=== PATIENT | male | born 1960 | race Caucasian/White ===

== ENCOUNTER 2020-08-08 11:57 | Day surgery (SDC) | payer OTHER, SELFPAY ==
[2020-08-05 10:00] VITALS: BMI 23.8
--- NOTE | 2020-08-06 15:04 | HO.ANESPROP2 ---
Documented by User: Natacha Dubon 08/06/20 15:05 HPI - Anesthesia Eval Consult details Narrative: 60yo M for Upper Endoscopy and Colonoscopy [facility] Past Medical History Medical History Moderate asthma Psoriatic arthritis Pure hypercholesterolemia Unintentional weight loss Family History Family History (Updated 07/18/20 @ 09:03 by Magdalene Marina) Father Kidney failure Mother Diabetes Stroke Brother Cancer of kidney Surgical History Surgical History H/O enucleation of right eyeball History of corneal transplant History of eye prosthesis Hx laparoscopic cholecystectomy Hx of colonoscopy Social History Social History (Updated 07/18/20 @ 09:04 by Magdalene Marina) Alcohol intake: never Smoking Status: Never smoker Use of substances other than those prescribed or required for medical reasons: No Advance Directives: No Advance Directives Information Provided: No Advance Directives on File: No Recently lost weight without trying: Yes Meds Allergies Allergy/AdvReac Type Severity Reaction Status Date / Time atorvastatin [Lipitor] Allergy Unknown elevated Verified 06/24/20 15:00 liver enzymes Home Medications Medication Instructions Recorded Confirmed Type albuterol sulfate 90 mcg/actuation 2 puff INHALATION Q4-6H PRN 06/24/20 08/05/20 History aerosol inhaler amitriptyline 25 mg tablet 25 mg PO BEDTIME 06/24/20 08/05/20 History certolizumab pegol 400 mg SUBCUT Q2W 06/24/20 08/05/20 History cetirizine 10 mg tablet 10 mg PO DAILY 06/24/20 08/05/20 History cyclobenzaprine 10 mg tablet 10 mg PO BID 06/24/20 08/05/20 History fluticasone 250 mcg-salmeterol 50 1 ea PO BID 06/24/20 08/05/20 History mcg/dose blistr powdr for inhalation montelukast 10 mg tablet 10 mg PO DAILY 06/24/20 08/05/20 History rosuvastatin 10 mg tablet 10 mg PO DAILY 06/24/20 08/05/20 History sennosides 8.6 mg tablet 17.2 mg PO BEDTIME PRN 06/24/20 08/05/20 History triamcinolone acetonide 55 mcg 1 spray INTRANASAL DAILY 06/24/20 08/05/20 History nasal spray aerosol fluticasone propion-salmeterol 1 puff PO BID 08/05/20 08/05/20 History [Besstalisaiah Inhub] pantoprazole 1 tab PO DAILY 08/05/20 08/05/20 History Exam Exam Date and Time: August 06, 2020 1504 Height,Weight and Vital Signs: Height 5 ft 4 in Weight 63.049 kg Pertinent Lab Results Pertinent Lab Results: Laboratory Tests 07/18/20 07/18/20 10:18 10:18 WBC 5.5 RBC 5.41 Hgb 14.3 Hct 44.6 Plt Count 309 Sodium 139 Potassium 4.9 D Chloride 104 Carbon Dioxide 29 BUN 16 Creatinine 0.85 Assessment and Plan Assessment Anesthesia Assessment: Chart Reviewed Documented by User: Qi Conley 08/08/20 12:58 PMFSH Past Medical History Medical History Moderate asthma Psoriatic arthritis Pure hypercholesterolemia Unintentional weight loss Family History Family History (Updated 07/18/20 @ 09:03 by Magdalene Marina) Father Kidney failure Mother Diabetes Stroke Brother Cancer of kidney Family history of problems with anesthesia: No Surgical History Surgical History H/O enucleation of right eyeball History of corneal transplant History of eye prosthesis Hx laparoscopic cholecystectomy Hx of colonoscopy History of Problems with Anesthesia: No Social History Social History (Updated 07/18/20 @ 09:04 by Magdalene Marina) Alcohol intake: never Smoking Status: Never smoker Use of substances other than those prescribed or required for medical reasons: No Advance Directives: No Advance Directives Information Provided: No Advance Directives on File: No Recently lost weight without trying: Yes Meds Allergies Allergy/AdvReac Type Severity Reaction Status Date / Time atorvastatin [Lipitor] Allergy Unknown elevated Verified 06/24/20 15:00 liver enzymes Home Medications Medication Instructions Recorded Confirmed Type albuterol sulfate 90 mcg/actuation 2 puff INHALATION Q4-6H PRN 06/24/20 08/05/20 History aerosol inhaler amitriptyline 25 mg tablet 25 mg PO BEDTIME 06/24/20 08/05/20 History certolizumab pegol 400 mg SUBCUT Q2W 06/24/20 08/05/20 History cetirizine 10 mg tablet 10 mg PO DAILY 06/24/20 08/05/20 History cyclobenzaprine 10 mg tablet 10 mg PO BID 06/24/20 08/05/20 History fluticasone 250 mcg-salmeterol 50 1 ea PO BID 06/24/20 08/05/20 History mcg/dose blistr powdr for inhalation montelukast 10 mg tablet 10 mg PO DAILY 06/24/20 08/05/20 History rosuvastatin 10 mg tablet 10 mg PO DAILY 06/24/20 08/05/20 History sennosides 8.6 mg tablet 17.2 mg PO BEDTIME PRN 06/24/20 08/05/20 History triamcinolone acetonide 55 mcg 1 spray INTRANASAL DAILY 06/24/20 08/05/20 History nasal spray aerosol fluticasone propion-salmeterol 1 puff PO BID 08/05/20 08/05/20 History [Wixela Inhub] pantoprazole 1 tab PO DAILY 08/05/20 08/05/20 History Exam Height,Weight and Vital Signs: Vital Signs Temp Pulse Resp BP Pulse Ox 08/08/20 12:28 97.6 F 54 16 129/78 99 Airway Mallampati Class: II TM Dist: >3cm Neck ROM: Full Heart: RRR Lungs: CTAB Assessment and Plan Assessment Anesthesia Assessment: Anesthesia Plan Discussed and Chart Reviewed Final Anesthetic Review NPO: Yes ASA Class: II Final Preanesthetic Review: No Changes in Pt Med Stat, Meds/Allgs Chart Reviewed, Consent Obtained/Reviewed and Anes Risks/Benef Reviewed Patient Risk: Low Procedure Risk: Low Anesthetic Plan Anesthetic Plan: MAC: Disposition: Standard PACU
[2020-08-08 12:28] VITALS: BP 129/78; PULSE 54; RESP 16; TEMP 36.4; O2SAT 99
--- NOTE | 2020-08-08 12:35 | ECG_ITS ---
Test Reason : ABN EKG Blood Pressure : / mmHG Vent. Rate : 055 BPM Atrial Rate : 055 BPM P-R Int : 170 ms QRS Dur : 088 ms QT Int : 418 ms P-R-T Axes : 064 -04 037 degrees QTc Int : 399 ms Sinus bradycardia RSR' or QR pattern in V1 suggests right ventricular conduction delay Otherwise normal ECG When compared with ECG of 19-SEP-2016 15:23, Vent. rate has decreased BY 43 BPM Referred By: Qi Conley Electronically Signed By:FABRIZIO SUMNER MD
[2020-08-08] MEDS: Lactated Ringers 1,000 ML 100 ML IVCONT (12:57)
--- NOTE | 2020-08-08 13:13 | MHC.SHP ---
Pre-Procedural Eval Section A The patient is an INPATIENT: No Changes since office visit: No Cold of Flu in the past 2 weeks, No New Medical Problems, No Changes in Medication and No Patient answered all questions The History & Physical has been completed within 30 days and I have reviewed it.: Yes Section B Chief Complaint: left quadrant pain Allergies: Allergies Allergy/AdvReac Type Severity Reaction Status Date / Time atorvastatin [Lipitor] Allergy Unknown elevated Verified 06/24/20 15:00 liver enzymes Plan Patient has been examined and remains a candidate for the planned procedure
--- NOTE | 2020-08-08 13:57 | PM.OP ---
Brief Operative Note Date of Service: 08/08/20 Pre-op diagnosis: abd pain, wt loss Post-op diagnosis: same (colon polyps) Procedure: EGD, colon Surgeon: Quan Velázquez Anesthesia: MAC Estimated blood loss (mL): 5 Pathology: other (polyps cecum, 70 cm. Biopsies duodenum,antrum, egj, t.i., sigmoid) Condition: stable Disposition: PACU
[2020-08-08 13:58] VITALS: BP 94/56; PULSE 88; RESP 16; TEMP 36.1; O2SAT 99
[2020-08-08 14:13] VITALS: BP 117/76; PULSE 79; RESP 16; O2SAT 100
--- NOTE | 2020-08-08 14:34 | HO.POSTANES ---
Post Anesthesia Evaluation Post Anesthesia Evaluation Vital Signs: Vital Signs Temp Pulse Resp BP Pulse Ox 08/08/20 14:13 97.0 F 79 16 117/76 100 08/08/20 13:58 97.0 F 88 16 94/56 L 99 08/08/20 12:28 97.6 F 54 16 129/78 99 Anesthesia: General (tiva) Mental Status: Awake Pain Control: Satisfactory Nausea/Vomiting: None Hydration: Adequate Anesthesia-Related Issues: No Anes. Related Issues
--- NOTE | 2020-08-08 14:38 | OP_ITS ---
SURGEON: Quan Velázquez MD INDICATIONS: Abdominal pain and weight loss. PREOPERATIVE DIAGNOSIS: POSTOPERATIVE DIAGNOSIS: PROCEDURE PERFORMED: 1. Upper endoscopy with biopsy. 2. Colonoscopy to the terminal ileum with biopsy and snare polypectomy. ESTIMATED BLOOD LOSS: COMPLICATIONS: ANESTHESIA: ASSISTANTS: SPECIMENS: MEDICATIONS: Monitored anesthesia care. DESCRIPTION OF PROCEDURE: History and physical performed. The risks and benefits of the procedure were explained to the patient. Informed consent was obtained. The patient was placed in the left lateral decubitus position. The Olympus video gastroscope was introduced into the esophagus, stomach, and duodenum. Examination was performed and the scope was removed. He was repositioned for colonoscopy. A digital rectal exam was performed and was found to be normal. The Olympus pediatric video colonoscope was introduced into the rectum and advanced to the cecum without difficulty. The cecum was identified by transillumination, palpation, and identification of ileocecal valve. Examination was performed and the scope was removed. He tolerated both procedures well and returned to recovery area in stable condition. FINDINGS: UPPER ENDOSCOPY: Esophagus: The esophagus was normal. There was no esophagitis. The EG junction was slightly irregular and biopsies were obtained to rule out Scruggs's esophagus. Stomach: The stomach showed no evidence of masses, ulcers, or polyps. Antral biopsies were obtained to evaluate for H pylori. Duodenum: The bulb and second portion were normal. Biopsies were obtained from the second portion. COLONOSCOPY: The terminal ileum was normal. This was biopsied. In the cecum, was a 4 to 5 mm polyp, which was removed with biopsy forceps. At 70 cm from the anal verge in the vicinity of the hepatic flexure, there was an 8 mm pedunculated polyp, which was snared and recovered via suction. The quality of the prep was good. No other polyps were identified. Random sigmoid biopsies were obtained. Retroflexed examination showed small internal hemorrhoids. IMPRESSION: 1. Normal upper endoscopy. 2. Colon polyps. RECOMMENDATION: Follow up the biopsy results. MD TRI Wilson/KELSY / [id number]
== END 2020-08-08 14:45 | disposition home or self-care (01) ==
PROVIDERS: PCP Internal Medicine; Visit Provider Internal Medicine Gastroenterology
PROC: (CPT 43239; principal; 2020-08-08 13:20)
DX: R10.12 Left upper quadrant pain (principal); R63.4 Abnormal weight loss; D12.0 Benign neoplasm of cecum; D12.3 Benign neoplasm of transverse colon; K64.8 Other hemorrhoids; J45.909 Unspecified asthma, uncomplicated; Z79.899 Other long term (current) drug therapy
CPT/HCPCS: 43239; 45380; 45385; 88305; 88342; 93005; J3010

== ENCOUNTER 2020-08-12 07:51 | Outpatient (REF) | payer OTHER, SELFPAY ==
--- NOTE | 2020-08-12 07:52 | CT_ITS ---
EXAMINATION: CT ABDOMEN AND PELVIS WITH CONTRAST CLINICAL INFORMATION: Unintended weight loss. COMPARISON: None. TECHNIQUE: Multidetector volumetric images were obtained from the superior aspect of the liver through the pubic symphysis following administration 85 mL of Omnipaque 350 intravenous contrast. Sagittal and coronal reformatted images were obtained on the technologist's workstation. Oral contrast: Yes This CT examination was performed using dose optimization techniques as appropriate, variously including the following: *Automated exposure control *Adjustment of mA and/or kV according to patient size (this includes techniques or standardized protocols for targeted exams where dose is matched to indication/reason for exam; i.e. extremities or head) *Use of iterative reconstruction technique DLP: 268 mGy-cm. FINDINGS: LUNG BASES: The lung bases are clear. The heart size is normal. LIVER, GALLBLADDER, AND BILIARY TREE: The liver is normal in size, shape, and attenuation. No focal hepatic lesion or biliary ductal dilatation is present. The gallbladder has been surgically removed. PANCREAS: Unremarkable. SPLEEN: Unremarkable. ADRENAL GLANDS: Unremarkable. KIDNEYS AND URETERS: The kidneys are normal in size, shape, and attenuation. No hydronephrosis, hydroureter, or calculi seen. No perinephric stranding. BLADDER: The bladder is distended extending just below the umbilicus but no wall thickening or radiopaque calculi seen. GASTROINTESTINAL TRACT: There is contrast and stool opacifying the entire colon without distention. The small bowel loops are normal caliber. Appendix is normal caliber. No free fluid or free air seen. There is mild haziness in the left small bowel mesentery with punctate small lymph nodes no focal mass seen. ABDOMINAL WALL: No significant hernia is appreciated. LYMPH NODES: Normal. VASCULAR: Unremarkable. PELVIC VISCERA: The prostate gland is mildly enlarged and slightly heterogenous centrally. Periprostatic fat planes are preserved. There is no free fluid. OSSEOUS STRUCTURES: No lytic or sclerotic process. There is mild ventral spondylosis. CT/CT abdomen pelvis w con IMPRESSION: No acute intra-abdominal process seen. Aishwarya mesentery, nonspecific. Can be seen with inflammatory or infectious etiology. No mass is seen. There are small mesenteric lymph nodes measuring 5 mm and less. Similar findings were seen on previous exam 06/13/2018 and in 2011. Distended urinary bladder likely secondary to prostate enlargement. The prostate is hyperdense centrally.
[2020-08-12] MEDS: Barium Sulfate Oral (Vanilla) 450 ML ORAL.SUSP 900 ML PO (11:03)
[2020-08-12] MEDS: iohexoL 350 MG/ML 100 ML INFUS..BTL 85 ML IV (11:04)
== END 2020-08-12 07:52 | disposition home or self-care (01) ==
LOC: HO.CT 07:51
PROVIDERS: PCP Internal Medicine; Visit Provider Internal Medicine Medical Oncology
DX: R63.4 Abnormal weight loss (principal)
CPT/HCPCS: 74177; Q9967

== ENCOUNTER → 2020-10-02 09:40 | Outpatient (REF) | payer OTHER, SELFPAY ==
--- NOTE | 2020-10-02 09:44 | ECG_ITS ---
Test Reason : CP Blood Pressure : / mmHG Vent. Rate : 063 BPM Atrial Rate : 063 BPM P-R Int : 158 ms QRS Dur : 094 ms QT Int : 378 ms P-R-T Axes : 066 -06 048 degrees QTc Int : 386 ms Normal sinus rhythm Normal ECG When compared with ECG of 08-AUG-2020 12:44, No significant change was found Referred By: Zonia Ashraf Electronically Signed By:ELDA MCCLURE MD
== END ==
LOC: HO.CARD 09:40
PROVIDERS: PCP Internal Medicine; Visit Provider Internal Medicine
DX: R07.9 Chest pain, unspecified (principal); B35.1 Tinea unguium
CPT/HCPCS: 93005

== ENCOUNTER 2020-10-06 08:07 | Outpatient (REF) | payer OTHER, SELFPAY ==
[2020-10-06 08:29] LABS: MANUAL DIFF FLAG NO
[2020-10-06 08:35] LABS: Basophils Percent Auto 0.5 % (0-2); Eosinophils Absolute Auto 0.3 X10*3/uL (0.0-0.4); Eosinophils Percent Auto 4.8 % (0-4); Hematocrit 45.6 % (42-52); Hemoglobin 14.9 g/dl (14.0-18.0); Imm Gran Abs Auto 0.03 X10*3/uL (0.00-0.03); Imm Gran Pct Auto 0.5 % (0.0-0.4); Lymphocytes Absolute Auto 2.3 X10*3/uL (1.2-4.9); Lymphocytes Percent Auto 38.1 % (20-40); Mean Corpuscular HGB Conc 32.7 g/dl (31.0-36.0); Mean Corpuscular Hemoglobin 26.6 pg (27.0-33.0); Mean Corpuscular Volume 81.4 fL (80-98); Mean Platelet Volume 10.4 fL (9.4-12.4); Monocytes Absolute Auto 0.5 X10*3/uL (0.1-1.2); Monocytes Percent Auto 8.1 % (2-11); Neutrophils Absolute Auto 2.9 X10*3/uL (2.0-8.3); Platelet Count 294 X10*3/uL (160-400); Red Cell Distribution Width 13.5 % (11.0-16.0)
[2020-10-06 08:58] LABS: Alanine Aminotransferase 22 U/L (0-40); Albumin Level 4.3 g/dL (3.5-5.0); Alkaline Phosphatase 63 U/L (39-117); Anion Gap 10 (12-20); Aspartate Amino Transferase 16 U/L (5-37); Bilirubin Total 0.8 mg/dL (0.0-1.0); Blood Urea Nitrogen 16 mg/dL (9-16); Calcium 9.2 mg/dL (8.4-10.2); Carbon Dioxide 30 mmol/L (22-29); Chloride 104 mmol/L (96-108); Cholesterol 190 mg/dL; Estimated Glomerular Filt Rate > 60; Glucose Fasting 102 mg/dL (60-99); HDL Cholesterol 52 mg/dL; LDL Cholesterol Calculated 112 mg/dl; Potassium 4.5 mmol/l (3.3-5.1); Sodium 139 mmol/L (135-145); Total Protein 7.2 g/dL (6.5-8.0); Triglycerides 130 mg/dL
== END 2020-10-06 08:08 | disposition home or self-care (01) ==
LOC: HO.LAB 08:07
PROVIDERS: Absent Provider Internal Medicine Medical Oncology; PCP Internal Medicine; Visit Provider Internal Medicine
DX: J45.40 Moderate persistent asthma, uncomplicated (principal); E78.00 Pure hypercholesterolemia, unspecified; E78.5 Hyperlipidemia, unspecified
CPT/HCPCS: 36415; 80053; 80061; 85025

== ENCOUNTER 2021-02-09 09:52 | Outpatient (REF) | payer OTHER, SELFPAY ==
[2021-02-09 11:56] LABS: Alanine Aminotransferase 19 U/L (0-40); Alkaline Phosphatase 69 U/L (39-117); Anion Gap 11 (12-20); Aspartate Amino Transferase 15 U/L (5-37); Bilirubin Total 0.8 mg/dL (0.0-1.0); Blood Urea Nitrogen 14 mg/dL (9-16); Calcium 9.1 mg/dL (8.4-10.2); Carbon Dioxide 27 mmol/L (22-29); Chloride 105 mmol/L (96-108); Cholesterol 221 mg/dL; Estimated Glomerular Filt Rate > 60; Glucose Fasting 97 mg/dL (60-99); HDL Cholesterol 50 mg/dL; LDL Cholesterol Calculated 152 mg/dl; Potassium 4.7 mmol/L (3.3-5.1); Sodium 138 mmol/L (135-145); Total Protein 6.9 g/dL (6.5-8.0); Triglycerides 96 mg/dL
[2021-02-13 14:12] LABS: Vitamin D 25-OH, D2 <4 ng/mL; Vitamin D 25-OH, D3 30 ng/mL; Vitamin D 25-OH, Total 30 ng/mL (30-100)
== END 2021-02-09 09:53 | disposition home or self-care (01) ==
LOC: HO.LAB 09:52
PROVIDERS: PCP Internal Medicine; Visit Provider Internal Medicine
DX: E78.5 Hyperlipidemia, unspecified (principal); E55.9 Vitamin D deficiency, unspecified; K21.9 Gastro-esophageal reflux disease without esophagitis
CPT/HCPCS: 36415; 80053; 80061; 82306

== ENCOUNTER 2021-07-13 08:42 | Outpatient (REF) | payer OTHER, SELFPAY ==
[2021-07-13 09:34] LABS: Alanine Aminotransferase 22 U/L (0-40); Albumin Level 4.2 g/dL (3.5-5.0); Alkaline Phosphatase 67 U/L (39-117); Anion Gap 11 (12-20); Aspartate Amino Transferase 16 U/L (5-37); Bilirubin Total 0.6 mg/dL (0.0-1.0); Blood Urea Nitrogen 14 mg/dL (9-16); Calcium 9.4 mg/dL (8.4-10.2); Carbon Dioxide 28 mmol/L (22-29); Chloride 106 mmol/L (96-108); Cholesterol 197 mg/dL; Estimated Glomerular Filt Rate > 60; Glucose Fasting 104 mg/dL (60-99); HDL Cholesterol 51 mg/dL; LDL Cholesterol Calculated 130 mg/dl; Potassium 4.7 mmol/L (3.3-5.1); Sodium 140 mmol/L (135-145); Triglycerides 82 mg/dL
== END 2021-07-13 08:43 | disposition home or self-care (01) ==
LOC: HO.LAB 08:42
PROVIDERS: PCP Internal Medicine; Visit Provider Internal Medicine
DX: E78.5 Hyperlipidemia, unspecified (principal); L40.50 Arthropathic psoriasis, unspecified
CPT/HCPCS: 36415; 80053; 80061

== ENCOUNTER 2021-09-17 13:39 | Emergency (ER) | payer OTHER, SELFPAY ==
--- NOTE | ~2021-09-17 | XR_ITS ---
EXAMINATION: XR CHEST CLINICAL INFORMATION: Cough COMPARISON: 06/04/2019 TECHNIQUE: AP upright view of the chest FINDINGS: Lungs are clear. No consolidation, pneumothorax, or pleural effusion. Cardiac and mediastinal contours are normal. Pulmonary vasculature is unremarkable. Osseous structures are unremarkable. Status post right rotator cuff repair with distal clavicular resection. XR/XR chest 1V IMPRESSION: No acute cardiopulmonary findings
[2021-09-17 19:18] VITALS: BP 104/79; PULSE 73; RESP 18; TEMP 36.7; O2SAT 98; BMI 24.9
--- NOTE | 2021-09-17 21:20 | ED_ITS ---
HPI - General Adult General Chief complaint: General Medical Stated complaint: ASTHMA Time Seen by Provider: 09/17/21 21:13 Source: patient Limitations: no limitations History of Present Illness HPI narrative: this is a 61-year-old male with a history of asthma who for 3 days has had a dry cough, mild wheezing, some headache, mild sore throat. He feels a little short of breath. He denies any fever. He denies any abdominal pain, vomiting, diarrhea. He has not had any COVID contacts that he knows of. He has received 3 immunizations for COVID. Related Data Home Medications Medication Instructions Recorded Confirmed certolizumab pegol 400 mg SUBCUT Q2W 06/24/20 07/20/21 triamcinolone acetonide 55 mcg 1 spray INTRANASAL DAILY 06/24/20 07/20/21 nasal spray aerosol Previous Rx's Medication Instructions Recorded albuterol sulfate 2.5 mg (3 mL) INHALATION Q4-6H PRN 09/25/20 30 Days #75 ml cane #1 ea 11/20/20 albuterol sulfate 90 mcg/actuation 2 puff INHALATION Q4-6H PRN 30 03/16/21 aerosol inhaler (ProAir HFA) Days #6.7 g amitriptyline 25 mg tablet 25 mg PO BEDTIME 90 Days #90 tab 03/16/21 cetirizine 10 mg tablet (Allergy 10 mg PO DAILY 90 Days #90 tab 03/16/21 Relief (cetirizine)) cyclobenzaprine 10 mg tablet 10 mg PO BID PRN #14 tab 03/16/21 fluticasone 250 mcg-salmeterol 50 1 ea PO BID #180 cap 03/16/21 mcg/dose blistr powdr for inhalation (Wixela Inhub) naproxen 500 mg tablet 500 mg PO BID 30 Days #60 tab 03/16/21 pantoprazole 40 mg tablet,delayed 40 mg PO DAILY 90 Days #90 tab 03/16/21 release rosuvastatin 10 mg tablet 10 mg PO DAILY #90 tab 03/16/21 sennosides 8.6 mg tablet 17.2 mg PO BEDTIME PRN 90 Days #90 03/16/21 tab montelukast 10 mg tablet 10 mg PO DAILY 90 Days #90 tab 09/09/21 albuterol sulfate 2.5 mg (3 mL) INHALATION Q4-6H PRN 09/17/21 #90 ml Allergies Allergy/AdvReac Type Severity Reaction Status Date / Time atorvastatin [Lipitor] Allergy Intermediate elevated Verified 07/20/21 14:48 liver enzymes Review of Systems Review of Systems: Yes all other systems are reviewed and are negative Constitutional: Constitutional: Reports as per HPI, Denies fever(s) and Rep orts headache(s) Eyes: Eyes: Reports as per HPI and Reports no additional eye complaints ENT: Reports system reviewed and no additional complaints, except as documented, Reports as per HPI, Reports headache(s), Denies nasal congestion, Denies nasal discharge and Denies sore throat Cardiovascular: Cardiovascular: Reports as per HPI, Denies chest pain and Reports dyspnea Respiratory: Respiratory: Reports as per HPI, Reports cough, Reports dyspnea and Reports wheezing Gastrointestinal: Gastrointestinal: Reports as per HPI, Denies abdominal pain, Denies diarrhea and Denies vomiting Genitourinary: Genitourinary: Reports as per HPI, Denies hematuria, Denies dysuria and Denies urinary frequency Musculoskeletal: Musculoskeletal: Reports no additional musculoskeletal complaints Integumentary/Breasts: Skin/Breast: Reports as per HPI and Denies rash Neurologic: Reports as per HPI, Reports headache(s), Reports focal weakness and Denies Sensory deficit (Neuro) Psychiatric: Psychiatric: Reports no additional psychiatric complaints and Reports as per HPI Endocrine: Endocrine: Reports no additional endocrine complaints and Reports as per HPI Hematologic/Lymphatic: Hematologic/Lymphatic: Reports no additional hematologic/lymphatic complaints, Reports as per HPI and Reports other (No peripheral edema) Allergic/Immunologic: Allergic/Immunologic: Reports wheezing PMFSH Past Medical History Medical History (Updated 09/17/21 @ 22:06 by Henry Ordaz MD) Back pain Chest pain Constipation by delayed colonic transit GERD (gastroesophageal reflux disease) Moderate asthma Psoriatic arthritis Pure hypercholesterolemia Unintentional weight loss Surgical History (Updated 07/20/21 @ 14:55 by Zonia Ashraf MD) H/O enucleation of right eyeball History of corneal transplant History of eye prosthesis Hx laparoscopic cholecystectomy Hx of colonoscopy Family History Family History Father Kidney failure Mother Diabetes Stroke Brother Cancer of kidney Social History Social History Housing: House Alcohol intake: never Patient Tobacco Use Status: Never used Tobacco e-Cigarette/Vaping Use: Never Used Advance Directives: No Advance Directives Information Provided: Yes service: No Current occupational status: disabled Physical Exam Vital Signs: Vital Signs: Last Vital Signs Temp 98.1 F 09/17/21 19:18 Pulse 73 09/17/21 19:18 Resp 18 09/17/21 19:18 BP 104/79 09/17/21 19:18 Pulse Ox 98 09/17/21 19:18 BMI result Body Mass Index 24.9 Const: General: cooperative, no acute distress and alert Orientation/consciousness: patient oriented x3 HENMT: Head: Yes normal to inspection Eyes: General: appearance normal, both eyes and all related structures Eyelids: Yes eyelids normal Conjunctivae: conjunctivae normal Pupils: Equal, round and reactive pupils present Neck: Neck: Yes normal visual inspection and Yes supple Chest: Chest palpation & inspection: normal inspection of the chest Resp: Effort & Inspection: normal respiratory effort Auscultation: wheezes ( Mild expiratory) Cardio: Rate: regular rate Rhythm: regular rhythm Heart sounds: S1 normal heart sound present, S2 normal heart sound present, no gallops, no murmurs and no rubs GI: Palpation (GI): Soft to palpation, nontender and Other GI palpation findings present (Non-distended) Auscultation: normal bowel sounds Skin: General skin exam: no rashes or lesions noted Neuro: General: patient oriented x3, no focal motor deficits and CN's II-XI intact bilaterally Cranial nerves: Yes Equal, round and reactive pupils present Cognition (Neuro): normal cognition Motor exam (neuro): 5/5 motor strength present throughout Sensory Exam: No Sensory deficit (Neuro) Extrem: General: Yes normal to inspection and Yes no pedal edema Psych: Appearance: grossly normal Affect: normal affect Medical Decision Making MDM Narrative Medical decision making narrative: patient here for URI and asthma symptoms. COVID test negative. Chest x-ray negative. Mild wheezing on exam. Patient has been prescribed prednisone by his primary care physician and I am prescribing a refill of his albuterol nebulizer Liquid unit doses. Lab Data Lab results reviewed: Yes I reviewed the patient's lab results. Labs: Lab Results 09/17/21 Range/Units 21:21 COVID-19 ([facility]) Negative (Negative) COVID-19 Clin Com See Note Imaging Data Chest x-ray: Radiologist's impression: No acute pathology Discharge Plan Discharge Clinical Impression: Asthma, Acute viral syndrome Patient Disposition: Home, Self-Care Instructions: Asthma (ED), Viral Syndrome (ED) Additional Instructions: drink plenty of fluids. Use your albuterol nebulizer and inhaler every 6 hours and as needed. Start the prednisone as prescribed by your primary care physician. return for any new or worsened symptoms. Prescriptions: New albuterol sulfate 2.5 mg /3 mL (0.083 %) solution for nebulization 2.5 mg inhalation Q4-6H PRN (Reason: bronchospasm) Qty: 90 RF: 0 No Action (DME) cane Device See Rx Instructions .ROUTE .MEDSUPPLY Qty: 1 RF: 0 montelukast 10 mg tablet 10 mg PO DAILY 90 Days Qty: 90 RF: 1 certolizumab pegol 400 mg/2 mL (200 mg/mL x 2) syringe kit 400 mg subcut Q2W RF: 0 triamcinolone acetonide 55 mcg aerosol,spray 1 spray intranasal DAILY RF: 0 albuterol sulfate 2.5 mg /3 mL (0.083 %) solution for nebulization 2.5 mg inhalation Q4-6H PRN (Reason: shortness of breath or wheezing) 30 Days Qty: 75 RF: 6 rosuvastatin 10 mg tablet 10 mg PO DAILY Qty: 90 RF: 2 amitriptyline 25 mg tablet 25 mg PO BEDTIME 90 Days Qty: 90 RF: 1 cetirizine [Allergy Relief (cetirizine)] 10 mg tablet 10 mg PO DAILY 90 Days Qty: 90 RF: 1 cyclobenzaprine 10 mg tablet 10 mg PO BID PRN (Reason: muscle spasm) Qty: 14 RF: 0 albuterol sulfate [ProAir HFA] 90 mcg/actuation HFA aerosol inhaler 2 puff inhalation Q4-6H PRN (Reason: Shortness Of Breath) 30 Days Qty: 6.7 RF: 4 fluticasone propion-salmeterol [Wixela Inhub] 250-50 mcg/dose blister with device 1 ea PO BID Qty: 180 RF: 2 naproxen 500 mg tablet 500 mg PO BID 30 Days Qty: 60 RF: 2 pantoprazole 40 mg tablet,delayed release (DR/EC) 40 mg PO DAILY 90 Days Qty: 90 RF: 1 sennosides 8.6 mg tablet 17.2 mg PO BEDTIME PRN (Reason: Constipation) 90 Days Qty: 90 RF: 1
[2021-09-17 21:48] LABS: COVID-19 Test Negative (Negative)
--- NOTE | 2021-09-17 23:20 | PC.NURSE ---
Discharged at this time. I sarah hudson that this patient was in the family room, was notified at this time that [facility] and was asked to discharge. i did not valuate this patient during their er visit, simply [rpvoded them with their dc instructions.
== END 2021-09-17 23:20 | disposition home or self-care (01) ==
PROVIDERS: Emergency Provider Emergency Medicine; PCP Internal Medicine
DX: B34.9 Viral infection, unspecified (principal); J45.909 Unspecified asthma, uncomplicated; Z20.822 Contact with and (suspected) exposure to COVID-19; Z79.899 Other long term (current) drug therapy
CPT/HCPCS: 36415; 71045; 87635; 99283

== ENCOUNTER 2021-09-30 09:21 | Outpatient (REF) | payer OTHER, SELFPAY ==
--- NOTE | ~2021-09-30 | XR_ITS ---
EXAMINATION: XR CHEST CLINICAL INFORMATION: Chest pain COMPARISON: Chest 09/17/2021 TECHNIQUE: 2 views of the chest were obtained. FINDINGS: The lungs are well-expanded and clear of acute pneumonic process. There is platelike atelectasis in the lingula. Heart size and pulmonary vascularity is normal. There is moderate spondylosis dorsal spine. No lytic process seen. XR/XR chest 2V IMPRESSION: Lingular atelectasis and/or scarring. Rest of the lungs are clear.
== END 2021-09-30 09:22 | disposition home or self-care (01) ==
LOC: HO.HMGCX 09:21
PROVIDERS: PCP Internal Medicine; Visit Provider Internal Medicine
DX: R07.9 Chest pain, unspecified (principal)
CPT/HCPCS: 71046

== ENCOUNTER 2021-10-07 10:00 | Outpatient (REF) | payer OTHER, SELFPAY ==
[2021-10-07 10:23] LABS: MANUAL DIFF FLAG NO
[2021-10-07 11:06] LABS: Basophils Percent Auto 0.2 % (0-2); Hematocrit 46.2 % (42.0-52.0); Hemoglobin 15.2 g/dl (14.0-18.0); Imm Gran Abs Auto 0.12 X10*3/uL (0.00-0.03); Imm Gran Pct Auto 0.9 % (0.0-0.4); Lymphocytes Absolute Auto 1.1 X10*3/uL (1.2-4.9); Lymphocytes Percent Auto 8.5 % (20-40); Mean Corpuscular HGB Conc 32.9 g/dl (31.0-36.0); Mean Corpuscular Hemoglobin 26.4 pg (27.0-33.0); Mean Corpuscular Volume 80.2 fL (80.0-98.0); Mean Platelet Volume 10.9 fL (9.4-12.4); Monocytes Absolute Auto 0.7 X10*3/uL (0.1-1.2); Monocytes Percent Auto 5.2 % (2-11); Neutrophils Absolute Auto 11.2 x10*3/uL (2.0-8.3); Neutrophils Percent Auto 85.2 % (45-73); Platelet Count 341 X10*3/uL (160-400); Red Blood Count 5.76 X10*6/uL (4.60-5.80); Red Cell Distribution Width 13.3 % (11.0-16.0); White Blood Count 13.1 X10*3/uL (4.8-10.8)
[2021-10-07 11:35] LABS: Alanine Aminotransferase 42 U/L (0-40); Albumin Level 4.3 g/dL (3.5-5.0); Alkaline Phosphatase 70 U/L (39-117); Anion Gap 14 (12-20); Aspartate Amino Transferase 17 U/L (5-37); Blood Urea Nitrogen 22 mg/dL (9-16); Calcium 10.1 mg/dL (8.4-10.2); Carbon Dioxide 24 mmol/L (22-29); Chloride 103 mmol/L (96-108); Estimated Glomerular Filt Rate > 60; Glucose Random 104 mg/dL (60-115); Potassium 4.6 mmol/L (3.3-5.1); Sodium 136 mmol/L (135-145); Total Protein 7.3 g/dL (6.5-8.0)
[2021-10-07 11:54] LABS: HBS Num1 0.27 mIU/mL (0-7.99); HBc Num1 0.09 S/CO (0.00-0.79); Hepatitis B Core Antibody Nonreactive (Nonreactive); ~HepC Num1 0.26 S/CO (0.00-0.79); ~Hepatitis B Surface Antibody NONREACTIVE (Nonreactive); ~Hepatitis C Antibody Nonreactive (Nonreactive)
[2021-10-08 05:08] LABS: HBsAGNum1 0.21 S/CO (0.00-0.99); Hepatitis A Antibody IgM 0.25 Index (0-0.79); Hepatitis B Surface Antigen Negative (Negative); ~Hepatitis A Antibody IgM Nonreactive (Nonreactive)
[2021-10-09 20:55] LABS: TS Negative Control Passed; TS Panel A 0; TS Panel B 0; TS Positive Control Passed; TSpotTB Negative (Negative)
== END 2021-10-07 10:01 | disposition home or self-care (01) ==
LOC: HO.LAB 10:00
PROVIDERS: PCP Internal Medicine; Visit Provider Dermatology
DX: Z11.1 Encounter for screening for respiratory tuberculosis (principal); L40.0 Psoriasis vulgaris; K75.9 Inflammatory liver disease, unspecified
CPT/HCPCS: 36415; 80053; 85025; 86481; 86704; 86706; 86709; 86803; 87340

== ENCOUNTER 2021-12-21 16:17 | Emergency (ER) | payer OTHER, SELFPAY ==
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
[2021-12-21 17:36] VITALS: BP 150/80; PULSE 92; RESP 18; TEMP 36.6; O2SAT 97; BMI 25.5
[2021-12-21 18:26] LABS: Appearance Urine HAZY; Color Urine YELLOW; Glucose Urine UA NEG (NEG); Leukocyte Esterase Urine NEG (NEG); Nitrite Urine POS (NEG); UACC Culture Trigger YES; Urine Blood TRACE (NEG); Urine Ketones NEG (NEG); Urine Protein NEG (NEG-TRACE)
[2021-12-21 18:49] LABS: Bacteria Urine 4+ /LPF; Squamous Epithelial Cell Urine TRACE /LPF
[2021-12-21 18:51] LABS: RBC Urine 0-2 /HPF (0); WBC Urine 0-2 /HPF (0-4)
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
[2021-12-21] MEDS: Acetaminophen 325 MG TABLET 975 MG PO (19:52)
[2021-12-21 19:53] LABS: MANUAL DIFF FLAG NO
[2021-12-21] MEDS: Ibuprofen 600 MG TABLET PO (19:53)
[2021-12-21 19:55] LABS: Basophils Percent Auto 0.3 % (0-2); Eosinophils Percent Auto 0.2 % (0-4); Hematocrit 43.7 % (42.0-52.0); Hemoglobin 14.4 g/dl (14.0-18.0); Imm Gran Abs Auto 0.06 X10*3/uL (0.00-0.03); Imm Gran Pct Auto 0.4 % (0.0-0.4); Lymphocytes Percent Auto 13.4 % (20-40); Mean Corpuscular Hemoglobin 27.2 pg (27.0-33.0); Mean Corpuscular Volume 82.5 fL (80.0-98.0); Mean Platelet Volume 9.9 fL (9.4-12.4); Monocytes Percent Auto 6.8 % (2-11); Neutrophils Absolute Auto 11.9 x10*3/uL (2.0-8.3); Neutrophils Percent Auto 78.9 % (45-73); Platelet Count 290 X10*3/uL (160-400); Red Cell Distribution Width 13.8 % (11.0-16.0)
[2021-12-21 20:09] LABS: Alanine Aminotransferase 24 U/L (0-40); Albumin Level 4.5 g/dL (3.5-5.0); Alkaline Phosphatase 69 U/L (39-117); Anion Gap 11 (12-20); Aspartate Amino Transferase 19 U/L (5-37); Bilirubin Total 1.8 mg/dL (0.0-1.0); Blood Urea Nitrogen 11 mg/dL (9-16); COVID-19 Test Negative (Negative); Calcium 9.5 mg/dL (8.4-10.2); Carbon Dioxide 28 mmol/L (22-29); Chloride 102 mmol/L (96-108); Creatinine Clr Calc Pharmacy 70.6; Estimated Glomerular Filt Rate > 60; Glucose Random 107 mg/dL (60-115); IDNOW Serial# 55D5AD1C; Potassium 4.2 mmol/L (3.3-5.1); Sodium 137 mmol/L (135-145); Total Protein 7.2 g/dL (6.5-8.0)
[2021-12-21 20:18] LABS: Influenza A Negative (Negative); Influenza B2 Negative (Negative)
== END 2021-12-21 21:59 | disposition home or self-care (01) ==
PROVIDERS: Nurse Practitioner Family; Emergency Provider Emergency Medicine; PCP Internal Medicine
DX: N39.0 Urinary tract infection, site not specified (principal); M54.50 Low back pain, unspecified; Z20.822 Contact with and (suspected) exposure to COVID-19
CPT/HCPCS: 72100; 80053; 81001; 85025; 87086; 87088; 87186; 87502; 87635; 99283; 99284

== ENCOUNTER 2021-12-23 09:51 | Emergency (ER) | payer OTHER, SELFPAY ==
--- NOTE | ~2021-12-23 | CT_ITS ---
EXAMINATION: CT ABDOMEN AND PELVIS WITH CONTRAST CLINICAL INFORMATION: Flank pain. Hematuria. Trauma. COMPARISON: 08/12/2020 TECHNIQUE: Multidetector volumetric images were obtained from the superior aspect of the liver through the pubic symphysis following administration 85 mL of Omnipaque 350 intravenous contrast. Sagittal and coronal reformatted images were obtained on the technologist's workstation. Oral contrast: No This CT examination was performed using dose optimization techniques as appropriate, variously including the following: *Automated exposure control *Adjustment of mA and/or kV according to patient size (this includes techniques or standardized protocols for targeted exams where dose is matched to indication/reason for exam; i.e. extremities or head) *Use of iterative reconstruction technique DLP: 383 mGy-cm FINDINGS: LUNG BASES: Minimal bibasilar atelectasis. The visualized cardiac structures are unremarkable. LIVER, GALLBLADDER, AND BILIARY TREE: The liver is normal in size, shape, and attenuation. No focal hepatic lesion or biliary ductal dilatation is present. Cholecystectomy. PANCREAS: Unremarkable. SPLEEN: Unremarkable. ADRENAL GLANDS: Unremarkable. KIDNEYS AND URETERS: The kidneys are normal in size, shape, and attenuation. No hydronephrosis, hydroureter, or calculi seen. No perinephric stranding. BLADDER: Unremarkable. GASTROINTESTINAL TRACT: The stomach is decompressed. Normal caliber small bowel. No obstruction. No colonic wall thickening or acute inflammation. Normal appendix. No free air. No free fluid. ABDOMINAL WALL: No significant hernia is appreciated. LYMPH NODES: No lymphadenopathy. Appearance of a daryl mesentery . This is unchanged from prior. VASCULAR: Normal caliber aorta. Mild upper scrota calcification. PELVIC VISCERA: The prostate and seminal vesicles are unremarkable. OSSEOUS STRUCTURES: No acute or suspicious osseous abnormality. Mild degenerative changes throughout the spine. CT/CT abdomen pelvis w con IMPRESSION: No acute abnormality of the abdomen or pelvis. Normal appearance of the kidneys. Fleischner guidelines were followed.
[2021-12-23 10:24] VITALS: BP 131/80; PULSE 79; RESP 18; TEMP 36.8; O2SAT 98; BMI 23.5
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
[2021-12-23 11:39] LABS: MANUAL DIFF FLAG NO
[2021-12-23 11:42] LABS: Appearance Urine CLEAR; Color Urine YELLOW; Glucose Urine UA 100 MG/DL (NEG); Leukocyte Esterase Urine NEG (NEG); Nitrite Urine NEG (NEG); UACC Culture Trigger NO; Urine Blood TRACE (NEG); Urine Ketones NEG (NEG); Urine Protein NEG (NEG-TRACE)
[2021-12-23] MEDS: cefTRIAXone sodium 1 GM in 0.9 % Sodium Chloride 50 ML IV (11:43)
[2021-12-23 11:48] LABS: Basophils Percent Auto 0.3 % (0-2); Eosinophils Absolute Auto 0.1 X10*3/uL (0.0-0.4); Eosinophils Percent Auto 0.4 % (0-4); Hematocrit 43.1 % (42.0-52.0); Hemoglobin 13.9 g/dl (14.0-18.0); Imm Gran Abs Auto 0.04 X10*3/uL (0.00-0.03); Imm Gran Pct Auto 0.3 % (0.0-0.4); Lymphocytes Absolute Auto 1.8 X10*3/uL (1.2-4.9); Lymphocytes Percent Auto 14.9 % (20-40); Mean Corpuscular HGB Conc 32.3 g/dl (31.0-36.0); Mean Corpuscular Hemoglobin 26.7 pg (27.0-33.0); Mean Corpuscular Volume 82.9 fL (80.0-98.0); Mean Platelet Volume 10.4 fL (9.4-12.4); Monocytes Absolute Auto 0.9 X10*3/uL (0.1-1.2); Monocytes Percent Auto 7.8 % (2-11); Neutrophils Absolute Auto 9.1 x10*3/uL (2.0-8.3); Neutrophils Percent Auto 76.3 % (45-73); Platelet Count 270 X10*3/uL (160-400); Red Cell Distribution Width 13.7 % (11.0-16.0); White Blood Count 11.9 X10*3/uL (4.8-10.8)
[2021-12-23 11:58] LABS: Lactic Acid 1.3 mmol/L (0.5-2.0)
[2021-12-23 12:09] LABS: Alanine Aminotransferase 35 U/L (0-40); Albumin Level 4.2 g/dL (3.5-5.0); Alkaline Phosphatase 85 U/L (39-117); Anion Gap 12 (12-20); Aspartate Amino Transferase 22 U/L (5-37); Bilirubin Direct 0.6 mg/dL (0.0-0.5); Bilirubin Total 1.6 mg/dL (0.0-1.0); Blood Urea Nitrogen 9 mg/dL (9-16); Calcium 9.7 mg/dL (8.4-10.2); Carbon Dioxide 27 mmol/L (22-29); Chloride 103 mmol/L (96-108); Creatinine Clr Calc Pharmacy 77.3; Estimated Glomerular Filt Rate > 60; Glucose Random 80 mg/dL (60-115); Potassium 4.1 mmol/L (3.3-5.1); Sodium 138 mmol/L (135-145); Total Protein 7.1 g/dL (6.5-8.0)
[2021-12-23 12:24] LABS: Mucus Urine 1+ /LPF; Squamous Epithelial Cell Urine TRACE /LPF; WBC Urine 0-2 /HPF (0-4)
[2021-12-23] MEDS: iohexoL 350 MG/ML 100 ML INFUS..BTL 85 ML IV (12:26)
--- NOTE | 2021-12-23 12:27 | PC.NURSE ---
Pt arrives from home, was dx with UTI on Tuesday, pt states that he started having bloody urine yesterday along with fevers as high as 100.8. Pt verbalizes pain when urinating. Urine is a cloudy dark yellow color. is at bedside. Pt resting in stretcher awaiting further results.
[2021-12-23 12:56] VITALS: BP 113/67; PULSE 60; RESP 15; O2SAT 100
--- NOTE | 2021-12-23 13:38 | PC.NURSE ---
Pt provided with DC paperwork by another provider. Verbalized understanding. Questions answered by this RN. Pt is A/O. at bedside and okay with plan of care.
== END 2021-12-23 13:38 | disposition home or self-care (01) ==
PROVIDERS: Nurse Practitioner Family; Emergency Provider Emergency Medicine Emergency Medical Services; PCP Internal Medicine
DX: N39.0 Urinary tract infection, site not specified (principal); R31.9 Hematuria, unspecified; Z79.899 Other long term (current) drug therapy
CPT/HCPCS: 36415; 74177; 80048; 80076; 81001; 83605; 85025; 87040; 96365; 99284; J0696; Q9967

== ENCOUNTER 2022-01-05 07:29 | Outpatient (REF) | payer OTHER, SELFPAY ==
--- NOTE | ~2022-01-05 | US_ITS ---
EXAMINATION: US PELVIS, LIMITED/FOLLOW UP CLINICAL INFORMATION: Suspected bilateral inguinal hernia. COMPARISON: CT of the abdomen and pelvis done on 12/23/2021. TECHNIQUE: Targeted ultrasound of both inguinal region was performed. FINDINGS: No sonographic evidence of any bowel herniation is present at the inguinal region on either side. No evidence of any abnormal enlarged lymphadenopathy, mass or fluid collection is seen. US/US pelvic limited IMPRESSION: No sonographic evidence of inguinal hernia is noted on either side.
== END 2022-01-05 07:30 | disposition home or self-care (01) ==
LOC: HO.US 07:29
PROVIDERS: PCP Internal Medicine; Visit Provider Internal Medicine
DX: K40.90 Unilateral inguinal hernia, without obstruction or gangrene, not specified as recurrent (principal)
CPT/HCPCS: 76857

== ENCOUNTER 2022-01-27 14:09 | Outpatient (REF) | payer OTHER, SELFPAY ==
[2022-01-27 14:35] LABS: Appearance Urine CLEAR; Color Urine YELLOW; Glucose Urine UA NEG (NEG); Leukocyte Esterase Urine NEG (NEG); Nitrite Urine NEG (NEG); PH 5.5 (5.0-8.0); Specific Gravity - Urine >= 1.030 (1.005-1.025); Urine Blood NEG (NEG); Urine Ketones NEG (NEG); Urine Protein NEG (NEG-TRACE)
== END 2022-01-27 14:10 | disposition home or self-care (01) ==
LOC: HO.LAB 14:09
PROVIDERS: PCP Internal Medicine; Visit Provider Internal Medicine
DX: R30.0 Dysuria (principal)
CPT/HCPCS: 81003

== ENCOUNTER 2022-02-12 10:21 | Outpatient (REF) | payer OTHER, SELFPAY ==
[2022-02-12 10:51] LABS: COVID-19 Test Positive (Negative); IDNOW Serial# 16C4AD1C
== END 2022-02-12 10:22 | disposition home or self-care (01) ==
LOC: HO.LAB 10:21
PROVIDERS: Visit Provider Internal Medicine
DX: Z20.822 Contact with and (suspected) exposure to COVID-19 (principal)
CPT/HCPCS: 87635; C9803

== ENCOUNTER 2022-02-24 10:38 | Outpatient (REF) | payer OTHER, SELFPAY ==
[2022-02-24 10:46] LABS: MANUAL DIFF FLAG NO
[2022-02-24 11:47] LABS: Basophils Percent Auto 0.6 % (0-2); Eosinophils Absolute Auto 0.1 X10*3/uL (0.0-0.4); Eosinophils Percent Auto 2.1 % (0-4); Hematocrit 42.3 % (42.0-52.0); Hemoglobin 13.8 g/dl (14.0-18.0); Imm Gran Abs Auto 0.03 X10*3/uL (0.00-0.03); Imm Gran Pct Auto 0.6 % (0.0-0.4); Lymphocytes Percent Auto 37.3 % (20-40); Mean Corpuscular HGB Conc 32.6 g/dl (31.0-36.0); Mean Corpuscular Hemoglobin 26.7 pg (27.0-33.0); Mean Platelet Volume 10.7 fL (9.4-12.4); Monocytes Absolute Auto 0.5 X10*3/uL (0.1-1.2); Monocytes Percent Auto 9.3 % (2-11); Neutrophils Absolute Auto 2.7 x10*3/uL (2.0-8.3); Neutrophils Percent Auto 50.1 % (45-73); Platelet Count 307 X10*3/uL (160-400); Red Blood Count 5.16 X10*6/uL (4.60-5.80); Red Cell Distribution Width 13.4 % (11.0-16.0); White Blood Count 5.3 X10*3/uL (4.8-10.8)
[2022-02-24 12:25] LABS: Alanine Aminotransferase 17 U/L (0-40); Albumin Level 4.1 g/dL (3.5-5.0); Alkaline Phosphatase 63 U/L (39-117); Anion Gap 12 (12-20); Aspartate Amino Transferase 17 U/L (5-37); Bilirubin Total 0.9 mg/dL (0.0-1.0); Blood Urea Nitrogen 16 mg/dL (9-16); Calcium 9.2 mg/dL (8.4-10.2); Carbon Dioxide 24 mmol/L (22-29); Chloride 105 mmol/L (96-108); Estimated Glomerular Filt Rate > 60; Glucose Random 82 mg/dL (60-115); Potassium 4.9 mmol/L (3.3-5.1); Sodium 136 mmol/L (135-145)
== END 2022-02-24 10:39 | disposition home or self-care (01) ==
LOC: HO.LAB 10:38
PROVIDERS: PCP Internal Medicine; Visit Provider Dermatology
DX: L40.0 Psoriasis vulgaris (principal)
CPT/HCPCS: 36415; 80053; 85025

== ENCOUNTER 2022-03-19 07:43 | Outpatient (REF) | payer OTHER, SELFPAY ==
[2022-03-19 08:01] LABS: MANUAL DIFF FLAG NO
[2022-03-19 08:14] LABS: Basophils Percent Auto 0.5 % (0-2); Eosinophils Absolute Auto 0.2 X10*3/uL (0.0-0.4); Eosinophils Percent Auto 2.8 % (0-4); Imm Gran Abs Auto 0.02 X10*3/uL (0.00-0.03); Imm Gran Pct Auto 0.3 % (0.0-0.4); Lymphocytes Absolute Auto 2.2 X10*3/uL (1.2-4.9); Lymphocytes Percent Auto 36.4 % (20-40); Mean Corpuscular HGB Conc 32.6 g/dl (31.0-36.0); Mean Corpuscular Hemoglobin 26.3 pg (27.0-33.0); Mean Corpuscular Volume 80.7 fL (80.0-98.0); Mean Platelet Volume 9.8 fL (9.4-12.4); Monocytes Absolute Auto 0.6 X10*3/uL (0.1-1.2); Monocytes Percent Auto 9.4 % (2-11); Neutrophils Absolute Auto 3.1 x10*3/uL (2.0-8.3); Neutrophils Percent Auto 50.6 % (45-73); Platelet Count 313 X10*3/uL (160-400); Red Blood Count 5.33 X10*6/uL (4.60-5.80); Red Cell Distribution Width 13.6 % (11.0-16.0); White Blood Count 6.2 X10*3/uL (4.8-10.8)
[2022-03-19 08:37] LABS: Alanine Aminotransferase 17 U/L (0-40); Albumin Level 4.1 g/dL (3.5-5.0); Alkaline Phosphatase 68 U/L (39-117); Anion Gap 10 (12-20); Aspartate Amino Transferase 13 U/L (5-37); Bilirubin Total 0.8 mg/dL (0.0-1.0); Blood Urea Nitrogen 16 mg/dL (9-16); Calcium 9.2 mg/dL (8.4-10.2); Carbon Dioxide 26 mmol/L (22-29); Chloride 107 mmol/L (96-108); Cholesterol 201 mg/dL; Estimated Glomerular Filt Rate > 60; Glucose Fasting 103 mg/dL (60-99); HDL Cholesterol 48 mg/dL; LDL Cholesterol Calculated 134 mg/dl; Potassium 4.1 mmol/L (3.3-5.1); Sodium 139 mmol/L (135-145); Total Protein 6.9 g/dL (6.5-8.0); Triglycerides 98 mg/dL
== END 2022-03-19 07:44 | disposition home or self-care (01) ==
LOC: HO.LAB 07:43
PROVIDERS: PCP Internal Medicine; Visit Provider Internal Medicine
DX: D72.829 Elevated white blood cell count, unspecified (principal); M25.511 Pain in right shoulder; E78.5 Hyperlipidemia, unspecified
CPT/HCPCS: 36415; 80053; 80061; 85025

== ENCOUNTER 2022-07-22 09:13 | Outpatient (REF) | payer OTHER, SELFPAY ==
--- NOTE | ~2022-07-22 | MR_ITS ---
EXAMINATION: MR BRAIN WITHOUT CONTRAST CLINICAL INFORMATION: Daily persistent headaches. COMPARISON: Head CT dated 01/17/2019. TECHNIQUE: Multiplanar, multisequence imaging of the brain was performed without contrast. FINDINGS: No diffusion abnormalities are identified to suggest an acute infarct. The ventricles are normal in size. No mass effect or midline shift is seen. Mild chronic white matter microangiopathic changes noted. No extra-axial fluid collections are seen. The brainstem and cerebellum are normal. The gradient refocused acquisition is normal. The craniovertebral junction, marrow signal, and midline structures are normal. The major intracranial flow voids at the level of the [place] of [place] are preserved. The dural venous sinus flow voids are maintained. The mastoid air cells are well aerated. There is [id number] mucosal thickening in the paranasal sinuses, more so in the ethmoid air cells bilaterally. Right ocular prosthesis again visible. MR/MR head/brain wo con IMPRESSION: No acute intracranial process. Mild chronic white matter microangiopathy.
--- NOTE | ~2022-07-22 | XR_ITS ---
EXAMINATION: XR MRI SCREENING CLINICAL INFORMATION: Prior to MRI. Prosthetic right eye. COMPARISON: None TECHNIQUE: 3 views of the orbits FINDINGS: There is no unexpected radiopaque foreign body. The visualized paranasal sinuses are well aerated. XR/XR pre mri screening IMPRESSION: No unexpected radiopaque foreign body.
--- NOTE | 2022-07-22 09:26 | ECG_ITS ---
Test Reason : R07.9 CP Blood Pressure : / mmHG Vent. Rate : 054 BPM Atrial Rate : 054 BPM P-R Int : 170 ms QRS Dur : 106 ms QT Int : 412 ms P-R-T Axes : 066 -17 033 degrees QTc Int : 390 ms Sinus bradycardia Low voltage QRS Left axis deviation Intra-ventricular conduction delay Abnormal ECG When compared with ECG of 02-OCT-2020 09:53, No significant change was found Referred By: Zonia Ashraf Electronically Signed By:FABRIZIO SUMNER MD
== END 2022-07-22 09:14 | disposition home or self-care (01) ==
LOC: HO.MRI 09:13
PROVIDERS: PCP Internal Medicine; Visit Provider Internal Medicine
DX: R07.9 Chest pain, unspecified (principal); G44.52 New daily persistent headache (NDPH)
CPT/HCPCS: 70551; 93005

== ENCOUNTER 2022-08-02 11:06 | Emergency (ER) | payer OTHER, SELFPAY ==
--- NOTE | ~2022-08-02 | XR_ITS ---
EXAMINATION: XR CHEST CLINICAL INFORMATION: Rule out pneumonia COMPARISON: None TECHNIQUE: Frontal view of the chest was obtained. FINDINGS: The cardiac and mediastinal contours are normal. The lungs are clear. There is no pleural effusion or pneumothorax. There are degenerative changes of the thoracic spine. There are postsurgical changes to the right shoulder. XR/XR chest 1V IMPRESSION: No evidence for acute disease in the chest.
--- NOTE | 2022-08-02 11:14 | ECG_ITS ---
Test Reason : Chest Pain Blood Pressure : / mmHG Vent. Rate : 084 BPM Atrial Rate : 084 BPM P-R Int : 148 ms QRS Dur : 090 ms QT Int : 350 ms P-R-T Axes : 066 -38 049 degrees QTc Int : 413 ms Normal sinus rhythm Left anterior fascicular block RSR' or QR pattern in V1 suggests right ventricular conduction delay Abnormal ECG When compared with ECG of 22-JUL-2022 09:35, Vent. rate has increased BY 30 BPM Referred By: Generic ED Physician Electronically Signed By:FABRIZIO SUMNER MD
[2022-08-02 11:20] VITALS: BP 138/81; PULSE 72; RESP 18; TEMP 36.6; O2SAT 100; BMI 25.4
--- NOTE | 2022-08-02 11:20 | ED.GENADULT ---
HPI - General Adult General Chief complaint: Chest Pain <Tahmina Dumont MD - Last Filed: 08/02/22 11:29> Stated complaint: Chest pain/Difficulty breathing/Abnormal EKG <Tahmina Dumont MD - Last Filed: 08/02/22 11:29> Time Seen by Provider: 08/02/22 16:24 <Tahmina Dumont MD - Last Filed: 08/02/22 11:29> Source: patient <Douglas Dallas MD - Last Filed: 08/02/22 18:06> Mode of arrival: ambulatory <Douglas Dallas MD - Last Filed: 08/02/22 18:06> Limitations: no limitations <Douglas Dallas MD - Last Filed: 08/02/22 18:06> History of Present Illness HPI narrative: Patient with history of asthma frequent bronchitis comes here for cough for last 3 days with wheezing no fever no chills feel chest tight no other family member sick coughing with mucopurulent phlegm <Douglas Dallas MD - Last Filed: 08/02/22 18:06> Related Data Home medications: Home Medications Medication Instructions Recorded Confirmed certolizumab pegol 400 mg/2 mL 400 mg subcut Q2W 06/24/20 07/22/22 (200 mg/mL x2) subcutaneous syringe kit Previous Rx's Medication Instructions Recorded cane #1 ea 11/20/20 cyclobenzaprine 10 mg tablet 10 mg PO BID PRN muscle spasm #14 03/16/21 tabs cetirizine 10 mg tablet (Allergy 10 mg PO DAILY 90 days #90 tabs 09/22/21 Relief (cetirizine)) sennosides 8.6 mg tablet 17.2 mg PO BEDTIME PRN 09/22/21 Constipation 90 days #90 tabs albuterol sulfate 2.5 mg/3 mL 2.5 mg (3 mL) inhalation Q4-6H PRN 09/23/21 (0.083 %) solution for nebulization bronchospasm #90 mL albuterol sulfate 90 mcg/actuation 2 puff inhalation Q4-6H PRN 09/23/21 aerosol inhaler (ProAir HFA) Shortness Of Breath 30 days #6.7 grams amitriptyline 25 mg tablet 25 mg PO BEDTIME 90 days #90 tabs 09/23/21 triamcinolone acetonide 55 mcg 1 spray intranasal DAILY 30 days 09/23/21 nasal spray aerosol #16.9 mL meloxicam 15 mg tablet 15 mg PO DAILY #14 tabs 09/30/21 acetaminophen 500 mg tablet 1,000 mg PO Q6H PRN pain #30 tabs 10/05/21 (Acetaminophen Extra Strength) lidocaine 5 % topical patch 1 patch topical DAILY left hand 10/05/21 pain, and wrist pain #15 ea ibuprofen 800 mg tablet 800 mg PO Q8H #23 tabs 10/12/21 fluticasone 250 mcg-salmeterol 50 1 ea PO BID #180 caps 12/15/21 mcg/dose blistr powdr for inhalation (Niki Shelby) montelukast 10 mg tablet 10 mg PO DAILY 90 days #90 tabs 03/11/22 rosuvastatin 20 mg tablet 20 mg PO DAILY 90 days #90 tabs 03/23/22 pantoprazole 40 mg tablet,delayed 40 mg PO DAILY 90 days #90 tabs 04/03/22 release albuterol sulfate 2.5 mg/3 mL 2.5 mg (3 mL) inhalation Q4-6H PRN 08/02/22 (0.083 %) solution for nebulization shortness of breath or wheezing #90 mL albuterol sulfate 90 mcg/actuation 2 puff inhalation Q4-6H PRN 08/02/22 aerosol inhaler (ProAir HFA) shortness of breath or wheezing #8.5 grams codeine 10 mg-guaifenesin 100 mg/5 10 ml PO Q6H PRN cough #237 mL 08/02/22 mL oral liquid doxycycline hyclate 100 mg tablet 100 mg PO BID #20 tabs 08/02/22 prednisone 20 mg tablet 40 mg PO DAILY #10 tabs 08/02/22 <Tahmina Dumont MD - Last Filed: 08/02/22 11:29> Allergies/adverse reactions: Allergies Allergy/AdvReac Type Severity Reaction Status Date / Time atorvastatin [Lipitor] Allergy Intermediate elevated Verified 07/22/22 08:51 liver enzymes <Tahmina Dumont MD - Last Filed: 08/02/22 11:29> Review of Systems Review of Systems: Yes all other systems are reviewed and are negative <Douglas Dallas MD - Last Filed: 08/02/22 18:06> [facility] Past Medical History Medical History: Medical History Back pain Chest pain Constipation by delayed colonic transit GERD (gastroesophageal reflux disease) Hematuria Hospital discharge follow-up Left inguinal hernia Leukocytosis Moderate asthma Psoriatic arthritis Pure hypercholesterolemia Unintentional weight loss UTI (urinary tract infection) <Tahmina Dumont MD - Last Filed: 08/02/22 11:29> Surgical History: Surgical History H/O enucleation of right eyeball History of corneal transplant History of eye prosthesis Hx laparoscopic cholecystectomy Hx of colonoscopy <Tahmina Dumont MD - Last Filed: 08/02/22 11:29> Family History Family History: Family History Father Kidney failure Mother Diabetes Stroke Alzheimer disease Brother Cancer of kidney Sister Breast cancer Brother Lung cancer <Tahmina Dumont MD - Last Filed: 08/02/22 11:29> Social History Social History: Social History Housing: House Alcohol intake: current Alcohol intake frequency: holidays/special occasions only Alcohol type: beer Patient Tobacco Use Status: Never used Tobacco e-Cigarette/Vaping Use: Never Used Second Hand Smoke Exposure: No Advance Directives: No Advance Directives Information Provided: Yes service: No Current occupational status: disabled Cognitive needs: No Hearing needs: No Vision needs: Yes (Glasses) <Tahmina Dumont MD - Last Filed: 08/02/22 11:29> Physical Exam ED Vital Signs: Vital Signs - 24 hr 08/02/22 11:20 08/02/22 16:00 Temperature 97.8 F 98.0 F Pulse Rate 72 61 Respiratory Rate 18 15 Blood Pressure 138/81 115/69 Pulse Oximetry 100 98 Oxygen Delivery Method Room Air Room Air BMI result Body Mass Index 25.4 <Tahmina uDmont MD - Last Filed: 08/02/22 11:29> Vital Signs - 24 hr 08/02/22 11:20 08/02/22 16:00 Temperature 97.8 F 98.0 F Pulse Rate 72 61 Respiratory Rate 18 15 Blood Pressure 138/81 115/69 Pulse Oximetry 100 98 Oxygen Delivery Method Room Air Room Air BMI result Body Mass Index 25.4 <Douglas Dallas MD - Last Filed: 08/02/22 18:06> Appearance: Alert. Oriented X3. No acute distress. Eyes: No pallor or icterus ENT: Pharynx normal. Oral Mucosa moist Neck: Normal inspection. Neck supple. CVS: Normal heart rate and rhythm. Pulses normal. Respiratory: No respiratory distress. Equal air entry bilateral, + b/l wheezing no rales Abdomen: Soft and nontender. Bowel sounds are present, no mass palpable, no CVA tenderness Skin: Skin warm and dry. Normal skin color. Normal skin turgor. Extremities: No lower extremity edema. No calf tenderness Neuro: Oriented X 3. No motor deficit. <Douglas Dallas MD - Last Filed: 08/02/22 18:06> Course Course Course Narrative: -C/o CP since today 3am and astma/sob for 3 days -has tried tyelnol, has tried inhaler, last tx 330am -c/o coughing 3 days, yesterday worse, now has sore throat coughing -EKG shows no acute abnormality -pt takes tyelnol for frequent headaches, had MRI Nov , wnl, IMPRESSION: No acute intracranial process. Mild chronic white matter microangiopathy. PE: no wheezing, normal air movement, actively coughing, O2 sat 100% on RA, actively coughing -f/u labs and cxr <Tahmina Dumont MD - Last Filed: 08/02/22 11:29> Medications Administered Discontinued Medications Generic Name Dose Route Start Last Admin Trade Name Freq PRN Reason Stop Dose Admin Albuterol Sulfate 5 mg/ 0 mg 08/02/22 16:36 08/02/22 16:58 Albuterol/Ipratropium 3 ml INHALE 08/02/22 16:37 7.5 each ONCE ONE Administration Dexamethasone 10 mg 08/02/22 16:36 08/02/22 16:54 Dexamethasone 2 Mg Tablet PO 08/02/22 16:37 10 mg ONCE ONE Administration Guaifenesin/Codeine Phosphate 10 ml 08/02/22 16:36 08/02/22 16:55 Guaifen/Codeine Sf 200/20/10ml 10 Ml Liquid PO 08/02/22 16:37 10 ml ONCE ONE Administration <Tahmina Dumont MD - Last Filed: 08/02/22 11:29> Medications Administered Discontinued Medications Generic Name Dose Route Start Last Admin Trade Name Barbie PRN Reason Stop Dose Admin Albuterol Sulfate 5 mg/ 0 mg 08/02/22 16:36 08/02/22 16:58 Albuterol/Ipratropium 3 ml INHALE 08/02/22 16:37 7.5 each ONCE ONE Administration Dexamethasone 10 mg 08/02/22 16:36 08/02/22 16:54 Dexamethasone 2 Mg Tablet PO 08/02/22 16:37 10 mg ONCE ONE Administration Guaifenesin/Codeine Phosphate 10 ml 08/02/22 16:36 08/02/22 16:55 Guaifen/Codeine Sf 200/20/10ml 10 Ml Liquid PO 08/02/22 16:37 10 ml ONCE ONE Administration <Douglas Dallas MD - Last Filed: 08/02/22 18:06> Medical Decision Making [facility] Narrative Medical decision making narrative: Patient with acute bronchitis improved after nebulizing treatment discharge patient home on doxycycline and prednisone <Douglas Dallas MD - Last Filed: 08/02/22 18:06> Lab Data Lab results reviewed: Yes I reviewed the patient's lab results. <Douglas Dallas MD - Last Filed: 08/02/22 18:06> Result diagrams: : 08/02/22 11:29 08/02/22 11:29 <Tahmina Dumont MD - Last Filed: 08/02/22 11:29> Labs: Lab Results 08/02/22 08/02/22 08/02/22 Range/Units 11:29 11:29 11:29 WBC 9.3 (4.8-10.8) X10*3/uL RBC 5.20 (4.60-5.80) X10*6/uL Hgb 13.9 L (14.0-18.0) g/dl Hct 41.7 L (42.0-52.0) % MCV 80.2 (80.0-98.0) fL MCH 26.7 L (27.0-33.0) pg MCHC 33.3 (31.0-36.0) g/dl RDW 13.5 (11.0-16.0) % Plt Count 317 (160-400) X10*3/uL MPV 10.5 (9.4-12.4) fL Immature Gran % (Auto) 0.4 (0.0-0.4) % Neut % (Auto) 68.8 (45-73) % Lymph % (Auto) 21.8 (20-40) % [place] % (Auto) 6.7 (2-11) % Eos % (Auto) 2.0 (0-4) % Baso % (Auto) 0.3 (0-2) % Lymph # (Auto) 2.0 (1.2-4.9) X10*3/uL [place] # (Auto) 0.6 (0.1-1.2) X10*3/uL Eos # (Auto) 0.2 (0.0-0.4) X10*3/uL Baso # (Auto) 0.0 (0.0-0.2) X10*3/uL Abs Immat Gran (auto) 0.04 H (0.00-0.03) X10*3/uL Absolute Neuts (auto) 6.4 (2.0-8.3) x10*3/uL Absolute Nucleated RBC 0.000 (0.0-0.012) X10*3/uL Nucleated RBC % (auto) 0.0 (0.0-0.2) /100WBC Sodium 139 (135-145) mmol/L Potassium 4.5 (3.3-5.1) mmol/L Chloride 105 (96-108) mmol/L Carbon Dioxide 24 (22-29) mmol/L Anion Gap 15 (12-20) BUN 14 (9-16) mg/dL Creatinine 0.84 (0.5-1.4) mg/dL Estim Creat Clear Calc 67.4 Estimated GFR > 60 Random Glucose 89 (60-115) mg/dL Calcium 9.6 (8.4-10.2) mg/dL Troponin I High Sens (<3.5-35.0) ng/L COVID-19 (JORDAN) Negative (Negative) COVID-19 Clin Com See Note 08/02/22 Range/Units 11:33 WBC (4.8-10.8) X10*3/uL RBC (4.60-5.80) X10*6/uL Hgb (14.0-18.0) g/dl Hct (42.0-52.0) % MCV (80.0-98.0) fL MCH (27.0-33.0) pg MCHC (31.0-36.0) g/dl RDW (11.0-16.0) % Plt Count (160-400) X10*3/uL MPV (9.4-12.4) fL Immature Gran % (Auto) (0.0-0.4) % Neut % (Auto) (45-73) % Lymph % (Auto) (20-40) % [place] % (Auto) (2-11) % Eos % (Auto) (0-4) % Baso % (Auto) (0-2) % Lymph # (Auto) (1.2-4.9) X10*3/uL [place] # (Auto) (0.1-1.2) X10*3/uL Eos # (Auto) (0.0-0.4) X10*3/uL Baso # (Auto) (0.0-0.2) X10*3/uL Abs Immat Gran (auto) (0.00-0.03) X10*3/uL Absolute Neuts (auto) (2.0-8.3) x10*3/uL Absolute Nucleated RBC (0.0-0.012) X10*3/uL Nucleated RBC % (auto) (0.0-0.2) /100WBC Sodium (135-145) mmol/L Potassium (3.3-5.1) mmol/L Chloride (96-108) mmol/L Carbon Dioxide (22-29) mmol/L Anion Gap (12-20) BUN (9-16) mg/dL Creatinine (0.5-1.4) mg/dL Estim Creat Clear Calc Estimated GFR Random Glucose (60-115) mg/dL Calcium (8.4-10.2) mg/dL Troponin I High Sens < 3.5 (<3.5-35.0) ng/L COVID-19 (JORDAN) (Negative) COVID-19 Clin Com <Tahmina Dumont MD - Last Filed: 08/02/22 11:29> Lab Results 08/02/22 08/02/22 08/02/22 Range/Units 11:29 11:29 11:29 WBC 9.3 (4.8-10.8) X10*3/uL RBC 5.20 (4.60-5.80) X10*6/uL Hgb 13.9 L (14.0-18.0) g/dl Hct 41.7 L (42.0-52.0) % MCV 80.2 (80.0-98.0) fL MCH 26.7 L (27.0-33.0) pg MCHC 33.3 (31.0-36.0) g/dl RDW 13.5 (11.0-16.0) % Plt Count 317 (160-400) X10*3/uL MPV 10.5 (9.4-12.4) fL Immature Gran % (Auto) 0.4 (0.0-0.4) % Neut % (Auto) 68.8 (45-73) % Lymph % (Auto) 21.8 (20-40) % [place] % (Auto) 6.7 (2-11) % Eos % (Auto) 2.0 (0-4) % Baso % (Auto) 0.3 (0-2) % Lymph # (Auto) 2.0 (1.2-4.9) X10*3/uL [place] # (Auto) 0.6 (0.1-1.2) X10*3/uL Eos # (Auto) 0.2 (0.0-0.4) X10*3/uL Baso # (Auto) 0.0 (0.0-0.2) X10*3/uL Abs Immat Gran (auto) 0.04 H (0.00-0.03) X10*3/uL Absolute Neuts (auto) 6.4 (2.0-8.3) x10*3/uL Absolute Nucleated RBC 0.000 (0.0-0.012) X10*3/uL Nucleated RBC % (auto) 0.0 (0.0-0.2) /100WBC Sodium 139 (135-145) mmol/L Potassium 4.5 (3.3-5.1) mmol/L Chloride 105 (96-108) mmol/L Carbon Dioxide 24 (22-29) mmol/L Anion Gap 15 (12-20) BUN 14 (9-16) mg/dL Creatinine 0.84 (0.5-1.4) mg/dL Estim Creat Clear Calc 67.4 Estimated GFR > 60 Random Glucose 89 (60-115) mg/dL Calcium 9.6 (8.4-10.2) mg/dL Troponin I High Sens (<3.5-35.0) ng/L COVID-19 (JORDAN) Negative (Negative) COVID-19 Clin Com See Note 08/02/22 Range/Units 11:33 WBC (4.8-10.8) X10*3/uL RBC (4.60-5.80) X10*6/uL Hgb (14.0-18.0) g/dl Hct (42.0-52.0) % MCV (80.0-98.0) fL MCH (27.0-33.0) pg MCHC (31.0-36.0) g/dl RDW (11.0-16.0) % Plt Count (160-400) X10*3/uL MPV (9.4-12.4) fL Immature Gran % (Auto) (0.0-0.4) % Neut % (Auto) (45-73) % Lymph % (Auto) (20-40) % [place] % (Auto) (2-11) % Eos % (Auto) (0-4) % Baso % (Auto) (0-2) % Lymph # (Auto) (1.2-4.9) X10*3/uL [place] # (Auto) (0.1-1.2) X10*3/uL Eos # (Auto) (0.0-0.4) X10*3/uL Baso # (Auto) (0.0-0.2) X10*3/uL Abs Immat Gran (auto) (0.00-0.03) X10*3/uL Absolute Neuts (auto) (2.0-8.3) x10*3/uL Absolute Nucleated RBC (0.0-0.012) X10*3/uL Nucleated RBC % (auto) (0.0-0.2) /100WBC Sodium (135-145) mmol/L Potassium (3.3-5.1) mmol/L Chloride (96-108) mmol/L Carbon Dioxide (22-29) mmol/L Anion Gap (12-20) BUN (9-16) mg/dL Creatinine (0.5-1.4) mg/dL Estim Creat Clear Calc Estimated GFR Random Glucose (60-115) mg/dL Calcium (8.4-10.2) mg/dL Troponin I High Sens < 3.5 (<3.5-35.0) ng/L COVID-19 (JORDAN) (Negative) COVID-19 Clin Com <Douglas Dallas MD - Last Filed: 08/02/22 18:06> ECG Data Attestation: I personally reviewed and interpreted this ECG as follows: <Douglas Dallas MD - Last Filed: 08/02/22 18:06> Interpretation: Normal sinus rhythm heart rate 84 beats per has no acute ST ischemic <Douglas Dallas MD - Last Filed: 08/02/22 18:06> Discharge Plan Discharge Clinical Impression: Acute bronchitis <Tahmina Dumont MD - Last Filed: 08/02/22 11:29> Patient Disposition: Home, Self-Care <Tahmina Dumont MD - Last Filed: 08/02/22 11:29> Instructions: Acute Bronchitis (ED) <Tahmina Dumont MD - Last Filed: 08/02/22 11:29> Additional Instructions: Take antibiotics and prednisone as prescribed Continue to use nebulizing treatment every 4-6 hours as needed Follow-up with PCP if not better <Tahmina Dumont MD - Last Filed: 08/02/22 11:29> Prescriptions: New prednisone 20 mg tablet 40 mg PO DAILY Qty: 10 0RF albuterol sulfate [ProAir HFA] 90 mcg/actuation HFA aerosol inhaler 2 puff inhalation Q4-6H PRN (Reason: shortness of breath or wheezing) Qty: 8.5 0RF doxycycline hyclate 100 mg tablet 100 mg PO BID Qty: 20 0RF codeine-guaifenesin 10-100 mg/5 mL liquid 10 ml PO Q6H PRN (Reason: cough) Qty: 237 0RF albuterol sulfate 2.5 mg /3 mL (0.083 %) solution for nebulization 2.5 mg inhalation Q4-6H PRN (Reason: shortness of breath or wheezing) Qty: 90 0RF No Action (DME) cane Device See Rx Instructions .ROUTE .MEDSUPPLY Qty: 1 0RF Rx Instructions: As directed albuterol sulfate 2.5 mg /3 mL (0.083 %) solution for nebulization 2.5 mg inhalation Q4-6H PRN (Reason: bronchospasm) Qty: 90 0RF albuterol sulfate [ProAir HFA] 90 mcg/actuation HFA aerosol inhaler 2 puff inhalation Q4-6H PRN (Reason: Shortness Of Breath) 30 Days Qty: 6.7 4RF amitriptyline 25 mg tablet 25 mg PO BEDTIME 90 Days Qty: 90 1RF triamcinolone acetonide 55 mcg aerosol,spray 1 spray intranasal DAILY 30 Days Qty: 16.9 1RF fluticasone propion-salmeterol [Wixela Inhub] 250-50 mcg/dose blister with device 1 ea PO BID Qty: 180 2RF montelukast 10 mg tablet 10 mg PO DAILY 90 Days Qty: 90 1RF pantoprazole 40 mg tablet,delayed release (DR/EC) 40 mg PO DAILY 90 Days Qty: 90 1RF certolizumab pegol 400 mg/2 mL (200 mg/mL x 2) syringe kit 400 mg subcut Q2W cyclobenzaprine 10 mg tablet 10 mg PO BID PRN (Reason: muscle spasm) Qty: 14 0RF cetirizine [Allergy Relief (cetirizine)] 10 mg tablet 10 mg PO DAILY 90 Days Qty: 90 1RF sennosides 8.6 mg tablet 17.2 mg PO BEDTIME PRN (Reason: Constipation) 90 Days Qty: 90 1RF ibuprofen 800 mg tablet 800 mg PO Q8H Qty: 23 0RF meloxicam 15 mg tablet 15 mg PO DAILY Qty: 14 0RF acetaminophen [Acetaminophen Extra Strength] 500 mg tablet 1,000 mg PO Q6H PRN (Reason: pain) Qty: 30 0RF lidocaine 5 % adhesive patch,medicated 1 patch topical DAILY Qty: 15 0RF Rx Instructions: leave on most painful area for up to 12 hrs rosuvastatin 20 mg tablet 20 mg PO DAILY 90 Days Qty: 90 1RF <Tahmina Dumont MD - Last Filed: 08/02/22 11:29>
[2022-08-02 11:36] LABS: MANUAL DIFF FLAG NO
[2022-08-02 11:41] LABS: Basophils Percent Auto 0.3 % (0-2); Eosinophils Absolute Auto 0.2 X10*3/uL (0.0-0.4); Hematocrit 41.7 % (42.0-52.0); Hemoglobin 13.9 g/dl (14.0-18.0); Imm Gran Abs Auto 0.04 X10*3/uL (0.00-0.03); Imm Gran Pct Auto 0.4 % (0.0-0.4); Lymphocytes Percent Auto 21.8 % (20-40); Mean Corpuscular HGB Conc 33.3 g/dl (31.0-36.0); Mean Corpuscular Hemoglobin 26.7 pg (27.0-33.0); Mean Corpuscular Volume 80.2 fL (80.0-98.0); Mean Platelet Volume 10.5 fL (9.4-12.4); Monocytes Absolute Auto 0.6 X10*3/uL (0.1-1.2); Monocytes Percent Auto 6.7 % (2-11); Neutrophils Absolute Auto 6.4 x10*3/uL (2.0-8.3); Neutrophils Percent Auto 68.8 % (45-73); Platelet Count 317 X10*3/uL (160-400); Red Cell Distribution Width 13.5 % (11.0-16.0); White Blood Count 9.3 X10*3/uL (4.8-10.8)
[2022-08-02 12:03] LABS: COVID-19 Test Negative (Negative)
[2022-08-02 12:06] LABS: Troponin-I High Sensitivity < 3.5 ng/L (<3.5-35.0)
[2022-08-02 12:06] LABS: Anion Gap 15 (12-20); Blood Urea Nitrogen 14 mg/dL (9-16); Calcium 9.6 mg/dL (8.4-10.2); Carbon Dioxide 24 mmol/L (22-29); Chloride 105 mmol/L (96-108); Creatinine Clr Calc Pharmacy 67.4; Estimated Glomerular Filt Rate > 60; Glucose Random 89 mg/dL (60-115); Potassium 4.5 mmol/L (3.3-5.1); Sodium 139 mmol/L (135-145)
[2022-08-02 16:00] VITALS: BP 115/69; PULSE 61; RESP 15; TEMP 36.7; O2SAT 98
[2022-08-02] MEDS: dexAMETHasone 2 MG TABLET 10 MG PO (16:54)
[2022-08-02] MEDS: guaiFEN/Codeine SF 200/20/10ML 10 ML LIQUID PO (16:55)
[2022-08-02] MEDS: Albuterol Sulfate 5 MG, Albuterol/Iprat 2.5/0.5MG 3 ML 3 ML INHALE (16:58)
--- NOTE | 2022-08-02 16:59 | PC.NURSE ---
pt. alert and oriented x4. complains of chest pain that does not radiate. says it gets worse when coughing. gave him cough meds and a steroid. respiratory with albuterol treatment. at the bedside.
[2022-08-02] MEDS: Doxycycline Monohydrate 100 MG CAPSULE PO (18:41)
[2022-08-02 18:43] VITALS: BP 115/67; PULSE 66; RESP 16; O2SAT 98
== END 2022-08-02 18:47 | disposition home or self-care (01) ==
PROVIDERS: Emergency Medicine; Emergency Provider Internal Medicine; PCP Internal Medicine
DX: J20.9 Acute bronchitis, unspecified (principal); Z20.822 Contact with and (suspected) exposure to COVID-19; E78.00 Pure hypercholesterolemia, unspecified; Z79.02 Long term (current) use of antithrombotics/antiplatelets; Z79.899 Other long term (current) drug therapy
CPT/HCPCS: 36415; 71045; 80048; 84484; 85025; 87635; 93005; 99284; J8540

== ENCOUNTER → 2022-09-28 09:07 | Outpatient (BNVA) | payer OTHER, SELFPAY | PROVIDERS: PCP Internal Medicine; Referring Provider Internal Medicine; Visit Provider Internal Medicine | DX: R07.9 Chest pain, unspecified (principal) | CPT/HCPCS: 99202 ==

== ENCOUNTER → 2022-10-06 09:13 | Outpatient (REF) | payer OTHER, SELFPAY ==
--- NOTE | 2022-10-06 09:17 | CA_ITS ---
Acquisition Time: 2022-10-06 10:57:47 Total Exercise Time: 00:04:54 Test Indications: ABN EKG Medications: SEE CHART Protocol: GERA Max HR: 116 BPM 73% of Pred: 158 BPM Max BP: 138/070 mmHG Max Work Load: 6.8 METS Exercise stress test with exercise 4 min 54 sec of Gera protocol, achieving 72% MPHR, with report of 7/10 left chest discomfort with radiation down his left arm and request to stop, without arrythmia, with normotensive response to exercise, without EKG changes meeting criteria for ischemia. In recovery his chest discomfort gradually improved and resolved. Test reviewed with Dr Dillon Discussed results with Dr Emanuel. Will order a stress echo for further evaluation. Referred By: Dg Emanuel Overread By: XENIA PAEZ
[2022-10-06 09:26] LABS: MANUAL DIFF FLAG NO
[2022-10-06 09:41] LABS: Basophils Percent Auto 0.6 % (0-2); Eosinophils Absolute Auto 0.2 X10*3/uL (0.0-0.4); Hematocrit 43.1 % (42.0-52.0); Hemoglobin 14.1 g/dl (14.0-18.0); Imm Gran Abs Auto 0.03 X10*3/uL (0.00-0.03); Imm Gran Pct Auto 0.5 % (0.0-0.4); Lymphocytes Percent Auto 31.6 % (20-40); Mean Corpuscular HGB Conc 32.7 g/dl (31.0-36.0); Mean Corpuscular Hemoglobin 26.9 pg (27.0-33.0); Mean Corpuscular Volume 82.3 fL (80.0-98.0); Mean Platelet Volume 10.5 fL (9.4-12.4); Monocytes Absolute Auto 0.4 X10*3/uL (0.1-1.2); Neutrophils Absolute Auto 3.6 x10*3/uL (2.0-8.3); Neutrophils Percent Auto 57.3 % (45-73); Platelet Count 301 X10*3/uL (160-400); Red Blood Count 5.24 X10*6/uL (4.60-5.80); Red Cell Distribution Width 13.6 % (11.0-16.0); White Blood Count 6.3 X10*3/uL (4.8-10.8)
[2022-10-06 10:21] LABS: Alanine Aminotransferase 17 U/L (0-40); Albumin Level 4.1 g/dL (3.5-5.0); Alkaline Phosphatase 68 U/L (39-117); Anion Gap 12 (12-20); Aspartate Amino Transferase 13 U/L (5-37); Bilirubin Direct 0.2 mg/dL (0.0-0.5); Blood Urea Nitrogen 15 mg/dL (9-16); Calcium 9.5 mg/dL (8.4-10.2); Carbon Dioxide 27 mmol/L (22-29); Chloride 105 mmol/L (96-108); Estimated Glomerular Filt Rate > 60; Glucose Random 91 mg/dL (60-115); Potassium 3.9 mmol/L (3.3-5.1); Sodium 140 mmol/L (135-145); Total Protein 6.8 g/dL (6.5-8.0)
[2022-10-09 00:44] LABS: TS Negative Control Passed; TS Panel A 0; TS Panel B 2; TS Positive Control Passed; TSpotTB Negative (Negative)
== END ==
LOC: HO.CARD 09:13
PROVIDERS: Physician Assistant; PCP Internal Medicine; Visit Provider Internal Medicine
DX: Z11.1 Encounter for screening for respiratory tuberculosis (principal); R07.9 Chest pain, unspecified
CPT/HCPCS: 36415; 80048; 80076; 85025; 86481; 93017

== ENCOUNTER 2022-11-26 07:42 | Outpatient (REF) | payer OTHER, SELFPAY ==
[2022-11-26 08:01] LABS: MANUAL DIFF FLAG NO
[2022-11-26 08:18] LABS: Basophils Absolute Auto 0.1 X10*3/uL (0.0-0.2); Basophils Percent Auto 0.8 % (0-2); Eosinophils Absolute Auto 0.2 X10*3/uL (0.0-0.4); Eosinophils Percent Auto 3.2 % (0-4); Hematocrit 42.9 % (42.0-52.0); Hemoglobin 14.3 g/dl (14.0-18.0); Imm Gran Abs Auto 0.03 X10*3/uL (0.00-0.03); Imm Gran Pct Auto 0.5 % (0.0-0.4); Lymphocytes Absolute Auto 2.4 X10*3/uL (1.2-4.9); Lymphocytes Percent Auto 36.6 % (20-40); Mean Corpuscular HGB Conc 33.3 g/dl (31.0-36.0); Mean Corpuscular Hemoglobin 27.2 pg (27.0-33.0); Mean Corpuscular Volume 81.6 fL (80.0-98.0); Mean Platelet Volume 10.5 fL (9.4-12.4); Monocytes Absolute Auto 0.5 X10*3/uL (0.1-1.2); Monocytes Percent Auto 8.2 % (2-11); Neutrophils Absolute Auto 3.3 x10*3/uL (2.0-8.3); Neutrophils Percent Auto 50.7 % (45-73); Platelet Count 296 X10*3/uL (160-400); Red Blood Count 5.26 X10*6/uL (4.60-5.80); Red Cell Distribution Width 13.5 % (11.0-16.0); White Blood Count 6.5 X10*3/uL (4.8-10.8)
[2022-11-26 08:54] LABS: Alanine Aminotransferase 20 U/L (0-40); Albumin Level 4.1 g/dL (3.5-5.0); Alkaline Phosphatase 68 U/L (39-117); Anion Gap 10 (12-20); Aspartate Amino Transferase 15 U/L (5-37); Bilirubin Total 1.1 mg/dL (0.0-1.0); Blood Urea Nitrogen 16 mg/dL (9-16); Calcium 8.8 mg/dL (8.4-10.2); Carbon Dioxide 28 mmol/L (22-29); Chloride 106 mmol/L (96-108); Cholesterol 181 mg/dL; Estimated Glomerular Filt Rate > 60; Glucose Fasting 99 mg/dL (60-99); Glucose Random 99 mg/dL (60-115); HDL Cholesterol 47 mg/dL; LDL Cholesterol Calculated 113 mg/dl; Potassium 4.4 mmol/L (3.3-5.1); Sodium 140 mmol/L (135-145); Total Protein 6.7 g/dL (6.5-8.0); Triglycerides 107 mg/dL
[2022-11-26 09:15] LABS: HBc Num1 0.11 S/CO (0.00-0.79); Hepatitis B Core Antibody Nonreactive (Nonreactive); Hepatitis B Surface Antigen Negative (Negative)
[2022-11-26 10:24] LABS: HBS Num1 0.33 mIU/mL (0-7.99); Hepatitis A Antibody IgM 0.86 Index (0-0.79); ~HepC Num1 0.23 S/CO (0.00-0.79); ~Hepatitis A Antibody IgM GRAYZONE (Nonreactive); ~Hepatitis B Surface Antibody NONREACTIVE (Nonreactive); ~Hepatitis C Antibody Nonreactive (Nonreactive)
[2022-11-28 20:14] LABS: TS Negative Control Passed; TS Panel A 1; TS Panel B 0; TS Positive Control Passed; TSpotTB Negative (Negative)
== END 2022-11-26 07:43 | disposition home or self-care (01) ==
LOC: HO.LAB 07:42
PROVIDERS: Absent Provider Dermatology; PCP Internal Medicine; Visit Provider Internal Medicine
DX: E78.00 Pure hypercholesterolemia, unspecified (principal); E78.5 Hyperlipidemia, unspecified; K75.9 Inflammatory liver disease, unspecified; L40.0 Psoriasis vulgaris
CPT/HCPCS: 36415; 80053; 80061; 85025; 86481; 86704; 86706; 86709; 86803; 87340

== ENCOUNTER → 2022-11-30 10:44 | Outpatient (REF) | payer OTHER, SELFPAY ==
--- NOTE | 2022-11-30 10:48 | CA_ITS ---
Acquisition Time: 2022-11-30 10:51:18 Total Exercise Time: 00:03:18 Test Indications: abn ekg Medications: see H Protocol: GERA Max HR: 109 BPM 68% of Pred: 158 BPM Max BP: 138/070 mmHG Max Work Load: 4.9 METS Exercise stress test exercise of 3 min 18 sec of Gera protocol acheiving 69% MPHR with request to stop due to chest 9/10 left chest discomfort (baseline had 5/10 left chest discomfort) without arrythmia, normotensive response to exercise, with non-diagnositic EKG due to suboptimal heart rate. Echo images btained by tech at rest and immediately at post peak exercise. Definty contrast used. In recovery chest discomfort returned to baseline. Test reviewed with Dr. Sweet. Referred By: Eugenia Nichols Overread By: EUGENIA NICHOLS
== END ==
LOC: HO.CARD 10:44
PROVIDERS: PCP Internal Medicine; Visit Provider Internal Medicine
DX: R07.9 Chest pain, unspecified (principal)
CPT/HCPCS: 93350; Q9957

== ENCOUNTER → 2022-12-22 13:27 | Outpatient (BNVA) | payer OTHER, SELFPAY | PROVIDERS: PCP Internal Medicine; Visit Provider Nurse Practitioner Family | DX: R51.9 Headache, unspecified (principal) | CPT/HCPCS: 99202; 99212 ==

== ENCOUNTER 2022-12-28 07:54 | Outpatient (REF) | payer OTHER, SELFPAY ==
[2022-12-28 09:35] LABS: Anion Gap 9 (12-20); Blood Urea Nitrogen 15 mg/dL (9-16); Calcium 9.2 mg/dL (8.4-10.2); Carbon Dioxide 31 mmol/L (22-29); Chloride 105 mmol/L (96-108); Estimated Glomerular Filt Rate > 60; Glucose Random 98 mg/dL (60-115); Potassium 4.5 mmol/L (3.3-5.1); Sodium 140 mmol/L (135-145)
== END 2022-12-28 07:55 | disposition home or self-care (01) ==
LOC: HO.LAB 07:54
PROVIDERS: PCP Internal Medicine; Visit Provider Nurse Practitioner Family
DX: R07.9 Chest pain, unspecified (principal); R94.39 Abnormal result of other cardiovascular function study
CPT/HCPCS: 36415; 80048

== ENCOUNTER → 2023-01-05 09:50 | Outpatient (BNVA) | payer OTHER, SELFPAY | PROVIDERS: PCP Internal Medicine; Visit Provider Nurse Practitioner Family | DX: N40.0 Benign prostatic hyperplasia without lower urinary tract symptoms (principal); R35.1 Nocturia; R39.11 Hesitancy of micturition | CPT/HCPCS: 51798; 99202 ==

== ENCOUNTER 2023-01-13 09:54 | Outpatient (REF) | payer OTHER, SELFPAY ==
--- NOTE | ~2023-01-13 | US_ITS ---
EXAMINATION: US RETROPERITONEAL COMPLETE (RENAL) CLINICAL INFORMATION: Benign prostatic hyperplasia without lower urinary tract symptoms. COMPARISON: CT abdomen and pelvis 12/23/2021. Ultrasound abdomen 10/19/2018 and 09/03/2015. TECHNIQUE: Real-time imaging of the kidneys and bladder. FINDINGS: RIGHT KIDNEY: 10.3 x 5.3 x 4.8 cm (SAG x AP x TRV). The kidney is normal in size, contour, and echogenicity. Renal cortical thickness is normal. No focal parenchymal lesions or hydronephrosis. Upper pole 5 mm nonobstructing stone. LEFT KIDNEY: 9.5 x 5.7 x 5.0 cm (SAG x AP x TRV). The kidney is normal in size, contour, and echogenicity. Renal cortical thickness is normal. No calculi or focal parenchymal lesions. No hydronephrosis. BLADDER: Well distended and normal. Bilateral ureteral jets are demonstrated. Prevoid bladder volume is 278 mL. Postvoid bladder volume is 19.2 mL. Prostate volume 18.5 mL. Prostatic calcifications are noted. US/US retroperitoneal comp IMPRESSION: Nonobstructing right renal nephrolithiasis. No hydronephrosis.
== END 2023-01-13 09:55 | disposition home or self-care (01) ==
LOC: HO.US 09:54
PROVIDERS: PCP Internal Medicine; Visit Provider Nurse Practitioner Family
DX: N40.0 Benign prostatic hyperplasia without lower urinary tract symptoms (principal); R35.1 Nocturia; R39.11 Hesitancy of micturition
CPT/HCPCS: 76770

== ENCOUNTER → 2023-01-17 09:48 | Outpatient (BNVA) | payer OTHER, SELFPAY | PROVIDERS: PCP Internal Medicine; Visit Provider Internal Medicine | DX: R07.9 Chest pain, unspecified (principal); I25.10 Atherosclerotic heart disease of native coronary artery without angina pectoris | CPT/HCPCS: 99212 ==

== ENCOUNTER 2023-01-18 08:15 | Outpatient (REF) | payer OTHER, SELFPAY ==
[2023-01-18 08:43] LABS: Hematocrit 42.7 % (42.0-52.0); Hemoglobin 13.9 g/dl (14.0-18.0); Mean Corpuscular HGB Conc 32.6 g/dl (31.0-36.0); Mean Corpuscular Hemoglobin 26.7 pg (27.0-33.0); Mean Platelet Volume 10.3 fL (9.4-12.4); Platelet Count 286 X10*3/uL (160-400); Red Blood Count 5.21 X10*6/uL (4.60-5.80); Red Cell Distribution Width 13.9 % (11.0-16.0); White Blood Count 6.5 X10*3/uL (4.8-10.8)
[2023-01-18 08:47] LABS: Prothrombin Time 11.8 SEC (10.0-13.1)
[2023-01-18 09:06] LABS: Anion Gap 10 (12-20); Blood Urea Nitrogen 14 mg/dL (9-16); Calcium 9.2 mg/dL (8.4-10.2); Carbon Dioxide 26 mmol/L (22-29); Chloride 107 mmol/L (96-108); Estimated Glomerular Filt Rate > 60; Glucose Random 98 mg/dL (60-115); Potassium 4.4 mmol/L (3.3-5.1); Sodium 139 mmol/L (135-145)
[2023-01-18 09:31] LABS: Prostate Specific Antigen 0.74 ng/mL (<0.05-4.0)
== END 2023-01-18 08:16 | disposition home or self-care (01) ==
LOC: HO.LAB 08:15
PROVIDERS: Absent Provider Nurse Practitioner Family; PCP Internal Medicine; Visit Provider Internal Medicine
DX: Z12.5 Encounter for screening for malignant neoplasm of prostate (principal); I25.10 Atherosclerotic heart disease of native coronary artery without angina pectoris; N40.0 Benign prostatic hyperplasia without lower urinary tract symptoms
CPT/HCPCS: 36415; 80048; 84153; 85027; 85610

== ENCOUNTER → 2023-01-25 13:52 | Outpatient (REF) | payer OTHER, SELFPAY ==
--- NOTE | 2023-01-25 13:54 | CA_ITS ---
Transthoracic Echocardiogram Patient (Last, First, Middle): Cole Malone, Gender: Male Date of : 1960 Age: 62 Procedure Date: 01/25/2023 Procedure Type: Transthoracic Echocardiogram Location: OP Height: 162.56 cm Weight: 64.41 kg BSA: 1.69 m2 Heart Rate: 55 bpm BP: 110 / 60 mmHg Nursing Executive: JESSICA Referring MD: Dg Emanuel MD Symptoms: R07.9 - Chest pain, unspecified Study Quality: Adequate ECG Rhythm: Bradycardia Conclusions: - The left ventricular systolic function is low normal. The visually estimated ejection fraction is between 50-55%. - No obvious valvular pathology seen on this study. Findings Left Ventricle Normal left ventricular cavity size. There is normal left ventricular wall thickness. The left ventricular systolic function is low normal. The visually estimated ejection fraction is between 50-55%. There is no evidence of regional wall motion abnormalities. Diastolic function is normal for age. Right Ventricle Mildly increased right ventricular cavity size. There is normal right ventricular systolic function. Atria Both atria are normal in size. Aortic Valve There is a normal trileaflet aortic valve. There is no aortic valve stenosis. There is no aortic valve regurgitation. Mitral Valve The mitral valve appears normal. There is trace mitral valve regurgitation. There is no mitral valve stenosis. Pulmonic Valve The pulmonic valve is likely normal. Tricuspid Valve Normal tricuspid valve structure. There is trace tricuspid valve regurgitation. There is no evidence of pulmonary hypertension. Great Vessels The asc aorta is normal in size. Venous The inferior vena cava is normal in size and collapses greater than 50% with inspiration. Pericardium/Pleural There is no evidence of pericardial effusion. Prior Study Comparison No prior study available for comparison. Recommendations, Care & Conclusions No obvious valvular pathology seen on this study. Measurements 2D Linear Measurements IVSd: 1.09 0.6-0.9/0.6-1.0 cm LVIDd: 5.06 3.9-5.3/4.2-5.9 cm LVIDd Index: 2.99 2.4-3.2/2.2-3.1 cm/m2 LVIDs: 3.40 2.0-3.6 cm LVPWd: 0.98 0.7-1.1 cm LA Diam: 3.40 2.7-3.8/3.0-4.0 cm LAIDs Index: 2.01 1.5-2.3 cm/m2 LV Mass: 241.44 67-162/88-224 g LV Mass Index: 142.86 43-95/49-115 g/m2 LVOT Diam: 2.10 3.0+(-)1.3 cm 2D Systolic Function EF 4C: 54.70 >55% EF 2C: 66.70 >55% Mitral Valve MV Pk E: 0.63 MV PK A: 0.46 MV Decel Time: 220.00 E/A: 1.40 E'Lateral: 11.90 E'Medial: 8.76 E/E' Med: 7.20 E/E' Lat: 5.30 PHT: 65.00 MVA PHT: 3.38 Decel [place]: 2.88 Aortic Valve AoV Pk Nando: 1.33 AoV Mn Nando: 0.95 AoV VTI: 0.32 AoV Pk Grad: 7.00 Aov Mn Grad: 4.00 DALI Cont.VTI: 2.61 LVOT LVOT Pk Nando: 1.02 LVOT Mn Nando: 0.73 LVOT VTI: 0.24 LVOT Pk Grad: 4.00 LVOT Mn Grad: 2.00 LVOT Diam: 2.10 LVOT Area: 3.46 Diastolic Function MV Pk E: 0.63 MV Pk A: 0.46 E/A: 1.40 E'Medial: 8.76 E/E' Med: 7.20 E' Laterial: 11.90 E/E' Lat: 5.30 Right Ventricle TAPSE (mm): 22.60 TVS' Nando: 11.10 Tricuspid Valve TR Pk Nando: 2.17 TR Pk Grad: 19.00 RA Press: 3.00 RVSP: 22.00 Great Vessels Aorta Sinus of Valsalva: 3.40 2.0-3.5 cm Ao Asc: 3.10 2.1-3.4 cm Pulmonary Valve PV Pk Nando: 0.76 Peak PV Grad: 2.00 Updated in Other Vendor System with Status of Final Dg Emanuel MD electronically signed on 01/27/2023 11:18:43 AM with status of Final
== END ==
LOC: HO.CARD 13:52
PROVIDERS: PCP Internal Medicine; Visit Provider Internal Medicine
DX: R07.9 Chest pain, unspecified (principal)
CPT/HCPCS: 93306

== ENCOUNTER → 2023-01-26 09:49 | Outpatient (BNVA) | payer OTHER, SELFPAY | PROVIDERS: PCP Internal Medicine; Visit Provider Nurse Practitioner Family | DX: N40.1 Benign prostatic hyperplasia with lower urinary tract symptoms (principal); R39.11 Hesitancy of micturition; R35.1 Nocturia | CPT/HCPCS: 51798; 99212 ==

== ENCOUNTER 2023-02-06 06:56 | Emergency (ER) | payer OTHER, SELFPAY ==
--- NOTE | ~2023-02-06 | XR_ITS ---
EXAMINATION: XR HAND, LEFT CLINICAL INFORMATION: Left first digit pain status post trauma. COMPARISON: None available. TECHNIQUE: PA, lateral, and oblique views of the left hand. An indicator arrow points to the lateral wrist. FINDINGS: There is an acute, nondisplaced oblique fracture at the base of the distal phalanx of the first digit with extension to the interphalangeal joint space. The first proximal phalanx and metacarpal appear intact. The remainder the digits are intact. The carpal bones are normally aligned. The distal radius and ulna are intact. There is mild soft tissue swelling. No radiopaque foreign body. XR/XR hand LT 2V IMPRESSION: Acute, nondisplaced intra-articular fracture at the base of the distal phalanx of the first digit with mild soft tissue swelling.
[2023-02-06 06:58] VITALS: BP 130/49; PULSE 88; RESP 18; TEMP 36.8; O2SAT 98; BMI 25.7
[2023-02-06 07:09] VITALS: BP 118/83; PULSE 68; RESP 20; TEMP 36.9; O2SAT 96
--- NOTE | 2023-02-06 07:15 | PC.NURSE ---
Pt able to ambulate in to room, Complaints noted on Left hand, Swollen, and painful. Pt reports it got hit at home yesterday. He tried icing at home, with no relief, awaiting xray at this time
--- NOTE | 2023-02-06 07:15 | ED.EXTPRO ---
HPI - Extremity Problem General Chief complaint: Extremity Injury, Upper Stated complaint: L hand pain Time Seen by Provider: 02/06/23 07:06 Source: patient and scheduling administrator Mode of arrival: ambulatory Limitations: language barrier History of Present Illness HPI Narrative: 62 yo male with history of GERD, BPH, high cholesterol, asthma, psoriatic arthritis, right handed here with complaints of left hand pain/swelling after injury yesterday. 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 Patient reports he had several small abrasions over the fingers which he cleansed yesterday. He reports overnight increasing swelling and pain to the hand. Patient denies any numbness, tingling of the extremity. No weakness. No fevers or chills. Tetanus status unknown Related Data Home Medications Medication Instructions Recorded Confirmed certolizumab pegol 400 mg/2 mL 400 mg subcut Q2W 06/24/20 01/17/23 (200 mg/mL x2) subcutaneous syringe kit cyclobenzaprine 10 mg tablet 10 mg PO BID PRN muscle spasm 01/17/23 01/17/23 Previous Rx's Medication Instructions Recorded cane #1 ea 11/20/20 cetirizine 10 mg tablet (Allergy 10 mg PO DAILY 90 days #90 tabs 09/22/21 Relief (cetirizine)) sennosides 8.6 mg tablet 17.2 mg PO BEDTIME PRN 09/22/21 Constipation 90 days #90 tabs amitriptyline 25 mg tablet 25 mg PO BEDTIME 90 days #90 tabs 09/23/21 triamcinolone acetonide 55 mcg 1 spray intranasal DAILY 30 days 09/23/21 nasal spray aerosol #16.9 mL meloxicam 15 mg tablet 15 mg PO DAILY #14 tabs 09/30/21 acetaminophen 500 mg tablet 1,000 mg PO Q6H PRN pain #30 tabs 10/05/21 (Acetaminophen Extra Strength) lidocaine 5 % topical patch 1 patch topical DAILY left hand 10/05/21 pain, and wrist pain #15 ea fluticasone 250 mcg-salmeterol 50 1 ea PO BID #180 caps 12/15/21 mcg/dose blistr powdr for inhalation (Bekaela Inhub) montelukast 10 mg tablet 10 mg PO DAILY 90 days #90 tabs 03/11/22 pantoprazole 40 mg tablet,delayed 40 mg PO DAILY 90 days #90 tabs 04/03/22 release albuterol sulfate 2.5 mg/3 mL 2.5 mg (3 mL) inhalation Q4-6H PRN 08/02/22 (0.083 %) solution for nebulization shortness of breath or wheezing #90 mL albuterol sulfate 90 mcg/actuation 2 puff inhalation Q4-6H PRN 08/02/22 aerosol inhaler (ProAir HFA) shortness of breath or wheezing #8.5 grams nebulizers (AeroEclipse II #1 ea 08/05/22 Nebulizer) benzonatate 100 mg capsule 100 mg PO TID PRN cough #30 caps 08/20/22 gabapentin 300 mg capsule 300 mg PO .COMPLEX 30 days #60 caps 12/22/22 nitroglycerin 0.4 mg sublingual 0.4 mg sublingual Q5M PRN chest 01/17/23 tablet pain #30 tabs rosuvastatin 40 mg tablet (Crestor) 40 mg PO DAILY #90 tabs 01/17/23 pyridoxine (vitamin B6) 100 mg 100 mg PO DAILY 90 days #90 tabs 01/26/23 tablet tamsulosin 0.4 mg capsule (Flomax) 0.4 mg PO BEDTIME 90 days #90 caps 01/26/23 amoxicillin 875 mg-potassium 1 tab PO BID #14 tabs 02/06/23 clavulanate 125 mg tablet oxycodone 5 mg tablet 5 mg PO Q6H PRN pain #10 tabs 02/06/23 Allergies Allergy/AdvReac Type Severity Reaction Status Date / Time atorvastatin [Lipitor] Allergy Intermediate elevated Verified 02/06/23 06:58 liver enzymes Review of Systems Review of Systems: Yes all other systems are reviewed and are negative Constitutional: Constitutional: Reports no additional constitutional complaints, Denies body ache(s), Denies chills, Denies fever(s), Denies headache(s) and Denies weakness Eyes: Eyes: Reports no additional eye complaints and Denies change in vision ENT: Reports system reviewed and no additional complaints, except as documented, Denies dizziness, Denies headache(s), Denies nasal congestion, Denies nasal discharge and Denies neck pain Cardiovascular: Cardiovascular: Reports no additional cardiovascular complaints, Denies chest pain, Denies leg edema and Denies dyspnea Respiratory: Respiratory: Reports no additional respiratory complaints, Denies cough and Denies dyspnea Gastrointestinal: Gastrointestinal: Reports no additional gastrointestinal complaints, Denies abdominal pain, Denies diarrhea, Denies nausea and Denies vomiting Genitourinary: Genitourinary: Denies urinary incontinence Musculoskeletal: Musculoskeletal: Reports no additional musculoskeletal complaints, Denies back pain, Reports arthralgias, Reports joint swelling, Reports limited range of motion, Denies neck pain, Denies numbness and Denies tingling Integumentary/Breasts: Skin/Breast: Reports system reviewed and no additional complaints, except as docu and Denies rash Neurologic: Reports system reviewed and no additional complaints, except as documented, Denies Abnormal speech present, Denies dizziness, Denies headache(s), Denies numbness, Denies tingling and Denies weakness PMFSH Past Medical History Attestation statement: The following information was validated with the patient. Source: old records reviewed and nursing notes reviewed Medical History Atherosclerotic cardiovascular disease Back pain Chest pain Constipation by delayed colonic transit GERD (gastroesophageal reflux disease) Hematuria Hospital discharge follow-up Left inguinal hernia Leukocytosis Moderate asthma Psoriatic arthritis Pure hypercholesterolemia Unintentional weight loss UTI (urinary tract infection) Surgical History H/O enucleation of right eyeball History of corneal transplant History of eye prosthesis Hx laparoscopic cholecystectomy Hx of colonoscopy Family History Family History Father Kidney failure Mother Diabetes Stroke Alzheimer disease Brother Cancer of kidney Sister Breast cancer Brother Lung cancer Social History Social History Housing: House Alcohol intake: never Patient Tobacco Use Status: Never used Tobacco Smoked in Last 30 Days: No e-Cigarette/Vaping Use: Never Used Second Hand Smoke Exposure: No Use of substances other than those prescribed or required for medical reasons: No Advance Directives: No Advance Directives Information Provided: Yes service: No Current occupational status: disabled Cognitive needs: No Hearing needs: No Vision needs: Yes (Glasses) Physical Exam Vital Signs: Vital Signs: Last Vital Signs Temp 98.4 F 02/06/23 07:09 Pulse 68 02/06/23 07:09 Resp 20 02/06/23 07:09 BP 118/83 02/06/23 07:09 Pulse Ox 96 02/06/23 07:09 O2 Del Method Room Air 02/06/23 07:09 BMI result Body Mass Index 25.7 Const: General: cooperative, healthy appearing, comfortable and no acute distress Orientation/consciousness: patient oriented x3 Limitations: no limitations HEENT: Head: Yes normal to inspection Ears: hearing grossly normal bilaterally General nose exam: Normal external nose present Face and sinus: Yes normal facial exam Mouth: Normal oral and palatal mucosa present Throat: Yes posterior oropharynx normal Eyes: General: appearance normal, both eyes and all related structures Pupils: Equal, round and reactive pupils present Neck: Neck: Yes normal visual inspection Chest: Chest palpation & inspection: normal inspection of the chest Resp: Effort & Inspection: normal respiratory effort Auscultation: clear to auscultation bilaterally Cardio: Rate: regular rate Rhythm: regular rhythm Peripheral pulses: Peripheral pulses 2+ throughout GI: Inspection: Yes normal to inspection Palpation (GI): Soft to palpation and nontender Auscultation: normal bowel sounds Back/Spine/Pelvis: Thoracic/Lumbar Spine: thoracic and lumbar spine normal to inspection Skin: General skin exam: no rashes or lesions noted Neuro: General: patient oriented x3, no focal motor deficits and normal sensation to monofilament Cranial nerves: Yes Equal, round and reactive pupils present Cognition (Neuro): normal cognition Speech: No Abnormal speech present Gait exam (Neuro): Normal gait present Motor exam (neuro): 5/5 motor strength present throughout Extrem: Other: There are several abrasions over the 2nd/3rd digits. There is slight swelling and pain over 2nd/3rd digitis with FROM of these digits. Most of the patients pain is over the first digit. There is swelling/ecchymosis notes as well as a subungal hematoma. Limited flexion/extension of the 1st digit which patient relates to pain. Sensation intact distally over the first digit. +warmth/erythema over the 1st digit and base of the 1st digit which is NOT circumferential. 2+ radial/ulnar pulse Course Course Course Narrative: -X-ray shows fracture of 1st digit. Would consider immobolization however I am concerned that the patient has some mild cellulitis. Low concern for tenosynovitis, nec fasc. I would like him to monitor the site closely and so we discussed placing a velcro splint so he may return for worsening symptoms/signs. Will send home on augmentin BID x 7 days, oxycodone prn. Recommended return for worsening symptoms. Comfortable with plan for discharge jairo. Medications Administered Discontinued Medications Generic Name Dose Route Start Last Admin Trade Name Freq PRN Reason Stop Dose Admin Diphtheria/Tetanus/Acell Pertussis 0.5 ml 02/06/23 07:33 02/06/23 07:37 Diphth,Pertus(Acell),Tet Adult 0.5 Ml Syringe IM 02/06/23 07:34 0.5 ml .ONCE ONE Administration Medical Decision Making Medical Decision Making MDM Narrative: 62 yo male right hand dominant here with left hand pain/redness/swelling after crush injury last evening. On exam patient with swelling/redness/warmth of left hand over base of 1st digit w/ subungal hematoma of nail bed and limited ROM Also some TTP over dorsal aspects of 2nd/3rd digit with abrasions but no limited ROM, no redness/warmth. Will obtain x-rays, update tetanus Differential Diagnosis Differential Diagnoses: The differential diagnosis associated with the presentation includes fracture, contusion, cellulitis Less likely tenosynovitis Independent Interpretation I performed an independent interpretation of an: Plain X-Ray Radiology Impression Discussion of test interpretation with radiology: I have reviewed the radiologist's reading. Radiologist Impression: There is an acute, nondisplaced oblique fracture at the base of the distal phalanx of the first digit with extension to the interphalangeal joint space. The first proximal phalanx and metacarpal appear intact. The remainder the digits are intact. The carpal bones are normally aligned. The distal radius and ulna are intact. There is mild soft tissue swelling. No radiopaque foreign body. XR/XR hand LT 2V IMPRESSION: Acute, nondisplaced intra-articular fracture at the base of the distal phalanx of the first digit with mild soft tissue swelling. Discharge Plan Discharge Clinical Impression: Finger fracture, left, Cellulitis of hand Patient Disposition: Home, Self-Care Instructions: Finger Fracture (ED), Cellulitis (ED) Prescriptions: New amoxicillin-pot clavulanate 875-125 mg tablet 1 tab PO BID Qty: 14 0RF oxycodone 5 mg tablet 5 mg PO Q6H PRN (Reason: pain) Qty: 10 0RF Rx Instructions: Partial Fill upon patient request. No Action (DME) cane Device See Rx Instructions .ROUTE .MEDSUPPLY Qty: 1 0RF Rx Instructions: As directed amitriptyline 25 mg tablet 25 mg PO BEDTIME 90 Days Qty: 90 1RF triamcinolone acetonide 55 mcg aerosol,spray 1 spray intranasal DAILY 30 Days Qty: 16.9 1RF fluticasone propion-salmeterol [Wixela Inhub] 250-50 mcg/dose blister with device 1 ea PO BID Qty: 180 2RF montelukast 10 mg tablet 10 mg PO DAILY 90 Days Qty: 90 1RF pantoprazole 40 mg tablet,delayed release (DR/EC) 40 mg PO DAILY 90 Days Qty: 90 1RF (DME) nebulizers [AeroEclipse II Nebulizer] Misc See Rx Instructions .Route Qty: 1 0RF Rx Instructions: As directed albuterol sulfate [ProAir HFA] 90 mcg/actuation HFA aerosol inhaler 2 puff inhalation Q4-6H PRN (Reason: shortness of breath or wheezing) Qty: 8.5 0RF albuterol sulfate 2.5 mg /3 mL (0.083 %) solution for nebulization 2.5 mg inhalation Q4-6H PRN (Reason: shortness of breath or wheezing) Qty: 90 0RF certolizumab pegol 400 mg/2 mL (200 mg/mL x 2) syringe kit 400 mg subcut Q2W cetirizine [Allergy Relief (cetirizine)] 10 mg tablet 10 mg PO DAILY 90 Days Qty: 90 1RF sennosides 8.6 mg tablet 17.2 mg PO BEDTIME PRN (Reason: Constipation) 90 Days Qty: 90 1RF meloxicam 15 mg tablet 15 mg PO DAILY Qty: 14 0RF acetaminophen [Acetaminophen Extra Strength] 500 mg tablet 1,000 mg PO Q6H PRN (Reason: pain) Qty: 30 0RF lidocaine 5 % adhesive patch,medicated 1 patch topical DAILY Qty: 15 0RF Rx Instructions: leave on most painful area for up to 12 hrs benzonatate 100 mg capsule 100 mg PO TID PRN (Reason: cough) Qty: 30 0RF gabapentin 300 mg capsule 300 mg PO .COMPLEX 30 Days Qty: 60 3RF Rx Instructions: 300 mg orally qhs x's 2 weeks, then bid; tamsulosin [Flomax] 0.4 mg capsule 0.4 mg PO BEDTIME 90 Days Qty: 90 3RF pyridoxine (vitamin B6) 100 mg tablet 100 mg PO DAILY 90 Days Qty: 90 3RF cyclobenzaprine 10 mg tablet 10 mg PO BID PRN (Reason: muscle spasm) rosuvastatin [Crestor] 40 mg tablet 40 mg PO DAILY Qty: 90 3RF nitroglycerin 0.4 mg tablet, sublingual 0.4 mg sublingual Q5M PRN (Reason: chest pain) Qty: 30 5RF Rx Instructions: do not exceed 3 doses per episode Referrals: [facility] [place]Provider Group] - 1 week Interventions: ED Discharge Assessment Last Done: 02/06/23 08:06 Discharge Date/Time: 02/06/23 08:08
[2023-02-06] MEDS: Diphth,Pertus(ACell),Tet Adult 0.5 ML SYRINGE IM (07:37)
== END 2023-02-06 08:08 | disposition home or self-care (01) ==
PROVIDERS: Emergency Provider Emergency Medicine Emergency Medical Services; PCP Internal Medicine
DX: S62.502A Fracture of unspecified phalanx of left thumb, initial encounter for closed fracture (principal); S60.512A Abrasion of left hand, initial encounter; Y29.XXXA Contact with blunt object, undetermined intent, initial encounter; Y93.9 Activity, unspecified; Y92.007 Garden or yard of unspecified non-institutional (private) residence as the place of occurrence of the external cause; Y99.9 Unspecified external cause status; Z79.899 Other long term (current) drug therapy; Z23 Encounter for immunization
CPT/HCPCS: 29130; 73120; 90471; 90715; 99284

== ENCOUNTER 2023-02-08 08:06 | Outpatient (REF) | payer OTHER, SELFPAY ==
--- NOTE | ~2023-02-08 | XR_ITS ---
EXAMINATION: XR HAND, LEFT CLINICAL INFORMATION: Pain. COMPARISON: Radiographs dated 02/06/2023. TECHNIQUE: PA, lateral, and oblique views of the left hand. FINDINGS: There is stable alignment of a nondisplaced oblique fracture of the base of the distal phalanx of the left thumb. Again, this shows extension to the articular surface. There is mild osteoarthritic change of the interphalangeal joint of the thumb. No dislocation is seen. The proximal and distal carpal rows are intact. No focal soft tissue swelling, gas or foreign body is seen. XR/XR hand LT min 3V IMPRESSION: There is stable alignment of a nondisplaced oblique fracture of the base of the distal phalanx of the left thumb. Again, there is intra-articular extension noted of the fracture line.
== END 2023-02-08 08:07 | disposition home or self-care (01) ==
LOC: HO.HOSX 08:06
PROVIDERS: Visit Provider Orthopaedic Surgery
DX: S62.522A Displaced fracture of distal phalanx of left thumb, initial encounter for closed fracture (principal); W23.0XXA Caught, crushed, jammed, or pinched between moving objects, initial encounter; Y93.9 Activity, unspecified; Y92.9 Unspecified place or not applicable; Y99.9 Unspecified external cause status
CPT/HCPCS: 26750; 73130; 99202

== ENCOUNTER → 2023-02-10 15:04 | Outpatient (BNVA) | payer OTHER, SELFPAY | PROVIDERS: PCP Internal Medicine; Referring Provider Internal Medicine; Visit Provider Nurse Practitioner Family | DX: R07.89 Other chest pain (principal); R94.39 Abnormal result of other cardiovascular function study; E78.5 Hyperlipidemia, unspecified; E78.00 Pure hypercholesterolemia, unspecified; Z98.890 Other specified postprocedural states | CPT/HCPCS: 99212 ==

== ENCOUNTER → 2023-02-11 11:44 | Outpatient (BNVA) | payer OTHER, SELFPAY | PROVIDERS: PCP Internal Medicine; Visit Provider Physician Assistant | DX: S62.522A Displaced fracture of distal phalanx of left thumb, initial encounter for closed fracture (principal) | CPT/HCPCS: 29130; 99212 ==

== ENCOUNTER 2023-02-23 08:04 | Outpatient (REF) | payer OTHER, SELFPAY ==
--- NOTE | ~2023-02-23 | XR_ITS ---
EXAMINATION: XR HAND, LEFT CLINICAL INFORMATION: Pain in left hand Attention thumb. COMPARISON: None available. TECHNIQUE: PA, lateral, and oblique views of the left hand. FINDINGS: There is an essentially nondisplaced oblique fracture of the distal phalanx of the thumb. The remainder the bones are intact. Alignment is anatomic. Joint spaces are maintained. No erosions or soft tissue calcifications. XR/XR hand LT min 3V IMPRESSION: Essentially nondisplaced oblique fracture of the distal phalanx of the thumb. At the time of this dictation, PSA service contacted to alert referring M.D. the critical findings.
== END 2023-02-23 08:05 | disposition home or self-care (01) ==
LOC: HO.HOSX 08:04
PROVIDERS: Visit Provider Orthopaedic Surgery
DX: S62.522A Displaced fracture of distal phalanx of left thumb, initial encounter for closed fracture (principal); X58.XXXA Exposure to other specified factors, initial encounter; Y93.9 Activity, unspecified; Y92.9 Unspecified place or not applicable; Y99.9 Unspecified external cause status
CPT/HCPCS: 26750; 73130

== ENCOUNTER 2023-03-18 10:36 | Outpatient (REF) | payer OTHER, SELFPAY ==
--- NOTE | ~2023-03-18 | XR_ITS ---
EXAMINATION: XR HAND, LEFT CLINICAL INFORMATION: Pain COMPARISON: None available. TECHNIQUE: 3 views PA, lateral, and oblique views of the left hand. FINDINGS: Minimally displaced fracture at the base of the distal phalanx first finger extending into the articular surface of the interphalangeal joint.. Alignment is anatomic. Joint spaces are maintained. No erosions or soft tissue calcifications. XR/XR hand LT min 3V IMPRESSION: Minimally displaced intra-articular fracture at the base of the distal phalanx first finger extending into the articular surface of the interphalangeal joint.
== END 2023-03-18 10:37 | disposition home or self-care (01) ==
LOC: HO.HOSX 10:36
PROVIDERS: Visit Provider Physician Assistant
DX: S62.522D Displaced fracture of distal phalanx of left thumb, subsequent encounter for fracture with routine healing (principal)
CPT/HCPCS: 73130; 99212

== ENCOUNTER 2023-03-29 09:54 | Outpatient (AMB) | payer OTHER, SELFPAY ==
[2023-03-29 09:59] VITALS: BMI 25.6
--- NOTE | 2023-03-29 09:59 | A.OFFVIS_ITS ---
Intake Vital Signs 03/29/23 09:59 Height 5 ft 4 in Weight 149 lb BMI 25.6 Intake Visit Reasons: OV-LT thumb fx, 02/05/23-3V LT hand attn thumb W/XR Intake Note: Cole, 62 year old right hand dominant male who presents today for his left thumb fx, DOI 02/05/23. Xrays updated in office. States he cont's to use his thumb splint. At times he has mild pain. Allergies atorvastatin [Lipitor] Allergy (Intermediate, Verified 03/29/23 10:01) elevated liver enzymes HPI OV-LT thumb fx, 02/05/23-3V LT hand attn thumb W/XR HPI Details Cole is a 62 year old right hand dominant Singaporean speaking man who presents to discuss her left thumb fracture, DOI: 02/05/23. This has been managed non-operatively. He reports having some mild pain intermittently, and he continues to wear his th umb splint. He says he an appointment with therapy tomorrow. He is not working, apparently he has some cardiac issues and lost his right eye sometime in the past [facility] Medical History Atherosclerotic cardiovascular disease Back pain Chest pain Constipation by delayed colonic transit GERD (gastroesophageal reflux disease) Hematuria Hospital discharge follow-up Left inguinal hernia Leukocytosis Moderate asthma Psoriatic arthritis Pure hypercholesterolemia Unintentional weight loss UTI (urinary tract infection) Surgical History H/O enucleation of right eyeball History of corneal transplant History of eye prosthesis Hx laparoscopic cholecystectomy Hx of colonoscopy S/P cardiac catheterization Family History Father Kidney failure Mother Diabetes Stroke Alzheimer disease Brother Cancer of kidney Sister Breast cancer Brother Lung cancer Social History Housing: House Alcohol intake: never Patient Tobacco Use Status: Never used Tobacco e-Cigarette/Vaping Use: Never Used Second Hand Smoke Exposure: No service: No Current occupational status: disabled Cognitive needs: No Hearing needs: No Vision needs: Yes (Glasses) Review of Systems Const All systems reviewed & are unremarkable except as noted in HPI and below Physical Exam Vital Signs: BMI result Body Mass Index 25.6 Const General: no acute distress and alert Orientation/consciousness: patient oriented x3 Neuro General: patient oriented x3 Extrem Other: Evaluation of Left Upper Extremity: The patient is alert, oriented, and in no acute distress Neuro: Median, Ulnar, Radial nerves motor and sensory intact and sensation is normal to the tips of all digits Vascular: Cap refill brisk ROM: He can make a fist and extend all of his digits. His distal phalanx fracture is nontender. As expected he has some stiffness at the IP joint of the thumb. He can flex to ~30 degrees and extend his IP joint the IP joint is stable and non-tender The MCP joint appears somewhat enlarged compared to the opposite side, this is stable on exam he says this feels mildly sore No erythema Swelling resolved Radiographs: 3 views of the right hand, with attention to the thumb, were taken and viewed by me today in clinic. They show a left thumb distal phalanx base Fx, the obique fx line extends intra-articularly, minimally displaced, with some evidence of interval bony healing. No change in alignment compared to prior radiographs on 02/23/23 that I reviewed. Psych Appearance: grossly normal Affect: normal affect Attitude: cooperative Assessment & Plan Assessment & Plan (1) Closed fracture of base of distal phalanx of thumb: Code(s): S62.523A - Displaced fracture of distal phalanx of unspecified thumb, initial encounter for closed fracture Plan Assessment & Plan: 1. Left thumb distal phalanx base fracture, intra-articular and minimally displaced From a crush injury, DOI: 02/05/23 He appears to be doing well. I educated him about this condition This will continue to be managed non-operatively He will discontinue his removable thumb spica splint I discussed activity modification, he is to avoid any pinching or gripping activities, and is able to lift light-medium weight objects He is to avoid any impact activities or activities prone to falling He will work on gentle wrist, finger, and thumb CMC & MCP joint ROM exercises at home He will continue to work with OT hand therapy on ROM and normalizing function, I ordered a repeat course of OT. I anticipate he can return to normal daily activity in 4-6 weeks from now He can follow up prn Scribed for Ailyn Campa MD by Chava Chavez, medical lab assistant, on 03/29/23 at 10:10 AM, EST. Orders: Orders XR hand LT min 3V Today M79.642 - Pain in left hand OT Evaluation and Treatment Today S62.523A - Displaced fracture of distal phalanx of unspecified thumb, initial encounter for closed fracture Coding Level of Care Code Global (34245) Diagnoses Closed fracture of base of distal phalanx of thumb S62.523A
== END 2023-03-29 10:18 | disposition home or self-care (01) ==
PROVIDERS: PCP Internal Medicine; Visit Provider Orthopaedic Surgery
DX: S62.523A Displaced fracture of distal phalanx of unspecified thumb, initial encounter for closed fracture (principal)
CPT/HCPCS: 99024

== ENCOUNTER 2023-03-29 11:31 | Outpatient (REF) | payer OTHER, SELFPAY ==
--- NOTE | ~2023-03-29 | XR_ITS ---
EXAMINATION: XR HAND, LEFT CLINICAL INFORMATION: Pain. Attention thumb COMPARISON: 03/18/2023 TECHNIQUE: Four views of the left hand. FINDINGS: Obliquely oriented fracture through the base of the first distal phalanx is again seen extending to the articular surface with mild residual step-off but no significant angulation. Overall the appearance is similar to the prior study. Minimal degenerative changes the first MCP joint. No acute bony abnormality seen otherwise. XR/XR hand LT min 3V IMPRESSION: Obliquely oriented intra-articular fracture through the base of the first distal phalanx with mild residual step-off but no significant angulation.
== END 2023-03-29 11:32 | disposition home or self-care (01) ==
LOC: HO.HOSX 11:31
PROVIDERS: Visit Provider Orthopaedic Surgery
DX: S62.522D Displaced fracture of distal phalanx of left thumb, subsequent encounter for fracture with routine healing (principal)
CPT/HCPCS: 73130

== ENCOUNTER → 2023-03-30 10:37 | Outpatient (BNVA) | payer OTHER, SELFPAY | PROVIDERS: PCP Internal Medicine; Visit Provider Nurse Practitioner Family ==

== ENCOUNTER 2023-04-05 07:34 | Outpatient (AMB) | payer OTHER, SELFPAY ==
[2023-04-05 07:44] VITALS: BP 110/62; PULSE 65; O2SAT 98; BMI 25.1
--- NOTE | 2023-04-05 07:44 | A.OFFVIS_ITS ---
Intake Vital Signs 04/05/23 07:44 Height 5 ft 4 in Weight 146 lb BMI 25.1 BP 110/62 Blood Pressure Location Rt brachial Position Sitting Pulse 65 Pulse Source Pulse Oximeter Pulse Oximetry (%) 98 Oxygen Delivery Method Room Air Intake Visit Reasons: FOLLOW UP Intake Note: Pt presents as a f/u for headaches. Pt states through endodontist feeling be tter. when asked about concerns pt states no, i'm fine thanks. Travel Sales Consultant Required: Yes Travel Sales Consultant Name: Chinyere [id number] Allergies atorvastatin [Lipitor] Allergy (Intermediate, Verified 04/05/23 07:52) elevated liver enzymes Medication List - Last Reconciled 04/05/23 by JOHNIE Hylton acetaminophen (Acetaminophen Extra Strength) 1,000 mg (2 x 500 mg) PO Q6H PRN albuterol sulfate 2.5 mg (3 mL) inhalation Q4-6H PRN albuterol sulfate 90 mcg/actuation (ProAir HFA) 2 puffs inhalation Q4-6H PRN amitriptyline 25 mg PO BEDTIME 90 days amoxicillin-pot clavulanate 875-125 mg 1 tab PO BID aspirin 81 mg PO DAILY benzonatate 100 mg PO TID PRN cane As directed certolizumab pegol 400 mg subcut Q2W cetirizine (Allergy Relief (cetirizine)) 10 mg PO DAILY 90 days cyclobenzaprine 10 mg PO BID PRN fluticasone propion-salmeterol 250-50 mcg/dose (Wixela Inhub) 1 ea PO BID gabapentin 300 mg orally qhs x's 2 weeks, then bid; PRN; lidocaine 5% 1 patch topical DAILY PRN meloxicam 15 mg PO DAILY PRN montelukast 10 mg PO DAILY PRN nebulizers (AeroEclipse II Nebulizer) As directed nitroglycerin 0.4 mg sublingual Q5M PRN oxycodone 5 mg PO Q6H PRN pantoprazole 40 mg PO DAILY 90 days pyridoxine (vitamin B6) 100 mg PO DAILY 90 days rosuvastatin (Crestor) 40 mg PO DAILY sennosides 17.2 mg (2 x 8.6 mg) PO BEDTIME PRN 90 days tamsulosin (Flomax) 0.4 mg PO BEDTIME PRN triamcinolone acetonide 1 spray intranasal DAILY PRN HPI HPI Comments History of Present Illness Details 62-yr-old male presents for f/u visit. Pt denies any significant interval medical changes. However, review of chart shows he sustained a left thumb Fx in january that was tx'd conservatievly. He has also had some cardiac work-up, which revealed mild, non-obstructive CAD Pt reports his headaches are well-controlled on Gabapentin 300mg qhs. He is having 1 headcahe day per week, which responds well to prn Tylenol. He is toelrating Gabapentin well. [facility] Medical History Atherosclerotic cardiovascular disease Back pain Chest pain Constipation by delayed colonic transit GERD (gastroesophageal reflux disease) Hematuria Hospital discharge follow-up Left inguinal hernia Leukocytosis Moderate asthma Psoriatic arthritis Pure hypercholesterolemia Unintentional weight loss UTI (urinary tract infection) Surgical History H/O enucleation of right eyeball History of corneal transplant History of eye prosthesis Hx laparoscopic cholecystectomy Hx of colonoscopy S/P cardiac catheterization Family History Father Kidney failure Mother Diabetes Stroke Alzheimer disease Brother Cancer of kidney Sister Breast cancer Brother Lung cancer Social History (Updated 04/05/23 @ 08:01 by Nazia Deluna CMA) Housing: House Alcohol intake: current Alcohol intake frequency: holidays/special occasions only Alcohol type: beer Patient Tobacco Use Status: Never used Tobacco e-Cigarette/Vaping Use: Never Used Second Hand Smoke Exposure: No service: No Current occupational status: disabled Cognitive needs: No Hearing needs: No Vision needs: Yes (Glasses) Review of Systems Const All systems reviewed & are unremarkable except as noted in HPI and below Physical Exam Vital Signs: Last Vital Signs Pulse 65 04/05/23 07:44 BP 110/62 04/05/23 07:44 Pulse Ox 98 04/05/23 07:44 Oxygen Delivery Method Room Air 04/05/23 07:44 BMI result Body Mass Index 25.1 Const General: cooperative and no acute distress Orientation/consciousness: patient oriented x3 HEENT Head: Yes normocephalic Resp Effort & Inspection: normal respiratory effort and able to speak in complete sentences Neuro General: patient oriented x3, gait normal and CN's II-XI intact bilaterally Cognition (Neuro): normal cognition Motor exam (neuro): 5/5 motor strength present throughout Psych Appearance: grossly normal Mental Status: mental status grossly normal Speech and movement: Normal speech and movement present Affect: normal affect Attitude: cooperative Thought process: Normal thought process present Thought content: Normal thought content present Insight: Good insight present (Psych) Judgement: Good judgement present (Psych) Assessment & Plan Assessment & Plan (1) Chronic daily headache: Comment: Continue Gabapentin 300mg qhs. Continue Tylenol prn. f/u in 6 months or sooner prn. Code(s): R51.9 - Headache, unspecified Medications: Changed From lidocaine 5% leave on most painful area for up to 12 hrs 1 patch topical DAILY 15 ea 0RF left hand pain, and wrist pain M19.049 - Primary osteoarthritis, unspecified hand To lidocaine 5% leave on most painful area for up to 12 hrs 1 patch topical DAILY PRN left hand pain, and wrist pain M19.049 - Primary osteoarthritis, unspecified hand From meloxicam 15 mg PO DAILY 14 tabs 0RF To meloxicam 15 mg PO DAILY PRN From montelukast 10 mg PO DAILY 90 days 90 tabs 1RF To montelukast 10 mg PO DAILY PRN From oxycodone Partial Fill upon patient request. 5 mg PO Q6H PRN 10 tabs 0RF pain To oxycodone Partial Fill upon patient request. 5 mg PO Q6H PRN pain From tamsulosin (Flomax) 0.4 mg PO BEDTIME 90 days 90 caps 3RF N40.0 - Benign prostatic hyperplasia without lower urinary tract symptoms To tamsulosin (Flomax) 0.4 mg PO BEDTIME PRN N40.0 - Benign prostatic hyperplasia without lower urinary tract symptoms From triamcinolone acetonide 1 spray intranasal DAILY 30 days 16.9 mL 1RF To triamcinolone acetonide 1 spray intranasal DAILY PRN From gabapentin 300 mg orally qhs x's 2 weeks, then bid; PRN; To gabapentin 300 mg PO BEDTIME 90 days 90 caps 1RF Coding Level of Care Code New Pt Level 4 (50228) Diagnoses Chronic daily headache R51.9
== END 2023-04-05 08:25 | disposition home or self-care (01) ==
PROVIDERS: PCP Internal Medicine; Visit Provider Nurse Practitioner Family
DX: R51.9 Headache, unspecified (principal)
CPT/HCPCS: 99213

== ENCOUNTER → 2023-04-05 07:34 | Outpatient (BNVA) | payer OTHER, SELFPAY | PROVIDERS: PCP Internal Medicine; Visit Provider Nurse Practitioner Family ==

== ENCOUNTER 2023-05-05 10:00 | Outpatient (RCR) | payer OTHER, SELFPAY ==
--- NOTE | 2023-03-30 10:37 | MHC.OT.EP ---
[address] [phone] Occupational Therapy Plan of Care Patient Name: Cole Malone Date of Evaluation: 03/30/23 Diagnosis: Displaced fracture of left distal phalanx Pain Location: Pain left thumb Current: 8/10 Best: 5/10 Pain Score: 8 Pain Scale Used: Aggravating Factors: Forceful grasp Alleviating Factors: Ice, tylenol Assessment: Pt is a 62 y/o right hand dominant male s/p L thumb fracture on 02/05/23. Pt reports he was cutting plywood on a table saw when the wood kicked back and crushed his thumb. Pt was seen in the ER and noted to have a displace fracture of the distal phalanx. Due to concern of infection, he was started on antibiotics and issued a removeable splint. He followed up with ortho on 03/29 with evidence of healing. Pt. is able to wean from spica spint. Cole complains of 8/10 pain with use and demonstrates stiffness in IP joint as well as decreased shoeshiner and pinch strength. A 29.5% limitation is reported per the Quick DASH assessment. Pt would benefit from skilled OT to address noted barriers and assist in return to PLOF. He is to avoid forceful pinching and gripping. Frequency and Duration: The patient will be seen 2x/wk for 4 weeks Short Term Goals: Pain free with BADL's/IADL's Improve L thumb IP flex >60 degrees Improve left gross grasp >45# IND with progression of HEP Pss Delivery Professional Goals: Same as above Treatment Plan: Therapeutic Exercise Therapeutic Activity Home Exercise Program Patient Education Edema Control Ultrasound Paraffin Fluidotherapy Joint Mobilization Kinesiotaping Electronically Signed By: Martita Zepeda, OTR/L Please Sign and return to therapist. Thank you once again for your referral.
== END 2023-05-05 10:45 | disposition home or self-care (01) ==
LOC: HO.OT 10:00
PROVIDERS: PCP Internal Medicine; Visit Provider Physician Assistant
DX: S62.522D Displaced fracture of distal phalanx of left thumb, subsequent encounter for fracture with routine healing (principal)
CPT/HCPCS: 97035; 97110; 97140; 97165

== ENCOUNTER 2023-06-09 07:39 | Emergency (ER) | payer OTHER, SELFPAY ==
--- NOTE | ~2023-06-09 | XR_ITS ---
EXAMINATION: XR CHEST CLINICAL INFORMATION: Cough COMPARISON: 08/02/2022 TECHNIQUE: Frontal view of the chest was obtained. FINDINGS: No significant abnormality is noted involving the heart, lungs, mediastinum, bony thorax or soft tissues. Suture anchors are again noted in the right humeral head. XR/XR chest 1V IMPRESSION: Unremarkable examination.
[2023-06-09 07:52] VITALS: BP 133/70; PULSE 78; RESP 19; TEMP 36.6; O2SAT 99; BMI 24.9
--- NOTE | 2023-06-09 08:41 | ED_ITS ---
HPI - URI/Sore Throat General Chief Complaint: Upper Respiratory Symptoms Stated Complaint: sore throat Time Seen by Provider: 06/09/23 08:07 Source: patient, family, old records reviewed and certified court interpreter Mode of arrival: ambulatory Limitations: no limitations History of Present Illness HPI Narrative: 62 yo male with PMH of BPH, psoriasis on infusions, asthma, UTI, GERD, HLD, CAD who reports a cough and sore throat after exposure to his . He took a test yesterday and was negative. He came to confirm his status. He is not having fevers. He has had symptoms for two days. He is vaccinated x 4. He would take p axlovid. MD elicited complaint: cough and sore throat Pertinent past history: asthma Onset (ago): day(s) (2) Consistency: intermittent Severity: mild Able to tolerate fluids by mouth: Yes Exacerbating factors: swallowing Relieving factors: nothing Context: sick contacts Associated symptoms: rhinorrhea, sore throat and cough Treatments prior to arrival: none Related Data Home Medications Medication Instructions Recorded Confirmed certolizumab pegol 400 mg/2 mL 400 mg subcut Q2W 06/24/20 04/05/23 (200 mg/mL x2) subcutaneous syringe kit cyclobenzaprine 10 mg tablet 10 mg PO BID PRN muscle spasm 01/17/23 04/05/23 aspirin 81 mg tablet,delayed 81 mg PO DAILY 02/10/23 04/05/23 release lidocaine 5 % topical patch 1 patch topical DAILY PRN left 04/05/23 04/05/23 hand pain, and wrist pain meloxicam 15 mg tablet 15 mg PO DAILY PRN 04/05/23 04/05/23 montelukast 10 mg tablet 10 mg PO DAILY PRN 04/05/23 04/05/23 oxycodone 5 mg tablet 5 mg PO Q6H PRN pain 04/05/23 04/05/23 tamsulosin 0.4 mg capsule (Flomax) 0.4 mg PO BEDTIME PRN 04/05/23 04/05/23 triamcinolone acetonide 55 mcg 1 spray intranasal DAILY PRN 04/05/23 04/05/23 nasal spray aerosol Previous Rx's Medication Instructions Recorded cane #1 ea 11/20/20 cetirizine 10 mg tablet (Allergy 10 mg PO DAILY 90 days #90 tabs 09/22/21 Relief (cetirizine)) sennosides 8.6 mg tablet 17.2 mg (2 x 8.6 mg) PO BEDTIME 09/22/21 PRN Constipation 90 days #90 tabs amitriptyline 25 mg tablet 25 mg PO BEDTIME 90 days #90 tabs 09/23/21 acetaminophen 500 mg tablet 1,000 mg (2 x 500 mg) PO Q6H PRN 10/05/21 (Acetaminophen Extra Strength) pain #30 tabs fluticasone 250 mcg-salmeterol 50 1 ea PO BID #180 caps 12/15/21 mcg/dose blistr powdr for inhalation (Wixela Inhub) albuterol sulfate 2.5 mg/3 mL 2.5 mg (3 mL) inhalation Q4-6H PRN 08/02/22 (0.083 %) solution for nebulization shortness of breath or wheezing #90 mL albuterol sulfate 90 mcg/actuation 2 puff inhalation Q4-6H PRN 08/02/22 aerosol inhaler (ProAir HFA) shortness of breath or wheezing #8.5 grams nebulizers (AeroEclipse II #1 ea 08/05/22 Nebulizer) benzonatate 100 mg capsule 100 mg PO TID PRN cough #30 caps 08/20/22 nitroglycerin 0.4 mg sublingual 0.4 mg sublingual Q5M PRN chest 01/17/23 tablet pain #30 tabs rosuvastatin 40 mg tablet (Crestor) 40 mg PO DAILY #90 tabs 01/17/23 pyridoxine (vitamin B6) 100 mg 100 mg PO DAILY 90 days #90 tabs 01/26/23 tablet amoxicillin 875 mg-potassium 1 tab PO BID #14 tabs 02/06/23 clavulanate 125 mg tablet pantoprazole 40 mg tablet,delayed 40 mg PO DAILY 90 days #90 tabs 03/15/23 release gabapentin 300 mg capsule 300 mg PO BEDTIME 90 days #90 caps 04/05/23 tamsulosin 0.4 mg capsule (Flomax) 0.4 mg PO BEDTIME 90 days #90 caps 04/19/23 Allergies Allergy/AdvReac Type Severity Reaction Status Date / Time atorvastatin [Lipitor] Allergy Intermediate elevated Verified 06/09/23 07:52 liver enzymes Review of Systems Review of Systems: Constitutional : No Fever, No Chills, No Fatigue ENT/Mouth : pos sore throat, pos Rhinorrhea Eyes: No Eye Pain, No Swelling, No Redness Cardiovascular : No Chest Pain, No SOB, No Dyspnea on Exertion Respiratory : pos Cough, No Sputum Gastrointestinal : No Nausea, No Vomiting, No Diarrhea, No abdominal Pain Genitourinary : No Dysuria, No Urinary Frequency, No Hematuria, Musculoskeletal : No joint pain, No Myalgias, No Joint Swelling Skin : No Skin Lesions, No rash Neuro : No Weakness, No Numbness, No Dizziness, no Headache Psych : No Anxiety/Panic, No Depression All other systems reviewed and are negative [facility] Past Medical History Attestation statement: The following information was validated with the patient. Source: old records reviewed Medical History Atherosclerotic cardiovascular disease UTI (urinary tract infection) Hospital discharge follow-up Hematuria Leukocytosis Left inguinal hernia Back pain Constipation by delayed colonic transit GERD (gastroesophageal reflux disease) Chest pain Psoriatic arthritis Moderate asthma Pure hypercholesterolemia Unintentional weight loss Surgical History S/P cardiac catheterization Hx of colonoscopy H/O enucleation of right eyeball Hx laparoscopic cholecystectomy History of eye prosthesis History of corneal transplant Family History Family History Father Kidney failure Mother Diabetes Stroke Alzheimer disease Brother Cancer of kidney Sister Breast cancer Brother Lung cancer Social History Social History Housing: House Alcohol intake: current Alcohol intake frequency: holidays/special occasions only Alcohol type: beer Patient Tobacco Use Status: Never used Tobacco e-Cigarette/Vaping Use: Never Used Second Hand Smoke Exposure: No Advance Directives: No service: No Current occupational status: disabled Cognitive needs: No Hearing needs: No Vision needs: Yes (Glasses) Physical Exam Vital Signs: Vital Signs: Last Vital Signs Temp 98.1 F 06/09/23 09:12 Pulse 58 06/09/23 09:12 Resp 14 06/09/23 09:12 BP 110/67 06/09/23 09:12 Pulse Ox 99 06/09/23 09:12 O2 Del Method Room Air 06/09/23 09:12 BMI result Body Mass Index 24.9 Appearance: Alert. Oriented X3. No acute distress. Eyes: Pupils equal, round and reactive to light. ENT: Pharynx normal. Neck: Normal inspection. Neck supple. CVS: Normal heart rate and rhythm. Pulses normal. Respiratory: No respiratory distress. Breath sounds normal. no wheezing Abdomen: Soft and nontender. Skin: Skin warm and dry. Normal skin color. Normal skin turgor. Extremities: No lower extremity edema. No calf ttp Neuro: Oriented X 3. No motor deficit. No sensory deficit. Medical Decision Making Medical Decision Making [facility] Narrative: 62 yo male with PMH of BPH, psoriasis on infusions, asthma, UTI, GERD, HLD, CAD here with URI symptoms normal VS, no hypoxia, clear lungs exposed to COVID wants a test now - at this time given risk factors will obtain COVID and CXR start on paxlovid at his request day 2 of symptoms, no hypoxia or tachycardia doubt PE. normal Cr in past. Differential Diagnosis Differential Diagnoses: The differential diagnosis associated with the presentation includes covid, viral syndrome, viral pharyngitis - no exudates to suggest strep Lab Data [facility] Lab Attestation statement: I reviewed the patient's lab results. Labs: Lab Results 06/09/23 Range/Units 08:43 COVID-19 (JORDAN) Negative (Negative) COVID-19 Clin Com See Note Independent Interpretation I performed an independent interpretation of an: Plain X-Ray (normal ) Radiology Impression Discussion of test interpretation with radiology: I have reviewed the radiologist's reading. External Record Review External record reviewed: Inpatient record Prescription Management I considered prescription management with: Antiviral does not want medications unless he has COVID Discharge Plan Discharge Clinical Impression: Pharyngitis Qualifiers: Pharyngitis/tonsillitis etiology: unspecified etiology Qualified Code(s): J02.9 - Acute pharyngitis, unspecified Patient Disposition: Home, Self-Care Instructions: Upper Respiratory Infection (ED) Additional Instructions: normal chest xray, negative for COVID. continue to test at home every day. return for worsening symptoms such as chest pain, difficulty breathing, vomiting, fevers, or any other concerns. Radiograf?a de t?rax normal, negativa para COVID. Contin?e realizando pruebas en casa todos los d?as. Regrese si los s?ntomas empeoran, sara dolor en el pecho, dificultad para respirar, v?mitos, fiebre o cualquier otra inquietud. Prescriptions: No Action (DME) cane Device See Rx Instructions .ROUTE .MEDSUPPLY Qty: 1 0RF Rx Instructions: As directed amitriptyline 25 mg tablet 25 mg PO BEDTIME 90 Days Qty: 90 1RF fluticasone propion-salmeterol [Wixela Inhub] 250-50 mcg/dose blister with device 1 ea PO BID Qty: 180 2RF (DME) nebulizers [AeroEclipse II Nebulizer] Misc See Rx Instructions .Route Qty: 1 0RF Rx Instructions: As directed pantoprazole 40 mg tablet,delayed release (DR/EC) 40 mg PO DAILY 90 Days Qty: 90 1RF tamsulosin [Flomax] 0.4 mg capsule 0.4 mg PO BEDTIME 90 Days Qty: 90 3RF albuterol sulfate [ProAir HFA] 90 mcg/actuation HFA aerosol inhaler 2 puff inhalation Q4-6H PRN (Reason: shortness of breath or wheezing) Qty: 8.5 0RF albuterol sulfate 2.5 mg /3 mL (0.083 %) solution for nebulization 2.5 mg inhalation Q4-6H PRN (Reason: shortness of breath or wheezing) Qty: 90 0RF amoxicillin-pot clavulanate 875-125 mg tablet 1 tab PO BID Qty: 14 0RF certolizumab pegol 400 mg/2 mL (200 mg/mL x 2) syringe kit 400 mg subcut Q2W cetirizine [Allergy Relief (cetirizine)] 10 mg tablet 10 mg PO DAILY 90 Days Qty: 90 1RF sennosides 8.6 mg tablet 17.2 mg PO BEDTIME PRN (Reason: Constipation) 90 Days Qty: 90 1RF acetaminophen [Acetaminophen Extra Strength] 500 mg tablet 1,000 mg PO Q6H PRN (Reason: pain) Qty: 30 0RF benzonatate 100 mg capsule 100 mg PO TID PRN (Reason: cough) Qty: 30 0RF pyridoxine (vitamin B6) 100 mg tablet 100 mg PO DAILY 90 Days Qty: 90 3RF cyclobenzaprine 10 mg tablet 10 mg PO BID PRN (Reason: muscle spasm) rosuvastatin [Crestor] 40 mg tablet 40 mg PO DAILY Qty: 90 3RF nitroglycerin 0.4 mg tablet, sublingual 0.4 mg sublingual Q5M PRN (Reason: chest pain) Qty: 30 5RF Rx Instructions: do not exceed 3 doses per episode aspirin 81 mg tablet,delayed release (DR/EC) 81 mg PO DAILY lidocaine 5 % adhesive patch,medicated 1 patch topical DAILY PRN (Reason: left hand pain, and wrist pain) Rx Instructions: leave on most painful area for up to 12 hrs meloxicam 15 mg tablet 15 mg PO DAILY PRN montelukast 10 mg tablet 10 mg PO DAILY PRN oxycodone 5 mg tablet 5 mg PO Q6H PRN (Reason: pain) Rx Instructions: Partial Fill upon patient request. tamsulosin [Flomax] 0.4 mg capsule 0.4 mg PO BEDTIME PRN triamcinolone acetonide 55 mcg aerosol,spray 1 spray intranasal DAILY PRN gabapentin 300 mg capsule 300 mg PO BEDTIME 90 Days Qty: 90 1RF Print Language: [place]ican
[2023-06-09 09:12] VITALS: BP 110/67; PULSE 58; RESP 14; TEMP 36.7; O2SAT 99
[2023-06-09 09:14] LABS: COVID-19 Test Negative (Negative); IDNOW Serial# BCCEAD1C
== END 2023-06-09 09:45 | disposition home or self-care (01) ==
PROVIDERS: Emergency Provider Emergency Medicine; PCP Internal Medicine
DX: J02.9 Acute pharyngitis, unspecified (principal); Z20.822 Contact with and (suspected) exposure to COVID-19; R05.9 Cough, unspecified
CPT/HCPCS: 71045; 87635; 99282; 99283

== ENCOUNTER 2023-06-11 07:38 | Emergency (ER) | payer OTHER, SELFPAY ==
[2023-06-11 07:39] VITALS: BP 130/66; PULSE 80; RESP 18; O2SAT 98; BMI 24.9
--- NOTE | 2023-06-11 07:48 | ED_ITS ---
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 He is interested in getting packs of it. He states he got Paxil of it last time he had COVID last year and tolerated it well. He is vaccinated x4, last vaccination was last April. He is immunocompromised on Cimzia and has asthma. He is concerned about worsening COVID status. He reports minimal respiratory involvement, he has a mild cough. He denies any shortness of breath, chest pain, nausea, vomiting, diarrhea, abdominal pain. He states he has a headache and pressure in his eyes. His is also positive for COVID at home. MD complaint: Headache Onset (ago): day(s) (1) Location: head Radiation: non-radiation Severity: moderate Quality: aching Pain Consistency: constant Relieving factors: none Exacerbating factors: none Associated symptoms: cough and malaise Treatments prior to arrival: none Related Data Home Medications Medication Instructions Recorded Confirmed certolizumab pegol 400 mg/2 mL 400 mg subcut Q2W 06/24/20 04/05/23 (200 mg/mL x2) subcutaneous syringe kit cyclobenzaprine 10 mg tablet 10 mg PO BID PRN muscle spasm 01/17/23 04/05/23 aspirin 81 mg tablet,delayed 81 mg PO DAILY 02/10/23 04/05/23 release lidocaine 5 % topical patch 1 patch topical DAILY PRN left 04/05/23 04/05/23 hand pain, and wrist pain meloxicam 15 mg tablet 15 mg PO DAILY PRN 04/05/23 04/05/23 montelukast 10 mg tablet 10 mg PO DAILY PRN 04/05/23 04/05/23 oxycodone 5 mg tablet 5 mg PO Q6H PRN pain 04/05/23 04/05/23 tamsulosin 0.4 mg capsule (Flomax) 0.4 mg PO BEDTIME PRN 04/05/23 04/05/23 triamcinolone acetonide 55 mcg 1 spray intranasal DAILY PRN 04/05/23 04/05/23 nasal spray aerosol Previous Rx's Medication Instructions Recorded cane #1 ea 11/20/20 cetirizine 10 mg tablet (Allergy 10 mg PO DAILY 90 days #90 tabs 09/22/21 Relief (cetirizine)) sennosides 8.6 mg tablet 17.2 mg (2 x 8.6 mg) PO BEDTIME 09/22/21 PRN Constipation 90 days #90 tabs amitriptyline 25 mg tablet 25 mg PO BEDTIME 90 days #90 tabs 09/23/21 acetaminophen 500 mg tablet 1,000 mg (2 x 500 mg) PO Q6H PRN 10/05/21 (Acetaminophen Extra Strength) pain #30 tabs fluticasone 250 mcg-salmeterol 50 1 ea PO BID #180 caps 12/15/21 mcg/dose blistr powdr for inhalation (Bekaela Inhsusan) albuterol sulfate 2.5 mg/3 mL 2.5 mg (3 mL) inhalation Q4-6H PRN 08/02/22 (0.083 %) solution for nebulization shortness of breath or wheezing #90 mL albuterol sulfate 90 mcg/actuation 2 puff inhalation Q4-6H PRN 08/02/22 aerosol inhaler (ProAir HFA) shortness of breath or wheezing #8.5 grams nebulizers (AeroEclipse II #1 ea 08/05/22 Nebulizer) benzonatate 100 mg capsule 100 mg PO TID PRN cough #30 caps 08/20/22 nitroglycerin 0.4 mg sublingual 0.4 mg sublingual Q5M PRN chest 01/17/23 tablet pain #30 tabs rosuvastatin 40 mg tablet (Crestor) 40 mg PO DAILY #90 tabs 01/17/23 pyridoxine (vitamin B6) 100 mg 100 mg PO DAILY 90 days #90 tabs 01/26/23 tablet amoxicillin 875 mg-potassium 1 tab PO BID #14 tabs 02/06/23 clavulanate 125 mg tablet pantoprazole 40 mg tablet,delayed 40 mg PO DAILY 90 days #90 tabs 03/15/23 release gabapentin 300 mg capsule 300 mg PO BEDTIME 90 days #90 caps 04/05/23 tamsulosin 0.4 mg capsule (Flomax) 0.4 mg PO BEDTIME 90 days #90 caps 04/19/23 nirmatrelvir 300 mg (150 mg See Rx Instructions PO .COMPLEX 06/11/23 x2)-ritonavir 100 mg tablet,dose #30 ea pack (Paxlovid) prednisone 20 mg tablet 40 mg (2 x 20 mg) PO DAILY #10 tabs 06/11/23 Allergies Allergy/AdvReac Type Severity Reaction Status Date / Time atorvastatin [Lipitor] Allergy Intermediate elevated Verified 06/11/23 07:44 liver enzymes Review of Systems Review of Systems: Yes all other systems are reviewed and are negative [facility] Past Medical History Medical History Atherosclerotic cardiovascular disease UTI (urinary tract infection) Hospital discharge follow-up Hematuria Leukocytosis Left inguinal hernia Back pain Constipation by delayed colonic transit GERD (gastroesophageal reflux disease) Chest pain Psoriatic arthritis Moderate asthma Pure hypercholesterolemia Unintentional weight loss Surgical History S/P cardiac catheterization Hx of colonoscopy H/O enucleation of right eyeball Hx laparoscopic cholecystectomy History of eye prosthesis History of corneal transplant Family History Family History Father Kidney failure Mother Diabetes Stroke Alzheimer disease Brother Cancer of kidney Sister Breast cancer Brother Lung cancer Social History Social History Housing: House Alcohol intake: current Alcohol intake frequency: does not drink Alcohol type: beer Patient Tobacco Use Status: Never used Tobacco Smoked in Last 30 Days: No e-Cigarette/Vaping Use: Never Used Second Hand Smoke Exposure: No Use of substances other than those prescribed or required for medical reasons: No Advance Directives: No Advance Directives Information Provided: No service: No Current occupational status: disabled Cognitive needs: No Hearing needs: No Vision needs: Yes (Glasses) Physical Exam ED Vital Signs: Vital Signs - 24 hr 06/11/23 07:39 06/11/23 07:52 06/11/23 09:40 Temperature Pulse Rate 80 66 Respiratory Rate 18 18 Blood Pressure 130/66 107/65 Pulse Oximetry 98 97 97 Oxygen Delivery Method Room Air Room Air Room Air 06/11/23 09:40 Temperature 98 F Pulse Rate 69 Respiratory Rate 16 Blood Pressure 118/65 Pulse Oximetry 97 Oxygen Delivery Method Room Air BMI result Body Mass Index 24.9 Appearance: Alert. Oriented X3. No acute distress. Head: normocephalic, atraumatic. Eyes: Pupils equal, round and reactive to light. ENT: Pharynx normal. No tonsillar swelling or exudate. Neck: Normal inspection. Neck supple. CVS: Normal heart rate and rhythm. Pulses normal. Respiratory: No respiratory distress. Breath sounds with faint expiratory wheeze in LLL Abdomen: Soft and nontender. +BS x4 Skin: Skin warm and dry. Normal skin color. Normal skin turgor. No rashes. Extremities: No lower extremity edema. No joint swelling. Neuro/psych: Oriented X 3. No motor deficit. No sensory deficit. CN II-XII intact. Normal speech and cognition. Medical Decision Making Medical Decision Making [facility] Narrative: 62 yo male presenting for evaluation after he tested positive for COVID at home. sxs onset yesterday. VSS, lungs with mild wheeze. hx asthma. mild cough. doubt PNA COVID + here Spoke with pharmacist. There is no contraindication to Paxlovid and Cimzia he is aware to stop his statin while he is on paxlovid stable for d/c home. return precautions discussed. operations staff specialist security used to discuss dx, tx, and importance of follow up Differential Diagnosis Differential Diagnoses: The differential diagnosis associated with the presentation includes strep, covid, flu, rsv, other viral syndrome, bronchitis, pneumonia Consult Healthcare Provider Management of the patient was discussed with: Metal Caster pharmacist Lab Data [facility] Lab Attestation statement: I reviewed the patient's lab results. Labs: Lab Results 06/11/23 Range/Units 07:46 Influenza Type A (PCR) NEGATIVE (Negative) Influenza Type B (PCR) NEGATIVE (Negative) RSV RNA Qual (PCR) NEGATIVE (Negative) SARS-CoV-2 RNA (RT-PCR) POSITIVE A (Negative) Independent Historian Clinical information obtained from an independent historian. History obtained from or confirmed by: Spouse External Record Review External record reviewed: Office record, Outpatient record and Prior outpatient labs Tests considered The following testing was considered but not selected: cxr considered but patient has no respiratory symptoms and he is saturating well on RA Prescription Management I considered prescription management with: Antiviral Chronic Conditions Patient?s care impacted by: Other (CAD, asthma) Critical Care Time Critical Care Time Critical Care Time: No Discharge Plan Discharge Clinical Impression: COVID-19 Patient Disposition: Home, Self-Care Instructions: Covid-19 Viral Syndrome and Novel Coronavirus (ED) Hey/Ath Additional Instructions: You were found to be COVID-19 POSITIVE today. Your exam and oxygen levels were normal. Rest. Drink plenty of fluids. Do not go out in public while you are not feeling well. After you isolate at home for 5 days, continue to wear a mask in public for the next 5 days. Take over the counter cold/flu medications as needed for your symptoms. Take Tylenol and/or Motrin as needed for fevers and body aches. Follow up with your doctor this week. If you develop new or worsening symptoms call 911 or come back to the ER for further evaluation. stop taking your cholesterol medication while you are on paxlovid. pharmacy reports no interaction with your Cimzia Se descubri? que hoy eres POSITIVO para COVID-19. Cates examen y niveles de ox?frank fueron normales. Descansar. Beber mucho l?quido. No salgas en p?blico mientras no te sientas fer. Despu?s de aislarse en casa amparo 5 d?as, contin?e usando darien mascarilla en p?blico amparo los pr?ximos 5 d?as. [place] medicamentos de venta beni para el resfriado o la gripe seg?n sea necesario para deisy s?ntomas. [place] Tylenol y/o Motrin seg?n sea necesario para la fiebre y los jovany corporales. [place] un seguimiento con cates m?dico esta semana. Si desarrolla s?ntomas nuevos o que empeoran, llame al 911 o regrese a la kate de emergencias para darien evaluaci?n adicional. deje de yokasta cates medicamento para el colesterol mientras est? tomando paxlovid. La farmacia no informa ninguna interacci?n con cates Cimzia. Prescriptions: New Paxlovid 300 mg (150 mg x 2)-100 mg tablets,dose pack See Rx Instructions .ROUTE .COMPLEX Qty: 30 0RF Rx Instructions: take TWO 150 mg tablets of nirmatrelvir with ONE 100 mg tablet of ritonavir twice daily for 5 days prednisone 20 mg tablet 40 mg PO DAILY Qty: 10 0RF No Action (DME) cane Device See Rx Instructions .ROUTE .MEDSUPPLY Qty: 1 0RF Rx Instructions: As directed amitriptyline 25 mg tablet 25 mg PO BEDTIME 90 Days Qty: 90 1RF fluticasone propion-salmeterol [Wixela Inhub] 250-50 mcg/dose blister with device 1 ea PO BID Qty: 180 2RF (DME) nebulizers [AeroEclipse II Nebulizer] Misc See Rx Instructions .Route Qty: 1 0RF Rx Instructions: As directed pantoprazole 40 mg tablet,delayed release (DR/EC) 40 mg PO DAILY 90 Days Qty: 90 1RF tamsulosin [Flomax] 0.4 mg capsule 0.4 mg PO BEDTIME 90 Days Qty: 90 3RF albuterol sulfate [ProAir HFA] 90 mcg/actuation HFA aerosol inhaler 2 puff inhalation Q4-6H PRN (Reason: shortness of breath or wheezing) Qty: 8.5 0RF albuterol sulfate 2.5 mg /3 mL (0.083 %) solution for nebulization 2.5 mg inhalation Q4-6H PRN (Reason: shortness of breath or wheezing) Qty: 90 0RF amoxicillin-pot clavulanate 875-125 mg tablet 1 tab PO BID Qty: 14 0RF certolizumab pegol 400 mg/2 mL (200 mg/mL x 2) syringe kit 400 mg subcut Q2W cetirizine [Allergy Relief (cetirizine)] 10 mg tablet 10 mg PO DAILY 90 Days Qty: 90 1RF sennosides 8.6 mg tablet 17.2 mg PO BEDTIME PRN (Reason: Constipation) 90 Days Qty: 90 1RF acetaminophen [Acetaminophen Extra Strength] 500 mg tablet 1,000 mg PO Q6H PRN (Reason: pain) Qty: 30 0RF benzonatate 100 mg capsule 100 mg PO TID PRN (Reason: cough) Qty: 30 0RF pyridoxine (vitamin B6) 100 mg tablet 100 mg PO DAILY 90 Days Qty: 90 3RF cyclobenzaprine 10 mg tablet 10 mg PO BID PRN (Reason: muscle spasm) rosuvastatin [Crestor] 40 mg tablet 40 mg PO DAILY Qty: 90 3RF nitroglycerin 0.4 mg tablet, sublingual 0.4 mg sublingual Q5M PRN (Reason: chest pain) Qty: 30 5RF Rx Instructions: do not exceed 3 doses per episode aspirin 81 mg tablet,delayed release (DR/EC) 81 mg PO DAILY lidocaine 5 % adhesive patch,medicated 1 patch topical DAILY PRN (Reason: left hand pain, and wrist pain) Rx Instructions: leave on most painful area for up to 12 hrs meloxicam 15 mg tablet 15 mg PO DAILY PRN montelukast 10 mg tablet 10 mg PO DAILY PRN oxycodone 5 mg tablet 5 mg PO Q6H PRN (Reason: pain) Rx Instructions: Partial Fill upon patient request. tamsulosin [Flomax] 0.4 mg capsule 0.4 mg PO BEDTIME PRN triamcinolone acetonide 55 mcg aerosol,spray 1 spray intranasal DAILY PRN gabapentin 300 mg capsule 300 mg PO BEDTIME 90 Days Qty: 90 1RF Print Language: Belgian
[2023-06-11 07:52] VITALS: BP 107/65; PULSE 66; RESP 18; O2SAT 97
[2023-06-11 09:40] VITALS: BP 118/65; PULSE 69; RESP 16; TEMP 36.6; O2SAT 97
[2023-06-11 10:02] LABS: Influenza A PCR NEGATIVE (Negative); Influenza B PCR NEGATIVE (Negative); Resp Syncy Virus RNA Qual PCR NEGATIVE (Negative); SARS COV2 PCR INHOUSE POSITIVE (Negative)
== END 2023-06-11 10:36 | disposition home or self-care (01) ==
PROVIDERS: Emergency Provider Emergency Medicine Emergency Medical Services; PCP Internal Medicine
DX: U07.1 COVID-19 (principal); R51.9 Headache, unspecified
CPT/HCPCS: 0241U; 99283; 99284

== ENCOUNTER 2023-07-21 09:55 | Outpatient (REF) | payer OTHER, SELFPAY ==
--- NOTE | ~2023-07-21 | US_ITS ---
EXAMINATION: US RETROPERITONEAL LIMITED (RENAL ONLY) CLINICAL INFORMATION: Calculus of kidney. COMPARISON: Ultrasound kidneys and bladder 01/13/2023. CT abdomen and pelvis 12/23/2021. Ultrasound abdomen complete 10/19/2018. TECHNIQUE: Real-time imaging of the kidneys. FINDINGS: RIGHT KIDNEY: 10.8 x 5.2 x 3.3 cm (SAG x AP x TRV). The kidney is normal in size, contour, and echogenicity. Renal cortical thickness is normal. No calculi or focal parenchymal lesions. No hydronephrosis. LEFT KIDNEY: 10.1 x 6.3 x 5.2 cm (SAG x AP x TRV). The kidney is normal in size, contour, and echogenicity. Renal cortical thickness is normal. No calculi or focal parenchymal lesions. No hydronephrosis. US/US renal BI IMPRESSION: No nephrolithiasis or hydronephrosis.
== END 2023-07-21 09:56 | disposition home or self-care (01) ==
LOC: HO.US 09:55
PROVIDERS: PCP Internal Medicine; Visit Provider Nurse Practitioner Family
DX: N20.0 Calculus of kidney (principal)
CPT/HCPCS: 76775

== ENCOUNTER 2023-07-27 10:02 | Outpatient (AMB) | payer OTHER, SELFPAY ==
--- NOTE | 2023-07-27 10:26 | A.OFFVIS_ITS ---
Intake Intake Visit Reasons: 6m/US/PVR(set) Intake Note: Patient is present for follow up ultrasound/BPH/PVR (imaging 07/21/23) Urology Medications: tamsulosin Blood Thinner: aspirin PVR:71ml's Rn Licensed Practical Required: Yes Accompanied by: Son and Spouse Allergies atorvastatin [Lipitor] Allergy (Intermediate, Verified 07/27/23 21:15) elevated liver enzymes Medication List - Last Reconciled 07/27/23 by JOHNIE Mendez- acetaminophen (Acetaminophen Extra Strength) 1,000 mg (2 x 500 mg) PO Q6H PRN albuterol sulfate 2.5 mg (3 mL) inhalation Q4-6H PRN albuterol sulfate 90 mcg/actuation (ProAir HFA) 2 puffs inhalation Q4-6H PRN amitriptyline 25 mg PO BEDTIME 90 days aspirin 81 mg PO DAILY benzonatate 100 mg PO TID PRN cane As directed certolizumab pegol 400 mg subcut Q2W cetirizine (Allergy Relief (cetirizine)) 10 mg PO DAILY 90 days cyclobenzaprine 10 mg PO BID PRN fluticasone propion-salmeterol 250-50 mcg/dose (Wixela Inhub) 1 ea PO BID gabapentin 300 mg PO BEDTIME 90 days lidocaine 5% 1 patch topical DAILY PRN meloxicam 15 mg PO DAILY PRN montelukast 10 mg PO DAILY PRN nebulizers (AeroEclipse II Nebulizer) As directed nirmatrelvir-ritonavir 300 mg (150 mg x 2)-100 mg (Paxlovid) take TWO 150 mg tablets of nirmatrelvir with ONE 100 mg tablet of ritonavir twice daily for 5 days nitroglycerin 0.4 mg sublingual Q5M PRN oxycodone 5 mg PO Q6H PRN pantoprazole 40 mg PO DAILY 90 days prednisone 40 mg (2 x 20 mg) PO DAILY pyridoxine (vitamin B6) 100 mg PO DAILY 90 days rosuvastatin (Crestor) 40 mg PO DAILY sennosides 17.2 mg (2 x 8.6 mg) PO BEDTIME PRN 90 days tamsulosin (Flomax) 0.4 mg PO BEDTIME 90 days triamcinolone acetonide 1 spray intranasal DAILY PRN HPI HPI Comments History of Present Illness Details Cole is a pleasant 63-year-old male patient of Dr. Rojas Ashraf who is accompanied by his son and at todays visit. He has a past medical history of ACD, left inguinal hernia, constipation, GERD, psoriatic arthritis, asthma, and hypercholesteremia. He presents to the office today for follow-up of his lower urinary tract symptoms and nephrolithiasis. Recent renal ultrasound results reviewed with the patient today. Bilateral kidneys with no calculi, lesions, and or hydronephrosis noted. The patient reports to be happy with current voiding parameters on 0.4 mg of tamsulosin daily. He currently denies any bothersome urinary issues or concerns at this time. He denies urinary urgency, urinary frequency, incontinence, hematuria, dysuria, foul smelling urine, flank pain, fever, and or chills. PSA 02/08 0.7. In office urinalysis results reviewed with the patient and his son today. PVR 71mL. He otherwise offers no issues or concerns. He discusses upcoming cruise with his family. [facility] Medical History Atherosclerotic cardiovascular disease UTI (urinary tract infection) Hospital discharge follow-up Hematuria Leukocytosis Left inguinal hernia Back pain Constipation by delayed colonic transit GERD (gastroesophageal reflux disease) Chest pain Psoriatic arthritis Moderate asthma Pure hypercholesterolemia Unintentional weight loss Surgical History S/P cardiac catheterization Hx of colonoscopy H/O enucleation of right eyeball Hx laparoscopic cholecystectomy History of eye prosthesis History of corneal transplant Family History Father Kidney failure Mother Diabetes Stroke Alzheimer disease Brother Cancer of kidney Sister Breast cancer Brother Lung cancer Social History Housing: House Alcohol intake: current Alcohol intake frequency: does not drink Alcohol type: beer Patient Tobacco Use Status: Never used Tobacco e-Cigarette/Vaping Use: Never Used Second Hand Smoke Exposure: No service: No Current occupational status: disabled Cognitive needs: No Hearing needs: No Vision needs: Yes (Glasses) Review of Systems Const Reports no additional complaints Eyes Reports no additional complaints ENT Reports no additional complaints Card Reports as per [facility] Resp Reports as per [facility] GI Reports as per HPI Reports as per [facility] Musc Reports as per [facility] Neuro Reports no additional complaints Psych Reports no additional complaints Endo Reports no additional complaints Physical Exam Const General: cooperative, healthy appearing, comfortable, no acute distress, well developed, alert and awake Nutritional Appearance: average body habitus Orientation/consciousness: patient oriented x3 Limitations: no limitations HEENT Head: Yes normal to inspection, Yes normocephalic and Yes atraumatic Ears: hearing grossly normal bilaterally Eyes General: appearance normal, both eyes and all related structures Neck Neck: Yes normal visual inspection and Yes trachea midline Chest Chest palpation & inspection: normal inspection of the chest Resp Effort & Inspection: normal respiratory effort and able to speak in complete sentences Cardio Rate: regular rate GI Inspection: Yes normal to inspection Rectal Exam - Male: Yes visual inspection normal, Yes normal sphincter tone and Yes prostate normal General: Yes no CVA tenderness Penis: normal penis and circumcised Meatus: meatus normal Scrotum: scrotum normal Testes: Testes normal and epididymal tenderness (slight left sided epidydimal tenderness noted) Back/Spine/Pelvis Back: no CVA tenderness Skin General skin exam: no rashes or lesions noted Neuro General: patient oriented x3 Extrem General: Yes normal to inspection Psych Appearance: grossly normal and well kempt Mental Status: mental status grossly normal Speech and movement: Normal speech and movement present and Clear speech present Affect: normal affect Attitude: cooperative Thought process: Normal thought process present Thought content: Normal thought content present Insight: Good insight present (Psych) Judgement: Good judgement present (Psych) Office Procedures Post Void Residual Post Residual Void Post Void Residual (PVR): 71 [id number] Void Residual by ultrasound Results AMB Urinalysis, Automated UA Leukoctes 0 Rose/uL Last Edit by Christine Edwards on 07/27/23 10:47 UA Nitrite Negative Last Edit by Christine Edwards on 07/27/23 10:47 UA Urobilinogen 0.2 mg/dL Last Edit by Christine Edwards on 07/27/23 10:47 UA Protein 0 mg/dL Last Edit by Christine Edwards on 07/27/23 10:47 UA pH 5.5 Last Edit by Christine Edwards on 07/27/23 10:47 UA Blood 0 Shelton/uL Last Edit by Christine Rigginsmichel on 07/27/23 10:47 UA Specific [place] 1.030 Last Edit by Christine Edwards on 07/27/23 10:47 UA Ketone Negative Last Edit by Christine Vaishnavimichel on 07/27/23 10:47 UA Bilirubin 0 mg/dL Last Edit by Christine Vaishnavimichel on 07/27/23 10:47 UA Glucose 0 mg/dL Last Edit by Christine Edwards on 07/27/23 10:47 Results Reviewed Results Reviewed: Laboratory Last Values Urine pH (Auto) 5.5 07/27/23 10:31 Specific [place] (Auto) 1.030 07/27/23 10:31 Urine Protein (Auto) 0 mg/dL 07/27/23 10:31 Glucose (UA)(Auto) 0 mg/dL 07/27/23 10:31 Urine Ketones (Auto) Negative 07/27/23 10:31 Urine Blood (Auto) 0 Shelton/uL 07/27/23 10:31 Urine Nitrite (Auto) Negative 07/27/23 10:31 Urine Bilirubin (Auto) 0 mg/dL 07/27/23 10:31 Urine Urobilinogen (Auto) 0.2 mg/dL 07/27/23 10:31 Leukocyte Esterase (Auto) 0 Rose/uL 07/27/23 10:31 Ordering Physician: Eugenia Angelo Date of Service: 07/21/23 Procedure(s): US renal BI Accession Number(s): [id number] cc: Eugenia Angelo; Zonia Capellan MD~ EXAMINATION: US RETROPERITONEAL LIMITED (RENAL ONLY) CLINICAL INFORMATION: Calculus of kidney. COMPARISON: Ultrasound kidneys and bladder 01/13/2023. CT abdomen and pelvis 12/23/2021. Ultrasound abdomen complete 10/19/2018. TECHNIQUE: Real-time imaging of the kidneys. FINDINGS: RIGHT KIDNEY: 10.8 x 5.2 x 3.3 cm (SAG x AP x TRV). The kidney is normal in size, contour, and echogenicity. Renal cortical thickness is normal. No calculi or focal parenchymal lesions. No hydronephrosis. LEFT KIDNEY: 10.1 x 6.3 x 5.2 cm (SAG x AP x TRV). The kidney is normal in size, contour, and echogenicity. Renal cortical thickness is normal. No calculi or focal parenchymal lesions. No hydronephrosis. US/US renal BI IMPRESSION: No nephrolithiasis or hydronephrosis. Assessment & Plan Assessment & Plan (1) Lower urinary tract symptoms: Code(s): R39.9 - Unspecified symptoms and signs involving the genitourinary system (2) Nephrolithiasis: Code(s): N20.0 - Calculus of kidney Plan In office urinalysis results reviewed with the patient today. PVR 71 mL. Continue tamsulosin 0.4 mg daily as discussed and prescribed. Recent renal ultrasound results reviewed with the patient today; as noted above. Patient denies any bothersome urinary issues or concerns at this time. Patient reports be happy with current voiding parameters on Flomax Will obtain PSA and renal ultrasound in 1 year Discussed, educated, and stressed the importance of drinking plenty of water daily. Continue vitamin B6 daily. Continue adding 1 oz of lemon juice to water daily. Follow-up in 1 year with imaging and lab to be completed prior; or sooner with any issues, concerns, and or questions. Orders: Orders AMB Urinalysis Automated Today Z13.9 - Encounter for screening, unspecified AMB Post Void Residual by ultrasound Today N40.0 - Benign prostatic hyperplasia without lower urinary tract symptoms Prostate Specific Antigen 364 Days N40.0 - Benign prostatic hyperplasia without lower urinary tract symptoms US renal BI 364 Days N20.0 - Calculus of kidney Patient Instructions: The patient had an opportunity to ask questions regarding the treatment plan. All questions were answered. Physical exam, labs, and imaging were discussed and reviewed in detail. As well as risks, benefits, and discussion of treatment choices. No major barriers to understanding were identified. The patient expressed understanding and agreement with the above treatment plan. The patient was made aware they should contact our office by phone for worsening of their current condition, the appearance of new symptoms, or with any questions or concerns. Compliance is encouraged with any medications and follow up testing that is ordered. It is a privilege to be allowed the opportunity to participate in? your urological care.? Again, if you have any questions or concerns If you have any questions or concerns please do not hesitate to contact me. The office is [phone]. This note is constructed using voice recognition software. While every effort has been made to ensure accuracy compressor mechanic bus errors may have been included. Yours sincerely, JOHNIE Mendez-TRI Coding Level of Care Code Est Pt Level 3 (90885) Diagnoses Lower urinary tract symptoms R39.9 Nephrolithiasis N20.0 CPT Codes Post Residual Void - PVR CPT Code: 35639-Fgxi Void Residual by ultrasound ([id number])
== END 2023-07-27 11:15 | disposition home or self-care (01) ==
PROVIDERS: Visit Provider Nurse Practitioner Family
DX: R39.9 Unspecified symptoms and signs involving the genitourinary system (principal); N20.0 Calculus of kidney
CPT/HCPCS: 99213

== ENCOUNTER → 2023-07-27 10:02 | Outpatient (BNVA) | payer OTHER, SELFPAY | PROVIDERS: Visit Provider Nurse Practitioner Family | DX: N20.0 Calculus of kidney (principal); R39.9 Unspecified symptoms and signs involving the genitourinary system | CPT/HCPCS: 51798; 81003; 99212 ==

== ENCOUNTER 2023-08-09 14:23 | Outpatient (AMB) | payer OTHER, SELFPAY ==
--- NOTE | 2023-08-09 14:32 | AM.OFFVISNUR ---
Intake Intake Visit Reasons: flu shot Allergies atorvastatin [Lipitor] Allergy (Intermediate, Verified 07/27/23 21:15) elevated liver enzymes Office Procedures Flu Questionnaire Does the patient have a severe egg allergy?: No Does the patient have severe life threatening allergies?: No Does the patient have a fever or illness today?: No Has the patient ever had Guillain-[place] Syndrome?: No Has the patient ever had any past reaction to a flu shot?: No Immunizations flu vacc [id number] 6mos up(PF) 60 mcg(15 mcgx4)/0.5 mL IM syringe Performing Provider: Zonia Ashraf MD Performing Location: [facility] Administered by: JENNA Cosby on 08/09/23 14:33 Dose Route Admin Location Dispensed Lot Number Expiration Date 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
== END 2023-08-09 15:31 | disposition home or self-care (01) ==
PROVIDERS: PCP Internal Medicine; Visit Provider Internal Medicine
DX: Z23 Encounter for immunization (principal)
CPT/HCPCS: 90471; 90686

== ENCOUNTER 2023-08-29 09:52 | Outpatient (AMB) | payer OTHER, SELFPAY ==
[2023-08-29 10:48] VITALS: BP 120/74; PULSE 76; TEMP 36.6; O2SAT 97; BMI 26.0
--- NOTE | 2023-08-29 10:48 | MHC.OFFWIV ---
Intake Vital Signs 08/29/23 10:48 Height 5 ft 4 in Weight 68.606 kg BMI 26.0 BP 120/74 Blood Pressure Location Rt brachial Position Sitting Pulse 76 Pulse Source Pulse Oximeter Temp 97.8 F Temp Source Temporal Artery Scan Pulse Oximetry (%) 97 Oxygen Delivery Method Room Air Intake Visit Reasons: EP Lft pointer fingernail bruised [id number] Intake Note: pt is here for c.o left pointer fingernail bruised Patient Tobacco Use Status: Never used Tobacco Allergies atorvastatin [Lipitor] Allergy (Intermediate, Verified 08/29/23 10:48) elevated liver enzymes Do you need a note to return to daycare/school/sports/work: Yes HPI HPI Comments History of Present Illness Details 63-year-old male presents with left 2nd finger pain status post accidentally hitting himself with a hammer a few days ago, reports his nail bed appears red, swollen and warm. Reports finger pain. Denies fevers, chills, nausea, vomiting, abdominal pain, headache, vision changes, dizziness. No previous issues with this finger. Physical exam significant for + left 2nd digit with subungual hematoma and overlying erythema and warmth to nail bed. Full range of motion, painless. Normal sensation distally. Capillary refill less than 2 seconds all up her extremity digits. No wrist drop. 2+ radial pulses. Concerns for subungual hematoma and possible fracture dislocation of finger. No signs of neurovascular compromise or threat to Rashid. No indication to emergently drained the subungual hematoma. No signs of septic joint. However there is concerns for paronychia. Will treat patient with Keflex give naproxen for pain, it shows a complex between naproxen and meloxicam however patient did not indicate he is currently taking meloxicam. Will have him follow-up with the orthopedic team. Imaging ordered. Educated patient on diagnosis and treatment plan, answered all question, patient verbalizes understanding. At this time patient will be discharged home, advised to return with new or worsening symptoms. Educated on worrisome signs and symptoms and when to return. At this time I feel comfortable discharge home. [facility] Medical History Atherosclerotic cardiovascular disease UTI (urinary tract infection) Hospital discharge follow-up Hematuria Leukocytosis Left inguinal hernia Back pain Constipation by delayed colonic transit GERD (gastroesophageal reflux disease) Chest pain Psoriatic arthritis Moderate asthma Pure hypercholesterolemia Unintentional weight loss Surgical History S/P cardiac catheterization Hx of colonoscopy H/O enucleation of right eyeball Hx laparoscopic cholecystectomy History of eye prosthesis History of corneal transplant Family History Father Kidney failure Mother Diabetes Stroke Alzheimer disease Brother Cancer of kidney Sister Breast cancer Brother Lung cancer Social History Housing: House Alcohol intake: current Alcohol intake frequency: does not drink Alcohol type: beer Patient Tobacco Use Status: Never used Tobacco e-Cigarette/Vaping Use: Never Used Second Hand Smoke Exposure: No service: No Current occupational status: disabled Cognitive needs: No Hearing needs: No Vision needs: Yes (Glasses) Review of Systems Const Details: Constitutional : No Weight loss, No Fever, No Chills, No Fatigue, No Malaise ENT/Mouth : No sore throat, No Rhinorrhea Eyes: No Eye Pain, No Swelling, No Redness Cardiovascular : No Chest Pain, No SOB, No Dyspnea on Exertion, No Orthopnea, No Edema, No Palpitations Respiratory : No Cough, No Sputum, No Wheezing Gastrointestinal : No Nausea, No Vomiting, No Diarrhea, No Constipation, No abdominal Pain, No Hematochezia, No Melena Genitourinary : No Dysuria, No Urinary Frequency, No Hematuria, Musculoskeletal : + joint pain, No Myalgias, + Joint Swelling Skin : No Skin Lesions, No rash Neuro : No Weakness, No Numbness, No Dizziness, No Headache Psych : No Anxiety/Panic, No Depression All other systems reviewed and are negative All systems reviewed & are unremarkable except as noted in HPI and below Physical Exam Vital Signs: Last Vital Signs Temp 97.8 F 08/29/23 10:48 Pulse 76 08/29/23 10:48 BP 120/74 08/29/23 10:48 Pulse Ox 97 08/29/23 10:48 Oxygen Delivery Method Room Air 08/29/23 10:48 BMI result Body Mass Index 26.0 vss Appearance: Alert.? Oriented X3.? No acute distress.? Head: Normocephalic, atraumatic, no step-offs or deformities Eyes: Pupils equal, round and reactive to light.? ENT: Pharynx normal.? Neck: Normal inspection.? Neck supple.? CVS: Normal heart rate and rhythm.? Pulses normal.? Respiratory: No respiratory distress.? Breath sounds normal.? Abdomen: Soft and nontender.? Skin: Skin warm and dry.? Normal skin color.? Normal skin turgor.? Extremities: No lower extremity edema.? No calf ttp. 5/5 strength to bilateral upper and lower extremities + left 2nd digit with subungual hematoma and overlying erythema and warmth to nail bed. Full range of motion, painless. Normal sensation distally. Capillary refill less than 2 seconds all up her extremity digits. No wrist drop. 2+ radial pulses. Neuro: Oriented X 3.? No motor deficit.? No sensory deficit. CN 2-12 intact Assessment & Plan Assessment & Plan (1) Pain in finger of left hand: Code(s): M79.645 - Pain in left finger(s) (2) Subungual hematoma of digit of hand: Code(s): S60.10XA - Contusion of unspecified finger with damage to nail, initial encounter Plan Take your medications as prescribed. If you were prescribed antibiotics today, it is important that you take your medication to their entirety, do not skip any doses, do not finish them early. Follow-up with your primary care provider this week. Return to the emergency department with new or worsening symptoms. Such as fevers, chills, chest pain, shortness of breath, nausea, vomiting, dizziness, headache, vision changes, lethargy In case of emergency call 911 Orders: Orders XR hand RT 2V Today M79.645 - Pain in left finger(s) Referrals Orthopedics Referral M79.645 - Pain in left finger(s) Medications: New cephalexin 500 mg PO QID 28 caps 0RF 7 days naproxen 500 mg PO BID PRN 14 tabs 0RF pain Coding Level of Care Code Est Pt Level 3 (76695) Diagnoses Pain in finger of left hand M79.645 Subungual hematoma of digit of hand S60.10XA
== END 2023-08-29 11:27 | disposition home or self-care (01) ==
PROVIDERS: PCP Internal Medicine; Visit Provider Physician Assistant
DX: M79.645 Pain in left finger(s) (principal); S60.10XA Contusion of unspecified finger with damage to nail, initial encounter
CPT/HCPCS: 99213

== ENCOUNTER 2023-08-29 11:01 | Outpatient (REF) | payer OTHER, SELFPAY ==
--- NOTE | ~2023-08-29 | XR_ITS ---
EXAMINATION: XR HAND, LEFT CLINICAL INFORMATION: Left finger pain. COMPARISON: 03/29/2023 TECHNIQUE: PA, lateral, and oblique views of the left hand. FINDINGS: Alignment is anatomic. Joint spaces are maintained. Healed/healing oblique fracture at the base of the first digit distal phalanx. No acute displaced fracture. No erosions or soft tissue calcifications. XR/XR hand LT min 3V IMPRESSION: Healed/healing oblique fracture at the base of the first digit distal phalanx.
== END 2023-08-29 11:02 | disposition home or self-care (01) ==
LOC: HO.HMGCX 11:01
PROVIDERS: PCP Internal Medicine; Visit Provider Physician Assistant
DX: M79.645 Pain in left finger(s) (principal)
CPT/HCPCS: 73130

== ENCOUNTER 2023-10-07 09:27 | Outpatient (AMB) | payer OTHER, SELFPAY ==
--- NOTE | 2023-10-07 09:34 | A.OFFVIS_ITS ---
Intake Vital Signs 10/07/23 09:35 Height 5 ft 4 in Weight 154 lb BMI 26.4 BP 100/72 Blood Pressure Location Rt brachial Position Sitting Pulse 73 Pulse Source Pulse Oximeter Pulse Oximetry (%) 96 Oxygen Delivery Method Room Air Intake Visit Reasons: FOLLOW UP-Confirmed Intake Note: Patient presents for follow up. I've been having very little headaches,less than the last time I saw her Allergies atorvastatin [Lipitor] Allergy (Intermediate, Verified 10/07/23 09:36) elevated liver enzymes Medication List - Last Reconciled 10/07/23 by JOHNIE Hylton acetaminophen (Acetaminophen Extra Strength) 1,000 mg (2 x 500 mg) PO Q6H PRN albuterol sulfate 2.5 mg (3 mL) inhalation Q4-6H PRN albuterol sulfate 90 mcg/actuation (ProAir HFA) 2 puffs inhalation Q4-6H PRN amitriptyline 25 mg PO BEDTIME 90 days aspirin 81 mg PO DAILY benzonatate 100 mg PO TID PRN cane As directed cephalexin 500 mg PO QID 7 days certolizumab pegol 400 mg subcut Q2W fluticasone propion-salmeterol 250-50 mcg/dose (Wixela Inhub) 1 ea PO BID gabapentin 300 mg PO BEDTIME 90 days lidocaine 5% 1 patch topical DAILY PRN meloxicam 15 mg PO DAILY PRN montelukast 10 mg PO DAILY 90 days naproxen 500 mg PO BID PRN nebulizers (AeroEclipse II Nebulizer) As directed nitroglycerin 0.4 mg sublingual Q5M PRN oxycodone 5 mg PO Q6H PRN pantoprazole 40 mg PO DAILY 90 days pyridoxine (vitamin B6) 100 mg PO DAILY 90 days rosuvastatin (Crestor) 40 mg PO DAILY sennosides 17.2 mg (2 x 8.6 mg) PO BEDTIME PRN 90 days tamsulosin (Flomax) 0.4 mg PO BEDTIME 90 days triamcinolone acetonide 1 spray intranasal DAILY PRN HPI HPI Comments History of Present Illness Details 63-yr-old male presents for f/u visit. Pt denies any significant interval medical changes. Pt reports he occasionally has a mild-mod top of head and right retroorbital pressure headache a/w photophobia, phonophobia, and activity intolerance. Denies N/V, watery/red eye, or activity intolerance. This happens every month, but can last a week. More triggered by the cold weather. He is using Tylenol prn- does not help much. Naproxen or Ibuprfen helps more -but not fully. REPLACED BY [facility] Medical History Atherosclerotic cardiovascular disease UTI (urinary tract infection) Hospital discharge follow-up Hematuria Leukocytosis Left inguinal hernia Back pain Constipation by delayed colonic transit GERD (gastroesophageal reflux disease) Chest pain Psoriatic arthritis Moderate asthma Pure hypercholesterolemia Unintentional weight loss Surgical History S/P cardiac catheterization Hx of colonoscopy H/O enucleation of right eyeball Hx laparoscopic cholecystectomy History of eye prosthesis History of corneal transplant Family History Father Kidney failure Mother Diabetes Stroke Alzheimer disease Brother Cancer of kidney Sister Breast cancer Brother Lung cancer Social History Housing: House Alcohol intake: current Alcohol intake frequency: does not drink Alcohol type: beer Patient Tobacco Use Status: Never used Tobacco e-Cigarette/Vaping Use: Never Used Second Hand Smoke Exposure: No service: No Current occupational status: disabled Cognitive needs: No Hearing needs: No Vision needs: Yes (Glasses) Physical Exam Vital Signs: Last Vital Signs Pulse 73 10/07/23 09:35 BP 100/72 10/07/23 09:35 Pulse Ox 96 10/07/23 09:35 Oxygen Delivery Method Room Air 10/07/23 09:35 BMI result Body Mass Index 26.4 Const General: cooperative and no acute distress Orientation/consciousness: patient oriented x3 Resp Effort & Inspection: normal respiratory effort and able to speak in complete sentences Neuro General: patient oriented x3 Cranial nerves: Yes CN's II-XII intact bilaterally Cognition (Neuro): normal cognition Psych Appearance: grossly normal Mental Status: mental status grossly normal Speech and movement: Normal speech and movement present Affect: normal affect Attitude: cooperative Assessment & Plan Assessment & Plan (1) Migraine without aura: Code(s): G43.009 - Migraine without aura, not intractable, without status migrainosus (2) Atherosclerotic cardiovascular disease: Code(s): I25.10 - Atherosclerotic heart disease of [place] coronary artery without angina pectoris (3) Abnormal stress ECG with treadmill: Code(s): R94.39 - Abnormal result of other cardiovascular function study Plan Headache is no longer daily, however when occurs, has prolonged duration For headache prevention: Continue Gabapentin 300mg qhs. Previous trials: Amitriptyline- did not tolerate. For acute headache treatment: Trial Nurtec ODT 75mg qd prn at onset of headache- may take w/ Tylenol or Naproxen. Migraine treatment contraindications- All triptans d/t CAD- cardiology considering LAD stent placement. f/u in 6 months or sooner prn. Medications: New rimegepant (Nurtec ODT) once daily prn at 1st sign of migraine. May take w/ Tylenol or Naproxen. 75 mg PO ONCE 30 days PRN 16 tabs 3RF migraine headache MDD 1 tab rimegepant (Nurtec ODT) once daily prn at 1st sign of migraine. May take w/ Tylenol or Naproxen. 75 mg PO ONCE 30 days PRN 16 tabs 3RF migraine headache MDD 1 tab Refilled gabapentin 300 mg PO BEDTIME 90 days 90 caps 1RF gabapentin 300 mg PO BEDTIME 90 days 90 caps 1RF Coding Level of Care Code Est Pt Level 4 (99102) Diagnoses Migraine without aura G43.009 Atherosclerotic cardiovascular disease I25.10 Abnormal stress ECG with treadmill R94.39
[2023-10-07 09:35] VITALS: BP 100/72; PULSE 73; O2SAT 96; BMI 26.4
== END 2023-10-07 10:08 | disposition home or self-care (01) ==
PROVIDERS: PCP Internal Medicine; Visit Provider Nurse Practitioner Family
DX: G43.009 Migraine without aura, not intractable, without status migrainosus (principal); I25.10 Atherosclerotic heart disease of native coronary artery without angina pectoris; R94.39 Abnormal result of other cardiovascular function study
CPT/HCPCS: 99214

== ENCOUNTER → 2023-10-07 09:27 | Outpatient (BNVA) | payer OTHER, SELFPAY | PROVIDERS: PCP Internal Medicine; Visit Provider Nurse Practitioner Family | DX: G43.009 Migraine without aura, not intractable, without status migrainosus (principal); I25.10 Atherosclerotic heart disease of native coronary artery without angina pectoris; R94.39 Abnormal result of other cardiovascular function study | CPT/HCPCS: 99212 ==

== ENCOUNTER 2023-12-09 06:52 | Outpatient (REF) | payer OTHER, SELFPAY ==
[2023-12-09 08:42] LABS: Alanine Aminotransferase 28 U/L (0-40); Albumin Level 4.1 g/dL (3.5-5.0); Alkaline Phosphatase 65 U/L (39-117); Anion Gap 10 (12-20); Aspartate Amino Transferase 16 U/L (5-37); Blood Urea Nitrogen 15 mg/dL (9-16); Calcium 9.7 mg/dL (8.4-10.2); Carbon Dioxide 27 mmol/L (22-29); Chloride 105 mmol/L (96-108); Cholesterol 157 mg/dL (<200); Estimated Glomerular Filt Rate > 60; Glucose Fasting 90 mg/dL (60-99); HDL Cholesterol 56 mg/dL (>40); LDL Cholesterol Calculated 87 mg/dL (<100); Potassium 3.7 mmol/L (3.3-5.1); Sodium 138 mmol/L (135-145); Total Protein 6.9 g/dL (6.5-8.0); Triglycerides 74 mg/dL (<150)
== END 2023-12-09 06:53 | disposition home or self-care (01) ==
LOC: HO.LAB 06:52
PROVIDERS: Nurse Practitioner Family; PCP Internal Medicine; Visit Provider Internal Medicine
DX: Z00.00 Encounter for general adult medical examination without abnormal findings (principal); E78.5 Hyperlipidemia, unspecified; N40.0 Benign prostatic hyperplasia without lower urinary tract symptoms; Z12.5 Encounter for screening for malignant neoplasm of prostate
CPT/HCPCS: 36415; 80053; 80061; 84153

== ENCOUNTER 2023-12-21 15:40 | Outpatient (AMB) | payer OTHER, SELFPAY ==
[2023-12-21 15:46] VITALS: BP 108/70; BMI 25.4
--- NOTE | 2023-12-21 15:46 | MHC.PC.OV ---
Vital Signs 12/21/23 15:46 Height 5 ft 4 in Weight 148 lb BMI 25.4 BP 108/70 Blood Pressure Location Lt brachial Position Sitting Intake Visit Reasons: Annual Exam Intake Note: Patient here for a physical exam Reporting Process Consultant Required: No Accompanied by: Spouse Allergies atorvastatin [Lipitor] Allergy (Intermediate, Verified 12/21/23 16:06) elevated liver enzymes certolizumab pegol Adverse Reaction (Severe, Verified 12/21/23 16:06) headaches Medication List - Last Reconciled 12/21/23 by Zonia Ashraf MD acetaminophen (Acetaminophen Extra Strength) 1,000 mg (2 x 500 mg) PO Q6H PRN albuterol sulfate 2.5 mg (3 mL) inhalation Q4-6H PRN albuterol sulfate 90 mcg/actuation (ProAir HFA) 2 puffs inhalation Q4-6H PRN amitriptyline 25 mg PO BEDTIME 90 days aspirin 81 mg PO DAILY cane As directed cephalexin 500 mg PO QID 7 days fluticasone propion-salmeterol 250-50 mcg/dose (Wixela Inhub) 1 ea PO BID gabapentin 300 mg PO BEDTIME 90 days ixekizumab (Taltz Autoinjector (3 Pack)) mg subcut lidocaine 5% 1 patch topical DAILY PRN meloxicam 15 mg PO DAILY PRN montelukast 10 mg PO DAILY 90 days naproxen 500 mg PO BID PRN nebulizers (AeroEclipse II Nebulizer) As directed nitroglycerin 0.4 mg sublingual Q5M PRN oxycodone 5 mg PO Q6H PRN pantoprazole 40 mg PO DAILY 90 days pyridoxine (vitamin B6) 100 mg PO DAILY 90 days rimegepant (Nurtec ODT) 75 mg PO ONCE PRN 30 days MDD 1 tab rosuvastatin (Crestor) 40 mg PO DAILY sennosides 17.2 mg (2 x 8.6 mg) PO BEDTIME PRN 90 days tamsulosin (Flomax) 0.4 mg PO BEDTIME 90 days triamcinolone acetonide 1 spray intranasal DAILY PRN ubrogepant (Ubrelvy) 50 - 100 mg (0.5 - 1 x 100 mg) PO ONCE PRN 30 days Tobacco use date assessed: 12/21/23 Dental Screening Dental Screen Date: 12/21/23 Did you have a dental visit in the last 12 months?: Yes Did you have a dental problem in the last 6 months where you did not have access to dental care?: No Was dental information given to patient?: Patient has dentist HPI HPI Comments History of Present Illness Details This is a 63-year-old male with psoriatic arthritis that comes accompanied by for his physical exam. Psoriatic arthritis have been well control with medications and follow by Dermatology. Last colonoscopy was 2019 showing tubular adenoma next colonoscopy should be 2024. Denies any chest pain or shortness of breath. [facility] Medical History (Updated 12/21/23 @ 16:17 by Zonia Ashraf MD) Atherosclerotic cardiovascular disease UTI (urinary tract infection) Hospital discharge follow-up Hematuria Leukocytosis Left inguinal hernia Back pain Constipation by delayed colonic transit GERD (gastroesophageal reflux disease) Chest pain Psoriatic arthritis Moderate asthma Pure hypercholesterolemia Unintentional weight loss Surgical History S/P cardiac catheterization Hx of colonoscopy H/O enucleation of right eyeball Hx laparoscopic cholecystectomy History of eye prosthesis History of corneal transplant Family History Father Kidney failure Mother Diabetes Stroke Alzheimer disease Brother Cancer of kidney Sister Breast cancer Brother Lung cancer Social History Housing: House Alcohol intake: current Alcohol intake frequency: does not drink Alcohol type: beer Patient Tobacco Use Status: Never used Tobacco e-Cigarette/Vaping Use: Never Used Second Hand Smoke Exposure: No service: No Current occupational status: disabled Cognitive needs: No Hearing needs: No Vision needs: Yes (Glasses) Questionnaire PHQ-9 Over the last 2 weeks, how often have you been bothered by any of the following problems? 1. Little interest or pleasure in doing things: not at all 2. Feeling down, depressed, or hopeless: not at all 3. Trouble falling or staying asleep, or sleeping too much: not at all 4. Feeling tired or having little energy: not at all 5. Poor appetite or overeating: not at all 6. Feeling bad about yourself - or that you are a failure or have let yourself or your family down: not at all 7. Trouble concentrating on things, such as reading the newspaper or watching television: not at all 8. Moving or speaking so slowly that other people could have noticed. Or the opposite - being so fidgety or restless that you have been moving around a lot more than usual: not at all 9. Thoughts that you would be better off or of hurting yourself in some way: not at all Total score: 0 Depression Screening Interpretation: Negative Depression Screening Done: Yes 65694 - PHQ-9 Billing: Yes Source: Developed by Drs. Devon Latif, Desirae Pennington, Chuy Kingsley and colleagues, with an educational afia from [employer]. Thrive Questionnaire Date Thrive assessed: 12/21/23 I am a: Patient What is your living situation today?: I have a steady place to live Within the past 12 months, did the food you bought not last and you didn't have the money to get more?: Never true Within the past 12 months, did you worry whether your food would run out before you got money to buy more?: Never true Do you have trouble paying for medicines?: No Do you have trouble getting transportation to medical appointments?: No Do you have trouble paying your heating and electricity bill?: No Do you have trouble taking care of your child, family member or friend?: No Do you have trouble with day-to-day activities such as bathing, preparing meals, shopping, managing finances, etc.?: No Are you currently unemployed and looking for a job?: No Are you interested in more education?: No Please select the resources that you would like help with: None Currently or been in a relationship where the following occur: no concerns reported THRIVE Score: 0 AUDIT C Alcohol Use Questionnaire (AUDIT-C) 1. How often do you have a drink containing alcohol?: Monthly or less 2. How many drinks containing alcohol do you have on a typical day when you are drinking?: 1 or 2 3. How often do you have six or more drinks on one occasion?: Never Total Score: 1 Score Reviewed/Action Taken: No AIMEE-7 AMB Questionnaire AIMEE-7 Date AIMEE - 7 assessed: 12/21/23 Feeling nervous, anxious, or on edge: 0 = Not at all Not being able to stop or control worryin = Not at all Worrying too much about different things: 0 = Not at all Trouble relaxin = Not at all Being so restless that it is hard to sit still: 0 = Not at all Becoming easily annoyed or irritable: 0 = Not at all Feeling afraid as if something awful might happen: 0 = Not at all Total AIMEE-7 score (0-4 normal; 5-9 mild; 10-14 moderate; 15-21 severe): 0 Source: Developed by Drs. Devon Latif, Desirae Pennington, Chuy Kingsley and colleagues, with an educational afia from [employer]. AIMEE-7 Assessment Billing AIMEE-7 Assessment Tool: AIMEE-7 Assessment 04009 Review of Systems Const All systems reviewed & are unremarkable except as noted in HPI and below Eyes Reports no additional complaints, Denies change in vision and Denies other visual disturbances Card Denies chest pain at rest, Denies chest pain with activity, Denies edema, Denies irregular heart rhythm, Denies claudication, Denies dyspnea, Denies dyspnea on exertion, Denies orthopnea, Denies paroxysmal nocturnal dyspnea and Denies slow heart rate Resp Denies cough, Denies dyspnea and Denies dyspnea on exertion GI Denies abdominal pain, Denies change in bowel habits, Denies excessive flatus, Denies nausea and Denies vomiting Physical exam (Primary Care) Vital Signs: Last Vital Signs BP 108/70 12/21/23 15:46 BMI result Body Mass Index 25.4 Tobacco/Smoking Status: Tobacco use Status Tobacco use date assessed 12/21/23 12/21/23 15:53 Patient Tobacco Use Status Never used Tobacco 12/21/23 15:53 e-Cigarette/Vaping Use Never Used 12/21/23 15:53 PHQ-9: PHQ-9 Score PHQ-9: Total score 0 12/21/23 16:14 Depression Screening Interpretation: Negative Thrive Assessment: Date of Thrive Assessment Date Thrive assessed 12/21/23 12/21/23 15:59 Currently or been in a relationship where the following occur: no concerns reported Const Orientation/consciousness: patient oriented x3 HENMT Head: Yes normal to inspection, Yes normocephalic and Yes atraumatic Ears: external ears normal Eyes Other: right eye prothesis Neck Neck: Yes normal visual inspection and Yes supple Resp Effort & Inspection: normal respiratory effort Auscultation: clear to auscultation bilaterally Cardio Jugular venous distension: no JVD Rate: regular rate Rhythm: regular rhythm Heart sounds: S1 normal heart sound present and S2 normal heart sound present GI Inspection: Yes normal to inspection Palpation (GI): Soft to palpation and nontender Auscultation: normal bowel sounds Skin General skin exam: no rashes or lesions noted Neuro General: patient oriented x3 and no focal motor deficits Extrem General: Yes full ROM Psych Appearance: grossly normal Assessment and Plan Assessment & Plan (1) Physical exam: Code(s): Z00.00 - Encounter for general adult medical examination without abnormal findings Plan: Repeat in a year. (2) Psoriatic arthritis: Code(s): L40.50 - Arthropathic psoriasis, unspecified Plan: Follow-up with dermatology. Orders: Orders US abdomen limited Today R10.31 - Right lower quadrant pain Coding Level of Care Code Est Pt Prev Care 40-64y(45847) Diagnoses Physical exam Z00.00 Psoriatic arthritis L40.50 Additional Codes AIMEE-7 Assessment Billing - AIMEE-7 Assessment Tool: AIMEE-7 Assessment 74232 ([id number]) Time Spent (min) 32
== END 2023-12-21 16:22 | disposition home or self-care (01) ==
PROVIDERS: PCP Internal Medicine; Visit Provider Internal Medicine
DX: Z00.00 Encounter for general adult medical examination without abnormal findings (principal); L40.50 Arthropathic psoriasis, unspecified
CPT/HCPCS: 99396

== ENCOUNTER 2023-12-26 08:19 | Outpatient (REF) | payer OTHER, SELFPAY ==
--- NOTE | ~2023-12-26 | US_ITS ---
EXAMINATION: US RIGHT LOWER QUADRANT, LIMITED/FOLLOW UP CLINICAL INFORMATION: Right lower quadrant pain. COMPARISON: None available. TECHNIQUE: Targeted ultrasound images were obtained by the ecd of the area of concern as indicated by the patient in the right lower quadrant. Radiologist was not in attendance. Images were later provided for interpretation. FINDINGS: No discrete hernia, mass or fluid collection identified in the area of concern indicated by the patient in the right lower quadrant. Limited visualization due to bowel gas. US/US pelvic limited IMPRESSION: No discrete hernia, mass or fluid collection identified in the area of concern indicated by the patient in the right lower quadrant. Limited visualization due to bowel gas. CT scan could be considered for further evaluation.
== END 2023-12-26 08:20 | disposition home or self-care (01) ==
LOC: HO.US 08:19
PROVIDERS: PCP Internal Medicine; Visit Provider Internal Medicine
DX: R10.31 Right lower quadrant pain (principal)
CPT/HCPCS: 76857

== ENCOUNTER → 2024-01-25 08:30 | Outpatient (REF) | payer OTHER, SELFPAY ==
--- NOTE | 2024-01-25 08:33 | ECG_ITS ---
Test Reason : r07.9 cp Blood Pressure : / mmHG Vent. Rate : 055 BPM Atrial Rate : 055 BPM P-R Int : 186 ms QRS Dur : 100 ms QT Int : 414 ms P-R-T Axes : 062 -14 038 degrees QTc Int : 396 ms Sinus bradycardia Otherwise normal ECG When compared with ECG of 02-AUG-2022 11:12, Vent. rate has decreased BY 29 BPM Referred By: Zonia Ashraf Electronically Signed By:Lj Sweet
== END ==
LOC: HO.CARD 08:30
PROVIDERS: Visit Provider Internal Medicine
DX: R07.9 Chest pain, unspecified (principal)
CPT/HCPCS: 93005

== ENCOUNTER → 2024-01-25 08:33 | Outpatient (BNV) | payer OTHER, SELFPAY | PROVIDERS: Visit Provider Internal Medicine Cardiovascular Disease | DX: R07.9 Chest pain, unspecified (principal); R00.1 Bradycardia, unspecified | CPT/HCPCS: 93010 ==

== ENCOUNTER 2024-03-15 10:30 | Outpatient (AMB) | payer OTHER, SELFPAY ==
[2024-03-15 10:35] VITALS: BP 110/70; PULSE 66; TEMP 36.7; O2SAT 96; BMI 25.4
--- NOTE | 2024-03-15 10:35 | AM.OFFWIN_ITS ---
Intake Vital Signs 03/15/24 10:35 Height 5 ft 4 in Weight 148 lb BMI 25.4 BP 110/70 Blood Pressure Location Rt brachial Position Sitting Pulse 66 Pulse Source Pulse Oximeter Temp 98.0 F Temp Source Temporal Artery Scan Pulse Oximetry (%) 96 Intake Visit Reasons: EP ?Asthma/Cough Intake Note: pt is here for coughing, causing asthma to act up Patient Tobacco Use Status: Never used Tobacco Allergies atorvastatin [Lipitor] Allergy (Intermediate, Verified 03/15/24 10:36) elevated liver enzymes certolizumab pegol Adverse Reaction (Severe, Verified 03/15/24 10:36) headaches Do you need a note to return to daycare/school/sports/work: No HPI HPI Comments History of Present Illness Details 63 y/o male patient who presents to walk in clinic with c/o Asthma exacerbation x 3 days. Pt reports ran out of his inhalers for few days now. Reports wheezing, SOB, cough and chest tightness. [facility] Medical History Atherosclerotic cardiovascular disease UTI (urinary tract infection) Hospital discharge follow-up Hematuria Leukocytosis Left inguinal hernia Back pain Constipation by delayed colonic transit GERD (gastroesophageal reflux disease) Chest pain Psoriatic arthritis Moderate asthma Pure hypercholesterolemia Unintentional weight loss Surgical History S/P cardiac catheterization Hx of colonoscopy H/O enucleation of right eyeball Hx laparoscopic cholecystectomy History of eye prosthesis History of corneal transplant Family History Father Kidney failure Mother Diabetes Stroke Alzheimer disease Brother Cancer of kidney Sister Breast cancer Brother Lung cancer Social History Housing: House Alcohol intake: current Alcohol intake frequency: does not drink Alcohol type: beer Patient Tobacco Use Status: Never used Tobacco e-Cigarette/Vaping Use: Never Used Second Hand Smoke Exposure: No service: No Current occupational status: disabled Cognitive needs: No Hearing needs: No Vision needs: Yes (Glasses) Review of Systems Const All systems reviewed & are unremarkable except as noted in HPI and below Physical Exam Vital Signs: Last Vital Signs Temp 98.0 F 03/15/24 10:35 Pulse 66 03/15/24 10:35 BP 110/70 03/15/24 10:35 Pulse Ox 96 03/15/24 10:35 BMI result Body Mass Index 25.4 Const General: comfortable and no acute distress Nutritional Appearance: thin Orientation/consciousness: patient oriented x3 HEENT Head: Yes normocephalic Ears: external ears normal and TM's normal bilaterally General nose exam: Normal nasal mucous membranes and turbinates present Resp Effort & Inspection: normal respiratory effort, able to speak in complete sentences and Actively coughing Auscultation: no crackles, no rales, rhonchi and wheezes Cardio Rate: regular rate Rhythm: regular rhythm Neuro General: patient oriented x3, gait normal and moves all extremities Psych Speech and movement: Normal speech and movement present Office Procedures Nebulizer Treatment Nebulizer Treatment 54821-Lixxzmorq/MDI RX initial, or Nebulizer Subsequent Treatment Office Meds ipratropium 0.5 mg-albuterol 3 mg (2.5 mg base)/3 mL nebulization soln Performing Provider: Leila Stokes NP Performing Location: [facility] Administered by: Leila Stokes NP on 03/15/24 11:01 Dose Route Admin Location Dispensed Lot Number Expiration Date ND Schedule Announcer 3 mL inhalation 3 mL [id number] 07/19/25 45551-657-39 Novaliq Assessment & Plan Assessment & Plan (1) Wheezing on auscultation: Code(s): R06.2 - Wheezing Plan: Amb Neb Tx today Prescribed Abx and Albuterol inhaler Lungs Sounds mildly improved after Tx F/U with PCP (2) Asthma with acute exacerbation: Code(s): J45.901 - Unspecified asthma with (acute) exacerbation Qualifiers: Asthma persistence: persistent Asthma severity: moderate Qualified Code(s): J45.41 - Moderate persistent asthma with (acute) exacerbation Plan: Amb Neb Tx today Prescribed Abx and Albuterol inhaler Lungs Sounds mildly improved after Tx F/U with PCP Orders: Orders AMB Nebulizer Treatment Today J45.41 - Moderate persistent asthma with (acute) exacerbation, R06.2 - Wheezing Medications: New prednisone 50 mg PO DAILY 5 tabs 0RF wheezing 5 days J45.41 - Moderate persistent asthma with (acute) exacerbation, R06.2 - Wheezing doxycycline hyclate 100 mg PO BID 20 caps 0RF 10 days J45.41 - Moderate persistent asthma with (acute) exacerbation azithromycin 500 mg PO DAILY 3 tabs 0RF 3 days J45.41 - Moderate persistent asthma with (acute) exacerbation Changed From albuterol sulfate 90 mcg/actuation (ProAir HFA) 2 puffs inhalation Q4-6H PRN 8.5 grams 0RF shortness of breath or wheezing J45.41 - Moderate persistent asthma with (acute) exacerbation, R06.2 - Wheezing To albuterol sulfate 90 mcg/actuation 2 puffs inhalation Q4-6H PRN 8.5 grams 0RF shortness of breath or wheezing J45.41 - Moderate persistent asthma with (acute) exacerbation, R06.2 - Wheezing Refilled montelukast 10 mg PO DAILY 90 tabs 0RF 90 days J45.41 - Moderate persistent asthma with (acute) exacerbation Coding Level of Care Code Est Pt Level 4 (42432) Diagnoses Wheezing on auscultation R06.2 Moderate persistent asthma with acute exacerbation J45.41 Asthma persistence: persistent Asthma severity: moderate CPT Codes Nebulizer Treatment - Nebulizer Treatment, initial or subsequent: 22400- Nebulizer/MDI RX initial, or Nebulizer Subsequent Treatment ([id number]) Time Spent (min) 20
== END 2024-03-15 11:45 | disposition home or self-care (01) ==
PROVIDERS: PCP Internal Medicine; Visit Provider Nurse Practitioner Family
DX: J45.41 Moderate persistent asthma with (acute) exacerbation (principal); R06.2 Wheezing
CPT/HCPCS: 94640; 99214; J7620

== ENCOUNTER 2024-03-28 13:36 | Outpatient (AMB) | payer OTHER, SELFPAY ==
[2024-03-28 13:43] VITALS: BP 130/60; PULSE 61; BMI 28.9
--- NOTE | 2024-03-28 13:43 | A.OFFVIS_ITS ---
Vital Signs 03/28/24 13:43 Height 5 ft 4 in Weight 168 lb 6.931 oz BMI 28.9 BP 130/60 Blood Pressure Location Lt brachial Position Sitting Pulse 61 Pulse Source Pulse Oximeter Intake Visit Reasons: 1 yr f/u per DC Web Communications Specialist Required: Yes Web Communications Specialist Name: [id number]/bright/[place] Accompanied by: Spouse Allergies atorvastatin [Lipitor] Allergy (Intermediate, Verified 03/15/24 10:36) elevated liver enzymes certolizumab pegol Adverse Reaction (Severe, Verified 03/15/24 10:36) headaches Medication List - Last Reconciled 03/28/24 by Dg Emanuel MD acetaminophen (Acetaminophen Extra Strength) 1,000 mg (2 x 500 mg) PO Q6H PRN albuterol sulfate 2.5 mg (3 mL) inhalation Q4-6H PRN albuterol sulfate 90 mcg/actuation 2 puffs inhalation Q4-6H PRN amitriptyline 25 mg PO BEDTIME 90 days aspirin 81 mg PO DAILY azithromycin 500 mg PO DAILY 3 days cane As directed doxycycline hyclate 100 mg PO BID 10 days fluticasone propion-salmeterol 250-50 mcg/dose (Wixela Inhub) 1 ea PO BID gabapentin 300 mg PO BEDTIME 90 days ixekizumab (Taltz Autoinjector) 80 mg subcut Q4W meloxicam 15 mg PO DAILY PRN montelukast 10 mg PO DAILY 90 days naproxen 500 mg PO BID PRN nebulizers (AeroEclipse II Nebulizer) As directed nitroglycerin 0.4 mg sublingual Q5M PRN oxycodone 5 mg PO Q6H PRN pantoprazole 40 mg PO DAILY 90 days prednisone 50 mg PO DAILY 5 days pyridoxine (vitamin B6) 100 mg PO DAILY 90 days rimegepant (Nurtec ODT) 75 mg PO ONCE PRN 30 days MDD 1 tab rosuvastatin 40 mg PO DAILY sennosides 17.2 mg (2 x 8.6 mg) PO BEDTIME PRN 90 days tamsulosin (Flomax) 0.4 mg PO BEDTIME 90 days triamcinolone acetonide 1 spray intranasal DAILY PRN HPI Comments Details: Cole returns for follow-up. He was seen in consultation regarding chest pain. No known cardiac issues in the past including coronary disease or cardiomyopathy. He was getting chest pains at different times including at nighttime. He underwent a comprehensive workup including coronary CTA followed by cardiac catheterization. In the catheterization, there was no evidence of obstructive CAD. He states he still gets chest pain off and on. Very random occurrence. Sounds very atypical for angina. He also has asthma and hence not clear if that has the reason. [facility] Medical History Atherosclerotic cardiovascular disease UTI (urinary tract infection) Hospital discharge follow-up Hematuria Leukocytosis Left inguinal hernia Back pain Constipation by delayed colonic transit GERD (gastroesophageal reflux disease) Chest pain Psoriatic arthritis Moderate asthma Pure hypercholesterolemia Unintentional weight loss Surgical History S/P cardiac catheterization Hx of colonoscopy H/O enucleation of right eyeball Hx laparoscopic cholecystectomy History of eye prosthesis History of corneal transplant Family History Father Kidney failure Mother Diabetes Stroke Alzheimer disease Brother Cancer of kidney Sister Breast cancer Brother Lung cancer Social History Housing: House Alcohol intake: current Alcohol intake frequency: does not drink Alcohol type: beer Patient Tobacco Use Status: Never used Tobacco e-Cigarette/Vaping Use: Never Used Second Hand Smoke Exposure: No service: No Current occupational status: disabled Cognitive needs: No Hearing needs: No Vision needs: Yes (Glasses) Review of Systems Const Denies chills, Denies fatigue, Denies fever(s), Denies weight gain and Denies weight loss ENT Denies dizziness Card Denies chest pain, Denies leg edema, Denies lightheadedness, Denies palpitations, Denies dyspnea on exertion, Denies orthopnea and Denies other Resp Denies cough and Denies dyspnea on exertion GI Denies hematochezia and Denies change in stool character Musc Denies abnormal gait, Denies muscle weakness, Denies numbness, Denies radiating pain into limb and Denies tingling Neuro Denies abnormal gait, Denies dizziness, Denies numbness and Denies tingling Endo Denies fatigue and Denies palpitations Physical Exam Vital Signs: Last Vital Signs Pulse 61 03/28/24 13:43 BP 130/60 03/28/24 13:43 BMI result Body Mass Index 28.9 Const General: comfortable and no acute distress Orientation/consciousness: patient oriented x3 HEENT Other: Unremarkable Head: Yes normal to inspection Neck Neck: Yes normal visual inspection Chest Chest palpation & inspection: normal inspection of the chest Resp Auscultation: wheezes Cardio Palpation: normal PMI Heart sounds: S1 normal heart sound present, S2 normal heart sound present, no gallops, no murmurs and no rubs GI Palpation (GI): Soft to palpation Back/Spine/Pelvis Other: unremarkable Skin General skin exam: no rashes or lesions noted Neuro General: patient oriented x3 Extrem General: Yes normal to inspection Psych Mental Status: mental status grossly normal Assessment & Plan Assessment & Plan (1) Atherosclerotic cardiovascular disease: Code(s): I25.10 - Atherosclerotic heart disease of [place] coronary artery without angina pectoris Category: Medical (2) Chest pain: Code(s): R07.9 - Chest pain, unspecified Category: Medical Plan Cardiac studies reviewed. In the exercise stress test, he was able to exercise for just under 5 minutes. Developed anginal-type symptoms but no EKG evidence of ischemia. In the echocardiogram, LVEF 50-55% with no wall motion abnormality. Normal diastolic function. Mildly increased right ventricular size. Otherwise unremarkable. In the exercise stress echo, exercised for just over 3 minutes; again had chest pain. At the achieved workload, no clear wall motion abnormalities. In the coronary CTA, distal left main <30% stenosis. Proximal LAD stenosis, suspected less than 70%. Mid circumflex about 30% stenosis. In the diagnostic catheterization, mild CAD only in the LAD and circumflex. Left main, right coronary artery were normal. LVEDP was normal. It was felt that the mild CAD was not adequate to explain his exertional chest pain. It is certainly possible that he is describing pain which may be related to asthma. Of note, clinically he does have significant wheezing today. We can treat him as stable coronary disease. Just keep him on aspirin and st atins. Last LDL at 87 mg/dL and triglycerides 74 mg/dL. Otherwise, no further cardiac workup at this time. Optimize asthma management. Discussed with significant other as well. Coding Level of Care Code Est Pt Level 4 (06958) Diagnoses Atherosclerotic cardiovascular disease I25.10 Chest pain R07.9
== END 2024-03-28 14:03 | disposition home or self-care (01) ==
PROVIDERS: Visit Provider Internal Medicine
DX: I25.10 Atherosclerotic heart disease of native coronary artery without angina pectoris (principal); R07.9 Chest pain, unspecified
CPT/HCPCS: 99214

== ENCOUNTER → 2024-03-28 13:36 | Outpatient (BNVA) | payer OTHER, SELFPAY | PROVIDERS: Visit Provider Internal Medicine | DX: I25.10 Atherosclerotic heart disease of native coronary artery without angina pectoris (principal); R07.9 Chest pain, unspecified; Z79.82 Long term (current) use of aspirin; Z79.899 Other long term (current) drug therapy | CPT/HCPCS: 99212 ==

== ENCOUNTER 2024-04-06 09:00 | Outpatient (AMB) | payer OTHER, SELFPAY ==
[2024-04-06 09:12] VITALS: BP 108/72; PULSE 75; O2SAT 98; BMI 25.6
--- NOTE | 2024-04-06 09:12 | A.OFFVIS_ITS ---
Vital Signs 04/06/24 09:12 Height 5 ft 4 in Weight 149 lb BMI 25.6 BP 108/72 Blood Pressure Location Rt brachial Position Sitting Pulse 75 Pulse Source Pulse Oximeter Pulse Oximetry (%) 98 Oxygen Delivery Method Room Air Intake Visit Reasons: 6 [id number] Intake Note: Patient present for 6 month follow up. patient states his hands shake from time to time uncontrollably. Associate Property Manager Required: Yes Associate Property Manager Name: Karis Vaughn Allergies atorvastatin [Lipitor] Allergy (Intermediate, Verified 04/06/24 09:17) elevated liver enzymes certolizumab pegol Adverse Reaction (Severe, Verified 04/06/24 09:17) headaches Medication List - Last Reconciled 04/06/24 by JOHNIE Hylton acetaminophen (Acetaminophen Extra Strength) 1,000 mg (2 x 500 mg) PO Q6H PRN albuterol sulfate 2.5 mg (3 mL) inhalation Q4-6H PRN albuterol sulfate 90 mcg/actuation 2 puffs inhalation Q4-6H PRN amitriptyline 25 mg PO BEDTIME 90 days aspirin 81 mg PO DAILY azithromycin 500 mg PO DAILY 3 days cane As directed doxycycline hyclate 100 mg PO BID 10 days fluticasone propion-salmeterol 250-50 mcg/dose (Wixela Inhub) 1 ea PO BID gabapentin 300 mg PO BEDTIME 90 days ixekizumab (Taltz Autoinjector) 80 mg subcut Q4W meloxicam 15 mg PO DAILY PRN montelukast 10 mg PO DAILY 90 days naproxen 500 mg PO BID PRN nebulizers (AeroEclipse II Nebulizer) As directed nitroglycerin 0.4 mg sublingual Q5M PRN oxycodone 5 mg PO Q6H PRN pantoprazole 40 mg PO DAILY 90 days prednisone 50 mg PO DAILY 5 days pyridoxine (vitamin B6) 100 mg PO DAILY 90 days rimegepant (Nurtec ODT) 75 mg PO ONCE PRN 30 days MDD 1 tab rosuvastatin 40 mg PO DAILY sennosides 17.2 mg (2 x 8.6 mg) PO BEDTIME PRN 90 days tamsulosin (Flomax) 0.4 mg PO BEDTIME 90 days triamcinolone acetonide 1 spray intranasal DAILY PRN HPI Comments Details: Right-handed 63-yr-old male presents for f/u visit of migraine, however he would like to address a new RUE tremor. Pt denies any significant interval medical changes. He staes he started to notice a RUE action tremeor, which started about 3 months ago- noticing it when eating or signing paper. Denies neck pain, RUE numbness/tingling, RUE weakness, hyposmia, drooling, o rthostatic lightheadedness, constipation, parasomnias, memory changes, cramps, stiffness, falls, any other tremor, nocturnal tremor. May have some mild right shoulder pain, psoriatic arthritis- recently started new tx Taltz inj (tremor started before starting this), Pt reports that his migraine attacks are better. Using Ubrelvy prn with good effect. Baseline headache characteristics: mild-mod top of head and right retro-orbital pressure headache a/w photophobia, phonophobia, and activity intolerance. Denies N/V, watery/red eye, or activity intolerance. [facility] Medical History Atherosclerotic cardiovascular disease UTI (urinary tract infection) Hospital discharge follow-up Hematuria Leukocytosis Left inguinal hernia Back pain Constipation by delayed colonic transit GERD (gastroesophageal reflux disease) Chest pain Psoriatic arthritis Moderate asthma Pure hypercholesterolemia Unintentional weight loss Surgical History S/P cardiac catheterization Hx of colonoscopy H/O enucleation of right eyeball Hx laparoscopic cholecystectomy History of eye prosthesis History of corneal transplant Family History Father Kidney failure Mother Diabetes Stroke Alzheimer disease Brother Cancer of kidney Sister Breast cancer Brother Lung cancer Social History Housing: House Alcohol intake: current Alcohol intake frequency: does not drink Alcohol type: beer Patient Tobacco Use Status: Never used Tobacco e-Cigarette/Vaping Use: Never Used Second Hand Smoke Exposure: No service: No Current occupational status: disabled Cognitive needs: No Hearing needs: No Vision needs: Yes (Glasses) Physical Exam Vital Signs: Last Vital Signs Pulse 75 04/06/24 09:12 BP 108/72 04/06/24 09:12 Pulse Ox 98 04/06/24 09:12 Oxygen Delivery Method Room Air 04/06/24 09:12 BMI result Body Mass Index 25.6 Const General: cooperative and no acute distress Orientation/consciousness: patient oriented x3 Resp Effort & Inspection: normal respiratory effort and able to speak in complete sentences Neuro Other: General: A&O x's 3 Expression: Intact, decreased right palpebral fissure- has right eye prosthetic Voice: Intact Tremor: Very mild BUE R > L postural wing beat tremor Archimede's spiral: RUE- legible w/ very slight tremor. LUE- legible, no tremor. Sentence- note pt states he cannot write in Kinyarwanda or Syriac. Able to write his name repeatedly- Mild tremor w/ mild progressive micrographia. Tone: Mild right wrist tone Dyskinesia: None FFM: Intact Finger-Nose: BUE mild kinetic tremor w/o dysmetria BUE NICKI: Intact- slightly less fluid on right Foot taps: Slightly decreased fluidity on the right Gait: Stands easily, slight right shoulder drop and decreased arm swing, steady gait and turn. Psych: Pleasant affect General: patient oriented x3 Cranial nerves: Yes CN's II-XII intact bilaterally Cognition (Neuro): normal cognition Psych Appearance: grossly normal Mental Status: mental status grossly normal Speech and movement: Normal speech and movement present Affect: normal affect Attitude: cooperative Assessment & Plan Assessment & Plan (1) Tremor: Comment: new onset Code(s): R25.1 - Tremor, unspecified Category: Medical (2) Migraine without aura: Code(s): G43.009 - Migraine without aura, not intractable, without status migrainosus Category: Medical Plan For new onset RUE tremor- Pt advised to undergo Brain MRI w/o- to assess for intrcranial secondary etiologies. OT eval & tx. Headache is no longer daily, however when occurs, has prolonged duration ? For headache prevention: Continue Gabapentin 300mg qhs. Continue Amitriptyline. ? For acute headache treatment: Continue Nurtec ODT 75mg qd prn at onset of headache- may take w/ Tylenol or Naproxen. Migraine treatment contraindications- All triptans d/t CAD- cardiology con sidering LAD stent placement. ? f/u in 6 months or sooner prn. Orders: Orders OT Evaluation and Treatment Today R25.1 - Tremor, unspecified MR head/brain wo con Today G43.009 - Migraine without aura, not intractable, without status migrainosus, I25.10 - Atherosclerotic heart disease of [place] coronary artery without angina pectoris, L40.50 - Arthropathic psoriasis, unspecified, R25.1 - Tremor, unspecified Medications: Refilled ubrogepant (Ubrelvy) take at onset of migraine, may repeat in 2hrs (may take w/ Ibuprofen) 50 - 100 mg (0.5 - 1 x 100 mg) PO ONCE PRN 16 tabs 6RF migraine headache 30 days gabapentin 300 mg PO BEDTIME 90 caps 1RF 90 days Discontinued rimegepant (Nurtec ODT) once daily prn at 1st sign of migraine. May take w/ Tylenol or Naproxen. Discontinued Reason: Insurance Denied 75 mg PO ONCE 30 days PRN 16 tabs 3RF migraine headache MDD 1 tab Coding Level of Care Code Est Pt Level 4 (78790) Diagnoses Tremor R25.1 Migraine without aura G43.009
== END 2024-04-06 10:08 | disposition home or self-care (01) ==
PROVIDERS: PCP Internal Medicine; Visit Provider Nurse Practitioner Family
DX: R25.1 Tremor, unspecified (principal); G43.009 Migraine without aura, not intractable, without status migrainosus
CPT/HCPCS: 99214

== ENCOUNTER → 2024-04-06 09:00 | Outpatient (BNVA) | payer OTHER, SELFPAY | PROVIDERS: PCP Internal Medicine; Visit Provider Nurse Practitioner Family | DX: R25.1 Tremor, unspecified (principal); G43.009 Migraine without aura, not intractable, without status migrainosus | CPT/HCPCS: 99212 ==

== ENCOUNTER → 2024-05-16 14:28 | Outpatient (RCR) | payer OTHER, SELFPAY ==
[2020-07-01 08:23] VITALS: BP 117/71; PULSE 62; RESP 18; TEMP 36.5; O2SAT 100; BMI 24.3
[2020-07-01 08:53] LABS: Alanine Aminotransferase 18 U/L (0-40); Albumin Level 4.2 g/dL (3.5-5.0); Alkaline Phosphatase 63 U/L (39-117); Anion Gap 10 (12-20); Aspartate Amino Transferase 15 U/L (5-37); Bilirubin Total 1.2 mg/dL (0.0-1.0); Blood Urea Nitrogen 17 mg/dL (9-16); Calcium 9.2 mg/dL (8.4-10.2); Carbon Dioxide 28 mmol/L (22-29); Chloride 103 mmol/L (96-108); Cholesterol 210 mg/dL; Creatinine Clr Calc Pharmacy 71.6; Estimated Glomerular Filt Rate > 60; Glucose Fasting 129 mg/dL (60-99); HDL Cholesterol 48 mg/dL; LDL Cholesterol Calculated 137 mg/dl; Sodium 137 mmol/L (135-145); Triglycerides 129 mg/dL
--- NOTE | 2020-07-01 09:00 | MHC.HEMONC ---
pt here to f/u with Dr Bagley. Pt seen with Highway Inspector, Elva. He did not ever get appointment call for GI or CT. Dr Bagley requested these both be resubmitted. Labs done and to be reviewed. F/U per MD order.
--- NOTE | 2020-07-01 09:15 | PM.HEMONCPN ---
Medical Summary - Medical Summary Chief complaint: Follow-up for: Unintentional weight loss. Medical Summary: DIAGNOSIS: UN INTENTIONAL WEIGHT LOSS. Interval History Interval history: This is a pleasant 59-year-old gentleman here for a follow-up visit. He tells me that his appetite is okay however he is continuing to lose weight. He lost another couple of lb since his last visit. Overall he mentions about a 17 lb weight loss over the past 6 months. He complains of pain in the periumbilical area. He denies nausea vomiting heartburn indigestion nor diarrhea. No fever nor chills. He complains of a headache. He sees Dr. Braxton. He has given him some medications. His energy level is not too bad. No chest pain or trouble breathing. He is in good spirits. Rest of the review of systems is unremarkable. Review of Systems - Constitutional Reports system reviewed and no additional complaints, except as documented, Reports weight loss - Eyes Reports system reviewed and no additional complaints, except as documented - ENT Reports hearing normal - Cardiovascular Reports system reviewed and no additional complaints, except as documented - Gastrointestinal Reports system reviewed and no additional complaints, except as documented, Reports abdominal pain, Denies change in bowel habits - Integumentary/Breasts Skin/Breast: Reports no additional skin complaints - Psychiatric Reports system reviewed and no additional complaints, except as documented [facility] Medical History: Medical History (Last Updated 06/24/20 @ 15:09 by Zonia Ashraf MD) Moderate asthma Psoriatic arthritis Psoriatic arthritis Pure hypercholesterolemia Unintentional weight loss Family History: Family History (Last Updated 06/24/20 @ 14:40 by JENNA Cosby) Father Kidney failure Mother Stroke Diabetes Surgical History: Surgical History (Last Updated 06/24/20 @ 14:39 by JENNA Cosby) History of corneal transplant History of eye prosthesis Hx laparoscopic cholecystectomy Home Medications and Allergies Home Medications Medication Instructions Recorded Confirmed Type albuterol sulfate 90 mcg/actuation 2 puff INHALATION Q4-6H PRN 06/24/20 07/01/20 History aerosol inhaler amitriptyline 25 mg tablet 25 mg PO BEDTIME 06/24/20 06/24/20 History certolizumab pegol mg SUBCUT 06/24/20 06/24/20 History cetirizine 10 mg tablet 10 mg PO DAILY 06/24/20 07/01/20 History cyclobenzaprine 10 mg tablet 10 mg PO TID 06/24/20 07/01/20 History fluticasone 250 mcg-salmeterol 50 1 ea PO BID 06/24/20 06/24/20 History mcg/dose blistr powdr for inhalation gabapentin 300 mg capsule 300 mg PO BID 06/24/20 06/24/20 History montelukast 10 mg tablet 10 mg PO DAILY 06/24/20 07/01/20 History omeprazole 20 mg capsule,delayed 20 mg PO DAILY 06/24/20 07/01/20 History release rosuvastatin 10 mg tablet 10 mg PO DAILY 06/24/20 07/01/20 History sennosides 8.6 mg tablet 17.2 mg PO BEDTIME PRN 06/24/20 07/01/20 History triamcinolone acetonide 55 mcg 1 spray INTRANASAL DAILY 06/24/20 07/01/20 History nasal spray aerosol Allergies Allergy/AdvReac Type Severity Reaction Status Date / Time atorvastatin [Lipitor] Allergy Unknown elevated Verified 06/24/20 15:00 liver enzymes Exam Vital signs: Vital Signs Temp 97.7 F 07/01/20 08:23 Pulse 62 07/01/20 08:23 Resp 18 07/01/20 08:23 BP 117/71 07/01/20 08:23 Pulse Ox 100 07/01/20 08:23 Intake & Output 06/30/20 07/01/20 07/01/20 18:59 06:59 18:59 Other: Weight 64.183 kg Weight 64.183 kg Body Mass Index 24.3 - Constitutional Present: no acute distress - Routine HEENT Exam Head: Present: normal inspection - Routine Chest/Breast/Axilla Exam Chest wall: Absent: tenderness - Routine Respiratory Exam Present: CTAB - Routine Cardiovascular Exam Cardiovascular: Present: RRR, S1, S2 - Routine Abdominal Exam Present: soft, nontender - Routine Rectal Exam Patient deferred: digital exam - Routine Extremities Exam Present: nontender - Routine Skin Exam Absent: petechiae - Routine Neurological Exam Present: alert, oriented X3 Data - Labs CBC & Chem 7: 07/01/20 08:15 Labs: Laboratory Results - last 24 hr 07/01/20 08:15 Sodium 137 Potassium 4.0 Chloride 103 Carbon Dioxide 28 Anion Gap 10 L BUN 17 H Creatinine 0.93 Estim Creat Clear Calc 71.6 Estimated GFR > 60 Fasting Glucose 129 H Calcium 9.2 Total Bilirubin 1.2 H AST 15 ALT 18 Alkaline Phosphatase 63 Total Protein 7.0 Albumin 4.2 Triglycerides 129 Cholesterol 210 LDL Cholesterol, Calc 137 HDL Cholesterol 48 Progress Note: A/P (1) Unintentional weight loss Problem details: Follow by heme/onc Status: Acute Assessment and plan: This is a pleasant 59-year-old gentleman here due to unintentional weight loss. He mentions a 15 lb weight loss over the last couple months. He still has an appetite and is trying to eat. He complains of pain in the upper abdomen periumbilical area. Previous imaging studies: Ultrasound of the abdomen from September of last year had revealed: The gallbladder is surgically absent. Otherwise, unremarkable examination. CT scan of the abdomen from May 2018 revealed: Hazy attenuation of the small bowel mesentery which is stable and nonspecific, possibly mesenteric adenitis. Prostate and seminal vesicles are mildly prominent. Differential diagnosis: 1. With epigastric/ periumbilical pain and significant weight loss would be concerned about pancreatic cancer. 2. Hyperthyroidism. 3. A GI malignancy. He has not had a recent screening colonoscopy. Last one was in 2009. PLAN: Will proceed with baseline labs, including TSH: 0.97 and a PSA:0 80. I will check a CT scan of the abdomen/pelvis to look for a pancreatic mass versus adenopathy. Will refer him for further GI evaluation, colonoscopy and possibly an upper endoscopy. I had actually requested these at his initial visit but somehow it did not get done. will reorder. He will return in 2 weeks for a follow-up visit. In the meantime he was advised to take nutritional supplements. Thank you, CC: Dr. Xie. Dr. Dixon. - Time Spent With Patient Total time spent is greater than 50% in coordination of care (as documented) at patient's floor/unit and/or counseling patient: 15 - 24 minutes
[2020-07-18 09:00] VITALS: BP 124/72; PULSE 61; RESP 12; TEMP 36.4; O2SAT 100; BMI 24.7
--- NOTE | 2020-07-18 09:44 | PM.HEMONCPN ---
Medical Summary - Medical Summary Chief complaint: Follow-up for weight loss. Medical Summary: DIAGNOSIS: UN INTENTIONAL WEIGHT LOSS. Interval History Interval history: This is a pleasant 60 year-old gentleman here for a follow-up visit. He tells me that his appetite is good, he is eating well. He has stopped losing weight. Initially he mentioned about a 17 lb weight loss over the past 6 months. He complains of pain in the periumbilical area. He denies nausea vomiting heartburn indigestion nor diarrhea. No fever nor chills. He complains of occassional headaches. He sees Dr. Braxton. He has given him medications for it. His energy level is good. No chest pain or trouble breathing. He is in good spirits. Rest of the review of systems is unremarkable. Review of Systems - Constitutional Reports no additional constitutional complaints, Denies anorexia, Reports fatigue, Denies fever(s) - Eyes Reports no additional eye complaints - ENT Reports no additional ear, nose, mouth, and throat complaints - Cardiovascular Reports no additional cardiovascular complaints - Respiratory Reports no additional respiratory complaints - Gastrointestinal Reports no additional gastrointestinal complaints, Reports abdominal pain - Genitourinary Genitourinary: Reports no additional male genitourinary complaints - Musculoskeletal Reports no additional musculoskeletal complaints - Integumentary/Breasts Skin/Breast: Reports no additional skin complaints - Neurologic Reports no additional neurologic complaints, Reports hearing normal - Psychiatric Reports no additional psychiatric complaints - Endocrine Reports no additional endocrine complaints - Hematologic/Lymphatic Reports no additional hematologic/lymphatic complaints - Allergic/Immunologic Reports no additional allergic/immunologic complaints [facility] Medical History: Medical History (Last Updated 06/24/20 @ 15:09 by Zonia Ashraf MD) Moderate asthma Psoriatic arthritis Psoriatic arthritis Pure hypercholesterolemia Unintentional weight loss Family History: Family History (Last Updated 07/18/20 @ 09:03 by Magdalene Marina) Father Kidney failure Mother Diabetes Stroke Brother Cancer of kidney Surgical History: Surgical History (Last Updated 06/24/20 @ 14:39 by JENNA Cosby) History of corneal transplant History of eye prosthesis Hx laparoscopic cholecystectomy Smoking status: Never smoker Home Medications and Allergies Home Medications Medication Instructions Recorded Confirmed Type albuterol sulfate 90 mcg/actuation 2 puff INHALATION Q4-6H PRN 06/24/20 07/01/20 History aerosol inhaler amitriptyline 25 mg tablet 25 mg PO BEDTIME 06/24/20 07/18/20 History certolizumab pegol 400 mg SUBCUT Q2W 06/24/20 07/18/20 History cetirizine 10 mg tablet 10 mg PO DAILY 06/24/20 07/01/20 History cyclobenzaprine 10 mg tablet 10 mg PO TID 06/24/20 07/01/20 History fluticasone 250 mcg-salmeterol 50 1 ea PO BID 06/24/20 07/18/20 History mcg/dose blistr powdr for inhalation gabapentin 300 mg capsule 300 mg PO BID 06/24/20 07/18/20 History montelukast 10 mg tablet 10 mg PO DAILY 06/24/20 07/01/20 History omeprazole 20 mg capsule,delayed 20 mg PO DAILY 06/24/20 07/01/20 History release rosuvastatin 10 mg tablet 10 mg PO DAILY 06/24/20 07/01/20 History sennosides 8.6 mg tablet 17.2 mg PO BEDTIME PRN 06/24/20 07/01/20 History triamcinolone acetonide 55 mcg 1 spray INTRANASAL DAILY 06/24/20 07/01/20 History nasal spray aerosol Allergies Allergy/AdvReac Type Severity Reaction Status Date / Time atorvastatin [Lipitor] Allergy Unknown elevated Verified 06/24/20 15:00 liver enzymes Exam Vital signs: Vital Signs Temp 97.6 F 07/18/20 09:00 Pulse 61 07/18/20 09:00 Resp 12 07/18/20 09:00 BP 124/72 07/18/20 09:00 Pulse Ox 100 07/18/20 09:00 Intake & Output 07/17/20 07/18/20 07/18/20 18:59 06:59 18:59 Other: Weight 65.5 kg Weight 65.5 kg Body Mass Index 24.7 - Constitutional Present: no acute distress - Routine HEENT Exam Head: Present: normal inspection ENT: Present: mucous membranes moist - Routine Neck Exam Present: full ROM - Routine Chest/Breast/Axilla Exam Chest wall: Absent: tenderness - Routine Respiratory Exam Present: CTAB - Routine Cardiovascular Exam Cardiovascular: Present: RRR, S1, S2 - Routine Abdominal Exam Present: soft, nontender - Routine Extremities Exam Present: nontender - Routine Back/Spine/Pelvis Exam Back/Spine: Absent: pain with rotation - Routine Skin Exam Absent: petechiae - Routine Neurological Exam Present: alert, oriented X3 - Detailed Neurological Exam: Coma Scale Eye Opening: Spontaneous (4) - Routine Psychiatric Exam Present: normal affect Data - Labs CBC & Chem 7: 07/18/20 10:18 07/18/20 10:18 Progress Note: A/P (1) Unintentional weight loss Problem details: Follow by heme/onc Status: Acute Assessment and plan: This is a pleasant 60-year-old gentleman here due to unintentional weight loss. He mentioned a 17 lb weight loss over the previous few months, although lately it has stabilized and he has gained a few lb. He still has an appetite and is trying to eat. his brother was recently diagnosed with kidney cancer. He complains of pain in the upper abdomen periumbilical area. Previous imaging studies: Ultrasound of the abdomen from September of last year had revealed: The gallbladder is surgically absent. Otherwise, unremarkable examination. CT scan of the abdomen from May 2018 revealed: Hazy attenuation of the small bowel mesentery which is stable and nonspecific, possibly mesenteric adenitis. Prostate and seminal vesicles are mildly prominent. Differential diagnosis: 1. With epigastric/ periumbilical pain and significant weight loss would be concerned about pancreatic cancer. 2. Hyperthyroidism. 3. A GI malignancy. He has not had a recent screening colonoscopy. Last one was in 2009. l proceeded with baseline labs, including TSH: 0.97 and a PSA: .LDH:132. PLAN: I will check a CT scan of the abdomen/pelvis to look for a pancreatic mass RCC versus adenopathy. l have referred him for further GI evaluation, colonoscopy and possibly an upper endoscopy. has appointment has been rescheduled to next month. He will return in 3 months for a follow-up visit. In the meantime he was advised to take nutritional supplements. Thank you, CC: Dr. Xie. Dr. Dixon. Code Status FULL CODE - Time Spent With Patient Total time spent is greater than 50% in coordination of care (as documented) at patient's floor/unit and/or counseling patient: 25 - 35 minutes
[2020-07-18 10:33] LABS: MANUAL DIFF FLAG NO
[2020-07-18 10:55] LABS: Basophils Percent Auto 0.5 % (0-2); Eosinophils Absolute Auto 0.2 X10*3/uL (0.0-0.4); Eosinophils Percent Auto 2.7 % (0-4); Hematocrit 44.6 % (42-52); Hemoglobin 14.3 g/dl (14.0-18.0); Imm Gran Abs Auto 0.02 X10*3/uL (0.00-0.03); Imm Gran Pct Auto 0.4 % (0.0-0.4); Lymphocytes Absolute Auto 1.6 X10*3/uL (1.2-4.9); Lymphocytes Percent Auto 29.2 % (20-40); Mean Corpuscular HGB Conc 32.1 g/dl (31.0-36.0); Mean Corpuscular Hemoglobin 26.4 pg (27.0-33.0); Mean Corpuscular Volume 82.4 fL (80-98); Mean Platelet Volume 10.5 fL (9.4-12.4); Monocytes Absolute Auto 0.5 X10*3/uL (0.1-1.2); Monocytes Percent Auto 9.3 % (2-11); Neutrophils Absolute Auto 3.2 X10*3/uL (2.0-8.3); Neutrophils Percent Auto 57.9 % (45-73); Platelet Count 309 X10*3/uL (160-400); Red Blood Count 5.41 X10*6/uL (4.60-5.80); Red Cell Distribution Width 13.6 % (11.0-16.0); White Blood Count 5.5 X10*3/uL (4.8-10.8)
[2020-07-18 11:16] LABS: Alanine Aminotransferase 14 U/L (0-40); Albumin Level 4.1 g/dL (3.5-5.0); Alkaline Phosphatase 61 U/L (39-117); Anion Gap 11 (12-20); Aspartate Amino Transferase 13 U/L (5-37); Blood Urea Nitrogen 16 mg/dL (9-16); Calcium 9.2 mg/dL (8.4-10.2); Carbon Dioxide 29 mmol/L (22-29); Chloride 104 mmol/L (96-108); Creatinine Clr Calc Pharmacy 77.3; Estimated Glomerular Filt Rate > 60; Glucose Random 85 mg/dL (60-115); Potassium 4.9 mmol/l (3.3-5.1); Sodium 139 mmol/L (135-145); Total Protein 6.9 g/dL (6.5-8.0)
--- NOTE | 2020-07-18 16:22 | MHC.HEMONCSW ---
FAXED PA REQUEST TO [facility] FOR CT ABD/PELVIS WITH C. WAIT DECISION.
--- NOTE | 2020-07-21 12:30 | MHC.HEMONCSW ---
ct abdomen/pelvis with c is approved by [facility]. A# [id number] DATE RANGE..... 06/03/20 TO 10/03/20 GIVEN TO [employer] TO SCHEDULE PT.
[2020-10-17 08:32] LABS: MANUAL DIFF FLAG NO
[2020-10-17 08:40] LABS: Basophils Percent Auto 0.4 % (0-2); Eosinophils Absolute Auto 0.2 X10*3/uL (0.0-0.4); Hematocrit 45.7 % (42-52); Hemoglobin 14.6 g/dl (14.0-18.0); Imm Gran Abs Auto 0.02 X10*3/uL (0.00-0.03); Imm Gran Pct Auto 0.4 % (0.0-0.4); Lymphocytes Absolute Auto 1.9 X10*3/uL (1.2-4.9); Lymphocytes Percent Auto 33.9 % (20-40); Mean Corpuscular HGB Conc 31.9 g/dl (31.0-36.0); Mean Corpuscular Hemoglobin 26.5 pg (27.0-33.0); Mean Corpuscular Volume 82.9 fL (80-98); Monocytes Absolute Auto 0.4 X10*3/uL (0.1-1.2); Monocytes Percent Auto 7.7 % (2-11); Neutrophils Percent Auto 53.6 % (45-73); Platelet Count 288 X10*3/uL (160-400); Red Blood Count 5.51 X10*6/uL (4.60-5.80); Red Cell Distribution Width 13.2 % (11.0-16.0); White Blood Count 5.6 X10*3/uL (4.8-10.8)
--- NOTE | 2020-10-17 08:44 | P.PNHO_ITS ---
Medical Summary - Medical Summary Date of Service: 10/17/20 Chief complaint: follow-up for: Weight loss. Medical Summary: DIAGNOSIS: UN INTENTIONAL WEIGHT LOSS. Interval History Interval history: This is a pleasant 60 year-old gentleman here for a follow-up visit. He tells me that his appetite is good, he is eating well. He has stopped losing weight. Initially he mentioned about a 17 lb weight loss over the past 6 months. He has actually gained some weight: from 07/01: 64.1, 07/18: 65.5 and today's weight is 66.8 kg. he says his energy level is fine. He denies abdominal pain, nausea vomiting heartburn indigestion nor diarrhea. No fever nor chills. He complains of occassional headaches. He sees Dr. Braxton. He has given him medications for it. No chest pain or trouble breathing. He is in good spirits. Rest of the review of systems is unremarkable. Review of Systems - Constitutional Reports no additional constitutional complaints - Eyes Reports no additional eye complaints - ENT Reports no additional ear, nose, mouth, and throat complaints - Cardiovascular Reports no additional cardiovascular complaints - Respiratory Reports no additional respiratory complaints - Gastrointestinal Reports no additional gastrointestinal complaints - Genitourinary Genitourinary: Reports no additional male genitourinary complaints - Musculoskeletal Reports no additional musculoskeletal complaints - Integumentary/Breasts Skin/Breast: Reports no additional skin complaints - Neurologic Reports no additional neurologic complaints, Reports hearing normal - Psychiatric Reports no additional psychiatric complaints - Endocrine Reports no additional endocrine complaints - Hematologic/Lymphatic Reports no additional hematologic/lymphatic complaints - Allergic/Immunologic Reports no additional allergic/immunologic complaints [facility] Medical History: Medical History (Last Reviewed 10/15/20 @ 09:28 by Zonia Ashraf MD) Chest pain Constipation by delayed colonic transit GERD (gastroesophageal reflux disease) Moderate asthma Psoriatic arthritis Pure hypercholesterolemia Unintentional weight loss Functional capacity: independent ambulation Patient : No Family History: Family History (Last Reviewed 10/15/20 @ 09:26 by Zonia Ashraf MD) Father Kidney failure Mother Diabetes Stroke Brother Cancer of kidney Surgical History: Surgical History (Last Reviewed 10/15/20 @ 09:26 by Zonia Ashraf MD) H/O enucleation of right eyeball History of corneal transplant History of eye prosthesis Hx laparoscopic cholecystectomy Hx of colonoscopy Social History: Social History (Last Updated 10/17/20 @ 08:52 by Carmella Caldera) Alcohol History: Alcohol intake: never Alcohol History Details: Alcohol intake frequency: does not drink Tobacco History: Smoking Status: Never smoker Substance Use History: Use of substances other than those prescribed or required for medical reasons : No Advance Directives: Advance Directives: No Advance Directives Information Provided: No Nutrition Assessment: Patient : No Smoking status: Never smoker Home Medications and Allergies Home Medications Medication Instructions Recorded Confirmed Type albuterol sulfate 90 mcg/actuation 2 puff INHALATION Q4-6H PRN 06/24/20 10/15/20 History aerosol inhaler amitriptyline 25 mg tablet 25 mg PO BEDTIME 06/24/20 10/15/20 History certolizumab pegol 400 mg SUBCUT Q2W 06/24/20 10/15/20 History cetirizine 10 mg tablet 10 mg PO DAILY 06/24/20 10/15/20 History montelukast 10 mg tablet 10 mg PO DAILY 06/24/20 10/15/20 History rosuvastatin 10 mg tablet 10 mg PO DAILY 06/24/20 10/15/20 History sennosides 8.6 mg tablet 17.2 mg PO BEDTIME PRN 06/24/20 10/15/20 History triamcinolone acetonide 55 mcg 1 spray INTRANASAL DAILY 06/24/20 10/15/20 History nasal spray aerosol pantoprazole 1 tab PO DAILY 08/05/20 10/17/20 History Allergies Allergy/AdvReac Type Severity Reaction Status Date / Time atorvastatin [Lipitor] Allergy Unknown elevated Verified 10/15/20 09:23 liver enzymes Exam Vital signs: Vital Signs Temp 97.6 F 07/18/20 09:00 Pulse 61 07/18/20 09:00 Resp 12 07/18/20 09:00 BP 124/72 07/18/20 09:00 Pulse Ox 100 07/18/20 09:00 Weight 65.5 kg Body Mass Index 24.7 - Constitutional Present: no acute distress - Routine HEENT Exam Head: Present: normal inspection Eye: Present: normal appearance ENT: Present: mucous membranes moist - Routine Neck Exam Present: full ROM - Routine Chest/Breast/Axilla Exam Chest wall: Absent: tenderness - Routine Respiratory Exam Present: CTAB - Routine Cardiovascular Exam Cardiovascular: Present: RRR, S1, S2 - Routine Abdominal Exam Present: soft, nontender - Routine Extremities Exam Present: nontender - Routine Back/Spine/Pelvis Exam Back/Spine: Absent: pain with rotation - Routine Skin Exam Absent: petechiae - Routine Neurological Exam Present: alert, oriented X3 - Detailed Neurological Exam: Coma Scale Eye Opening: Spontaneous (4) - Routine Psychiatric Exam Present: normal affect Data - Labs CBC & Chem 7: 10/17/20 08:28 10/17/20 08:28 Labs: 07/01/20 08:15 Comprehensive [place]. Panel Fast Routine Lipid Panel Routine 07/18/20 10:18 CMP [Comprehensive Met. Panel] Routine Complete Blood Count Auto Diff Routine 10/17/20 08:28 Complete Blood Count Auto Diff Routine Laboratory Last Values WBC 5.6 X10*3/uL (4.8-10.8) 10/17/20 08:28 RBC 5.51 X10*6/uL (4.60-5.80) 10/17/20 08:28 Hgb 14.6 g/dl (14.0-18.0) 10/17/20 08:28 Hct 45.7 % (42-52) 10/17/20 08:28 MCV 82.9 fL (80-98) 10/17/20 08:28 MCH 26.5 pg (27.0-33.0) L 10/17/20 08:28 MCHC 31.9 g/dl (31.0-36.0) 10/17/20 08:28 RDW 13.2 % (11.0-16.0) 10/17/20 08:28 Plt Count 288 X10*3/uL (160-400) 10/17/20 08:28 MPV 10.0 fL (9.4-12.4) 10/17/20 08:28 Immature Gran % (Auto) 0.4 % (0.0-0.4) 10/17/20 08:28 Neut % (Auto) 53.6 % (45-73) 10/17/20 08:28 Lymph % (Auto) 33.9 % (20-40) 10/17/20 08:28 Bell % (Auto) 7.7 % (2-11) 10/17/20 08:28 Eos % (Auto) 4.0 % (0-4) 10/17/20 08:28 Baso % (Auto) 0.4 % (0-2) 10/17/20 08:28 Lymph # (Auto) 1.9 X10*3/uL (1.2-4.9) 10/17/20 08:28 Bell # (Auto) 0.4 X10*3/uL (0.1-1.2) 10/17/20 08:28 Eos # (Auto) 0.2 X10*3/uL (0.0-0.4) 10/17/20 08: Baso # (Auto) 0.0 X10*3/uL (0.0-0.2) 10/17/20 08: Abs Immat Gran (auto) 0.02 X10*3/uL (0.00-0.03) 10/17/20 08:28 Absolute Neuts (auto) 3.0 X10*3/uL (2.0-8.3) 10/17/20 08:28 Absolute Nucleated RBC 0.000 X10*3/uL (0.0-0.012) 10/17/20 08: Nucleated RBC % (auto) 0.0 /100WBC (0.0-0.2) 10/17/20 08:28 Sodium 139 mmol/L (135-145) 07/18/20 10:18 Potassium 4.9 mmol/l (3.3-5.1) D 07/18/20 10:18 Chloride 104 mmol/L (96-108) 07/18/20 10:18 Carbon Dioxide 29 mmol/L (22-29) 07/18/20 10:18 Anion Gap 11 (12-20) L 07/18/20 10:18 BUN 16 mg/dL (9-16) 07/18/20 10:18 Creatinine 0.85 mg/dL (0.5-1.4) 07/18/20 10:18 Estim Creat Clear Calc 77.3 07/18/20 10:18 Estimated GFR > 60 07/18/20 10:18 Random Glucose 85 mg/dL (60-115) 07/18/20 10:18 Fasting Glucose 129 mg/dL (60-99) H 07/01/20 08:15 Calcium 9.2 mg/dL (8.4-10.2) 07/18/20 10:18 Total Bilirubin 1.0 mg/dL (0.0-1.0) 07/18/20 10:18 AST 13 U/L (5-37) 07/18/20 10:18 ALT 14 U/L (0-40) 07/18/20 10:18 Alkaline Phosphatase 61 U/L (39-117) 07/18/20 10:18 Total Protein 6.9 g/dL (6.5-8.0) 07/18/20 10:18 Albumin 4.1 g/dL (3.5-5.0) 07/18/20 10:18 Triglycerides 129 mg/dL 07/01/20 08:15 Cholesterol 210 mg/dL 07/01/20 08:15 LDL Cholesterol, Calc 137 mg/dl 07/01/20 08:15 HDL Cholesterol 48 mg/dL 07/01/20 08:15 Progress Note: A/P (1) Unintentional weight loss Problem details: Follow by heme/onc Status: Acute Assessment and plan: This is a pleasant 60-year-old gentleman who was referred here due to unintentional weight loss. He mentioned a 17 lb weight loss over the previous few months, although lately it has stabilized and he has started to regain. He still has an appetite and is trying to eat. His brother was recently diagnosed with kidney cancer. Previous imaging studies: Ultrasound of the abdomen from September of last year had revealed: The gallbladder is surgically absent. Otherwise, unremarkable examination. CT scan of the abdomen from May 2018 revealed: Hazy attenuation of the small bowel mesentery which is stable and nonspecific, possibly mesenteric adenitis. Prostate and seminal vesicles are mildly prominent. Differential diagnosis: 1. With epigastric/ periumbilical pain and significant weight loss would be concerned about pancreatic cancer. 2. Hyperthyroidism. 3. A GI malignancy. He has not had a recent screening colonoscopy. Last one was in 2009. l proceeded with baseline labs, including TSH: 0.97 and a PSA: .LDH:132. I checked a CT scan of the abdomen/pelvis to look for a pancreatic mass RCC versus adenopathy. No acute intra-abdominal process seen. Aishwarya mesentery, nonspecific. Can be seen with inflammatory or infectious etiology. No mass is seen. There are small mesenteric lymph nodes measuring 5 mm and less. Similar findings were seen on previous exam 06/13/2018 and in 2012. Distended urinary bladder likely secondary to prostate enlargement. The prostate is hyperdense centrally. l referred him for further GI evaluation, colonoscopy and possibly an upper endoscopy. FINDINGS: UPPER ENDOSCOPY: Esophagus: The esophagus was normal. There was no esophagitis. The EG junction was slightly irregular and biopsies were obtained to rule out Scruggs's esophagus. Stomach: The stomach showed no evidence of masses, ulcers, or polyps. Antral biopsies were obtained to evaluate for H pylori. Duodenum: The bulb and second portion were normal. Biopsies were obtained from the second portion. COLONOSCOPY: The terminal ileum was normal. This was biopsied. In the cecum, was a 4 to 5 mm polyp, which was removed with biopsy forceps. At 70 cm from the anal verge in the vicinity of the hepatic flexure, there was an 8 mm pedunculated polyp, which was snared and recovered via suction. The quality of the prep was good. No other polyps were identified. Random sigmoid biopsies were obtained. Retroflexed examination showed small internal hemorrhoids. IMPRESSION: 1. Normal upper endoscopy: mild chronic gastritis.. 2. Colon polyps: Consistent with tubular adenoma.. All of the above findings are reassuring. he has been steadily gaining weight now. PLAN: He will continue to follow up with his primary care doctor. I will be happy to see him in case there are any questions or concerns in future. I wish him the best of luck. Thank you, CC: Dr. Xie. Dr. Dixon. - Time Spent With Patient Total time spent is greater than 50% in coordination of care (as documented) at patient's floor/unit and/or counseling patient: 25 - 35 minutes
[2020-10-17 08:45] VITALS: BP 115/75; PULSE 65; RESP 14; TEMP 36.4; O2SAT 100; BMI 25.2
--- NOTE | 2020-10-17 09:01 | MHC.HEMONCMA ---
Patient came in for a follow up today for unintentional weight loss. He states he has not been losing anymore weight, and is feeling good. His medications and allergies were reviewed and updated. He had labs done. Patient does not need to be seen again since his weight loss has been resolved, he will call us if he needs to be seen again.
[2020-10-17 09:11] LABS: Alanine Aminotransferase 17 U/L (0-40); Albumin Level 4.3 g/dL (3.5-5.0); Alkaline Phosphatase 67 U/L (39-117); Anion Gap 11 (12-20); Aspartate Amino Transferase 14 U/L (5-37); Bilirubin Total 1.3 mg/dL (0.0-1.0); Blood Urea Nitrogen 16 mg/dL (9-16); Calcium 9.1 mg/dL (8.4-10.2); Carbon Dioxide 29 mmol/L (22-29); Chloride 105 mmol/L (96-108); Creatinine Clr Calc Pharmacy 70.7; Estimated Glomerular Filt Rate > 60; Glucose Random 96 mg/dL (60-115); Potassium 4.4 mmol/l (3.3-5.1); Sodium 141 mmol/L (135-145); Total Protein 6.9 g/dL (6.5-8.0)
--- NOTE | 2020-12-05 11:47 | MHC.HEMONCMA ---
Pt called stating that he has a black gardenia under his left arm. Spoke with provider and she stated pt call his pcp. I left a voice mail letting pt know this.
== END | disposition home or self-care (01) ==
LOC: HO.ONC 07-01 07:56
PROVIDERS: PCP Internal Medicine; Visit Provider Internal Medicine Medical Oncology
DX: R63.4 Abnormal weight loss (principal); Z90.49 Acquired absence of other specified parts of digestive tract
CPT/HCPCS: 36415; 80053; 80061; 85025; 99214

== ENCOUNTER 2024-05-24 10:17 | Emergency (ER) | payer OTHER, SELFPAY ==
--- NOTE | ~2024-05-24 | CT_ITS ---
EXAMINATION: CT ABDOMEN AND PELVIS WITHOUT CONTRAST CLINICAL INFORMATION: Right flank pain COMPARISON: 07/21/2023 TECHNIQUE: Multidetector volumetric imaging was performed from the superior aspect of the liver through the pubic symphysis. Sagittal and coronal reformatted images were obtained on the technologist's workstation. This CT examination was performed using dose optimization techniques as appropriate, variously including the following: *Automated exposure control *Adjustment of mA and/or kV according to patient size (this includes techniques or standardized protocols for targeted exams where dose is matched to indication/reason for exam; i.e. extremities or head) *Use of iterative reconstruction technique DLP: 400 mGy-cm FINDINGS: LUNG BASES: The visualized lung bases are unremarkable. LIVER, GALLBLADDER, AND BILIARY TREE: The liver is normal in size, shape, and attenuation. No focal hepatic lesion or biliary ductal dilatation is present. Clips consistent with cholecystectomy. PANCREAS: Unremarkable. SPLEEN: Unremarkable. ADRENAL GLANDS: Unremarkable. KIDNEYS AND URETERS: Right-sided hydronephrosis and hydroureter down to the level UVJ where there is a 4 mm partially obstructing stone. No tendon stone. Minor perinephric stranding. The kidney unremarkable. BLADDER: Unremarkable. GASTROINTESTINAL TRACT: The small and large bowel are unremarkable. The appendix is unremarkable. 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 ABDOMINAL WALL: No significant hernia is appreciated. LYMPH NODES: Normal. VASCULAR: Unremarkable. PELVIC VISCERA: Unremarkable. OSSEOUS STRUCTURES: Unremarkable. CT/CT abdomen pelvis wo IV con IMPRESSION: Partially obstructing 4 mm right UVJ stone. Fleischner guidelines were followed. Electronically signed by: Kings Oro MD 05/24/2024 02:38 PM EDT
[2024-05-24 10:24] VITALS: BP 141/75; PULSE 73; RESP 18; TEMP 36.6; O2SAT 99; BMI 25.2
[2024-05-24 11:02] LABS: MANUAL DIFF FLAG NO
[2024-05-24 11:03] LABS: Basophils Percent Auto 0.7 % (0-2); Eosinophils Absolute Auto 0.2 X10*3/uL (0.0-0.4); Eosinophils Percent Auto 2.4 % (0-4); Hematocrit 43.3 % (42.0-52.0); Hemoglobin 14.7 g/dl (14.0-18.0); Imm Gran Abs Auto 0.03 X10*3/uL (0.00-0.03); Imm Gran Pct Auto 0.5 % (0.0-0.4); Lymphocytes Percent Auto 33.1 % (20-40); Mean Corpuscular HGB Conc 33.9 g/dl (31.0-36.0); Mean Corpuscular Hemoglobin 27.4 pg (27.0-33.0); Mean Corpuscular Volume 80.8 fL (80.0-98.0); Mean Platelet Volume 10.2 fL (9.4-12.4); Monocytes Absolute Auto 0.5 X10*3/uL (0.1-1.2); Monocytes Percent Auto 8.8 % (2-11); Neutrophils Absolute Auto 3.3 x10*3/uL (2.0-8.3); Neutrophils Percent Auto 54.5 % (45-73); Platelet Count 315 X10*3/uL (160-400); Red Blood Count 5.36 X10*6/uL (4.60-5.80); Red Cell Distribution Width 13.6 % (11.0-16.0); White Blood Count 6.1 X10*3/uL (4.8-10.8)
--- NOTE | 2024-05-24 11:08 | ED.GENADULT ---
HPI - General Adult General Chief complaint: Abdominal Pain Stated complaint: r leg pain Time Seen by Provider: 05/24/24 11:05 Source: patient and family Mode of arrival: ambulatory Limitations: no limitations History of Present Illness ED Provider: marya AYALA narrative: Patient is a 63-year-old male with history of left inguinal hernia, GERD, psoriatic arthritis, asthma presenting to the emergency department with complaint of right flank pain radiating to right groin as well as dysuria since waking this morning. States pain has been constant. Denies hematuria. Denies fevers. Denies nausea or vomiting. Denies history of kidney stones. Denies fall or other trauma. MD complaint: right flank pain Onset (ago): hour(s) Severity: severe Quality: sharp Pain Consistency: constant Associated symptoms: other (dysuria) Treatments prior to arrival: none Related Data Home Medications ?Medication ?Instructions ?Recorded ?Confirmed aspirin 81 mg tablet,delayed 81 mg PO DAILY 02/10/23 04/06/24 release meloxicam 15 mg tablet 15 mg PO DAILY PRN 04/05/23 04/06/24 oxycodone 5 mg tablet 5 mg PO Q6H PRN pain 04/05/23 04/06/24 triamcinolone acetonide 55 mcg 1 spray intranasal DAILY PRN 04/05/23 04/06/24 nasal spray aerosol ixekizumab 80 mg/mL subcutaneous 80 mg subcut Q4W 03/28/24 04/06/24 auto-injector (Taltz Autoinjector) Previous Rx's ?Medication ?Instructions ?Recorded cane #1 ea 11/20/20 sennosides 8.6 mg tablet 17.2 mg (2 x 8.6 mg) PO BEDTIME 09/22/21 PRN Constipation 90 days #90 tabs amitriptyline 25 mg tablet 25 mg PO BEDTIME 90 days #90 tabs 09/23/21 acetaminophen 500 mg tablet 1,000 mg (2 x 500 mg) PO Q6H PRN 10/05/21 (Acetaminophen Extra Strength) pain #30 tabs fluticasone 250 mcg-salmeterol 50 1 ea PO BID #180 caps 12/15/21 mcg/dose blistr powdr for inhalation (Wixela Inhub) albuterol sulfate 2.5 mg/3 mL 2.5 mg (3 mL) inhalation Q4-6H PRN 08/02/22 (0.083 %) solution for nebulization shortness of breath or wheezing #90 mL nebulizers (AeroEclipse II #1 ea 08/05/22 Nebulizer) nitroglycerin 0.4 mg sublingual 0.4 mg sublingual Q5M PRN chest 01/17/23 tablet pain #30 tabs naproxen 500 mg tablet 500 mg PO BID PRN pain #14 tabs 08/29/23 pyridoxine (vitamin B6) 100 mg 100 mg PO DAILY 90 days #90 tabs 01/30/24 tablet rosuvastatin 40 mg tablet 40 mg PO DAILY #90 tabs 02/17/24 albuterol sulfate 90 mcg/actuation 2 puff inhalation Q4-6H PRN 03/15/24 aerosol inhaler shortness of breath or wheezing #8.5 grams azithromycin 500 mg tablet 500 mg PO DAILY 3 days #3 tabs 03/15/24 doxycycline hyclate 100 mg capsule 100 mg PO BID 10 days #20 caps 03/15/24 prednisone 50 mg tablet 50 mg PO DAILY wheezing 5 days #5 03/15/24 tabs montelukast 10 mg tablet 10 mg PO DAILY 90 days #90 tabs 03/19/24 pantoprazole 40 mg tablet,delayed 40 mg PO DAILY 90 days #90 tabs 03/19/24 release gabapentin 300 mg capsule 300 mg PO BEDTIME 90 days #90 caps 04/06/24 ubrogepant 100 mg tablet (Ubrelvy) 50 - 100 mg (0.5 - 1 x 100 mg) PO 04/06/24 ONCE PRN migraine headache 30 days #16 tabs tamsulosin 0.4 mg capsule (Flomax) 0.4 mg PO BEDTIME 90 days #90 caps 05/22/24 ondansetron 4 mg disintegrating 4 mg PO Q8H PRN nausea and 05/24/24 tablet vomiting #10 tabs oxycodone 5 mg tablet 5 mg PO Q6H PRN severe pain (scale 05/24/24 score 7-10) #10 tabs prednisone 20 mg tablet 20 mg PO DAILY #7 tabs 05/24/24 tamsulosin 0.4 mg capsule 0.4 mg PO DAILY #14 caps 05/24/24 Allergies Allergy/AdvReac Type Severity Reaction Status Date / Time atorvastatin [Lipitor] Allergy Intermediate elevated Verified 05/24/24 10:27 liver enzymes certolizumab pegol AdvReac Severe headaches Verified 05/24/24 10:27 Review of Systems Review of Systems: As per HPI Yes all other systems are reviewed and are negative Constitutional: Constitutional: Reports as per HPI [facility] Past Medical History Medical History Atherosclerotic cardiovascular disease UTI (urinary tract infection) Hospital discharge follow-up Hematuria Leukocytosis Left inguinal hernia Back pain Constipation by delayed colonic transit GERD (gastroesophageal reflux disease) Chest pain Psoriatic arthritis Moderate asthma Pure hypercholesterolemia Unintentional weight loss Surgical History S/P cardiac catheterization Hx of colonoscopy H/O enucleation of right eyeball Hx laparoscopic cholecystectomy History of eye prosthesis History of corneal transplant Family History Family History Father Kidney failure Mother Diabetes Stroke Alzheimer disease Brother Cancer of kidney Sister Breast cancer Brother Lung cancer Social History Social History Housing: House Alcohol intake: current Alcohol intake frequency: does not drink Alcohol type: beer Patient Tobacco Use Status: Never used Tobacco e-Cigarette/Vaping Use: Never Used Second Hand Smoke Exposure: No Advance Directives: No Advance Directives Information Provided: Yes Do you have a plan to hurt others: No Plan service: No Current occupational status: disabled Cognitive needs: No Hearing needs: No Vision needs: Yes (Glasses) Physical Exam ED Vital Signs: Vital Signs - 24 hr 05/24/24 10:24 05/24/24 12:35 05/24/24 13:39 Temperature 98 F 98.0 F 98.0 F Pulse Rate 73 62 63 Respiratory Rate 18 12 17 Blood Pressure 141/75 H 120/64 111/60 Pulse Oximetry 99 100 98 Oxygen Delivery Method Room Air Room Air Room Air BMI result Body Mass Index 25.2 Vital signs have been reviewed and appear to be correct. Blood pressure normal. Heart rate normal. Respiratory rate normal. Temperature normal. Oxygen saturation normal. Const General: cooperative, healthy appearing and no acute distress Orientation/consciousness: oriented to person, oriented to place, oriented to time and patient oriented x3 Limitations: no limitations HENMI Head: Yes normocephalic and Yes atraumatic Ears: external ears normal General nose exam: Normal external nose present Face and sinus: Yes face symmetric Mouth: oropharynx normal and moist mucous membranes Throat: Yes uvula midline Eyes Pupils: Equal, round and reactive pupils present Neck Neck: Yes normal visual inspection and Yes supple Resp Effort & Inspection: normal respiratory effort and able to speak in complete sentences Auscultation: clear to auscultation bilaterally Cardio Rate: regular rate Rhythm: regular rhythm Heart sounds: S1 normal heart sound present and S2 normal heart sound present GI Palpation (GI): Soft to palpation, Tenderness to palpation present (GI) in the RLQ, no guarding and No Rebound tenderness present Auscultation: normoactive bowel sounds General: Yes no CVA tenderness Male General Exam: No hernia and No inguinal lymphadenopathy Back/Spine/Pelvis Back: no CVA tenderness Skin General skin exam: elasticity normal and turgor normal Neuro General: oriented to person, oriented to place, oriented to time, patient oriented x3, moves all extremities, no focal motor deficits and CN's II-XI intact bilaterally Cranial nerves: Yes Equal, round and reactive pupils present Cognition (Neuro): normal cognition Extrem General: Yes full ROM, Yes no pedal edema and Yes no calf tenderness Psych Mental Status: mental status grossly normal Affect: normal affect Thought process: Normal thought process present Medications Administered Discontinued Medications Generic Name Dose Route Start Last Admin Trade Name Freq PRN Reason Stop Dose Admin Sodium Chloride 1,000 mls @ 999 mls/hr 05/24/24 11:45 05/24/24 13:27 Ns IV 05/24/24 12:45 Infused .Q1H1M GUS Infusion Ketorolac Tromethamine 15 mg 05/24/24 11:34 05/24/24 11:49 Ketorolac Tromethamine 15 Mg/Ml Vial IVPUSH 05/24/24 11:35 15 mg ONCE ONE Administration Morphine Sulfate 4 mg 05/24/24 12:55 05/24/24 13:27 Morphine Sulfate 4 Mg/Ml Cartridge IVPUSH 05/24/24 12:56 4 mg ONCE ONE Administration Protocol Ondansetron HCl 4 mg 05/24/24 11:38 05/24/24 11:49 Ondansetron Hcl 4 Mg/2 Ml Vial IVPUSH 05/24/24 11:39 4 mg ONCE ONE Administration Medical Decision Making Medical Decision Making [facility] Narrative: Patient is a 63-year-old male with history of left inguinal hernia, GERD, psoriatic arthritis, asthma presenting to the emergency department with complaint of right flank pain radiating to right groin as well as dysuria since waking this morning. On exam patient is awake, A+Ox3, VS WNL, afebrile, normal neurological exam without focal deficits, physical exam findings as above. Patient very uncomfortable appearing on arrival. Initially denied nausea, but began vomiting immediately following assessment. Given reported symptoms and physical exam findings, initial differential includes renal/ureteral calculi, UTI/pyelonephritis, muscle strain. Labs unremarkable, no evidence of DEIDRA. CT notable for 4mm partially obstructing stone at right UVJ. My interpretation is in agreement with the radiologist's interpretation. Case discussed with Dr. Purcell who feels patient can be discharged home, follow up outpatient. Will send prescriptions for Flomax, prednisone, Zofran, oxycodone for severe pain. Return precautions discussed with patient and family at bedside. Patient verbalized understanding of and agreement with plan. Differential Diagnosis Differential Diagnoses: The differential diagnosis associated with the presentation includes As per [facility] Admission/Observation Consideration of admission/observation: Escalation of care including admission/observation considered Patient would have been admitted to the hospital had their work up had any findings where hospital admission was appropriate and their clinical presentation warranted hospital admission. Consult Healthcare Provider Management of the patient was discussed with: Juice Weigher (Dr. Purcell) Lab Data [facility] Lab Attestation statement: I reviewed the patient's lab results. as per [facility] 05/24/24 10:54 05/24/24 10:54 Labs: Lab Results 05/24/24 05/24/24 Range/Units 10:54 14:14 WBC 6.1 (4.8-10.8) X10*3/uL RBC 5.36 (4.60-5.80) X10*6/uL Hgb 14.7 (14.0-18.0) g/dl Hct 43.3 (42.0-52.0) % MCV 80.8 (80.0-98.0) fL MCH 27.4 (27.0-33.0) pg MCHC 33.9 (31.0-36.0) g/dl RDW 13.6 (11.0-16.0) % Plt Count 315 (160-400) X10*3/uL MPV 10.2 (9.4-12.4) fL Immature Gran % (Auto) 0.5 H (0.0-0.4) % Neut % (Auto) 54.5 (45-73) % Lymph % (Auto) 33.1 (20-40) % Calhoun % (Auto) 8.8 (2-11) % Eos % (Auto) 2.4 (0-4) % Baso % (Auto) 0.7 (0-2) % Lymph # (Auto) 2.0 (1.2-4.9) X10*3/uL Calhoun # (Auto) 0.5 (0.1-1.2) X10*3/uL Eos # (Auto) 0.2 (0.0-0.4) X10*3/uL Baso # (Auto) 0.0 (0.0-0.2) X10*3/uL Abs Immat Gran (auto) 0.03 (0.00-0.03) X10*3/uL Absolute Neuts (auto) 3.3 (2.0-8.3) x10*3/uL Absolute Nucleated RBC 0.000 (0.0-0.012) X10*3/uL Nucleated RBC % (auto) 0.0 (0.0-0.2) /100WBC Sodium 140 (135-145) mmol/L Potassium 3.8 (3.3-5.1) mmol/L Chloride 108 (96-108) mmol/L Carbon Dioxide 25 (22-29) mmol/L Anion Gap 11 L (12-20) BUN 15 (9-16) mg/dL Creatinine 0.96 (0.5-1.4) mg/dL Estim Creat Clear Calc 65.9 Estimated GFR > 60 Random Glucose 91 (60-115) mg/dL Calcium 9.6 (8.4-10.2) mg/dL Total Bilirubin 0.7 (0.0-1.0) mg/dL AST 12 (5-37) U/L ALT 18 (0-40) U/L Alkaline Phosphatase 72 (39-117) U/L Total Protein 7.3 (6.5-8.0) g/dL Albumin 4.2 (3.5-5.0) g/dL Urine Color Yellow Urine Appearance Clear Urine pH 6.0 (5.0-9.0) Ur Specific Halsey 1.020 (1.005-1.025) Urine Protein Negative (Neg-Trace) mg/dL Urine Glucose (UA) Negative (Negative) mg/dL Urine Ketones Negative (Negative) mg/dL Urine Blood Moderate (2+) H (Negative) Urine Nitrite Negative (Negative) Ur Leukocyte Esterase Negative (Negative) Urine RBC >20 H (0-2) /HPF Urine WBC 0-5 (0-5) /HPF Ur Squamous Epith Cells 0-2 (0-2) /HPF Urine Bacteria None Seen (None Seen) Hyaline Casts 0-2 (0-2) /LPF Independent Interpretation I performed an independent interpretation of an: CT Scan Interpretation: CT A/P shows 4mm partially obstructing stone at R UVJ with hydronephrosis and hydroureter Radiology Impression Discussion of test interpretation with radiology: I have reviewed the radiologist's reading. Radiologist Impression: CT/CT abdomen pelvis wo IV con IMPRESSION: Partially obstructing 4 mm right UVJ stone. Fleischner guidelines were followed. External Record Review External record reviewed: Inpatient record, Office record and Outpatient record Prescription Management I considered prescription management with: Pain Medication Discharge Plan Discharge Clinical Impression: Right distal ureteral calculus Patient Disposition: Home, Self-Care Instructions: Ureteral Stones (ED) Additional Instructions: You were evaluated in the emergency department for flank pain. Your CT scan showed evidence of a stone in your right ureter. The stone is 4 mm which may or may not pass on its own. Your are being provided with a urine strainer to use at home, instructions are included in your discharge paperwork. You are being prescribed prednisone to decrease inflammation, tamsulosin to allow the stone to pass more easily, and oxycodone as needed for severe pain. You can also take 600 mg of ibuprofen every 6 hours as needed for pain. Your being prescribed ondansetron which you can use every 8 hours as needed for nausea. You are being referred to Urology, please call them 1st thing Tuesday morning for an appointment this week. Return to the emergency department if you develop worsening pain, persistent vomiting, fever 100.4? or greater, inability to urinate, or any other concerning symptoms. Prescriptions: New prednisone 20 mg tablet 20 mg PO DAILY Qty: 7 0RF tamsulosin 0.4 mg capsule 0.4 mg PO DAILY Qty: 14 0RF ondansetron 4 mg tablet,disintegrating 4 mg PO Q8H PRN (Reason: nausea and vomiting) Qty: 10 0RF oxycodone 5 mg tablet 5 mg PO Q6H PRN (Reason: severe pain (scale score 7-10)) Qty: 10 0RF Rx Instructions: Partial Fill upon patient request. No Action (DME) cane Device See Rx Instructions .ROUTE .MEDSUPPLY Qty: 1 0RF Rx Instructions: As directed amitriptyline 25 mg tablet 25 mg PO BEDTIME 90 Days Qty: 90 1RF fluticasone propion-salmeterol [Wixela Inhub] 250-50 mcg/dose blister with device 1 ea PO BID Qty: 180 2RF (DME) nebulizers [AeroEclipse II Nebulizer] Misc See Rx Instructions .Route Qty: 1 0RF Rx Instructions: As directed pyridoxine (vitamin B6) 100 mg tablet 100 mg PO DAILY 90 Days Qty: 90 3RF rosuvastatin 40 mg tablet 40 mg PO DAILY Qty: 90 0RF pantoprazole 40 mg tablet,delayed release (DR/EC) 40 mg PO DAILY 90 Days Qty: 90 1RF montelukast 10 mg tablet 10 mg PO DAILY 90 Days Qty: 90 0RF tamsulosin [Flomax] 0.4 mg capsule 0.4 mg PO BEDTIME 90 Days Qty: 90 3RF albuterol sulfate 2.5 mg /3 mL (0.083 %) solution for nebulization 2.5 mg inhalation Q4-6H PRN (Reason: shortness of breath or wheezing) Qty: 90 0RF sennosides 8.6 mg tablet 17.2 mg PO BEDTIME PRN (Reason: Constipation) 90 Days Qty: 90 1RF naproxen 500 mg tablet 500 mg PO BID PRN (Reason: pain) Qty: 14 0RF azithromycin 500 mg tablet 500 mg PO DAILY 3 Days Qty: 3 0RF prednisone 50 mg tablet 50 mg PO DAILY 5 Days Qty: 5 0RF doxycycline hyclate 100 mg capsule 100 mg PO BID 10 Days Qty: 20 0RF albuterol sulfate 90 mcg/actuation HFA aerosol inhaler 2 puff inhalation Q4-6H PRN (Reason: shortness of breath or wheezing) Qty: 8.5 0RF acetaminophen [Acetaminophen Extra Strength] 500 mg tablet 1,000 mg PO Q6H PRN (Reason: pain) Qty: 30 0RF Taltz Autoinjector 80 mg/mL auto-injector 80 mg subcut Q4W gabapentin 300 mg capsule 300 mg PO BEDTIME 90 Days Qty: 90 1RF Ubrelvy 100 mg tablet 50 - 100 mg PO ONCE PRN (Reason: migraine headache) 30 Days Qty: 16 6RF Rx Instructions: take at onset of migraine, may repeat in 2hrs (may take w/ Ibuprofen) nitroglycerin 0.4 mg tablet, sublingual 0.4 mg sublingual Q5M PRN (Reason: chest pain) Qty: 30 5RF Rx Instructions: do not exceed 3 doses per episode aspirin 81 mg tablet,delayed release (DR/EC) 81 mg PO DAILY meloxicam 15 mg tablet 15 mg PO DAILY PRN oxycodone 5 mg tablet 5 mg PO Q6H PRN (Reason: pain) Rx Instructions: Partial Fill upon patient request. triamcinolone acetonide 55 mcg aerosol,spray 1 spray intranasal DAILY PRN Referrals: [facility] [place] [facility] [Provider Group] Print Language: Honduran
[2024-05-24 11:20] LABS: Alanine Aminotransferase 18 U/L (0-40); Albumin Level 4.2 g/dL (3.5-5.0); Alkaline Phosphatase 72 U/L (39-117); Anion Gap 11 (12-20); Aspartate Amino Transferase 12 U/L (5-37); Bilirubin Total 0.7 mg/dL (0.0-1.0); Blood Urea Nitrogen 15 mg/dL (9-16); Calcium 9.6 mg/dL (8.4-10.2); Carbon Dioxide 25 mmol/L (22-29); Chloride 108 mmol/L (96-108); Creatinine Clr Calc Pharmacy 65.9; Estimated Glomerular Filt Rate > 60; Glucose Random 91 mg/dL (60-115); Potassium 3.8 mmol/L (3.3-5.1); Sodium 140 mmol/L (135-145); Total Protein 7.3 g/dL (6.5-8.0)
[2024-05-24] MEDS: 0.9 % Sodium Chloride 1,000 ML 999 ML IV (11:49)
[2024-05-24] MEDS: ondansetron HCL 4 MG/2 ML VIAL IVPUSH (11:49)
[2024-05-24] MEDS: Ketorolac Tromethamine 15 MG/ML VIAL IVPUSH (11:49)
--- NOTE | 2024-05-24 12:17 | PC.NURSE ---
one episode of vomiting in room, IV placed, medicated per the MAR. fluids currently infusing. awaiting ct scan, family at bedside w/ call chance within reach
[2024-05-24 12:35] VITALS: BP 120/64; PULSE 62; RESP 12; TEMP 36.7; O2SAT 100
--- NOTE | 2024-05-24 12:46 | PC.NURSE ---
reports improvement in pain/nausea after medication administration. awaiting results of ct scan, call chance remains in reach
[2024-05-24] MEDS: Morphine Sulfate 4 MG/ML CARTRIDGE IVPUSH (13:27)
[2024-05-24 13:39] VITALS: BP 111/60; PULSE 63; RESP 17; TEMP 36.7; O2SAT 98
[2024-05-24 14:23] LABS: Appearance Urine Clear; Color Urine Yellow; Glucose Urine UA Negative (Negative); Leukocyte Esterase Urine Negative (Negative); Nitrite Urine Negative (Negative); UMIC TRIGGER UACC YES; Urine Blood Moderate (2+) (Negative); Urine Ketones Negative (Negative); Urine Protein Negative (Neg-Trace)
[2024-05-24 14:25] LABS: Bacteria Urine None Seen (None Seen); Hyaline Casts Urine 0-2 /LPF (0-2); RBC Urine >20 /HPF (0-2); Squamous Epithelial Cell Urine 0-2 /HPF (0-2); WBC Urine 0-5 /HPF (0-5)
[2024-05-24 16:55] VITALS: BP 111/60; PULSE 63; RESP 16; TEMP 36.7; O2SAT 98
== END 2024-05-24 16:55 | disposition home or self-care (01) ==
PROVIDERS: Emergency Provider Emergency Medicine; PCP Internal Medicine
DX: N13.2 Hydronephrosis with renal and ureteral calculous obstruction (principal); R10.31 Right lower quadrant pain; E78.00 Pure hypercholesterolemia, unspecified; Z79.899 Other long term (current) drug therapy; Z79.02 Long term (current) use of antithrombotics/antiplatelets
CPT/HCPCS: 36415; 74176; 80053; 81001; 85025; 96361; 96374; 96375; 99284; 99285; J1885; J2270; J2405

== ENCOUNTER 2024-05-29 08:36 | Outpatient (AMB) | payer OTHER, SELFPAY ==
--- NOTE | 2024-05-29 08:38 | A.OFFVIS_ITS ---
Intake Visit Reasons: ER visit- 4mm partially obstructing stone Intake Note: Patient [place] [facility] [place] up- Kidney Stones Urology Medication: Tamsulosin, Vitamin B6 Antibiotic Allergies: None Blood Thinners: Aspirin Patient states he is feeling pain on his sides on and off Booking Supervisor: Booking Supervisor Present Accompanied by: Spouse Allergies atorvastatin [Lipitor] Allergy (Intermediate, Verified 05/24/24 10:27) elevated liver enzymes certolizumab pegol Adverse Reaction (Severe, Verified 05/24/24 10:27) headaches HPI Comments Details: Cole is a pleasant male. He is a patient of Dr. Xie. He is seen for the following urologic conditions - lower urinary tract symptoms - nephrolithiasis Recently seen in emergency room for distal ureteric stone Still with pain Had tried medical expulsion therapy Recommend ureteroscopy with laser lithotripsy Lower urinary tract symptoms Daily tadalafil Adequate urinary parameters PSA 12/10 2.3 Nephrolithiasis 05/11 renal US NAD 06/12 Right-sided hydronephrosis and hydroureter down to the level UVJ where there is a 4 mm partially obstructing stone PFSH Medical History Atherosclerotic cardiovascular disease UTI (urinary tract infection) Hospital discharge follow-up Hematuria Leukocytosis Left inguinal hernia Back pain Constipation by delayed colonic transit GERD (gastroesophageal reflux disease) Chest pain Psoriatic arthritis Moderate asthma Pure hypercholesterolemia Unintentional weight loss Surgical History S/P cardiac catheterization Hx of colonoscopy H/O enucleation of right eyeball Hx laparoscopic cholecystectomy History of eye prosthesis History of corneal transplant Family History Father Kidney failure Mother Diabetes Stroke Alzheimer disease Brother Cancer of kidney Sister Breast cancer Brother Lung cancer Social History Housing: House Alcohol intake: current Alcohol intake frequency: does not drink Alcohol type: beer Patient Tobacco Use Status: Never used Tobacco e-Cigarette/Vaping Use: Never Used Second Hand Smoke Exposure: No service: No Current occupational status: disabled Cognitive needs: No Hearing needs: No Vision needs: Yes (Glasses) Review of Systems Const Denies chills and Denies fever(s) Card Reports no additional complaints and Denies syncope Resp Denies cough GI Denies abdominal pain and Denies heartburn Reports as per HPI and Denies change in libido Neuro Denies syncope Psych Denies change in libido Endo Denies change in libido Physical Exam Const General: cooperative, healthy appearing, comfortable and no acute distress Orientation/consciousness: patient oriented x3 HEENT Face and sinus: Yes normal facial exam Mouth: moist mucous membranes Neck Neck: Yes normal visual inspection, Yes full ROM and Yes trachea midline Chest Chest palpation & inspection: normal inspection of the chest Resp Effort & Inspection: normal respiratory effort, able to speak in complete sentences and no respiratory distress GI Inspection: Yes normal to inspection Back/Spine/Pelvis Cervical Spine: normal cervical lordosis Thoracic/Lumbar Spine: thoracic and lumbar spine normal to inspection Skin General skin exam: no rashes or lesions noted Neuro General: patient oriented x3, gait normal, tone normal and moves all extremities Extrem General: Yes normal to inspection and Yes capillary refill normal Assessment & Plan Assessment & Plan (1) Nephrolithiasis: Code(s): N20.0 - Calculus of kidney Category: Medical Plan Ureteroscopy We discussed the nature of the decision and reasonable alternatives for performing ureteroscopy. Options such as medical therapy were discussed. Interventions include chemical dissolution, ESWL, ureteroscopy with laser lithotripsy and stent placement, PCNL. The relative uncertainties and benefits related to each alternate procedure were adequately discussed. General surgical risks including, but not limited to - pain, bleeding, infection, myocardial infarction, pulmonary embolus, deep vein thrombosis and cerebrovascular accident which may result in further hospitalization were discussed. Full disclosure of the procedure as well as all major risks, benefits and complications were discussed including but not limited to damage to the urethra, bladder and kidney infection, damage to the ureter, stent migration or malposition, scarring to the renal pelvis, remnant stone fragments, subsequent stone passage with need for secondary procedures. The overall secondary procedure rate is approximately 10-15%. The overall clearance rate is approximately 90-95%. Success of the procedure in the short-term does not necessarily guarantee that long-term success will be maintained. Suitable follow up will need to be maintained. The patient showed understanding of discussion and wishes to proceed with - cystoscopy, retrograde, ureteroscopy, possible lithotripsy/stone basketing and stent on the right side Patient Instructions: Imaging studies, laboratory and physical exam results were discussed and reviewed in detail. No major barriers to patient understanding were identified. An opportunity to ask questions regarding the treatment plan was provided. All questions were answered. The patient expressed understanding and agreement with the above treatment plan. The patient is aware they should contact our office by phone for worsening of their current condition or the appearance of new urologic symptoms. Compliance is encouraged with any medications and followup testing that is ordered. It is a privilege to participate in the urologic care of your patient. If you have any questions or concerns regarding treatment for the above conditions, or other urologic issues, please do not hesitate to contact me. The office telephone contact is [phone]. This note is constructed using voice recognition software. While every effort has been made to ensure accuracy pulmonary function technologist errors may have been included. Yours sincerely, Dr Manav Purcell MD, [facility] - Urology Providers of Expert, Compassionate Care for the Genitourinary System Coding Level of Care Code Est Pt Level 4 (62211) Diagnoses Nephrolithiasis N20.0
== END 2024-05-29 09:30 | disposition home or self-care (01) ==
PROVIDERS: PCP Internal Medicine; Visit Provider Urology
DX: N20.0 Calculus of kidney (principal)
CPT/HCPCS: 99214

== ENCOUNTER → 2024-05-29 08:36 | Outpatient (BNVA) | payer OTHER, SELFPAY | PROVIDERS: PCP Internal Medicine; Visit Provider Urology | DX: N20.0 Calculus of kidney (principal) | CPT/HCPCS: 99212 ==

== ENCOUNTER 2024-05-29 14:36 | Outpatient (AMB) | payer OTHER, SELFPAY ==
[2024-05-29 14:39] VITALS: BP 118/64; BMI 25.2
--- NOTE | 2024-05-29 14:39 | MHC.PC.OV ---
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 Required: No Accompanied by: Self / Same As Patient Allergies atorvastatin [Lipitor] Allergy (Intermediate, Verified 05/29/24 15:06) elevated liver enzymes certolizumab pegol Adverse Reaction (Severe, Verified 05/29/24 15:06) headaches Medication List - Last Reconciled 05/29/24 by Zonai Ashraf MD acetaminophen (Acetaminophen Extra Strength) 1,000 mg (2 x 500 mg) PO Q6H PRN albuterol sulfate 2.5 mg (3 mL) inhalation Q4-6H PRN albuterol sulfate 90 mcg/actuation 2 puffs inhalation Q4-6H PRN amitriptyline 25 mg PO BEDTIME 90 days aspirin 81 mg PO DAILY cane As directed fluticasone propion-salmeterol 250-50 mcg/dose (Wixela Inhub) 1 ea PO BID gabapentin 300 mg PO BEDTIME 90 days ixekizumab (Taltz Autoinjector) 80 mg subcut Q4W montelukast 10 mg PO DAILY 90 days nebulizers (AeroEclipse II Nebulizer) As directed nitroglycerin 0.4 mg sublingual Q5M PRN ondansetron 4 mg PO Q8H PRN oxycodone 5 mg PO Q6H PRN pantoprazole 40 mg PO DAILY 90 days prednisone 20 mg PO DAILY pyridoxine (vitamin B6) 100 mg PO DAILY 90 days rosuvastatin 40 mg PO DAILY sennosides 17.2 mg (2 x 8.6 mg) PO BEDTIME PRN 90 days tamsulosin (Flomax) 0.4 mg PO BEDTIME 90 days triamcinolone acetonide 1 spray intranasal DAILY PRN ubrogepant (Ubrelvy) 50 - 100 mg (0.5 - 1 x 100 mg) PO ONCE PRN 30 days Tobacco use date assessed: 12/21/23 Dental Screening Dental Screen Date: 12/21/23 HPI HPI Comments History of Present Illness Details This is a 63-year-old male with nephrolithiasis and psoriatic arthritis that comes accompanied by as hospital discharge follow-up due to abdominal pain secondary to nephrolithiasis. Was evaluated by Urology today and will have surgery next week. Psoriatic arthritis has been stable with medication. He complains of a boil in left testicle and bilateral inguinal maculopapular pruritic rash that started few weeks ago. Do tooth pain or shortness on breath. [facility] Medical History (Updated 05/29/24 @ 20:01 by Zonia Ashraf MD) Atherosclerotic cardiovascular disease UTI (urinary tract infection) Hospital discharge follow-up Hematuria Leukocytosis Left inguinal hernia Back pain Constipation by delayed colonic transit GERD (gastroesophageal reflux disease) Chest pain Psoriatic arthritis Moderate asthma Pure hypercholesterolemia Unintentional weight loss Surgical History S/P cardiac catheterization Hx of colonoscopy H/O enucleation of right eyeball Hx laparoscopic cholecystectomy History of eye prosthesis History of corneal transplant Family History Father Kidney failure Mother Diabetes Stroke Alzheimer disease Brother Cancer of kidney Sister Breast cancer Brother Lung cancer Social History Housing: House Alcohol intake: current Alcohol intake frequency: does not drink Alcohol type: beer Patient Tobacco Use Status: Never used Tobacco e-Cigarette/Vaping Use: Never Used Second Hand Smoke Exposure: No service: No Current occupational status: disabled Cognitive needs: No Hearing needs: No Vision needs: Yes (Glasses) Questionnaire Thrive Questionnaire Date Thrive assessed: 12/21/23 AIMEE-7 AMB Questionnaire AIMEE-7 Date AIMEE - 7 assessed: 12/21/23 Source: Developed by Drs. Devon Latif, Desirae Pennington, Chuy Kingsley and colleagues, with an educational afia from [employer]. Review of Systems Const All systems reviewed & are unremarkable except as noted in HPI and below Card Denies chest pain at rest, Denies chest pain with activity, Denies edema, Denies irregular heart rhythm, Denies claudication, Denies dyspnea, Denies dyspnea on exertion, Denies orthopnea, Denies paroxysmal nocturnal dyspnea and Denies slow heart rate Resp Denies cough, Denies dyspnea and Denies dyspnea on exertion Skin/Breast Reports furuncle and Reports rash Physical exam (Primary Care) Vital Signs: Last Vital Signs BP 118/64 05/29/24 14:39 BMI result Body Mass Index 25.2 Tobacco/Smoking Status: Tobacco use Status Tobacco use date assessed 12/21/23 05/29/24 14:47 Patient Tobacco Use Status Never used Tobacco 05/29/24 14:47 e-Cigarette/Vaping Use Never Used 05/29/24 14:47 Thrive Assessment: Date of Thrive Assessment Date Thrive assessed 12/21/23 05/29/24 14:47 Resp Effort & Inspection: normal respiratory effort Auscultation: clear to auscultation bilaterally Cardio Jugular venous distension: no JVD Rate: regular rate Rhythm: regular rhythm Heart sounds: S1 normal heart sound present and S2 normal heart sound present Skin Rashes: rashes noted (bilateral inguinal maculopapular pruritic rash) Extrem General: Yes full ROM Assessment and Plan Assessment & Plan (1) Rash: Code(s): R21 - Rash and other nonspecific skin eruption Plan: Start nystatin cream. (2) Boil: Code(s): L02.92 - Furuncle, unspecified Plan: Start doxycycline. (3) Nephrolithiasis: Code(s): N20.0 - Calculus of kidney Plan: Follow-up with Urology. (4) Psoriatic arthritis: Code(s): L40.50 - Arthropathic psoriasis, unspecified Plan: Continue taltz. Medications: New doxycycline hyclate 100 mg PO BID 10 tabs 0RF 5 days nystatin 1 appl topical BID PRN 30 grams 0RF rash 2 weeks Coding Level of Care Code Est Pt Level 4 (08088) Complex EM visit Add On G2211 Diagnoses Rash R21 Boil L02.92 Nephrolithiasis N20.0 Psoriatic arthritis L40.50 Time Spent (min) 21
== END 2024-05-29 15:14 | disposition home or self-care (01) ==
PROVIDERS: PCP Internal Medicine; Visit Provider Internal Medicine
DX: R21 Rash and other nonspecific skin eruption (principal); L02.92 Furuncle, unspecified; N20.0 Calculus of kidney; L40.50 Arthropathic psoriasis, unspecified
CPT/HCPCS: 99214; G2211

== ENCOUNTER 2024-06-03 08:33 | Outpatient (REF) | payer OTHER, SELFPAY ==
--- NOTE | ~2024-06-03 | MR_ITS ---
EXAMINATION: MR BRAIN WITHOUT CONTRAST CLINICAL INFORMATION: New onset right upper extremity tremor COMPARISON: MRI of the brain without contrast 07/22/2022 TECHNIQUE: Multiplanar multisequence MR imaging of the brain was obtained without intravenous contrast. FINDINGS: There is no acute infarct on diffusion-weighted imaging. There are several scattered foci of susceptibility artifact in the supratentorial brain in the left frontal lobe, left thalamus, and right parietal lobe, likely reflecting sequela of chronic microhemorrhage. Patchy periventricular and deep white matter T2 FLAIR hyperintensities consistent with mild to moderate underlying microangiopathy. No hydrocephalus. The ventricles are normal in morphology and size. The major flow voids at the skull base are preserved. The midline structures are normal. The cerebellar tonsils are normally positioned. The craniocervical junction is normal. Marrow signal is within normal limits. The visualized soft tissues are without significant abnormality. Right globe prosthesis. No signal abnormality within the paranasal sinuses or within the mastoid air cells. MR/MR head/brain wo con IMPRESSION: 1. No acute intracranial abnormality. 2. Mild to moderate chronic microangiopathy. 3. Few scattered foci of susceptibility artifact in the supratentorial brain, likely sequela of chronic microhemorrhage. Electronically signed by: Jass Pitts MD 06/26/2024 01:20 AM EDT
== END 2024-06-03 08:34 | disposition home or self-care (01) ==
LOC: HO.MRI 08:33
PROVIDERS: PCP Internal Medicine; Visit Provider Nurse Practitioner Family
DX: R25.1 Tremor, unspecified (principal); G43.009 Migraine without aura, not intractable, without status migrainosus; I25.10 Atherosclerotic heart disease of native coronary artery without angina pectoris; L40.50 Arthropathic psoriasis, unspecified
CPT/HCPCS: 70551

== ENCOUNTER 2024-06-05 08:48 | Day surgery (SDC) | payer OTHER, SELFPAY ==
--- NOTE | 2024-06-04 09:34 | HO.ANESPROP2 ---
Documented by User: Natacha Dubon NP 06/04/24 09:41 HPI - Anesthesia Eval Consult details Narrative: 63yo M for Right Cystoscopy, Ureteroroscopy, Retro, Laser,with stent placement PMFSH Active Problems Active Problems: All Active Problems Nephrolithiasis (Acute) Boil (Acute) Rash (Acute) Tremor (Acute) Bradycardia (Acute) Chest pain on exertion (Acute) Right lower quadrant abdominal pain (Acute) Migraine without aura (Acute) Nephrolithiasis (Acute) Lower urinary tract symptoms (Acute) S/P cardiac catheterization (Acute) Closed fracture of base of distal phalanx of thumb (Acute) Atherosclerotic cardiovascular disease (Acute) Hesitancy of micturition (Acute) Nocturia (Acute) BPH (benign prostatic hyperplasia) (Acute) Eye globe prosthesis (Acute) Chronic daily headache (Acute) Urinary problem (Acute) Abnormal stress ECG with treadmill (Acute) Intraventricular conduction delay (Acute) Chest pain (Acute) Physical exam (Acute) New persistent daily headache (Acute) Pain of left great toe (Acute) UTI (urinary tract infection) (Acute) Hospital discharge follow-up (Acute) Hematuria (Acute) Leukocytosis (Acute) Left inguinal hernia (Acute) Right shoulder pain (Acute) Arthritis of left wrist (Acute) Arthritis pain of hand (Acute) Chest pain (Acute) Toenail fungus (Acute) Skin pruritus (Acute) Otitis of right ear (Acute) Axillary hidradenitis suppurativa (Acute) Back pain (Acute) Constipation by delayed colonic transit (Acute) GERD (gastroesophageal reflux disease) (Acute) Costochondritis (Acute) Chest pain (Acute) Paronychia (Acute) Psoriatic arthritis (Acute) Moderate asthma (Acute) Pure hypercholesterolemia (Acute) Unintentional weight loss (Acute) Past Medical History Medical History Atherosclerotic cardiovascular disease UTI (urinary tract infection) Hospital discharge follow-up Hematuria Leukocytosis Left inguinal hernia Back pain Constipation by delayed colonic transit GERD (gastroesophageal reflux disease) Chest pain Psoriatic arthritis Moderate asthma Pure hypercholesterolemia Unintentional weight loss Family History Family History Father Kidney failure Mother Diabetes Stroke Alzheimer disease Brother Cancer of kidney Sister Breast cancer Brother Lung cancer Family history of problems with anesthesia: No Surgical History Surgical History S/P cardiac catheterization Hx of colonoscopy H/O enucleation of right eyeball Hx laparoscopic cholecystectomy History of eye prosthesis History of corneal transplant History of Problems with Anesthesia: No Social History Social History Housing: House Alcohol intake: current Alcohol intake frequency: does not drink Alcohol type: beer Patient Tobacco Use Status: Never used Tobacco e-Cigarette/Vaping Use: Never Used Second Hand Smoke Exposure: No Advance Directives: No Advance Directives Information Provided: Yes service: No Current occupational status: disabled Cognitive needs: No Hearing needs: No Vision needs: Yes (Glasses) Meds Allergies Allergy/AdvReac Type Severity Reaction Status Date / Time atorvastatin [Lipitor] Allergy Intermediate elevated Verified 06/05/24 11:04 liver enzymes certolizumab pegol AdvReac Severe headaches Verified 06/05/24 11:04 Home Medications ?Medication ?Instructions ?Recorded ?Confirmed ?Last Taken ?Type aspirin 81 mg tablet,delayed 81 mg PO DAILY 02/10/23 05/29/24 Unknown History release triamcinolone acetonide 55 mcg 1 spray intranasal DAILY PRN 04/05/23 05/29/24 Unknown History nasal spray aerosol ixekizumab 80 mg/mL subcutaneous 80 mg subcut Q4W 03/28/24 05/29/24 Unknown History auto-injector (Taltz Autoinjector) prednisone 20 mg tablet 20 mg PO DAILY 05/29/24 05/29/24 Unknown History Exam Pertinent Lab Results Pertinent Lab Results: Laboratory Tests 05/24/24 10:54 WBC 6.1 Hgb 14.7 Hct 43.3 Plt Count 315 Sodium 140 Potassium 3.8 Chloride 108 Carbon Dioxide 25 BUN 15 Creatinine 0.96 Narrative Narrative: Per 03/2024 cardiac office visit note: In the exercise stress test, he was able to exercise for just under 5 minutes. Developed anginal-type symptoms but no EKG evidence of ischemia. In the echocardiogram, LVEF 50-55% with no wall motion abnormality. Normal diastolic function. Mildly increased right ventricular size. Otherwise unremarkable. In the exercise stress echo, exercised for just over 3 minutes; again had chest pain. At the achieved workload, no clear wall motion abnormalities. In the coronary CTA, distal left main <30% stenosis. Proximal LAD stenosis, suspected less than 70%. Mid circumflex about 30% stenosis. In the diagnostic catheterization, mild CAD only in the LAD and circumflex. Left main, right coronary artery were normal. LVEDP was normal. It was felt that the mild CAD was not adequate to explain his exertional chest pain. Assessment and Plan Assessment Anesthesia Assessment: Chart Reviewed Final Anesthetic Review Family History of Problems with Anesthesia: No History of Problems with Anesthesia: No Documented by User: Neel Escamilla MD 06/05/24 12:02 [facility] Past Medical History Medical History Atherosclerotic cardiovascular disease UTI (urinary tract infection) Hospital discharge follow-up Hematuria Leukocytosis Left inguinal hernia Back pain Constipation by delayed colonic transit GERD (gastroesophageal reflux disease) Chest pain Psoriatic arthritis Moderate asthma Pure hypercholesterolemia Unintentional weight loss Family History Family History Father Kidney failure Mother Diabetes Stroke Alzheimer disease Brother Cancer of kidney Sister Breast cancer Brother Lung cancer Surgical History Surgical History S/P cardiac catheterization Hx of colonoscopy H/O enucleation of right eyeball Hx laparoscopic cholecystectomy History of eye prosthesis History of corneal transplant Social History Social History Housing: House Alcohol intake: current Alcohol intake frequency: does not drink Alcohol type: beer Patient Tobacco Use Status: Never used Tobacco e-Cigarette/Vaping Use: Never Used Second Hand Smoke Exposure: No Advance Directives: No Advance Directives Information Provided: Yes service: No Current occupational status: disabled Cognitive needs: No Hearing needs: No Vision needs: Yes (Glasses) Meds Allergies Allergy/AdvReac Type Severity Reaction Status Date / Time atorvastatin [Lipitor] Allergy Intermediate elevated Verified 06/05/24 11:04 liver enzymes certolizumab pegol AdvReac Severe headaches Verified 06/05/24 11:04 Home Medications ?Medication ?Instructions ?Recorded ?Confirmed ?Last Taken ?Type aspirin 81 mg tablet,delayed 81 mg PO DAILY 02/10/23 05/29/24 Unknown History release triamcinolone acetonide 55 mcg 1 spray intranasal DAILY PRN 04/05/23 05/29/24 Unknown History nasal spray aerosol ixekizumab 80 mg/mL subcutaneous 80 mg subcut Q4W 03/28/24 05/29/24 Unknown History auto-injector (Taltz Autoinjector) prednisone 20 mg tablet 20 mg PO DAILY 05/29/24 05/29/24 Unknown History Exam Narrative Narrative: Per 03/2024 cardiac office visit note: In the exercise stress test, he was able to exercise for just under 5 minutes. Developed anginal-type symptoms but no EKG evidence of ischemia. In the echocardiogram, LVEF 50-55% with no wall motion abnormality. Normal diastolic function. Mildly increased right ventricular size. Otherwise unremarkable. In the exercise stress echo, exercised for just over 3 minutes; again had chest pain. At the achieved workload, no clear wall motion abnormalities. In the coronary CTA, distal left main <30% stenosis. Proximal LAD stenosis, suspected less than 70%. Mid circumflex about 30% stenosis. In the diagnostic catheterization, mild CAD only in the LAD and circumflex. Left main, right coronary artery were normal. LVEDP was normal. It was felt that the mild CAD was not adequate to explain his exertional chest pain. Echo from 2022 fairly normal. Airway Mallampati Class: I TM Dist: <=3cm Neck ROM: Full Loose/Missing/Broken Teeth: No Heart: ok. see above. Lungs: ok Assessment and Plan Assessment Anesthesia Assessment: Anesthesia Plan Discussed Final Anesthetic Review NPO: Yes ASA Class: III Final Preanesthetic Review: No Changes in Pt Med Stat, Meds/Allgs Chart Reviewed, Consent Obtained/Reviewed and Anes Risks/Benef Reviewed Patient Risk: Intermediate Procedure Risk: Low Anesthetic Plan Anesthetic Plan: GA and Agree w/ Assess. and Plan Disposition: Standard PACU
[2024-06-05] VITALS (7 sets, daily range): BP systolic 103–128; BP diastolic 70–77; PULSE 51–71; RESP 16–18; TEMP 36.1–36.8; O2SAT 95–100; BMI 24.5
--- NOTE | 2024-06-05 11:34 | MHC.SHP ---
Pre-Procedural Eval Section A - 24 Hr Update-Section A only Date of Service: 06/05/24 The patient is an INPATIENT: No The patient has been examined within 24 hours of the surgical procedure. The History & Physical has been completed within 30 days and I have reviewed it.: Yes Section B - Complete if H&P > 30 days Chief Complaint: Calculus of ureter, right Allergies: Allergies Allergy/AdvReac Type Severity Reaction Status Date / Time atorvastatin [Lipitor] Allergy Intermediate elevated Verified 06/05/24 11:04 liver enzymes certolizumab pegol AdvReac Severe headaches Verified 06/05/24 11:04 Plan Diagnosis/Plan: Unchanged I have reviewed the history and physical and performed a pertinent physical examination on my patient. No changes have occurred unless specified. Plan for Cystoscopy, right ureteroscopy, possible laser lithotripsy, possible ureteral stent. Risks discussed included but not limited to, possible need to repeat procedure if stone is not completely fragmented, Irritative voiding symptoms, bladder spasms, urgency, blood in urine. Time Spent With Patient Time: Total time managing care of this patient today ____ minutes.
--- NOTE | 2024-06-05 12:50 | W.PM.OPN ---
Operative Note Operative Note Date of Service: 06/05/24 Narrative: PreOperative Diagnosis:?? Right ureteral stone Post Operative Diagnosis:?? Right ureteral stone Procedure: - Cystoscopy, right retrograde, right ureteroscopy Surgeon:?Dr Brayan Russell Anesthesia:? General Findings: Right ureteral stone not visualized Procedure: After informed consent was verified the patient was brought to the operating room placed on the OR table in supine position.? General Anesthesia was administered per protocol.? The patient was placed in lithotomy position, prepped and draped in the usual sterile fashion.? Safety pause time-out and side of surgery confirmed.? Antibiotics confirmed. 2% lidocaine jelly 10 mL was passed transurethrally. A 22 [place] cystoscope was inserted transurethrally, the bulbous urethra was within normal limits. The prostatic urethra was nonobstructive. The bladder was visualized.? Both ureteric orifices were in normal position. An open-ended ureteral catheter was passed into the ureteral orifice and a retrograde examination was performed. There were no filling defects visualized. A guidewire was passed through the ureteral catheter into the kidney. The balloon dilator size 12 fr x 4 cm was passed over the guide-wire the balloon was inflated to 8 mmHg and the intramural ureter was dilated for 40 seconds. The balloon was deflated and removed. After removing the balloon dilator a 2nd guidewire was then passed into the kidney to use as a safety. The cystoscope was removed, leaving both guidewires in place. One guidewire was used as the safety and was attached to the draping. The semi rigid ureteroscope was passed over one of the guidewires and was passed into the right ureter. There were no stones visualized no significant inflammatory changes or edema noted. The ureteroscope was removed. The cystoscope was passed over the safety guidewire. The guidewire was removed. The bladder was emptied.? The rigid cystoscope was removed. ? The patient tolerated the procedure well and was brought to the recovery room in stable condition. Complications: None Drains: None
[2024-06-05] MEDS: Phenazopyridine HCL 200 MG TABLET PO (13:13)
== END 2024-06-05 14:21 | disposition home or self-care (01) ==
PROVIDERS: PCP Internal Medicine; Visit Provider Urology
PROC: (CPT 52351; principal; 2024-06-05 12:20)
DX: N20.0 Calculus of kidney (principal); R10.9 Unspecified abdominal pain; I25.10 Atherosclerotic heart disease of native coronary artery without angina pectoris; R07.9 Chest pain, unspecified; E78.00 Pure hypercholesterolemia, unspecified; K21.9 Gastro-esophageal reflux disease without esophagitis; D72.829 Elevated white blood cell count, unspecified; L40.50 Arthropathic psoriasis, unspecified; Z94.7 Corneal transplant status; Z97.0 Presence of artificial eye; Z79.82 Long term (current) use of aspirin; Z79.899 Other long term (current) drug therapy; Z88.8 Allergy status to other drugs, medicaments and biological substances; Z98.890 Other specified postprocedural states
CPT/HCPCS: 52351; C1726; C1758; C1769; J0690; J1885; J2704; J3010; Q9967

== ENCOUNTER → 2024-06-05 08:48 | Outpatient (BNV) | payer OTHER, SELFPAY | PROVIDERS: PCP Internal Medicine; Visit Provider Urology | DX: N20.1 Calculus of ureter (principal) | CPT/HCPCS: 52351; 74420 ==

== ENCOUNTER 2024-06-09 09:11 | Outpatient (AMB) | payer OTHER, SELFPAY ==
--- NOTE | 2024-06-09 09:35 | MHC.OFFWIV ---
Intake Vital Signs 06/09/24 09:38 Height 5 ft 4 in BP 112/70 Blood Pressure Location Rt brachial Position Sitting Pulse 78 Pulse Source Pulse Oximeter Temp 97.2 F Temp Source Oral Pulse Oximetry (%) 98 Oxygen Delivery Method Room Air Intake Visit Reasons: EP Asthma Intake Note: pt is here for c/o asthma Patient Tobacco Use Status: Never used Tobacco Allergies atorvastatin [Lipitor] Allergy (Intermediate, Verified 06/09/24 09:38) elevated liver enzymes certolizumab pegol Adverse Reaction (Severe, Verified 06/09/24 09:38) headaches Do you need a note to return to daycare/school/sports/work: No HPI HPI Comments History of Present Illness Details Patient is a 63yo M who presents with conceren bronchitis States hx of asthma and current symptoms worsening Ongoing x 3-4 days Coughing worse than baseline No phlegm, fever or chills Denies CP, SOB but + wheeze Using inhaler but ran out yesterday No other complaints Looking for refill on medicine PFSH Medical History Atherosclerotic cardiovascular disease UTI (urinary tract infection) Hospital discharge follow-up Hematuria Leukocytosis Left inguinal hernia Back pain Constipation by delayed colonic transit GERD (gastroesophageal reflux disease) Chest pain Psoriatic arthritis Moderate asthma Pure hypercholesterolemia Unintentional weight loss Surgical History S/P cardiac catheterization Hx of colonoscopy H/O enucleation of right eyeball Hx laparoscopic cholecystectomy History of eye prosthesis History of corneal transplant Family History Father Kidney failure Mother Diabetes Stroke Alzheimer disease Brother Cancer of kidney Sister Breast cancer Brother Lung cancer Social History Housing: House Alcohol intake: current Alcohol intake frequency: does not drink Alcohol type: beer Patient Tobacco Use Status: Never used Tobacco e-Cigarette/Vaping Use: Never Used Second Hand Smoke Exposure: No service: No Current occupational status: disabled Cognitive needs: No Hearing needs: No Vision needs: Yes (Glasses) Review of Systems Const Denies chills, Denies fever(s) and Denies malaise Eyes Denies change in vision ENT Denies nasal congestion and Denies sore throat Card Denies chest pain Resp Denies chest congestion (cough is dry), Reports cough and Reports wheezing GI Denies abdominal pain Musc Denies myalgias Skin/Breast Denies rash Aller/Immun Reports wheezing Physical Exam Vital Signs: Last Vital Signs Temp 97.2 F 06/09/24 09:38 Pulse 78 06/09/24 09:38 BP 112/70 06/09/24 09:38 Pulse Ox 98 06/09/24 09:38 Oxygen Delivery Method Room Air 06/09/24 09:38 General: Non-toxic, NAD. Speaking full sentences. Skin: Warm dry throughout Eye: EOMI HENT: Airway patent. Uvula midline. No pharyngeal erythema or edema. 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 Bilateral canals clear. TM non-erythematous, non-bulging. No TM perforation or hemotympanum noted. Respiratory: + wheezing bilateral upper lungs. No crackles or rhonchi noted. No acessory muscle use or stridor. Cardiac: RRR. No murmur MSK: Full ROM extremities. Neurology: A/O. No aphasia or facial droop. Gait without abnormality Psych: Good mood and affect Assessment & Plan Assessment & Plan (1) Asthma exacerbation: Code(s): J45.901 - Unspecified asthma with (acute) exacerbation Qualifiers: Asthma severity: mild Asthma persistence: unspecified Qualified Code(s): J45.901 - Unspecified asthma with (acute) exacerbation Plan: Patient seen and evaluated. Discussed prednisone use. has had in past. he does not require this now however in 48-72 hours if wheeze worsens, then we discussed use x 4 days ProAir and Albuterol refills given No sign of bacterial infection at this time Patient gave verbal understanding and had no additional questions or concerns at time of discharge All questions answered Medications: New prednisone 20 mg PO BID 8 tabs 0RF Refilled albuterol sulfate 2.5 mg (3 mL) inhalation Q4-6H PRN 90 mL 0RF shortness of breath or wheezing albuterol sulfate 90 mcg/actuation 2 puffs inhalation Q4-6H PRN 8.5 grams 0RF shortness of breath or wheezing J45.41 - Moderate persistent asthma with (acute) exacerbation, R06.2 - Wheezing Coding Level of Care Code Est Pt Level 3 (46493) Diagnoses Mild asthma with exacerbation, unspecified whether persistent J45.901 Asthma severity: mild Asthma persistence: unspecified
[2024-06-09 09:38] VITALS: BP 112/70; PULSE 78; TEMP 36.2; O2SAT 98
== END 2024-06-09 10:09 | disposition home or self-care (01) ==
PROVIDERS: PCP Internal Medicine; Visit Provider Physician Assistant
DX: J45.901 Unspecified asthma with (acute) exacerbation (principal)

== ENCOUNTER → 2024-06-09 09:11 | Outpatient (BNVA) | payer OTHER, SELFPAY | PROVIDERS: PCP Internal Medicine | DX: J45.901 Unspecified asthma with (acute) exacerbation (principal) | CPT/HCPCS: 99212 ==

== ENCOUNTER 2024-06-14 13:37 | Outpatient (AMB) | payer OTHER, SELFPAY ==
--- NOTE | 2024-06-14 14:02 | A.OFFVIS_ITS ---
Intake Visit Reasons: Cystoscopy, retrograde, ureteroscopy- follow up Intake Note: Patient is present for Post Op Follow up Urology Med: Vitamin B6. Tamsulosin [employer] Required: Yes [employer] Language: Gizzard Skin Remover Services: [employer] Present Accompanied by: Self / Same As Patient Allergies atorvastatin [Lipitor] Allergy (Intermediate, Verified 06/14/24 14:03) elevated liver enzymes certolizumab pegol Adverse Reaction (Severe, Verified 06/14/24 14:03) headaches Medication List - Last Reconciled 06/14/24 by Manav Purcell MD acetaminophen (Acetaminophen Extra Strength) 1,000 mg (2 x 500 mg) PO Q6H PRN albuterol sulfate 2.5 mg (3 mL) inhalation Q4-6H PRN albuterol sulfate 90 mcg/actuation 2 puffs inhalation Q4-6H PRN amitriptyline 25 mg PO BEDTIME 90 days aspirin 81 mg PO DAILY cane As directed fluticasone propion-salmeterol 250-50 mcg/dose (Wixela Inhub) 1 ea PO BID gabapentin 300 mg PO BEDTIME 90 days ixekizumab (Taltz Autoinjector) 80 mg subcut Q4W montelukast 10 mg PO DAILY 90 days nebulizers (AeroEclipse II Nebulizer) As directed nitroglycerin 0.4 mg sublingual Q5M PRN nystatin 1 appl topical BID PRN 2 weeks ondansetron 4 mg PO Q8H PRN oxycodone 5 mg PO [id number] PRN pantoprazole 40 mg PO DAILY 90 days prednisone 20 mg PO BID pyridoxine (vitamin B6) 100 mg PO DAILY 90 days rosuvastatin 40 mg PO DAILY sennosides 17.2 mg (2 x 8.6 mg) PO BEDTIME PRN 90 days tamsulosin (Flomax) 0.4 mg PO BEDTIME 90 days triamcinolone acetonide 1 spray intranasal DAILY PRN ubrogepant (Ubrelvy) 50 - 100 mg (0.5 - 1 x 100 mg) PO ONCE PRN 30 days HPI Comments Details: Cole is a pleasant male. He is a patient of Dr. Xie. He is seen for the following urologic conditions - lower urinary tract symptoms - nephrolithiasis Kazakh translation provided by qualified certified medical aide Pain has resolved Encourage lemon fluid intake Six-month follow-up imaging Lower urinary tract symptoms Daily tadalafil Adequate urinary parameters PSA 12/10 2.3 Nephrolithiasis 05/11 renal US NAD 06/12 Right-sided hydronephrosis and hydroureter down to the level UVJ where there is a 4 mm partially obstructing stone Ureteroscopy but stone had passed [facility] [place] Medical History Atherosclerotic cardiovascular disease UTI (urinary tract infection) Hospital discharge follow-up Hematuria Leukocytosis Left inguinal hernia Back pain Constipation by delayed colonic transit GERD (gastroesophageal reflux disease) Chest pain Psoriatic arthritis Moderate asthma Pure hypercholesterolemia Unintentional weight loss Surgical History S/P cardiac catheterization Hx of colonoscopy H/O enucleation of right eyeball Hx laparoscopic cholecystectomy History of eye prosthesis History of corneal transplant Family History Father Kidney failure Mother Diabetes Stroke Alzheimer disease Brother Cancer of kidney Sister Breast cancer Brother Lung cancer Social History Housing: House Alcohol intake: current Alcohol intake frequency: does not drink Alcohol type: beer Patient Tobacco Use Status: Never used Tobacco e-Cigarette/Vaping Use: Never Used Second Hand Smoke Exposure: No service: No Current occupational status: disabled Cognitive needs: No Hearing needs: No Vision needs: Yes (Glasses) Review of Systems Const Denies chills and Denies fever(s) Card Reports no additional complaints and Denies syncope Resp Denies cough GI Denies abdominal pain and Denies heartburn Reports as per HPI and Denies change in libido Neuro Denies syncope Psych Denies change in libido Endo Denies change in libido Physical Exam Const General: cooperative, healthy appearing, comfortable and no acute distress Orientation/consciousness: patient oriented x3 HEENT Face and sinus: Yes normal facial exam Mouth: moist mucous membranes Neck Neck: Yes normal visual inspection, Yes full ROM and Yes trachea midline Chest Chest palpation & inspection: normal inspection of the chest Resp Effort & Inspection: normal respiratory effort, able to speak in complete sentences and no respiratory distress GI Inspection: Yes normal to inspection Back/Spine/Pelvis Cervical Spine: normal cervical lordosis Thoracic/Lumbar Spine: thoracic and lumbar spine normal to inspection Skin General skin exam: no rashes or lesions noted Neuro General: patient oriented x3, gait normal, tone normal and moves all extremities Extrem General: Yes normal to inspection and Yes capillary refill normal Assessment & Plan Assessment & Plan (1) Nephrolithiasis: Code(s): N20.0 - Calculus of kidney Category: Medical Plan Six-month follow-up renal ultrasound Orders: Orders US renal BI 6 Months N20.0 - Calculus of kidney Patient Instructions: Imaging studies, laboratory and physical exam results were discussed and reviewed in detail. No major barriers to patient understanding were identified. An opportunity to ask questions regarding the treatment plan was provided. All questions were answered. The patient expressed understanding and agreement with the above treatment plan. The patient is aware they should contact our office by phone for worsening of their current condition or the appearance of new urologic symptoms. Compliance is encouraged with any medications and followup testing that is ordered. It is a privilege to participate in the urologic care of your patient. If you have any questions or concerns regarding treatment for the above conditions, or other urologic issues, please do not hesitate to contact me. The office telephone contact is [phone]. This note is constructed using voice recognition software. While every effort has been made to ensure accuracy bridge operator slip errors may have been included. Yours sincerely, Dr Manav Purcell MD, [facility] - Urology Providers of Expert, Compassionate Care for the Genitourinary System Coding Level of Care Code Est Pt Level 3 (91051) Diagnoses Nephrolithiasis N20.0
== END 2024-06-14 14:16 | disposition home or self-care (01) ==
PROVIDERS: PCP Internal Medicine; Visit Provider Urology
DX: N20.0 Calculus of kidney (principal)
CPT/HCPCS: 99213

== ENCOUNTER → 2024-06-14 13:37 | Outpatient (BNVA) | payer OTHER, SELFPAY | PROVIDERS: PCP Internal Medicine; Visit Provider Urology | DX: N20.0 Calculus of kidney (principal) | CPT/HCPCS: 99212 ==

== ENCOUNTER 2024-06-19 08:51 | Emergency (ER) | payer OTHER, SELFPAY ==
--- NOTE | ~2024-06-19 | XR_ITS ---
EXAMINATION: XR CHEST CLINICAL INFORMATION: Cough for one week with history of asthma COMPARISON: 06/09/2023 TECHNIQUE: Frontal view of the chest was obtained. FINDINGS: No significant abnormality is noted involving the heart, lungs, mediastinum, bony thorax or soft tissues. Suture anchors right humeral head. Mild degenerative changes in the spine. XR/XR chest 1V IMPRESSION: Unremarkable examination. Electronically signed by: Darvin Alston MD 06/19/2024 11:09 AM EDT
[2024-06-19 09:20] VITALS: BP 115/68; PULSE 87; RESP 16; O2SAT 98; BMI 24.2
[2024-06-19] MEDS: predniSONE 20 MG TABLET 40 MG PO (10:08)
--- NOTE | 2024-06-19 10:11 | ED.GENADULT ---
HPI - General Adult General Chief complaint: Upper Respiratory Symptoms Stated complaint: asthma diff breathing Time Seen by Provider: 06/19/24 09:33 Source: patient Mode of arrival: ambulatory Limitations: no limitations History of Present Illness ED Provider: Cristo IQBAL HPI narrative: 63-year-old male history of asthma, psoriasis, and high cholesterol presents to ED for dry cough, body aches, wheezing, and chills for the past week. Patient denies any chest pain, leg swelling, coughing up blood, pleurisy, recent long travel, shortness of breath, or recent surgery. Related Data Home Medications ?Medication ?Instructions ?Recorded ?Confirmed aspirin 81 mg tablet,delayed 81 mg PO DAILY 02/10/23 06/14/24 release triamcinolone acetonide 55 mcg 1 spray intranasal DAILY PRN 04/05/23 06/14/24 nasal spray aerosol ixekizumab 80 mg/mL subcutaneous 80 mg subcut Q4W 03/28/24 06/14/24 auto-injector (Taltz Autoinjector) Previous Rx's ?Medication ?Instructions ?Recorded cane #1 ea 11/20/20 sennosides 8.6 mg tablet 17.2 mg (2 x 8.6 mg) PO BEDTIME 09/22/21 PRN Constipation 90 days #90 tabs amitriptyline 25 mg tablet 25 mg PO BEDTIME 90 days #90 tabs 09/23/21 acetaminophen 500 mg tablet 1,000 mg (2 x 500 mg) PO Q6H PRN 10/05/21 (Acetaminophen Extra Strength) pain #30 tabs fluticasone 250 mcg-salmeterol 50 1 ea PO BID #180 caps 12/15/21 mcg/dose blistr powdr for inhalation (Wixela Inhub) nebulizers (AeroEclipse II #1 ea 08/05/22 Nebulizer) nitroglycerin 0.4 mg sublingual 0.4 mg sublingual Q5M PRN chest 01/17/23 tablet pain #30 tabs pyridoxine (vitamin B6) 100 mg 100 mg PO DAILY 90 days #90 tabs 01/30/24 tablet rosuvastatin 40 mg tablet 40 mg PO DAILY #90 tabs 02/17/24 montelukast 10 mg tablet 10 mg PO DAILY 90 days #90 tabs 03/19/24 pantoprazole 40 mg tablet,delayed 40 mg PO DAILY 90 days #90 tabs 03/19/24 release gabapentin 300 mg capsule 300 mg PO BEDTIME 90 days #90 caps 04/06/24 ubrogepant 100 mg tablet (Ubrelvy) 50 - 100 mg (0.5 - 1 x 100 mg) PO 04/06/24 ONCE PRN migraine headache 30 days #16 tabs tamsulosin 0.4 mg capsule (Flomax) 0.4 mg PO BEDTIME 90 days #90 caps 05/22/24 ondansetron 4 mg disintegrating 4 mg PO Q8H PRN nausea and 05/24/24 tablet vomiting #10 tabs nystatin 100,000 unit/gram topical 1 appl topical BID PRN rash 2 05/29/24 cream weeks #30 grams oxycodone 5 mg tablet 5 mg PO .[id number] PRN pain #8 tabs 06/05/24 albuterol sulfate 2.5 mg/3 mL 2.5 mg (3 mL) inhalation Q4-6H PRN 06/09/24 (0.083 %) solution for nebulization shortness of breath or wheezing #90 mL albuterol sulfate 90 mcg/actuation 2 puff inhalation Q4-6H PRN 06/09/24 aerosol inhaler shortness of breath or wheezing #8.5 grams prednisone 20 mg tablet 20 mg PO BID #8 tabs 06/09/24 albuterol sulfate 2.5 mg/3 mL 2.5 mg (3 mL) inhalation Q4-6H PRN 06/19/24 (0.083 %) solution for nebulization shortness of breath or wheezing #180 mL albuterol sulfate 90 mcg/actuation 2 puff inhalation Q4-6H PRN 06/19/24 aerosol inhaler shortness of breath or wheezing #8.5 grams benzonatate 200 mg capsule 200 mg PO TID PRN cough 5 days #15 06/19/24 caps prednisone 20 mg tablet 40 mg (2 x 20 mg) PO DAILY 5 days 06/19/24 #10 tabs Allergies Allergy/AdvReac Type Severity Reaction Status Date / Time atorvastatin [Lipitor] Allergy Intermediate elevated Verified 06/19/24 09:23 liver enzymes certolizumab pegol AdvReac Severe headaches Verified 06/19/24 09:23 Review of Systems Review of Systems: Coughing, wheezing, body aches, fatigue, and chills Yes all other systems are reviewed and are negative [facility] Past Medical History Medical History Atherosclerotic cardiovascular disease UTI (urinary tract infection) Hospital discharge follow-up Hematuria Leukocytosis Left inguinal hernia Back pain Constipation by delayed colonic transit GERD (gastroesophageal reflux disease) Chest pain Psoriatic arthritis Moderate asthma Pure hypercholesterolemia Unintentional weight loss Surgical History S/P cardiac catheterization Hx of colonoscopy H/O enucleation of right eyeball Hx laparoscopic cholecystectomy History of eye prosthesis History of corneal transplant Family History Family History Father Kidney failure Mother Diabetes Stroke Alzheimer disease Brother Cancer of kidney Sister Breast cancer Brother Lung cancer Social History Social History Housing: House Alcohol intake: current Alcohol intake frequency: does not drink Alcohol type: beer Patient Tobacco Use Status: Never used Tobacco e-Cigarette/Vaping Use: Never Used Second Hand Smoke Exposure: No Advance Directives: No Advance Directives Information Provided: Yes service: No Current occupational status: disabled Cognitive needs: No Hearing needs: No Vision needs: Yes (Glasses) Physical Exam ED Vital Signs: Vital Signs - 24 hr 06/19/24 09:20 06/19/24 11:59 06/19/24 13:13 Temperature 97.8 F 97.8 F Pulse Rate 87 57 57 Respiratory Rate 16 16 16 Blood Pressure 115/68 114/58 L 114/58 L Pulse Oximetry 98 97 97 Oxygen Delivery Method Room Air Room Air Room Air BMI result Body Mass Index 24.2 Const General: cooperative, healthy appearing, comfortable, no acute distress, well developed, alert, awake and Physically active Orientation/consciousness: patient oriented x3 HENMT Head: Yes normal to inspection, Yes No palpable skull fracture present, Yes normocephalic and Yes atraumatic Ears: hearing grossly normal bilaterally, external ears normal, TM's normal bilaterally, TM normal on the right, TM normal on the left, EAC's normal, mastoids normal and no periauricular adenopathy Throat: Yes posterior oropharynx normal, Yes tonsils normal and Yes uvula midline Eyes General: appearance normal, both eyes and all related structures Neck Neck: Yes normal visual inspection, Yes full ROM, Yes no lymphadenopathy, Yes no meningeal signs, Yes trachea midline, Yes supple, No anterior neck swelling and No tender Chest Chest palpation & inspection: normal inspection of the chest and normal palpation of entire chest wall Resp Effort & Inspection: normal respiratory effort and able to speak in complete sentences Auscultation: wheezes expiratory wheezes (diffuse) and throughout Cardio Jugular venous distension: no JVD Heart sounds: S1 normal heart sound present and S2 normal heart sound present GI Inspection: Yes normal to inspection Palpation (GI): Soft to palpation, not firm, nontender, no guarding and not rigid General: No CVA tenderness and Yes no CVA tenderness Back/Spine/Pelvis Back: no CVA tenderness, No CVA tenderness and No back tenderness Skin General skin exam: no rashes or lesions noted, elasticity normal and turgor normal Neuro General: patient oriented x3, gait normal, tone normal, moves all extremities, Normal light touch and pain sensation, no meningeal signs, no focal motor deficits, CN's II-XI intact bilaterally and normal sensation to monofilament Extrem Other: Bilateral lower extremity negative for swelling, pitting edema, or calf tenderness. General: Yes normal to inspection, Yes full ROM and Yes capillary refill normal Psych Appearance: grossly normal, well kempt and not disheveled Medications Administered Discontinued Medications Generic Name Dose Route Start Last Admin Trade Name Freq PRN Reason Stop Dose Admin Prednisone 40 mg 06/19/24 09:46 06/19/24 10:08 Prednisone 20 Mg Tablet PO 06/19/24 09:47 40 mg ONCE ONE Administration Medical Decision Making Medical Decision Making [facility] Narrative: 63-year-old male history of asthma presents to ED for URI symptoms for 1 week. Patient is not toxic appearing. Albuterol prednisone SARs ordered 12:39pm: Patient's chest x-ray normal. Patient has influenza RSV strep negative. Patient feels better after nebulizer steroid use. Patient informed to follow up with primary care provider. Not suspecting myocarditis, heart failure, myocardial infarction, or PE. Patient explained worrisome signs and informed to return to the ED immediately Differential Diagnosis Differential Diagnoses: The differential diagnosis associated with the presentation includes (Pneumonia, COVID, RSV, influenza) Admission/Observation Consideration of admission/observation: Escalation of care including admission/observation considered Lab Data MDM Lab Attestation statement: I reviewed the patient's lab results. Labs: Lab Results 06/19/24 Range/Units 10:10 Influenza Type A (PCR) NEGATIVE (Negative) Influenza Type B (PCR) NEGATIVE (Negative) RSV RNA Qual (PCR) NEGATIVE (Negative) SARS-CoV-2 RNA (RT-PCR) NEGATIVE (Negative) Independent Interpretation I performed an independent interpretation of an: Plain X-Ray Radiology Impression Discussion of test interpretation with radiology: I have reviewed the radiologist's reading. Independent Historian Clinical information obtained from an independent historian. History obtained from or confirmed by: Other (Patient) External Record Review External record reviewed: Other (Prior visits) Prescription Management I considered prescription management with: Other (Steroids cough medication) Discharge Plan Discharge Clinical Impression: Upper respiratory infection, Asthma Patient Disposition: Home, Self-Care Instructions: Asthma (ED), Upper Respiratory Infection (ED) Additional Instructions: Recommend follow-up with your primary care provider. Your chest x-ray came back negative for pneumonia. You came back negative for COVID, RSV, and influenza. You will be discharged with cough medication and steroids. Return to the ED immediately for any chest pain, shortness of breath, coughing up blood, leg swelling, calf pain, pleurisy, or any other concerning symptoms. Prescriptions: New prednisone 20 mg tablet 40 mg PO DAILY 5 Days Qty: 10 0RF benzonatate 200 mg capsule 200 mg PO TID PRN (Reason: cough) 5 Days Qty: 15 0RF albuterol sulfate 2.5 mg /3 mL (0.083 %) solution for nebulization 2.5 mg inhalation Q4-6H PRN (Reason: shortness of breath or wheezing) Qty: 180 0RF albuterol sulfate 90 mcg/actuation HFA aerosol inhaler 2 puff inhalation Q4-6H PRN (Reason: shortness of breath or wheezing) Qty: 8.5 0RF No Action (DME) cane Device See Rx Instructions .ROUTE .MEDSUPPLY Qty: 1 0RF Rx Instructions: As directed amitriptyline 25 mg tablet 25 mg PO BEDTIME 90 Days Qty: 90 1RF fluticasone propion-salmeterol [Wixela Inhub] 250-50 mcg/dose blister with device 1 ea PO BID Qty: 180 2RF (DME) nebulizers [AeroEclipse II Nebulizer] [facility] See Rx Instructions .Route Qty: 1 0RF Rx Instructions: As directed pyridoxine (vitamin B6) 100 mg tablet 100 mg PO DAILY 90 Days Qty: 90 3RF rosuvastatin 40 mg tablet 40 mg PO DAILY Qty: 90 0RF pantoprazole 40 mg tablet,delayed release (DR/EC) 40 mg PO DAILY 90 Days Qty: 90 1RF montelukast 10 mg tablet 10 mg PO DAILY 90 Days Qty: 90 0RF tamsulosin [Flomax] 0.4 mg capsule 0.4 mg PO BEDTIME 90 Days Qty: 90 3RF oxycodone 5 mg tablet 5 mg PO .[id number] PRN (Reason: pain ) Qty: 8 0RF Rx Instructions: Partial Fill upon patient request. ondansetron 4 mg tablet,disintegrating 4 mg PO Q8H PRN (Reason: nausea and vomiting) Qty: 10 0RF sennosides 8.6 mg tablet 17.2 mg PO BEDTIME PRN (Reason: Constipation) 90 Days Qty: 90 1RF nystatin 100,000 unit/gram cream 1 appl topical BID PRN (Reason: rash) 14 Days Qty: 30 0RF acetaminophen [Acetaminophen Extra Strength] 500 mg tablet 1,000 mg PO Q6H PRN (Reason: pain) Qty: 30 0RF Taltz Autoinjector 80 mg/mL auto-injector 80 mg subcut Q4W gabapentin 300 mg capsule 300 mg PO BEDTIME 90 Days Qty: 90 1RF Ubrelvy 100 mg tablet 50 - 100 mg PO ONCE PRN (Reason: migraine headache) 30 Days Qty: 16 6RF Rx Instructions: take at onset of migraine, may repeat in 2hrs (may take w/ Ibuprofen) nitroglycerin 0.4 mg tablet, sublingual 0.4 mg sublingual Q5M PRN (Reason: chest pain) Qty: 30 5RF Rx Instructions: do not exceed 3 doses per episode aspirin 81 mg tablet,delayed release (DR/EC) 81 mg PO DAILY triamcinolone acetonide 55 mcg aerosol,spray 1 spray intranasal DAILY PRN albuterol sulfate 2.5 mg /3 mL (0.083 %) solution for nebulization 2.5 mg inhalation Q4-6H PRN (Reason: shortness of breath or wheezing) Qty: 90 0RF albuterol sulfate 90 mcg/actuation HFA aerosol inhaler 2 puff inhalation Q4-6H PRN (Reason: shortness of breath or wheezing) Qty: 8.5 0RF prednisone 20 mg tablet 20 mg PO BID Qty: 8 0RF Stand Alone Forms: Work/School Release Interventions: ED Discharge Assessment Last Done: 06/19/24 13:13 Discharge Date/Time: 06/19/24 13:14 Print Language: Tamazight
[2024-06-19 11:01] LABS: Influenza A PCR NEGATIVE (Negative); Influenza B PCR NEGATIVE (Negative); Resp Syncy Virus RNA Qual PCR NEGATIVE (Negative); SARS COV2 PCR INHOUSE NEGATIVE (Negative)
[2024-06-19 11:59] VITALS: BP 114/58; PULSE 57; RESP 16; TEMP 36.6; O2SAT 97
[2024-06-19 13:13] VITALS: BP 114/58; PULSE 57; RESP 16; TEMP 36.6; O2SAT 97
== END 2024-06-19 13:14 | disposition home or self-care (01) ==
PROVIDERS: Physician Assistant; Emergency Provider Emergency Medicine; PCP Internal Medicine
DX: J06.9 Acute upper respiratory infection, unspecified (principal); J45.909 Unspecified asthma, uncomplicated; Z03.818 Encounter for observation for suspected exposure to other biological agents ruled out; R05.9 Cough, unspecified; R60.0 Localized edema
CPT/HCPCS: 0241U; 71045; 99283

== ENCOUNTER 2024-06-28 10:46 | Outpatient (AMB) | payer OTHER, SELFPAY ==
[2024-06-28 10:57] VITALS: BP 102/64; BMI 24.7
--- NOTE | 2024-06-28 10:57 | MHC.PC.OV ---
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 Required: No Accompanied by: Spouse Allergies atorvastatin [Lipitor] Allergy (Intermediate, Verified 06/28/24 11:15) elevated liver enzymes certolizumab pegol Adverse Reaction (Severe, Verified 06/28/24 11:15) headaches Medication List - Last Reconciled 06/28/24 by Zonia Ashraf MD acetaminophen (Acetaminophen Extra Strength) 1,000 mg (2 x 500 mg) PO Q6H PRN albuterol sulfate 2.5 mg (3 mL) inhalation Q4-6H PRN albuterol sulfate 90 mcg/actuation 2 puffs inhalation Q4-6H PRN amitriptyline 25 mg PO BEDTIME 90 days aspirin 81 mg PO DAILY benzonatate 200 mg PO TID PRN 5 days cane As directed fluticasone propion-salmeterol 250-50 mcg/dose (Wixela Inhub) 1 ea PO BID gabapentin 300 mg PO BEDTIME 90 days ixekizumab (Taltz Autoinjector) 80 mg subcut Q4W montelukast 10 mg PO DAILY 90 days nebulizers (AeroEclipse II Nebulizer) As directed nitroglycerin 0.4 mg sublingual Q5M PRN nystatin 1 appl topical BID PRN 2 weeks ondansetron 4 mg PO Q8H PRN oxycodone 5 mg PO .[id number] PRN pantoprazole 40 mg PO DAILY 90 days prednisone 40 mg (2 x 20 mg) PO DAILY 5 days pyridoxine (vitamin B6) 100 mg PO DAILY 90 days rosuvastatin 40 mg PO DAILY sennosides 17.2 mg (2 x 8.6 mg) PO BEDTIME PRN 90 days tamsulosin (Flomax) 0.4 mg PO BEDTIME 90 days triamcinolone acetonide 1 spray intranasal DAILY PRN ubrogepant (Ubrelvy) 50 - 100 mg (0.5 - 1 x 100 mg) PO ONCE PRN 30 days Tobacco use date assessed: 12/21/23 Dental Screening Dental Screen Date: 12/21/23 HPI HPI Comments History of Present Illness Details This is a 63-year-old male with psoriatic arthritis and pure hypercholesterolemia that comes today accompanied by complaining of shortness of breaths, coughing and wheezing that has been present for about 2 weeks. Went to ER 06/19/2024 due to this matter and chest x-ray was negative. Labs did not show any significant abnormality. Was given prednisone and benzonatate with no improvement. No fever. I will give him antibiotics, another course of prednisone and codeine syrup for cough. On statins for elevated cholesterol. On Taltz for psoriatic arthritis. [facility] Medical History Atherosclerotic cardiovascular disease UTI (urinary tract infection) Hospital discharge follow-up Hematuria Leukocytosis Left inguinal hernia Back pain Constipation by delayed colonic transit GERD (gastroesophageal reflux disease) Chest pain Psoriatic arthritis Moderate asthma Pure hypercholesterolemia Unintentional weight loss Surgical History S/P cardiac catheterization Hx of colonoscopy H/O enucleation of right eyeball Hx laparoscopic cholecystectomy History of eye prosthesis History of corneal transplant Family History Father Kidney failure Mother Diabetes Stroke Alzheimer disease Brother Cancer of kidney Sister Breast cancer Brother Lung cancer Social History Housing: House Alcohol intake: current Alcohol intake frequency: does not drink Alcohol type: beer Patient Tobacco Use Status: Never used Tobacco e-Cigarette/Vaping Use: Never Used Second Hand Smoke Exposure: No service: No Current occupational status: disabled Cognitive needs: No Hearing needs: No Vision needs: Yes (Glasses) Questionnaire Thrive Questionnaire Date Thrive assessed: 12/21/23 Are you currently unemployed and looking for a job?: Yes AIMEE-7 AMB Questionnaire AIMEE-7 Date AIMEE - 7 assessed: 12/21/23 Source: Developed by Drs. Devon Latif, Desirae Pennington, Chuy Kingsley and colleagues, with an educational afia from [place]. Review of Systems Const All systems reviewed & are unremarkable except as noted in HPI and below Card Denies chest pain at rest, Denies chest pain with activity, Denies edema, Denies irregular heart rhythm, Denies claudication, Reports dyspnea, Denies dyspnea on exertion, Denies orthopnea, Denies paroxysmal nocturnal dyspnea and Denies slow heart rate Resp Reports cough, Reports dyspnea, Denies dyspnea on exertion and Reports wheezing Neuro Denies lack of coordination Aller/Immun Reports wheezing Physical exam (Primary Care) Vital Signs: Last Vital Signs BP 102/64 06/28/24 10:57 BMI result Body Mass Index 24.7 Tobacco/Smoking Status: Tobacco use Status Tobacco use date assessed 12/21/23 06/28/24 11:01 Patient Tobacco Use Status Never used Tobacco 06/28/24 11:01 e-Cigarette/Vaping Use Never Used 06/28/24 11:01 Thrive Assessment: Date of Thrive Assessment Date Thrive assessed 12/21/23 06/28/24 11:01 Resp Effort & Inspection: normal respiratory effort Auscultation: clear to auscultation bilaterally Cardio Jugular venous distension: no JVD Rate: regular rate Rhythm: regular rhythm Heart sounds: S1 normal heart sound present and S2 normal heart sound present Extrem General: Yes full ROM Coding Level of Care Code Est Pt Level 3 (42013) Complex EM visit Add On G2211 Diagnoses Mild asthma with exacerbation, unspecified whether persistent J45.901 Asthma severity: mild Asthma persistence: unspecified Psoriatic arthritis L40.50 Pure hypercholesterolemia E78.00 Time Spent (min) 19 Assessment & Plan Assessment & Plan (1) Asthma exacerbation: Code(s): J45.901 - Unspecified asthma with (acute) exacerbation Category: Medical Qualifiers: Asthma severity: mild Asthma persistence: unspecified Qualified Code(s): J45.901 - Unspecified asthma with (acute) exacerbation Plan: Start prednisone pack. Start antibiotics. (2) Psoriatic arthritis: Code(s): L40.50 - Arthropathic psoriasis, unspecified Category: Medical Plan: Continue Taltz. (3) Pure hypercholesterolemia: Code(s): E78.00 - Pure hypercholesterolemia, unspecified Category: Medical Plan: Continue statins. Medications: New codeine-guaifenesin 10-100 mg/5 mL 5 mL PO Q6H PRN 118 mL 0RF allergy symptoms 5 days azithromycin TAke 2 tabs the first day, then 1 tab for the next 4 days 250 mg PO DAILY 6 tabs 0RF 5 days prednisone Take 4 tabs for 2 days, then 3 tabs for 2 days, then 2 tabs for 2 days, then 1 tab for 2 days 10 mg PO DIRECTED 20 tabs 0RF 8 days
== END 2024-06-28 11:25 | disposition home or self-care (01) ==
PROVIDERS: PCP Internal Medicine; Visit Provider Internal Medicine
DX: J45.901 Unspecified asthma with (acute) exacerbation (principal); L40.50 Arthropathic psoriasis, unspecified; E78.00 Pure hypercholesterolemia, unspecified

== ENCOUNTER → 2024-06-28 10:46 | Outpatient (BNVA) | payer OTHER, SELFPAY | PROVIDERS: PCP Internal Medicine; Visit Provider Internal Medicine | DX: J45.901 Unspecified asthma with (acute) exacerbation (principal); L40.50 Arthropathic psoriasis, unspecified; E78.00 Pure hypercholesterolemia, unspecified | CPT/HCPCS: 99212 ==

== ENCOUNTER 2024-07-23 10:27 | Outpatient (REF) | payer OTHER, SELFPAY | END 2024-07-23 10:28 | disposition home or self-care (01) | LOC: HO.US 10:27 | PROVIDERS: PCP Internal Medicine; Visit Provider Nurse Practitioner Family | DX: N20.0 Calculus of kidney (principal); J45.909 Unspecified asthma, uncomplicated | CPT/HCPCS: 76775; 99202 ==

== ENCOUNTER 2024-07-23 13:08 | Outpatient (AMB) | payer OTHER, SELFPAY ==
[2024-07-23 13:15] VITALS: BP 110/68; PULSE 62; O2SAT 99; BMI 26.1
--- NOTE | 2024-07-23 13:15 | MHC.OFFVIS ---
Vital Signs 07/23/24 13:15 Height 5 ft 4 in Weight 152 lb 1.903 oz BMI 26.1 BP 110/68 Blood Pressure Location Lt brachial Position Sitting Pulse 62 Pulse Source Pulse Oximeter Pulse Oximetry (%) 99 Oxygen Delivery Method Room Air Intake Visit Reasons: Asthma Extension Work Director Required: Yes Extension Work Director Language: Biomaterials Engineer Name: Vikcy Samuel OA Allergies atorvastatin [Lipitor] Allergy (Intermediate, Verified 07/23/24 13:22) elevated liver enzymes certolizumab pegol Adverse Reaction (Severe, Verified 07/23/24 13:22) headaches HPI HPI Asthma: Details: oCle is a pleasant 63-year-old male, never smoker, with underlying asthma, psoriasis, and high cholesterol. He was referred by PCP for pullmonary evaluation. He reports worsening asthma control over the last few years. He has been evaluated on 4 separate occasions since February for exacerbations. Recently he was evaluated at [facility] on 06/19 for asthma exacerbation, respiratory panel negative, CXR unremarkable and discharged with prednisone and albuterol. He was then seen by PCP on 06/28 with continued wheezing and bronchitic symptoms, treated with a longer taper of prednisone as well as azithromycin. He is currently using albuterol neb in the morning and albuterol MDI at night. He was on Wixela but unclear why this was discontinued. He continues to report dyspnea on exertion and wheezing. He denies cough or chest tightness. He reports asthma dx as an adult, never requiring intubations. He denies seasonal allergies. He denies occupational exposures. He reports sister with asthma, otherwise no pertinent family history. [facility] Medical History Atherosclerotic cardiovascular disease UTI (urinary tract infection) Hospital discharge follow-up Hematuria Leukocytosis Left inguinal hernia Back pain Constipation by delayed colonic transit GERD (gastroesophageal reflux disease) Chest pain Psoriatic arthritis Moderate asthma Pure hypercholesterolemia Unintentional weight loss Surgical History S/P cardiac catheterization Hx of colonoscopy H/O enucleation of right eyeball Hx laparoscopic cholecystectomy History of eye prosthesis History of corneal transplant Family History Father Kidney failure Mother Diabetes Stroke Alzheimer disease Brother Cancer of kidney Sister Breast cancer Brother Lung cancer Social History Housing: House Alcohol intake: current Alcohol intake frequency: does not drink Alcohol type: beer Patient Tobacco Use Status: Never used Tobacco e-Cigarette/Vaping Use: Never Used Second Hand Smoke Exposure: No service: No Current occupational status: disabled Cognitive needs: No Hearing needs: No Vision needs: Yes (Glasses) Review of Systems Const Denies chills, Denies excessive sweating, Denies fever(s), Denies headache(s) and Denies night sweats Eyes Denies dry eyes, Denies irritation and Denies itchy eyes ENT Reports Normal hearing present, Denies headache(s), Denies nasal congestion, Denies nasal discharge, Denies post nasal drip and Denies sore throat Card Denies chest pain, Denies chest pain at rest, Denies chest pain with activity, Denies claudication, Denies leg edema, Denies orthopnea and Denies paroxysmal nocturnal dyspnea Resp Denies chest congestion, Denies cough, Denies excessive phlegm production, Denies pain on inspiration, Denies pain with cough and Denies stridor Musc Denies myalgias Neuro Reports Normal hearing present and Denies headache(s) Endo Denies excessive sweating Maurice/Lymph Denies lymphadenopathy Aller/Immun Denies itchy eyes and Denies seasonal rhinorrhea Physical Exam Vital Signs: Last Vital Signs Pulse 62 07/23/24 13:15 BP 110/68 07/23/24 13:15 Pulse Ox 99 07/23/24 13:15 Oxygen Delivery Method Room Air 07/23/24 13:15 BMI result Body Mass Index 26.1 Const General: cooperative, healthy appearing, comfortable, no acute distress, well developed and alert Orientation/consciousness: patient oriented x3 Limitations: no limitations HEENT Head: Yes normal to inspection, Yes normocephalic and Yes atraumatic Ears: hearing grossly normal bilaterally and external ears normal Eyes General: appearance normal, both eyes and all related structures Eyelids: Yes eyelids normal Sclerae: sclerae normal EOM: EOMs intact bilaterally Neck Neck: Yes normal visual inspection and Yes no lymphadenopathy Lymphatic: no lymphadenopathy noted Chest Chest palpation & inspection: normal inspection of the chest Resp Effort & Inspection: normal respiratory effort, able to speak in complete sentences, no audible wheezes, no cough, no stridor, not tachypneic, no tripod positioning and no use of accessory muscles Auscultation: clear to auscultation bilaterally Cardio Jugular venous distension: no JVD Rate: regular rate Rhythm: regular rhythm Skin Other: warm, dry General skin exam: no rashes or lesions noted Neuro General: patient oriented x3 Cranial nerves: Yes Normal hearing present Cognition (Neuro): normal cognition Gait exam (Neuro): Normal gait present Extrem General: Yes normal to inspection, Yes capillary refill normal, Yes no clubbing, cyanosis or edema and Yes no pedal edema Psych Appearance: grossly normal and well kempt Speech and movement: Normal speech and movement present and Clear speech present Affect: normal affect Attitude: cooperative Thought process: Normal thought process present Thought content: Normal thought content present Insight: Good insight present (Psych) Judgement: Good judgement present (Psych) Results Reviewed Results Reviewed: [address] [address] XRay Report Signed Patient: Cole Malone MR#: [id number] : 1960 Acct:[id number] Age/Sex: 63 / M ADM Date: 06/19/24 Loc: .ED Attending Dr: Ordering Physician: Cristo Booker Date of Service: 06/19/24 Procedure(s): XR chest 1V Accession Number(s): [id number] cc: Cristo Booker; Zonia Capellan MD~ EXAMINATION: XR CHEST CLINICAL INFORMATION: Cough for one week with history of asthma COMPARISON: 06/09/2023 TECHNIQUE: Frontal view of the chest was obtained. FINDINGS: No significant abnormality is noted involving the heart, lungs, mediastinum, bony thorax or soft tissues. Suture anchors right humeral head. Mild degenerative changes in the spine. XR/XR chest 1V IMPRESSION: Unremarkable examination. Electronically signed by: Darvin Alston MD 06/19/2024 11:09 AM EDT Dictated By: Darvin Alston MD Signed By: <Electronically signed by Darvin Alston MD in OV> 06/19/24 1109 DD/ 1016 TD/TT: 06/19/24 1023 Transmission Assembler: ANNE Assessment & Plan Assessment & Plan (1) Asthma: Code(s): J45.909 - Unspecified asthma, uncomplicated Category: Medical Plan Cole's symptoms are likely related to poorly controlled asthma. Will send for PFT to assess severity. Will send Breo, discussed importance of good oral hygiene to prevent thrush. All questions were answered and patient is in agreement of plan. Will follow up in 6-8 weeks or sooner if needed. Orders: Orders PFT pulmonary function test Today J45.909 - Unspecified asthma, uncomplicated Medications: New fluticasone furoate-vilanterol 100-25 mcg/dose (Breo Ellipta) 1 inh inhalation DAILY 60 ea 6RF Coding Level of Care Code New Pt Level 3 (05326) Diagnoses Asthma J45.909
== END 2024-07-23 13:46 | disposition home or self-care (01) ==
LOC: HO.HPS 13:11
PROVIDERS: PCP Internal Medicine; Referring Provider Internal Medicine; Visit Provider Nurse Practitioner Family
DX: J45.909 Unspecified asthma, uncomplicated (principal)
CPT/HCPCS: 99203

== ENCOUNTER 2024-08-30 15:53 | Outpatient (REF) | payer OTHER, SELFPAY ==
--- NOTE | 2024-08-30 15:56 | PFT_ITS ---
Indication: Asthma Spirometry [FEV1 to FVC 79%; FEV1 2.59 L; FVC 3.27 L. no significant response to bronchodilators noted.] Lung Volumes [Total lung capacity 73% predicted; residual volume 51% predicted; expiratory reserve volume 110% predicted] Diffusion Capacity [DLCO 97% predicted] Comparisons [none] Interpretation [No obstructive ventilatory defects. No significant response to bronchodilators noted. Maximum voluntary ventilation not available. Patient does have a restrictive ventilatory defect consistent mild restrictive lung disease. Need to consider underlying parenchymal lung conditions in or neuromuscular conditions. Diffusing capacity is within normal limits. Clinical correlation warranted.] MTDD
--- OUTSIDE RECORDS SUMMARY | 2024-08-30 15:56 | XMS_ITS | Patient Health Record ---
Author Organization [facility] Address [address] [place] [address] Care Team Providers Care Child Psychometrist Name Role Phone Zonia Capellan Primary Care Provider Unavailab Quan Hahn Jr Unavailable Iwona Bagley Unavailable Unavailable ALLERGIES Allergen (clinical drug ingredient) Drug/Non Drug Allergy documented on EMR Reaction Allergy Type Onset Date Status atorvastatin Lipitor (uncoded) Unknown Allergy Active REASON FOR REFERRAL No Information MEDICATIONS Medication SIG (Take, Route, Frequency, Duration) Notes Start Date End Date Status Montelukast Sodium A ctive Nasacort Allergy 24HR Active Gabapentin Active ProAir HFA Active Amitriptyline HCl Ac tive Albuterol Sulfate Ac tive Cimzia Active Rosuvastatin Calcium Active Ibuprofen Active Ofloxacin Active Rizatriptan Benzoate Active MiraLax (colon prep) 8.3 ounce ((238) grams mixed with Gatorade or Crystal Light orally begin at 5:00 p.m. the day before the procedure for 1 day 07/30/2020 Active Mariana-dillon Active Vitamin B Complex Ac tive Naproxen Active Magnesium Oxide Acti ve Triamcinolone Acetonide Active Cetirizine HCl Activ e Wixela Inhub Active Fluticasone Propionate Active Cyclobenzaprine HCl Active Pantoprazole Sodium 40 MG 1 tablet Orall y Once a day for 90 Active IMMUNIZATIONS Vaccine Route Administration Date Status Comme nts Influenza Unknown 07/23/2020 Administered SOCIAL HISTORY Tobacco Use: Social History Observation Description Date Details (start date - stop date) Never Smoker NA - NA Sex Assigned At : Social History Observation Description Sex Assigned At Unknown Tobacco Use/Smoking Question Answer Notes Patient is a nonsmoker Alcohol Screen Question Answer Notes Did you have a drink containing alcohol in the p ast year? No Points 0 Interpretation Negative PROBLEMS Problem Type ICD Code Onset Dates Problem Status W/U Status Risk SNOMED Code Notes Problem LUQ pain (R10.12) Active confirmed 270102589 Problem Weight loss (R63.4) Active confirmed 00677491 PLAN OF TREATMENT Future Test Test Name Order Date UPPER GI ENDOSCOPY 07/30/2020 COLONOSCOPY 07/30/2020 Insurance Providers Payer Name Payer Address Payer Phone Subscriber Number Group Number Insured Name Patient Relationship to Insured Coverage Start Date Coverage End Date [facility] [address] [place] [phone] [id number] EREN VELAZCO Self - patient is the insured MEDICAL (GENERAL) HISTORY Medical History History ICD Code psoriasis allergies headaches hyperlipidemia diabetes mellitus asthma back pain arthritis cardiomyopathy Surgical History Surgery Date(Month/Year) eye surgery. 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
--- OUTSIDE RECORDS SUMMARY | 2024-08-30 15:56 | XMS_ITS | Patient Health Record ---
Author Organization [facility] Address [address] [address] Care Team Providers Care Easement Worker Name Role Phone Marie WHITTEN, Zonia Primary Care Provider Unavail able Bharath Aikenen Unavailable [phone] Allergies No Known Allergies Reason For Referral No Information Medications Medication SIG (Take, Route, Frequency, Duration) Notes Start Date End Date Status Fluticasone-Salmeterol 250-50 MCG/ACT 1 puff Inhalation Twice a day Active Cyclobenzaprine HCl 10 MG 1 tablet at be dtime as needed Orally Once a day for 30 day(s) Active Cimzia Active Albuterol Sulfate (2.5 MG/3ML) 0.083% 3 ml as needed Inhalation every 6 hrs Active Advair HFA Active Sennosides 17.2 MG 1 tablet at bedtime as needed Orally Once a day for 30 day(s) Unknown Cetirizine HCl 10 MG 1 tablet Orally Onc e a day for 30 day(s) Active Amitriptyline HCl 25 MG 1 tablet at bedt steph Orally Once a day for 30 day(s) Active Pantoprazole Sodium 40 MG 1 tablet Orall y Once a day for 30 day(s) Active Naproxen 500 MG 1 tablet with food o r milk as needed Orally every 12 hrs Active Triamcinolone Acetonide Active Certolizumab Pegol 2 X 200 MG as directed Subcutaneous Unk nown Rosuvastatin Calcium 10 MG 1 tablet Oral ly Once a day for 30 day(s) Active Montelukast Sodium 10 MG 1 tablet Orally Once a day for 30 day(s) Active Social History Tobacco Use: Social History Observation Description Date Details (start date - stop date) Never Smoker NA - NA Tobacco Use/Smoking Question Answer Notes Are you a: nonsmoker Additional Findings: Tobacco Non-User Current no n-smoker Alcohol Screen Question Answer Notes Did you have a drink containing alcohol in the p ast year? No Points 0 Interpretation Negative Tobacco use other than smoking: Question Answer Notes Are you an other tobacco user? No Plan Of Treatment No Information Insurance Providers Payer Name Payer Address Payer Phone Subscriber Number Group Number Insured Name Patient Relationship to Insured Coverage Start Date Coverage End Date [facility] [employer] Claims [address] [place] [phone] [id number] Cole Malone Self - patient is the insured Medical (General) History Medical History History ICD Code Reflux ( GERD) Back pain chest pain asthma Psoriasis Hypercholesterolemia Arthritis Surgical History Surgery Date(Month/Year) cholecystectomy enucleation with prosthesis placement
--- OUTSIDE RECORDS SUMMARY | 2024-08-30 15:56 | XMS_ITS | Continuity of Care Document ---
Author Organization [facility] Address [address] [facility] [address] [place] [address] Phone Care Team Providers Care Die Designer Name Role Phone Queenie WHITTEN, Georgia Unavailable [...] Provider Providers Copied on Encounter [facility], [address] [place] [address], [id number], tel:[phone] [facility] No Information Queenie Ho. [address], [address], . tel:[phone] Referring Provider: [place], [address], [facility]. tel:[phone] [facility], [address], [address] [place] [address] tel:[phone] [facility] No Information Queenie Ho. [address] [place] [address], [address] [place] [address]. tel:[phone] Referring Provider: Georgia Jerome MD, [address] [place] [address], [facility]. tel:[phone] Offic/outpt E&m Estab Low-mod [facility], [address] [place] [address], [address] [place] [address], tel:[phone] [facility] No Information No Information Offic/outpt E&m Estab Low-mod St christa, [address] [place] [address], [address] [place] [address], tel:[phone] [facility] No Information No Information [facility], [address] [place] [address], [address] [place] [address], tel:[phone] [facility] No Information Ko Watkins. [address] [place] [address], [address] [place] [address], . tel:[phone] Referring Provider: June Connell, [address] [place] [address], [address] [place] [address] . tel:[phone] [facility], [address] [place] [address], [address] [place] [address], tel:[phone] [facility] No Information Zach Vera. [address] [place] [address], [address] [place] [address], . tel:[phone] Referring Provider: Chuy Hill, [address] [place] [address], [address] [place] [address] . tel:[phone] Offic/outpt E&m Estab Low[facility]mod [facility], [address] [facility] [address] [place] [address], [id number], tel:[phone] [facility] No Information Zach Vera. [address], [address] [place] [address], . tel:[phone] Referring Provider: Chuy Hill, [address] [place] [address], [address] [place] [address] . tel:[phone] [facility], [address] [place] [address], [address] [place] [address], tel:[phone] [facility] No Information Zach Vera. [address] [place] [address], [address] [place] [address], . tel:[phone] Referring Provider: Chuy Hill, [address] [place] [address], [address] [place] [address] . tel:[phone] Offic/outpt E&m Estab Low-mod [facility], [address] [place] [address], [address] [place] [address], tel:[phone] [facility] No Information No Information [facility], [address] [facility] [address] [place] [address], [address] [place] [address], tel:[phone] [facility] No Information Zach Vera. [address], [address] [place] [address], . tel:[phone] Referring Provider: Chuy Hill, [id number] [place] [address], [address] [place] [address] . tel:[phone] Offic/outpt E&m Estab Low[facility]mod [facility], [address] [place] [address], [address] [place] [address], tel:[phone] [facility] No Information Zach Vera. [id number] [place] [address], [address] [place] [address], . tel:[phone] Referring Provider: Chuy Hill, [address] [place] [address], [address] [place] [address] . tel:[phone] [facility], [address] [place] [address], [address] [place] [address], tel:[phone] [facility] No Information Zach Vera. [address] [place] [address], [address] [place] [address], . tel:[phone] Referring Provider: Chuy Hill, [address] [place] [address], [address] [place] [address] . tel:[phone] Offic/outpt E&m Estab Mod-hi 2 Jose, [address] [place] [address], [address] [place] [address], tel:[phone] [facility] No Information No Information [facility], [address] [place] [address], [id number], tel:[phone] [facility] No Information No Information [facility], [address] [place] [address], [id number], tel:[phone] [facility] No Information No Information [facility], [address] [place] [address], [id number], tel:[phone] [facility] No Information No Information St [facility], [address], [id number], tel:[phone] [facility] No Information No Information [facility], [address], [place], [place], [id number], tel:[phone] [facility] No Information No Information [facility], [address], [id number], tel:[phone] [facility] No Information Robin BERMUDEZ Norah. [address], [facility], . tel:[phone] Offic/outpt E&m Estab Low-mod [facility], [address], [id number], tel:[phone] [facility] No Information No Information Offic Cons New/estab Mod-hi [address] [facility], [address] [place] [address], [id number], tel:[phone] [facility] No Information No Information Referring Provider: Henry Cooper, [address] [place], [address]. tel:[phone] Family History Family Member Type Diagnosis Age At Onset No Information Payers Payer name Insurance type Covered republican ID Authoriza tion(s) Medicare [id number] Medicaid [id number] Social History Type Description Quantity Date Captured [...]
[2024-09-03 10:50] VITALS: PULSE 61; O2SAT 98
== END 2024-08-30 15:54 | disposition home or self-care (01) ==
LOC: HO.RESP 15:53
PROVIDERS: PCP Internal Medicine; Visit Provider Nurse Practitioner Family
DX: J45.909 Unspecified asthma, uncomplicated (principal)
CPT/HCPCS: 94010; 94640; 94727; 94729

== ENCOUNTER → 2024-08-30 15:56 | Outpatient (BNV) | payer OTHER, SELFPAY | PROVIDERS: PCP Internal Medicine; Visit Provider Hospitalist | DX: J45.909 Unspecified asthma, uncomplicated (principal) | CPT/HCPCS: 94060; 94727; 94729 ==

== ENCOUNTER 2024-09-05 11:39 | Outpatient (AMB) | payer OTHER, SELFPAY ==
--- OUTSIDE RECORDS SUMMARY | 2024-09-05 11:41 | XMS_ITS | Continuity of Care Document ---
Author Organization [facility] Address [address] [facility] [address] [place] [address] Phone Care Team Providers Care Industrial Robotics Mechanic Name Role Phone Queenie WHITTEN, [place] Unavailable [...] Provider Providers Copied on Encounter [facility], [address] [place] [address], [id number], tel:[phone] [facility](OL D) No Information Queenie Ho. [address], [address], . tel:[phone] Referring Provider: [place], [address], [facility]. tel:[phone] [facility], [address] [place] [address], [address] [place] [address] tel:[phone] [facility] No Information Queenie Ho. [address] [place] [address], [address] [place] [address]. tel:[phone] Referring Provider: Georgia Jerome MD, [address] [place] [address], [facility]. tel:[phone] Offic/outpt E&m Estab Low-mod [facility], [address] [place] [address], [address] [place] [address], tel:[phone] [facility] No Information No Information Offic/outpt E&m Estab Low-mod St christa, [address] [place] [address], [address] [place] [address], tel:[phone] [facility] No Information No Information [facility], [address] [place] [address], [address] [place] [address], tel:[phone] [facility] No Information Ko Watkins. [address] [place] [address], [address] [place] [address], . tel:[phone] Referring Provider: June Connell, [address] [place] [address], [address] [place] [address] . tel:[phone] [facility], [address] [place] [address], [address] [place] [address], tel:[phone] [facility] No Information Zach Vera. [address] [place] [address], [address] [place] [address], . tel:[phone] Referring Provider: Chuy Hill, [address] [place] [address], [address] [place] [address] . tel:[phone] Offic/outpt E&m Estab Low[facility]mod [facility], [address] [facility] [address] [place] [address], [id number], tel:[phone] [facility] No Information Zach Vera. [address] [place] [address], [address] [place] [address], . tel:[phone] Referring Provider: Chuy Hill, [id number] [place] [address], [address] [place] [address] . tel:[phone] [facility], [address] [place] [address], [address] [place] [address], tel:[phone] [facility] No Information Zach Vera. [id number] [place] [address], [address] [place] [address], . tel:[phone] Referring Provider: Chuy Hill, [id number] [place] [address], [address] [place] [address] . tel:[phone] Offic/outpt E&m Estab Low-mod [facility], [id number] [place] [address], [address] [place] [address], tel:[phone] [facility] No Information No Information [facility], [address] [facility] [address] [place] [address], [address] [place] [address], tel:[phone] [facility] No Information Zach Vera. [address], [address] [place] [address], . tel:[phone] Referring Provider: Chuy Hill, [address] [place] [address], [address] [place] [address] . tel:[phone] Offic/outpt E&m Estab Low[facility]mod [facility], [address] [place] [address], [address] [place] [address], tel:[phone] [facility] No Information Zach Vera. [id number] [place] [address], [address] [place] [address], . tel:[phone] Referring Provider: Chuy Hill, [address] [place] [address], [address] [place] [address] . tel:[phone] [facility], [address] [place] [address], [address] [place] [address], tel:[phone] [facility] No Information Zach Vera. [address] [place] [address], [address] [place] [address], . tel:[phone] Referring Provider: Chuy Hill, [address] [place] [address], [address] [place] [address] . tel:[phone] Offic/outpt E&m Estab Mod-hi 2 Jose, [address] [place] [address], [address] [place] [address], tel:[phone] [facility] No Information No Information St [facility], [address] [place] [address], [id number], tel:[phone] [facility] No Information No Information [facility], [address] [place] [address], [id number], tel:[phone] [facility] No Information No Information [facility], [address] [place] [address], [id number], tel:[phone] [facility] No Information No Information St Jose, [address], [id number], tel:[phone] [facility] No Information No Information [facility], [address], [place], [id number], tel:[phone] [facility] No Information No Information [facility], [address], [id number], tel:[phone] [facility] No Information Robin BERMUDEZ Norah. [address], [facility], . tel:[phone] Offic/outpt E&m Estab Low-mod [facility], [address], [id number], tel:[phone] [facility] No Information No Information Offic Cons New/estab Mod-hi [address] [facility], [address] [place] [address], [id number], tel:[phone] [facility] No Information No Information Referring Provider: Henry Cooper, [address] [place], [address]. tel:[phone] Family History Family Member Type Diagnosis Age At Onset No Information Payers Payer name Insurance type Covered alliance party ID Authoriza tion(s) Medicare [id number] Medicaid [id number] Social History Type Description Quantity Date Captured [...]
--- OUTSIDE RECORDS SUMMARY | 2024-09-05 11:41 | XMS_ITS | Patient Health Record ---
Author Organization [facility] Address [address] [place] [address] Care Team Providers Care User Support Analyst Name Role Phone Zonia Capellan Primary Care [...] Notes Problem LUQ pain (R10.12) Active confirmed [id number] Problem Weight loss (R63.4) Active confirmed [id number] PLAN OF TREATMENT Future Test Test Name Order Date UPPER GI ENDOSCOPY 07/30/2020 COLONOSCOPY 07/30/2020 Insurance Providers Payer Name Payer Address Payer Phone Subscriber Number Group Number Insured Name Patient Relationship to Insured Coverage Start Date Coverage End Date [facility] [address] [place] [address] [id number] EREN VELAZCO Self - patient is the [...]
--- OUTSIDE RECORDS SUMMARY | 2024-09-05 11:41 | XMS_ITS | Patient Health Record ---
Author Organization [facility] Address [address] [place] [address] Care Team Providers Care Cold Water Machine Operator Name Role Phone Marie WHITTEN, Zonia Primary Care Provider Unavail able Bharath Aikenen Unavailable [phone] Allergies No Known Allergies Reason For Referral [...] Insured Coverage Start Date Coverage End Date [facility] [employer] Claims [address] [place] [phone] [id number] Cole Malone Self - patient is the insured Medical (General) History Medical History History ICD Code Reflux ( GERD) Back pain chest pain asthma Psoriasis Hypercholesterolemia Arthritis Surgical History Surgery Date(Month/Year) cholecystectomy enucleation with prosthesis placement
--- NOTE | 2024-09-05 11:43 | A.OFFVIS_ITS ---
Intake Visit Reasons: 1y/US/PSA(set) Intake Note: Patient is Present for 1Y Follow UP US/PSA Urology Medication: Tamsulosin, Vitamin B6 Antibiotic Allergies: None Blood Thinners: Aspirin TODAY'S PVR:0ML'S Natural Gas Shothole Driller Required: No Natural Gas Shothole Driller Services: Natural Gas Shothole Driller Present Natural Gas Shothole Driller Name: [id number] Allergies atorvastatin [Lipitor] Allergy (Intermediate, Verified 09/05/24 12:08) elevated liver enzymes certolizumab pegol Adverse Reaction (Severe, Verified 09/05/24 12:08) headaches Medication List - Last Reconciled 09/05/24 by JOHNIE Mendez- acetaminophen (Acetaminophen Extra Strength) 1,000 mg (2 x 500 mg) PO Q6H PRN albuterol sulfate 2.5 mg (3 mL) inhalation Q4-6H PRN albuterol sulfate 90 mcg/actuation 2 puffs inhalation Q4-6H PRN amitriptyline 25 mg PO BEDTIME 90 days aspirin 81 mg PO DAILY azithromycin 250 mg PO DAILY 5 days benzonatate 200 mg PO TID PRN 5 days cane As directed codeine-guaifenesin 10-100 mg/5 mL 5 mL PO Q6H PRN 5 days fluticasone furoate-vilanterol 100-25 mcg/dose (Breo Ellipta) 1 inh inhalation DAILY fluticasone propion-salmeterol 250-50 mcg/dose (Wixela Inhub) 1 ea PO BID gabapentin 300 mg PO BEDTIME 90 days ixekizumab (Taltz Autoinjector) 80 mg subcut Q4W montelukast 10 mg PO DAILY 90 days nebulizers (AeroEclipse II Nebulizer) As directed nitroglycerin 0.4 mg sublingual Q5M PRN nystatin 1 appl topical BID PRN 2 weeks ondansetron 4 mg PO Q8H PRN oxycodone 5 mg PO .[id number]-[id number] PRN pantoprazole 40 mg PO DAILY 90 days prednisone 40 mg (2 x 20 mg) PO DAILY 5 days prednisone 10 mg PO DIRECTED 8 days pyridoxine (vitamin B6) 100 mg PO DAILY 90 days rosuvastatin 40 mg PO DAILY sennosides 17.2 mg (2 x 8.6 mg) PO BEDTIME PRN 90 days tamsulosin (Flomax) 0.4 mg PO BEDTIME 90 days triamcinolone acetonide 1 spray intranasal DAILY PRN ubrogepant (Ubrelvy) 50 - 100 mg (0.5 - 1 x 100 mg) PO ONCE PRN 30 days HPI Comments Details: Viral is a pleasant 64-year-old Amharic-speaking male patient of Dr. Xie. He has a past medical history of atherosclerotic cardiovascular disease, left inguinal hernia, back pain, constipation, GERD, psoriatic arthritis, moderate asthma, and hypercholesteremia. He presents to the office today for follow-up of his lower urinary tract symptoms as well as nephrolithiasis. Of note, patient was last seen approximately [address] Purcell for follow-up of his recent ureteroscopy as patient with right-sided hydronephrosis and hydroureter down to the level of the UVJ where there was a 4 mm partially obstructing stone. However, upon surgical intervention with ureteroscopy stone had passed. Recent renal imaging results remain pending however on official report notes no remarkable findings, bilateral kidneys with no calculi, lesions, and or hydronephrosis noted. In discussion with the patient today he reports to be doing and feeling well. He denies any bothersome urinary issues or concerns. He reports compliance with Flomax and vitamin B6 as prescribed. He also discusses drinking plenty of water daily and adding lemon juice to water daily. He denies urinary urgency, urinary frequency, incontinence, nocturia, hematuria, dysuria, foul smelling urine, changes to urinary stream, flank pain, fever, and or chills. He is happy with his current voiding parameters. In review of patient's chart it appears PSA 12/10 2.3. In office urinalysis results reviewed with the patient today. PVR 0 mL. He otherwise offers no other issues or concerns at this time. PREVIOUS OFFICE NOTE: Nephrolithiasis 05/11 renal US NAD 06/12 Right-sided hydronephrosis and hydroureter down to the level UVJ where there is a 4 mm partially obstructing stone Ureteroscopy but stone had passed [facility] Medical History Atherosclerotic cardiovascular disease UTI (urinary tract infection) Hospital discharge follow-up Hematuria Leukocytosis Left inguinal hernia Back pain Constipation by delayed colonic transit GERD (gastroesophageal reflux disease) Chest pain Psoriatic arthritis Moderate asthma Pure hypercholesterolemia Unintentional weight loss Surgical History S/P cardiac catheterization Hx of colonoscopy H/O enucleation of right eyeball Hx laparoscopic cholecystectomy History of eye prosthesis History of corneal transplant Family History Father Kidney failure Mother Diabetes Stroke Alzheimer disease Brother Cancer of kidney Sister Breast cancer Brother Lung cancer Social History Housing: House Alcohol intake: current Alcohol intake frequency: does not drink Alcohol type: beer Patient Tobacco Use Status: Never used Tobacco e-Cigarette/Vaping Use: Never Used Second Hand Smoke Exposure: No service: No Current occupational status: disabled Cognitive needs: No Hearing needs: No Vision needs: Yes (Glasses) Review of Systems Const All systems reviewed & are unremarkable except as noted in HPI and below Physical Exam Const General: cooperative, healthy appearing, comfortable, no acute distress, well developed, alert and awake Orientation/consciousness: patient oriented x3 Limitations: no limitations HEENT Head: Yes normal to inspection, Yes normocephalic and Yes atraumatic Ears: hearing grossly normal bilaterally Eyes General: appearance normal, both eyes and all related structures Neck Neck: Yes normal visual inspection and Yes trachea midline Chest Chest palpation & inspection: normal inspection of the chest Resp Effort & Inspection: normal respiratory effort and able to speak in complete sentences Cardio Rate: regular rate GI Inspection: Yes normal to inspection General: Yes no CVA tenderness Back/Spine/Pelvis Back: no CVA tenderness Skin General skin exam: no rashes or lesions noted Neuro General: patient oriented x3 Extrem General: Yes normal to inspection Psych Appearance: grossly normal and well kempt Mental Status: mental status grossly normal Speech and movement: Normal speech and movement present and Clear speech present Affect: normal affect Attitude: cooperative Thought process: Normal thought process present Thought content: Normal thought content present Insight: Fair insight present (Psych) Judgement: Fair judgement present (Psych) Office Procedures Post Void Residual Post Residual Void Post Void Residual (PVR): 0 [id number]-[id number] Void Residual by ultrasound Results AMB Urinalysis, Automated UA Leukoctes 0 Rose/uL Last Edit by ANOOP Duran on 09/05/24 11:57 UA Nitrite Negative Last Edit by ANOOP Duran on 09/05/24 11:57 UA Urobilinogen 0.2 mg/dL Last Edit by ANOOP Duran on 09/05/24 11:5 7 UA Protein 15 mg/dL Last Edit by Jarocho Currie CCM on 09/05/24 11:57 UA pH 6.0 Last Edit by Jarocho Currie [facility] on 09/05/24 11:57 UA Blood 0 Shelton/uL Last Edit by Jarocho Currie [facility] on 09/05/24 11:57 UA Specific Cobb 1.030 Last Edit by Jarocho Currie CCM on 09/05/24 11: 57 UA Ketone Negative Last Edit [facility] on 09/05/24 11:57 UA Bilirubin 0 mg/dL Last Edit by Jarocho Currie [facility] on 09/05/24 11:57 UA Glucose 0 mg/dL Last Edit by Jarocho Currie [facility] on 09/05/24 11:57 Results Reviewed Results Reviewed: Laboratory Last Values Urine pH (Auto) 6.0 09/05/24 11:56 Specific Cobb (Auto) 1.030 09/05/24 11:56 Urine Protein (Auto) 15 mg/dL 09/05/24 11:56 Glucose (UA)(Auto) 0 mg/dL 09/05/24 11:56 Urine Ketones (Auto) Negative 09/05/24 11:56 Urine Blood (Auto) 0 Shelton/uL 09/05/24 11:56 Urine Nitrite (Auto) Negative 09/05/24 11:56 Urine Bilirubin (Auto) 0 mg/dL 09/05/24 11:56 Urine Urobilinogen (Auto) 0.2 mg/dL 09/05/24 11:56 Leukocyte Esterase (Auto) 0 Rose/uL 09/05/24 11:56 Assessment & Plan Assessment & Plan (1) Nephrolithiasis: Code(s): N20.0 - Calculus of kidney Category: Medical (2) Hesitancy of micturition: Code(s): R39.11 - Hesitancy of micturition Category: Medical (3) Nocturia: Code(s): R35.1 - Nocturia Category: Medical (4) BPH (benign prostatic hyperplasia): Code(s): N40.0 - Benign prostatic hyperplasia without lower urinary tract symptoms Category: Medical Plan In office urinalysis results reviewed with the patient today; as noted above. PVR 0 mL. Recent renal imaging results reviewed with the patient today; as noted above. Patient currently denies any bothersome urinary issues or concerns. He reports be happy with current voiding parameters. Continue Flomax and vitamin B6 as discussed and prescribed. Continue drinking water and adding lemon juice to water daily. Will obtain PSA in 6 months. Follow-up in 6 months with PSA to be completed prior and PVR at next office visit; or sooner with any issues, concerns, and or questions. Orders: Orders AMB Urinalysis Automated Today Z13.9 - Encounter for screening, unspecified Prostate Specific Antigen 6 Months N40.0 - Benign prostatic hyperplasia without lower urinary tract symptoms Medications: Discontinued ondansetron Discontinued Reason: Patient Completed Course 4 mg PO Q8H PRN 10 tabs 0RF nausea and vomiting prednisone Discontinued Reason: Patient Completed Course 40 mg (2 x 20 mg) PO DAILY 5 days 10 tabs 0RF oxycodone Partial Fill upon patient request. Discontinued Reason: Patient Completed Course 5 mg PO .i7u-r8x PRN 8 tabs 0RF pain codeine-guaifenesin 10-100 mg/5 mL Discontinued Reason: Patient Completed Course 5 mL PO Q6H 5 days PRN 118 mL 0RF allergy symptoms azithromycin TAke 2 tabs the first day, then 1 tab for the next 4 days Discontinued Reason: Patient Completed Course 250 mg PO DAILY 5 days 6 tabs 0RF prednisone Take 4 tabs for 2 days, then 3 tabs for 2 days, then 2 tabs for 2 days, then 1 tab for 2 days Discontinued Reason: Patient Completed Course 10 mg PO DIRECTED 8 days 20 tabs 0RF Patient Instructions: The patient had an opportunity to ask questions regarding the treatment plan. All questions were answered. Physical exam, labs, and imaging were discussed and reviewed in detail. As well as risks, benefits, and discussion of treatment choices. No major barriers to understanding were identified. The patient expressed understanding and agreement with the above treatment plan. The patient was made aware they should contact our office by phone for worsening of their current condition, the appearance of new symptoms, or with any questions or concerns. Compliance is encouraged with any medications and follow up testing that is ordered. It is a privilege to be allowed the opportunity to participate in? your urological care.? Again, if you have any questions or concerns If you have any questions or concerns please do not hesitate to contact me. The office is [phone]. This note is constructed using voice recognition software. While every effort has been made to ensure accuracy graduate engineer errors may have been included. Yours sincerely, ARUN Mendez Coding Level of Care Code Est Pt Level 3 (18054) Complex EM visit Add On G2211 Diagnoses Nephrolithiasis N20.0 Hesitancy of micturition R39.11 Nocturia R35.1 BPH (benign prostatic hyperplasia) N40.0 CPT Codes Post Residual Void - PVR CPT Code: 65163-Lqux Void Residual by ultrasound ([id number])
== END 2024-09-05 12:09 | disposition home or self-care (01) ==
PROVIDERS: PCP Internal Medicine; Visit Provider Nurse Practitioner Family
DX: N20.0 Calculus of kidney (principal); R39.11 Hesitancy of micturition; R35.1 Nocturia; N40.0 Benign prostatic hyperplasia without lower urinary tract symptoms; Z13.9 Encounter for screening, unspecified
CPT/HCPCS: 99213; G2211

== ENCOUNTER → 2024-09-05 11:39 | Outpatient (BNVA) | payer OTHER, SELFPAY | PROVIDERS: PCP Internal Medicine; Visit Provider Nurse Practitioner Family | DX: N20.0 Calculus of kidney (principal); N40.1 Benign prostatic hyperplasia with lower urinary tract symptoms; R39.11 Hesitancy of micturition; R35.1 Nocturia | CPT/HCPCS: 51798; 81003; 99212 ==

== ENCOUNTER 2024-09-07 10:18 | Outpatient (AMB) | payer OTHER, SELFPAY ==
--- OUTSIDE RECORDS SUMMARY | 2024-09-07 10:23 | XMS_ITS | Patient Health Record ---
Author Organization [facility] Address [address] [place] [address] Care Team Providers Care Seat Coverer Name Role Phone Zonia Capellan Primary Care Provider Unavailab Quan Hahn Jr Unavailable [phone] Iwona Bagley Unavailable Unavailable ALLERGIES Allergen (clinical [...] Notes Problem LUQ pain (R10.12) Active confirmed 422235384 Problem Weight loss (R63.4) Active confirmed [id number] PLAN OF TREATMENT Future Test Test Name Order Date UPPER GI ENDOSCOPY 07/30/2020 COLONOSCOPY 07/30/2020 Insurance Providers Payer Name Payer Address Payer Phone Subscriber Number Group Number Insured Name Patient Relationship to Insured Coverage Start Date Coverage End Date [facility] [address] [place] [address] [id number] EREN VELAZCO Self - patient is the [...]
--- OUTSIDE RECORDS SUMMARY | 2024-09-07 10:23 | XMS_ITS | Continuity of Care Document ---
Author Organization [facility] Address [facility] [facility] [address] [place] [address] Phone Care Team Providers Care Warehouse Order Selector Name Role Phone Queenie WHITTEN, [place] Unavailable [...] Diagnoses Date Provider Providers Copied on Encounter [facility], [address] [place] [address], [id number], tel:[phone] [facility] No Information Queenie Ho. [address], [address], . tel:[phone] Referring Provider: [place], [address], [facility]. tel:[phone] [facility], [address], [address] [place] [address] tel:[phone] [facility] No Information Queenie Ho. [address] [place] [address], [address] [place] [address]. tel:[phone] Referring Provider: Georgia Jerome MD, [address] [place] [address], [facility]. tel:[phone] Offic/outpt E&m Estab Low-mod [facility], [address] [place] [address], [address] [place] [address], tel:[phone] [facility] No Information No Information Offic/outpt E&m Estab Low-mod [facility] christa, [address] [place] [address], [address] [place] [address], tel:[phone] [facility] No Information [facility] Information [facility], [address] [place] [address], [address] [place] [address], tel:[phone] [facility] No Information Ko Watkins. [address] [place] [address], [address] [place] [address], . tel:[phone] Referring Provider: June Connell, [address] [place] [address], [address] [place] [address] . tel:[phone] [facility], [address] [place] [address], [address] [place] [address], tel:[phone] [facility] No Information Zach Vera. [address] [place] [address], [address] [place] [address], . tel:[phone] Referring Provider: Chuy Hill, [address] [place] [address], [address] [place] [address] . tel:[phone] Offic/outpt E&m Estab [facility], [address] [facility] [address] [place] [address], [id number], tel:[phone] [facility] No Information Zach Vera. [address], [address] [place] [address], . tel:[phone] Referring Provider: Chuy Hill, [id number] [place] [address], [address] [place] [address] . tel:[phone] [facility], [address] [place] [address], [address] [place] [address], tel:[phone] [facility] No Information Zach Vera. [id number] [place] [address], [address] [place] [address], . tel:[phone] Referring Provider: Chuy Hill, [id number] [place] [address], [address] [place] [address] . tel:[phone] Offic/outpt E&m Estab Low-mod [facility], [address] [place] [address], [address] [place] [address], tel:[phone] [facility] No Information No Information [facility], [address] [facility] [address] [place] [address], [address] [place] [address], tel:[phone] [facility] No Information Zach Vera. [address], [address] [place] [address], . tel:[phone] Referring Provider: Chuy Hill, [id number] [place] [address], [address] [place] [address] . tel:[phone] Offic/outpt E&m Estab [facility], [id number] [place] [address], [address] [place] [address], tel:[phone] [facility] No Information Zach Vera. [id number] [place] [address], [address] [place] [address], . tel:[phone] Referring Provider: Chuy Hill, [address] [place] [address], [address] [place] [address] . tel:[phone] [facility], [address] [place] [address], [address] [place] [address], tel:[phone] [facility] No Information Zach Vera. [address] [place] [address], [address] [place] [address], . tel:[phone] Referring Provider: Chuy Hill, [address] [place] [address], [address] [place] [address] . tel:[phone] Offic/outpt E&m Estab Mod-hi 2 Jose, [address] [place] [address], [address] [place] [address], tel:[phone] [facility] No Information No Information [facility], [address] [place] [address], [id number], tel:[phone] [facility] No Information No Information [facility], [address] [place] [address], [id number], tel:[phone] [facility] No Information No Information [facility], [address] [place] [address], [id number], tel:[phone] [facility] No Information No Information St [facility], [address], [id number], tel:[phone] [facility] No Information No Information [facility], [address], [place], [id number], tel:[phone] [facility] No Information No Information [facility], [address], [id number], tel:[phone] [facility] No Information Robin BERMUDEZ Norah. [address], [facility], . tel:[phone] Offic/outpt E&m Estab Low-mod [facility], [address], [id number], tel:[phone] [facility] No Information No Information Offic Cons New/estab Mod-hi [address] [facility], [address] [place] [address], [id number], tel:[phone] [facility] No Information No Information Referring Provider: Henry Cooper, [address] [place], [address]. tel:[phone] Family History Family Member Type Diagnosis Age At Onset No Information Payers Payer name Insurance type Covered constitution party ID Authoriza tion(s) Medicare [id number] Medicaid [id number] Social History Type Description Quantity Date Captured [...]
--- OUTSIDE RECORDS SUMMARY | 2024-09-07 10:23 | XMS_ITS | Patient Health Record ---
Author Organization [facility] Address [address] [place] [address] Care Team Providers Care Cocoa Milling Machine Operator Name Role Phone Marie WHITTEN, Zonia Primary Care Provider Unavail able Bharath Aikenen Unavailable [phone] Allergies No Known Allergies Reason For Referral [...] [employer] Claims [address] [place] [address] [phone] [id number] Cole Malone Self - patient is the insured Medical (General) History Medical History History ICD Code Reflux ( GERD) Back pain chest pain asthma Psoriasis Hypercholesterolemia Arthritis Surgical History Surgery Date(Month/Year) cholecystectomy enucleation with prosthesis placement
[2024-09-07 10:44] VITALS: BMI 26.1
--- NOTE | 2024-09-07 10:44 | A.OFFVIS_ITS ---
Vital Signs 09/07/24 10:44 Height 5 ft 4 in Weight 152 lb BMI 26.1 Intake Visit Reasons: Follow up Intake Note: Patient presents for follow up. patient snoring alot at night Allergies atorvastatin [Lipitor] Allergy (Intermediate, Verified 09/07/24 10:46) elevated liver enzymes certolizumab pegol Adverse Reaction (Severe, Verified 09/07/24 10:46) headaches HPI Comments Details: Right-handed 64-yr-old male presents for f/u visit of migraine, however he would like to address a new RUE tremor. Pt was seen recently for asthma attack, on Prednisone taper and new inhaler, per PCP. He states he started to notice pain in the RUE along with the action tremor, it started about 9 months ago- notices it when eating or signing paper most, has to slow down and concentrate on his intentional movements. He states tremor is better now, and yet continues to have difficulty with eating. His sleep patterns are poor, goes to bed at midnight, usually stays up playing eMithilaHaat, gets up at 6 am, his tells him he snores loudly and wakes her up. He talks in his sleep and has R>L sided cramps at night which keep him up. He has psoriatic arthritis- recently started new tx Taltz inj (tremor started before starting this) He says migraine attacks are better. Using Ubrelvy prn with good effect. He has a Prosthesis for right eye, since 1979. L. Toe nail Onychomychosis. Denies hyposmia, drooling, orthostatic lightheadedness, constipation, parasomnias, memory changes, stiffness, falls, uses his cane. Mood, diet and memory are normal. Baseline headache characteristics: mild-mod top of head and right retro-orbital pressure headache a/w photophobia, phonophobia, and activity intolerance. Denies N/V, watery/red eye, or activity intolerance. [facility] Medical History Atherosclerotic cardiovascular disease UTI (urinary tract infection) Hospital discharge follow-up Hematuria Leukocytosis Left inguinal hernia Back pain Constipation by delayed colonic transit GERD (gastroesophageal reflux disease) Chest pain Psoriatic arthritis Moderate asthma Pure hypercholesterolemia Unintentional weight loss Surgical History S/P cardiac catheterization Hx of colonoscopy H/O enucleation of right eyeball Hx laparoscopic cholecystectomy History of eye prosthesis History of corneal transplant Family History Father Kidney failure Mother Diabetes Stroke Alzheimer disease Brother Cancer of kidney Sister Breast cancer Brother Lung cancer Social History Housing: House Alcohol intake: current Alcohol intake frequency: does not drink Alcohol type: beer Patient Tobacco Use Status: Never used Tobacco e-Cigarette/Vaping Use: Never Used Second Hand Smoke Exposure: No service: No Current occupational status: disabled Cognitive needs: No Hearing needs: No Vision needs: Yes (Glasses) Review of Systems Const All systems reviewed & are unremarkable except as noted in HPI and below Physical Exam Vital Signs: BMI result Body Mass Index 26.1 Const General: cooperative, comfortable and no acute distress Nutritional Appearance: average body habitus Orientation/consciousness: patient oriented x3 HEENT Mouth: tongue abnormal (has difficulty with tongue movements to the R.>L. tremor of the tongue ) other Teeth and gingiva: other ([place] score of 3) Eyes Other: Right Eye Prosthesis since 1979 Pupils: Equal, round and reactive pupils present (L. Pupil is NML ERRL as R. is a prosthesis) Neck Neck: Yes full ROM and Yes supple Resp Effort & Inspection: normal respiratory effort and able to speak in complete sentences Neuro General: patient oriented x3 Cranial nerves: Yes Facial sensation intact/muscles of mastication intact, Yes Equal, round and reactive pupils present (L. Pupil is NML ERRL as R. is a prosthesis), Yes Normal accommodation reflex present, Yes Bilaterally intact EOM present, Yes Normal facial strength present, Yes Midline tongue present, Yes Ability to bilaterally rotate head present and Yes Ability to bilaterally elevate shoulders present Cognition (Neuro): normal cognition Gait exam (Neuro): Normal gait present Motor exam (neuro): 5/5 motor strength present throughout, Normal motor muscle tone present throughout and Tremors during motor activity present (RUE > LUE ) Deep tendon reflexes (DTR's): Right triceps reflex intensity grade: 2+, Left triceps reflex intensity grade: 2+, Rt Biceps (C5, C6): 2+, Left biceps reflex intensity grade: 2+, Right brachioradialis reflex intensity grade: 2+, Left brachioradialis reflex intensity grade: 2+, Right patellar reflex intensity grade: 2+ and Left patellar reflex intensity grade: 2+ Coordination: [id number] test normal (R> L Tremor of hand.), does not sway with eyes open and Romberg test negative Psych Appearance: well kempt Mental Status: mental status grossly normal Affect: normal affect Insight: Good insight present (Psych) Judgement: Good judgement present (Psych) Results Reviewed Results Reviewed: MR/MR head/brain wo con IMPRESSION: 05/2024 1. No acute intracranial abnormality. 2. Mild to moderate chronic microangiopathy. 3. Few scattered foci of susceptibility artifact in the supratentorial brain, likely sequela of chronic microhemorrhage. White matter changes in the L. Thalamus and patchy infiltrates seen on MRI Result of past poorly controlled Cardiac history of high blood pressure Changes in the thalami will result in smooth muscle movement Xray 06/2024 - asthma - on Taper of Prednisone Labs Assessment & Plan Assessment & Plan (1) Migraine without aura: Code(s): G43.009 - Migraine without aura, not intractable, without status migrainosus Category: Medical Qualifiers: Status migrainosus presence: without status migrainosus Intractability: intractable Qualified Code(s): G43.019 - Migraine without aura, intractable, without status migrainosus (2) Tremor: Comment: new onset Code(s): R25.1 - Tremor, unspecified Category: Medical (3) Asthma exacerbation: Code(s): J45.901 - Unspecified asthma with (acute) exacerbation Category: Medical Qualifiers: Asthma severity: mild Asthma persistence: unspecified Qualified Code(s): J45.901 - Unspecified asthma with (acute) exacerbation Plan Migraines: Continue Ubrelvy as prescribed, PRN. Will send RF today. Sleep disturbances: HST will monitor for sleep disturbances, sleep talking, PLMD/ PLMS, snoring and excessive daytime fatigue. Patient Education Sleep hygiene, BP control, limiting Ibuprofen use. Asthma: Patient is followed by PCP on a steroid taper. Orders: Orders RT home sleep study Today G47.8 - Other sleep disorders, R06.83 - Snoring Medications: Refilled ubrogepant (Ubrelvy) take at onset of migraine, may repeat in 2hrs (may take w/ Ibuprofen) 50 - 100 mg (0.5 - 1 x 100 mg) PO ONCE 30 days PRN 16 tabs 6RF migraine headache Coding Level of Care Code Est Pt Level 4 (69036) Diagnoses Intractable migraine without aura and without status migrainosus G43.019 Status migrainosus presence: without status migrainosus Intractability: intractable Tremor R25.1 Mild asthma with exacerbation, unspecified whether persistent J45.901 Asthma severity: mild Asthma persistence: unspecified Time Spent (min) 50 Comment Headache baseline/ Sleep fragmented.
== END 2024-09-07 11:49 | disposition home or self-care (01) ==
PROVIDERS: PCP Internal Medicine; Visit Provider Nurse Practitioner Family
DX: G43.019 Migraine without aura, intractable, without status migrainosus (principal); R25.1 Tremor, unspecified; J45.901 Unspecified asthma with (acute) exacerbation
CPT/HCPCS: 99214

== ENCOUNTER → 2024-09-07 10:18 | Outpatient (BNVA) | payer OTHER, SELFPAY | PROVIDERS: PCP Internal Medicine; Visit Provider Nurse Practitioner Family | DX: G43.019 Migraine without aura, intractable, without status migrainosus (principal); G47.8 Other sleep disorders; J45.901 Unspecified asthma with (acute) exacerbation; R25.1 Tremor, unspecified; R06.83 Snoring | CPT/HCPCS: 99212 ==

== ENCOUNTER 2024-09-10 08:38 | Outpatient (AMB) | payer OTHER, SELFPAY ==
--- NOTE | 2024-09-09 12:11 | MHC.OFFVIS ---
Vital Signs 09/10/24 08:45 Height 5 ft 4 in Weight 153 lb 3.54 oz BMI 26.3 BP 112/60 Blood Pressure Location Rt brachial Position Sitting Pulse 60 Pulse Source Pulse Oximeter Pulse Oximetry (%) 100 Oxygen Delivery Method Room Air Intake Visit Reasons: Asthma Nursing Administrator Required: Yes Nursing Administrator Language: Ambulatory Care Services: Nursing Administrator Present Nursing Administrator Name: Vicky Samuel OA Allergies atorvastatin [Lipitor] Allergy (Intermediate, Verified 09/10/24 08:46) elevated liver enzymes certolizumab pegol Adverse Reaction (Severe, Verified 09/10/24 08:46) headaches HPI HPI Asthma: Details: Cole is a pleasant 64-year-old male, never smoker, with underlying asthma, psoriasis, and high cholesterol. He was initially referred by PCP for worsening asthma control over the last few years. He was only maintained on Singulair with albuterol neb/MDI which he was using frequently. He was on Wixela but unclear why this was discontinued. At the last visit, he was started on Breo and reports improvements overall however over the last two weeks developed a productive cough with yellow sputum, difficulty expectorating, increased wheezing and chest tightness. He received a course of prednisone on 09/05 from PCP with improvements in wheezing however continues with cough. He denies fevers, chills or sick contacts. Today he presents to review PFT. [facility] Medical History Atherosclerotic cardiovascular disease UTI (urinary tract infection) Hospital discharge follow-up Hematuria Leukocytosis Left inguinal hernia Back pain Constipation by delayed colonic transit GERD (gastroesophageal reflux disease) Chest pain Psoriatic arthritis Moderate asthma Pure hypercholesterolemia Unintentional weight loss Surgical History S/P cardiac catheterization Hx of colonoscopy H/O enucleation of right eyeball Hx laparoscopic cholecystectomy History of eye prosthesis History of corneal transplant Family History Father Kidney failure Mother Diabetes Stroke Alzheimer disease Brother Cancer of kidney Sister Breast cancer Brother Lung cancer Social History Housing: House Alcohol intake: current Alcohol intake frequency: does not drink Alcohol type: beer Patient Tobacco Use Status: Never used Tobacco e-Cigarette/Vaping Use: Never Used Second Hand Smoke Exposure: No service: No Current occupational status: disabled Cognitive needs: No Hearing needs: No Vision needs: Yes (Glasses) Review of Systems Const Denies chills, Denies excessive sweating, Denies fever(s), Denies headache(s) and Denies night sweats Eyes Denies dry eyes, Denies irritation and Denies itchy eyes ENT Reports Normal hearing present, Denies headache(s), Denies nasal congestion, Denies nasal discharge, Denies post nasal drip and Denies sore throat Card Denies chest pain, Denies chest pain at rest, Denies chest pain with activity, Denies claudication, Denies leg edema, Denies dyspnea, Denies dyspnea on exertion, Denies orthopnea and Denies paroxysmal nocturnal dyspnea Resp Reports change in phlegm color, Reports chest congestion, Reports cough, Denies hemoptysis, Denies excessive phlegm production, Denies pain on inspiration, Denies pain with cough, Denies dyspnea, Denies dyspnea on exertion, Denies stridor and Denies wheezing Musc Denies myalgias Neuro Reports Normal hearing present and Denies headache(s) Endo Denies excessive sweating Maurice/Lymph Denies lymphadenopathy Aller/Immun Denies itchy eyes, Denies seasonal rhinorrhea and Denies wheezing Physical Exam Vital Signs: Last Vital Signs Pulse 60 09/10/24 08:45 BP 112/60 09/10/24 08:45 Pulse Ox 100 09/10/24 08:45 Oxygen Delivery Method Room Air 09/10/24 08:45 BMI result Body Mass Index 26.3 Const General: cooperative, no acute distress, well developed and alert Orientation/consciousness: patient oriented x3 Limitations: no limitations HEENT Head: Yes normal to inspection, Yes normocephalic and Yes atraumatic Ears: hearing grossly normal bilaterally and external ears normal Eyes General: appearance normal, both eyes and all related structures Eyelids: Yes eyelids normal Sclerae: sclerae normal EOM: EOMs intact bilaterally Neck Neck: Yes normal visual inspection and Yes no lymphadenopathy Lymphatic: no lymphadenopathy noted Chest Chest palpation & inspection: normal inspection of the chest Resp Effort & Inspection: normal respiratory effort, able to speak in complete sentences, no audible wheezes, Actively coughing Quality: actively coughing, no stridor, not tachypneic, no tripod positioning and no use of accessory muscles Auscultation: diminished lung sounds Cardio Jugular venous distension: no JVD Rate: regular rate Rhythm: regular rhythm Skin Other: warm, dry General skin exam: no rashes or lesions noted Neuro General: patient oriented x3 Cranial nerves: Yes Normal hearing present Cognition (Neuro): normal cognition Gait exam (Neuro): Normal gait present Extrem General: Yes normal to inspection, Yes capillary refill normal, Yes no clubbing, cyanosis or edema and Yes no pedal edema Psych Appearance: grossly normal and well kempt Speech and movement: Normal speech and movement present and Clear speech present Affect: normal affect Attitude: cooperative Thought process: Normal thought process present Thought content: Normal thought content present Insight: Good insight present (Psych) Judgement: Good judgement present (Psych) Assessment & Plan Assessment & Plan (1) Asthma: Code(s): J45.909 - Unspecified asthma, uncomplicated Category: Medical (2) Cough: Code(s): R05.9 - Cough, unspecified Category: Medical (3) Restrictive ventilatory defect: Code(s): R94.2 - Abnormal results of pulmonary function studies Category: Medical Plan Will treat bronchitic symptoms with Augmentin, advised to complete prednisone course and continue Breo, Singulair as well as Albuterol MDI/neb. Aware if symptoms do not improve to call office. Patient last rc'd a zpak 6 weeks ago. Reviewed PFT which revealed no obstructive ventilatory defects. No significant response to bronchodilators noted. Maximum voluntary ventilation not available. Patient does have a restrictive ventilatory defect consistent mild restrictive lung disease. Need to consider underlying parenchymal lung conditions, will send for chest CT to further evaluate. Prior CXR unremarkable. Diffusing capacity is within normal limits. All questions were answered and patient is in agreement of plan. Will follow up in 4-6 weeks or sooner if needed. Orders: Orders CT chest wo IV con Today R94.2 - Abnormal results of pulmonary function studies Medications: New amoxicillin-pot clavulanate 875-125 mg 1 tab PO Q12H 20 tabs 0RF Refilled albuterol sulfate 2.5 mg (3 mL) inhalation Q4-6H PRN 180 mL 0RF shortness of breath or wheezing Discontinued fluticasone propion-salmeterol 250-50 mcg/dose (Niki Inhub) Discontinued Reason: Patient Completed Course 1 ea PO BID 180 caps 2RF Coding Level of Care Code Est Pt Level 4 (18691) Diagnoses Asthma J45.909 Cough R05.9 Restrictive ventilatory defect R94.2
--- OUTSIDE RECORDS SUMMARY | 2024-09-10 08:41 | XMS_ITS | Patient Health Record ---
Author Organization [facility] Address [address] [place] [address] Care Team Providers Care Animal Handler Name Role Phone Zonia Capellan Primary Care [...] Notes Problem LUQ pain (R10.12) Active confirmed [id number] Problem Weight loss (R63.4) Active confirmed [id number] PLAN OF TREATMENT Future Test Test Name Order Date UPPER GI ENDOSCOPY 07/30/2020 COLONOSCOPY 07/30/2020 Insurance Providers Payer Name Payer Address Payer Phone Subscriber Number Group Number Insured Name Patient Relationship to Insured Coverage Start Date Coverage End Date [facility] [address] [place] [address] [id number] EREN VELAZCO Self - patient is the [...]
--- OUTSIDE RECORDS SUMMARY | 2024-09-10 08:41 | XMS_ITS | Continuity of Care Document ---
Author Organization [facility] Address [address] [facility] [address] [place] [address] Phone Care Team Providers Care Wire Coiner Name Role Phone Queenie WHITTEN, [place] Unavailable [...] Diagnoses Date Provider Providers Copied on Encounter [facility], [address] [place] [address], [id number], tel:[phone] [facility](OL D) No Information Queenie Ho. [address], [address], . tel:[phone] Referring Provider: [place], [address], [facility]. tel:[phone] [facility], [address], [address] [place] [address] tel:[phone] [facility] No Information Queenie Ho. [address] [place] [address], [address] [place] [address]. tel:[phone] Referring Provider: eGorgia Jerome MD, [address] [place] [address], [facility]. tel:[phone] Offic/outpt E&m Estab Low-mod [facility], [address] [place] [address], [address] [place] [address], tel:[phone] [facility] No Information No Information Offic/outpt E&m Estab Low-mod St christa, [address] [place] [address], [address] [place] [address], tel:[phone] [facility] No Information [facility] Information [facility], [address] [place] [address], [address] [place] [address], tel:[phone] [facility] No Information Ko Watkins. [address] [place] [address], [address] [place] [address], . tel:[phone] Referring Provider: June Connell, [address] [place] [address], [address] [place] [address] . tel:[phone] [facility], [address] [place] [address], [address] [place] [address], tel:[phone] [facility] No Information Zach Vera. [address] [place] [address], [address] [place] [address], . tel:[phone] Referring Provider: Chuy Hill, [address] [place] [address], [address] [place] [address] . tel:[phone] Offic/outpt E&m Estab Low[facility]mod [facility], [address] [facility] [address] [place] [address], [id number], tel:[phone] [facility] No Information Zach Vera. [address], [address] [place] [address], . tel:[phone] Referring Provider: Chuy Hill, [address] [place] [address], [address] [place] [address] . tel:[phone] [facility], [address] [place] [address], [address] [place] [address], tel:[phone] [facility] No Information Zach Vera. [id number] [place] [address], [address] [place] [address], . tel:[phone] Referring Provider: Chuy Hill, [address] [place] [address], [address] [place] [address] . tel:[phone] Offic/outpt E&m Estab Low-mod [facility], [address] [place] [address], [address] [place] [address], tel:[phone] [facility] No Information [facility] Information [facility], [address] [facility] [address] [place] [address], [address] [place] [address], tel:[phone] [facility] No Information Zach Vera. [address], [address] [place] [address], . tel:[phone] Referring Provider: Chuy Hill, [id number] [place] [address], [address] [place] [address] . tel:[phone] Offic/outpt E&m Estab [facility], [address] [place] [address], [address] [place] [address], tel:[phone] [facility] No Information Zach Vera. [address] [place] [address], [address] [place] [address], . tel:[phone] Referring Provider: Chuy Hill, [address] [place] [address], [address] [place] [address] . tel:[phone] [facility], [address] [place] [address], [address] [place] [address], tel:[phone] [facility] No Information Zach Vera. [address] [place] [address], [address] [place] [address], . tel:[phone] Referring Provider: Chuy Hill, [address] [place] [address], [address] [place] [address] . tel:[phone] Offic/outpt E&m Estab Mod-hi 2 Jose, [address] [place] [address], [address] [place] [address], tel:[phone] [facility] No Information No Information [facility], [address] [place] [address], [id number], tel:[phone] [facility] No Information No Information [facility], [address] [place] [address], [id number], tel:[phone] [facility] No Information No Information [facility], [address] [place] [address], [id number], tel:[phone] [facility] No Information No Information St [facility], [address], [id number], tel:[phone] [facility] No Information [facility] Information [facility], [address], [place], [place], [id number], tel:[phone] [facility] No Information No Information [facility], [address], [id number], tel:[phone] [facility] No Information Robin BERMUDEZ Norah. [address], [facility], . tel:[phone] Offic/outpt E&m Estab Low-mod [facility], [address], [id number], tel:[phone] [facility] No Information No Information Offic Cons New/estab Mod-hi 60 [facility], [address] [place] [address], [id number], tel:[phone] [facility] No Information No Information Referring Provider: Henry Cooper, [address] [place], [address]. tel:[phone] Family History Family Member Type Diagnosis Age At Onset No Information Payers Payer name Insurance type Covered republican ID Authoriza tion(s) Medicare [id number] Medicaid [id number] Social History Type Description Quantity Date Captured [...]
[2024-09-10 08:45] VITALS: BP 112/60; PULSE 60; O2SAT 100; BMI 26.3
== END 2024-09-10 09:15 | disposition home or self-care (01) ==
PROVIDERS: PCP Internal Medicine; Visit Provider Nurse Practitioner Family
DX: J45.909 Unspecified asthma, uncomplicated (principal); R05.9 Cough, unspecified; R94.2 Abnormal results of pulmonary function studies
CPT/HCPCS: 99214

== ENCOUNTER → 2024-09-10 08:38 | Outpatient (BNVA) | payer OTHER, SELFPAY | PROVIDERS: PCP Internal Medicine; Visit Provider Nurse Practitioner Family | DX: J45.909 Unspecified asthma, uncomplicated (principal); R94.2 Abnormal results of pulmonary function studies; R05.9 Cough, unspecified | CPT/HCPCS: 99212 ==

== ENCOUNTER 2024-10-22 15:00 | Outpatient (AMB) | payer OTHER, SELFPAY ==
--- NOTE | 2024-10-22 15:10 | MHC.OFFVIS ---
Vital Signs 10/22/24 15:16 Height 5 ft 4 in Weight 154 lb 5.177 oz BMI 26.5 BP 126/78 Blood Pressure Location Rt brachial Position Sitting Pulse 68 Pulse Source Pulse Oximeter Pulse Oximetry (%) 98 Oxygen Delivery Method Room Air Intake Visit Reasons: Asthma Assistant Housekeeping Manager: Assistant Housekeeping Manager offered & declined Accompanied by: Self / Same As Patient Allergies atorvastatin [Lipitor] Allergy (Intermediate, Verified 10/22/24 15:12) elevated liver enzymes certolizumab pegol Adverse Reaction (Severe, Verified 10/22/24 15:12) headaches Medication List - Last Reconciled 10/22/24 by Andreea Kaufman LPN acetaminophen (Acetaminophen Extra Strength) 1,000 mg (2 x 500 mg) PO Q6H PRN albuterol sulfate 90 mcg/actuation 2 puffs inhalation Q4-6H PRN albuterol sulfate 2.5 mg (3 mL) inhalation Q4-6H PRN amitriptyline 25 mg PO BEDTIME 90 days aspirin 81 mg PO DAILY benzonatate 200 mg PO TID PRN 5 days cane As directed fluticasone furoate-vilanterol 100-25 mcg/dose (Breo Ellipta) 1 inh inhalation DAILY gabapentin 300 mg PO BEDTIME 90 days hydrocodone-homatropine 5-1.5 mg/5 mL 5 mL PO Q6H 7 days ixekizumab (Taltz Autoinjector) 80 mg subcut Q4W montelukast 10 mg PO DAILY 90 days nebulizers (AeroEclipse II Nebulizer) As directed nitroglycerin 0.4 mg sublingual Q5M PRN nystatin 1 appl topical BID PRN 2 weeks pantoprazole 40 mg PO DAILY 90 days pyridoxine (vitamin B6) 100 mg PO DAILY 90 days rosuvastatin 40 mg PO DAILY sennosides 17.2 mg (2 x 8.6 mg) PO BEDTIME PRN 90 days tamsulosin (Flomax) 0.4 mg PO BEDTIME 90 days triamcinolone acetonide 1 spray intranasal DAILY PRN ubrogepant (Ubrelvy) 50 - 100 mg (0.5 - 1 x 100 mg) PO ONCE PRN 30 days HPI HPI Asthma: Details: Cole is a pleasant 64-year-old male, never smoker, with underlying asthma, psoriasis, and high cholesterol. At baseline, he has been well controlled on Breo and Singulair, using albuterol MDI infrequently. At the last visit he was treated with Augmentin and prednisone for bronchitic symptoms with complete resolution. He denies any visits to urgent care or hospitalizations related to respiratory distress since the last visit. [facility] Medical History Atherosclerotic cardiovascular disease UTI (urinary tract infection) Hospital discharge follow-up Hematuria Leukocytosis Left inguinal hernia Back pain Constipation by delayed colonic transit GERD (gastroesophageal reflux disease) Chest pain Psoriatic arthritis Moderate asthma Pure hypercholesterolemia Unintentional weight loss Surgical History S/P cardiac catheterization Hx of colonoscopy H/O enucleation of right eyeball Hx laparoscopic cholecystectomy History of eye prosthesis History of corneal transplant Family History Father Kidney failure Mother Diabetes Stroke Alzheimer disease Brother Cancer of kidney Sister Breast cancer Brother Lung cancer Social History Housing: House Alcohol intake: current Alcohol intake frequency: does not drink Alcohol type: beer Patient Tobacco Use Status: Never used Tobacco e-Cigarette/Vaping Use: Never Used Second Hand Smoke Exposure: No service: No Current occupational status: disabled Cognitive needs: No Hearing needs: No Vision needs: Yes (Glasses) Review of Systems Const Denies chills, Denies excessive sweating, Denies fever(s), Denies headache(s) and Denies night sweats Eyes Denies dry eyes, Denies irritation and Denies itchy eyes ENT Reports Normal hearing present, Denies headache(s), Denies nasal congestion, Denies nasal discharge, Denies post nasal drip and Denies sore throat Card Denies chest pain, Denies chest pain at rest, Denies chest pain with activity, Denies claudication, Denies leg edema, Denies dyspnea, Denies dyspnea on exertion, Denies orthopnea and Denies paroxysmal nocturnal dyspnea Resp Denies chest congestion, Denies cough, Denies excessive phlegm production, Denies pain on inspiration, Denies pain with cough, Denies dyspnea, Denies dyspnea on exertion, Denies stridor and Denies wheezing Musc Denies myalgias Neuro Reports Normal hearing present and Denies headache(s) Endo Denies excessive sweating Maurice/Lymph Denies lymphadenopathy Aller/Immun Denies itchy eyes, Denies seasonal rhinorrhea and Denies wheezing Physical Exam Vital Signs: Last Vital Signs Pulse 68 10/22/24 15:16 BP 126/78 10/22/24 15:16 Pulse Ox 98 10/22/24 15:16 Oxygen Delivery Method Room Air 10/22/24 15:16 BMI result Body Mass Index 26.5 Const General: cooperative, healthy appearing, comfortable, no acute distress, well developed and alert Orientation/consciousness: patient oriented x3 Limitations: no limitations HEENT Head: Yes normal to inspection, Yes normocephalic and Yes atraumatic Ears: hearing grossly normal bilaterally and external ears normal Eyes General: appearance normal, both eyes and all related structures Eyelids: Yes eyelids normal Sclerae: sclerae normal EOM: EOMs intact bilaterally Neck Neck: Yes normal visual inspection and Yes no lymphadenopathy Lymphatic: no lymphadenopathy noted Chest Chest palpation & inspection: normal inspection of the chest Resp Effort & Inspection: normal respiratory effort, able to speak in complete sentences, no audible wheezes, no cough, no stridor, not tachypneic, no tripod positioning and no use of accessory muscles Auscultation: clear to auscultation bilaterally Cardio Jugular venous distension: no JVD Rate: regular rate Rhythm: regular rhythm Skin Other: warm, dry General skin exam: no rashes or lesions noted Neuro General: patient oriented x3 Cranial nerves: Yes Normal hearing present Cognition (Neuro): normal cognition Gait exam (Neuro): Normal gait present Extrem General: Yes normal to inspection, Yes capillary refill normal, Yes no clubbing, cyanosis or edema and Yes no pedal edema Psych Appearance: grossly normal and well kempt Speech and movement: Normal speech and movement present and Clear speech present Affect: normal affect Attitude: cooperative Thought process: Normal thought process present Thought content: Normal thought content present Insight: Good insight present (Psych) Judgement: Good judgement present (Psych) Assessment & Plan Assessment & Plan (1) Asthma: Code(s): J45.909 - Unspecified asthma, uncomplicated Category: Medical (2) Cough: Code(s): R05.9 - Cough, unspecified Category: Medical (3) Restrictive ventilatory defect: Code(s): R94.2 - Abnormal results of pulmonary function studies Category: Medical Plan Cole reports good control of symptoms on current regimen, advised to continue. There was note of restrictive ventilatory defect consistent mild restrictive lung disease on prior PFT. Chest CT scheduled for tomorrow to assess for any underlying parenchymal condition. All questions were answered and patient is in agreement of plan. Will follow up in three months or sooner if needed. Coding Level of Care Code Est Pt Level 3 (80565) Diagnoses Asthma J45.909 Cough R05.9 Restrictive ventilatory defect R94.2
[2024-10-22 15:16] VITALS: BP 126/78; PULSE 68; O2SAT 98; BMI 26.5
--- OUTSIDE RECORDS SUMMARY | 2024-10-22 16:33 | XMS_ITS | Encounter Summary ---
Author Organization [facility] Address [address] [place] [address] Care Team Providers Care Automobile Club Membership Sales Agent Name Role Phone Alexandru Black MD Primary Care Provider Leticia La MD Primary Care Provider Macey Haskins, Pcp Primary Care Provider Zonia Camacho MD Primary Care Provider Dee giraldo Encounter Details Date Type Department Care Team Description 05/30/2014 Route Process Administrator Report Medical Records [address] [place] [address] Berto Garces Social History Tobacco Use Types Packs/Day Years Used Date Smoking Tobacco: Never Alcohol Use Standard Drinks/Week Comments No 0 (1 standard drink = 0.6 oz pur e alcohol) Sex Assigned at Date Recorded Not on file documented as of this encounter Plan of Treatment Not on file documented as of this encounter Visit Diagnoses Not on filedocumented in this encounter Care Teams Automobile Club Membership Sales Agent Relationship Specialty Start Date End Date Alexandru Black MD PCP - General Internal Medicine 09/21/13 09/18/14 Leticia Rush MD PCP - General Internal Medicine 09/19/14 04/08/16 Jozef, Gabby PCP - General Internal Medicine 04/09/16 04/13/22 Zonia Ashraf MD PCP - General Internal Medicine 04/14/22 documented as of this encounter
--- OUTSIDE RECORDS SUMMARY | 2024-10-22 16:33 | XMS_ITS | Encounter Summary ---
Author Organization [facility] Address [address] [place] [address] Care Team Providers Care Welding Engineer Name Role Phone Alexandru Black MD Primary Care Provider Leticia La MD Primary Care Provider Macey Haskins, Pcp Primary Care Provider Zonia Camacho MD Primary Care Provider Dee giraldo Encounter Details Date Type Department Care Team Description 03/25/2014 Transfer Records Medical Records [address] [place] [address] Abstract, Provider Social History Tobacco Use Types Packs/Day Years Used Date Smoking Tobacco: Never Alcohol Use Standard Drinks/Week Comments Not Asked 0 (1 standard drink = 0.6 oz pur e alcohol) Sex Assigned at Date Recorded Not on file documented as of this encounter Plan of Treatment Not on file documented as of this encounter Visit Diagnoses Not on filedocumented in this encounter Care Teams Welding Engineer Relationship Specialty Start Date End Date Alexandru Black MD PCP - General Internal Medicine 09/21/13 09/18/14 Leticia Rush MD PCP - General Internal Medicine 09/19/14 04/08/16 Jozef, Gabby PCP - General Internal Medicine 04/09/16 04/13/22 Zonia Ashraf MD PCP - General Internal Medicine 04/14/22 documented as of this encounter
--- OUTSIDE RECORDS SUMMARY | 2024-10-22 16:33 | XMS_ITS | Encounter Summary ---
Author Organization [facility] Address [address] [place] [address] Care Team Providers Care Testing And Regulating Chief Name Role Phone Community, Pcp Primary Care Provider Zonia Camacho MD Primary Care Provider Dee giraldo Encounter Details Date Type Department Care Team Description 07/26/2017 Orders Only Dermatology - [place] [address] [place] [address] Daisy Mary PA-C Social History Tobacco Use Types Packs/Day Years Used Date Smoking Tobacco: Never Alcohol Use Standard Drinks/Week Comments No 0 (1 standard drink = 0.6 oz pur e alcohol) Sex Assigned at Date Recorded Not on file documented as of this encounter Plan of Treatment Not on file documented as of this encounter Visit Diagnoses Not on filedocumented in this encounter Care Teams Testing And Regulating Chief Relationship Specialty Start Date End Date Community, Pcp PCP - General Internal Medicine 04/09/16 04/13/22 Zonia Ashraf MD PCP - General Internal Medicine 04/14/22 documented as of this encounter
--- OUTSIDE RECORDS SUMMARY | 2024-10-22 16:33 | XMS_ITS | Continuity of Care Document ---
Author Organization [facility] Address [address] [place] [address] Phone Care Team Providers Care Agricultural Equipment Test Engineer Name Role Phone Queenie WHITTEN, [place] Unavailable [...] Diagnoses Date Provider Providers Copied on Encounter [facility], [address] [place] [address], [id number], tel:[phone] [facility](OL D) No Information Queenie Ho. [address], [address], . tel:[phone] Referring Provider: [place], [address], [facility]. tel:[phone] [facility], [address], [address] [place] [address] tel:[phone] [facility] No Information Queenie Ho. [address] [place] [address], [address] [place] [address]. tel:[phone] Referring Provider: Georgia Jerome MD, [address] [place] [address], [facility]. tel:[phone] Offic/outpt E&m Estab Low-mod [facility], [address] [place] [address], [address] [place] [address], tel:[phone] [facility] No Information No Information Offic/outpt E&m Estab Low-mod St christ[facility], [address] [place] [address], [address] [place] [address], tel:[phone] [facility] No Information [facility] Information [facility], [address] [place] [address], [address] [place] [address], tel:[phone] [facility] No Information Ko Watkins. [address] [place] [address], [address] [place] [address], . tel:[phone] Referring Provider: June Connell, [address] [place] [address], [address] [place] [address] . tel:[phone] [facility], [address] [place] [address], [address] [place] [address], tel:[phone] [facility] No Information Zach Vera. [address] [place] [address], [address] [place] [address], . tel:[phone] Referring Provider: Chuy Hill, [address] [place] [address], [address] [place] [address] . tel:[phone] Offic/outpt E&m Estab [facility]mod [facility], [address] [facility] [address] [place] [address], [id number], tel:[phone] [facility] No Information Zach Vera. [address], [address] [place] [address], . tel:[phone] Referring Provider: Chuy Hill, [address] [place] [address], [address] [place] [address] . tel:[phone] [facility], [address] [place] [address], [address] [place] [address], tel:[phone] [facility] No Information Zach Vera. [address] [place] [address], [address] [place] [address], . tel:[phone] Referring Provider: Chuy Hill, [address] [place] [address], [address] [place] [address] . tel:[phone] Offic/outpt E&m Estab Low-mod [facility], [address] [place] [address], [address] [place] [address], tel:[phone] [facility] No Information No Information [facility], [address] [facility] [address] [place] [address], [address] [place] [address], tel:[phone] [facility] No Information Zach Vera. [address], [address] [place] [address], . tel:[phone] Referring Provider: Chuy Hill, [address] [place] [address], [address] [place] [address] . tel:[phone] Offic/outpt E&m Estab Low[facility]mod [facility], [address] [place] [address], [address] [place] [address], tel:[phone] [facility] No Information Zach Vera. [address] [place] [address], [address] [place] [address], . tel:[phone] Referring Provider: Chuy Hill, [address] [place] [address], [address] [place] [address] . tel:[phone] [facility], [address] [place] [address], [address] [place] [address], tel:[phone] [facility] No Information Zach Vera. [address] [place] [address], [address] [place] [address], . tel:[phone] Referring Provider: Chuy Hill, [address] [place] [address], [address] [place] [address] . tel:[phone] Offic/outpt E&m Estab Mod-hi 2 Jose, [address] [place] [address], [address] [place] [address], tel:[phone] [facility] No Information No Information [facility], [address] [place] [address], [id number], tel:[phone] [facility] No Information No Information [facility], [address] [place] [address], [id number], tel:[phone] [facility] No Information No Information [facility], [address] [place] [address], [id number], tel:[phone] [facility] No Information No Information St [facility], [address], [id number], tel:[phone] [facility] No Information [facility] Information [facility], [address], [place], [place], [id number], tel:[phone] [facility] No Information No Information [facility], [address], [id number], tel:[phone] [facility] No Information Robin BERMUDEZ Norah. [address], [facility], . tel:[phone] Offic/outpt E&m Estab Low-mod [facility], [address], [id number], tel:[phone] [facility] No Information No Information Offic Cons New/estab Mod-hi 60 [facility], [address] [place] [address], [id number], tel:[phone] [facility] No Information No Information Referring Provider: Henry Cooper, [address] [place], [address]. tel:[phone] Family History Family Member Type Diagnosis Age At Onset No Information Payers Payer name Insurance type Covered libertarian ID Authoriza tion(s) Medicare [id number] Medicaid [id number] Social History Type Description Quantity Date Captured [...]
--- OUTSIDE RECORDS SUMMARY | 2024-10-22 16:33 | XMS_ITS | Encounter Summary ---
Author Organization [facility] Address [address] [place] [address] Care Team Providers Care Cement Gun Operator Name Role Phone Leticia Rush MD Primary Care Provider Macey Haskins, Pcp Primary Care Provider Zonia Camacho MD Primary Care Provider Dee giraldo Encounter Details Date Type Department Care Team Description 04/10/2015 Retail Bakery Manager Report Medical Records [address] [place] [address] Marline Warren MD Social History Tobacco Use Types Packs/Day Years Used Date Smoking Tobacco: Never Alcohol Use Standard Drinks/Week Comments No 0 (1 standard drink = 0.6 oz pur e alcohol) Sex Assigned at Date Recorded Not on file documented as of this encounter Plan of Treatment Not on file documented as of this encounter Visit Diagnoses Not on filedocumented in this encounter Care Teams Cement Gun Operator Relationship Specialty Start Date End Date Leticia Rush MD PCP - General Internal Medicine 09/19/14 04/08/16 Jozef, Pcp PCP - General Internal Medicine 04/09/16 04/13/22 Zonia Ashraf MD PCP - General Internal Medicine 04/14/22 documented as of this encounter
--- OUTSIDE RECORDS SUMMARY | 2024-10-22 16:33 | XMS_ITS | Encounter Summary ---
Author Organization [facility] Address [address] [place] [address] Care Team Providers Care Coat Joiner Name Role Phone Leticia Rush MD Primary Care Provider Macey Haskins, Pcp Primary Care Provider Zonia Camacho MD Primary Care Provider Dee giraldo Encounter Details Date Type Department Care Team Description 09/26/2014 Tax Representative Report Medical Records [address] [place] [address] Maikol Casillas Social History Tobacco Use Types Packs/Day Years Used Date Smoking Tobacco: Never Alcohol Use Standard Drinks/Week Comments No 0 (1 standard drink = 0.6 oz pur e alcohol) Sex Assigned at Date Recorded Not on file documented as of this encounter Plan of Treatment Not on file documented as of this encounter Visit Diagnoses Not on filedocumented in this encounter Care Teams Coat Joiner Relationship Specialty Start Date End Date Leticia Rush MD PCP - General Internal Medicine 09/19/14 04/08/16 Jozef, Pcp PCP - General Internal Medicine 04/09/16 04/13/22 Zonia Ashraf MD PCP - General Internal Medicine 04/14/22 documented as of this encounter
--- OUTSIDE RECORDS SUMMARY | 2024-10-22 16:33 | XMS_ITS | Encounter Summary ---
Author Organization [facility] Address [address] [place] [address] Care Team Providers Care Biological Scientist Name Role Phone Alexandru Black MD Primary Care Provider Leticia La MD Primary Care Provider Macey Haskins, Pcp Primary Care Provider Zonia Camacho MD Primary Care Provider Dee giraldo Encounter Details Date Type Department Care Team Description 06/05/2014 Release of Information Medical Records [address] [place] [address] Abstract, Provider Social History Tobacco Use Types [...] on filedocumented in this encounter Care Teams Biological Scientist Relationship Specialty Start Date End Date Alexandru Black MD PCP - General Internal Medicine 09/21/13 09/18/14 Leticia Rush MD PCP - General Internal Medicine 09/19/14 04/08/16 Jozef, Gabby PCP - General Internal Medicine 04/09/16 04/13/22 Zonia Ashraf MD PCP - General Internal Medicine 04/14/22 documented as of this encounter
--- OUTSIDE RECORDS SUMMARY | 2024-10-22 16:33 | XMS_ITS | Encounter Summary ---
Author Organization [facility] Address [address] [place] [address] Care Team Providers Care Senior Training And Development Rep Name Role Phone Leticia Rush MD Primary Care Provider Macey Haskins, Pcp Primary Care Provider Zonia Camacho MD Primary Care Provider Dee giraldo Encounter Details Date Type Department Care Team Description 06/19/2015 Mortgage Manager Report Medical Records [address] [place] [address] Marline Warren MD Social History Tobacco Use [...] on filedocumented in this encounter Care Teams Senior Training And Development Rep Relationship Specialty Start Date End Date Leticia Rush MD PCP - General Internal Medicine 09/19/14 04/08/16 Jozef, Pcp PCP - General Internal Medicine 04/09/16 04/13/22 Zonia Ashraf MD PCP - General Internal Medicine 04/14/22 documented as of this encounter
--- OUTSIDE RECORDS SUMMARY | 2024-10-22 16:33 | XMS_ITS | Encounter Summary ---
Author Organization [facility] Address [address] [place] [address] Care Team Providers Care Dat Instructor Name Role Phone Community, Pcp Primary Care Provider Zonia Camacho MD Primary Care Provider Dee giraldo Encounter Details Date Type Department Care Team Description 04/23/2016 SCHOOL GUIDANCE COUNSELOR/Mass[employer] Report Medical Records [address] [place] [address] Abstract, Provider Social History Tobacco Use Types [...] on filedocumented in this encounter Care Teams Dat Instructor Relationship Specialty Start Date End Date Community, Pcp PCP - General Internal Medicine 04/09/16 04/13/22 Zonia Ashraf MD PCP - General Internal Medicine 04/14/22 documented as of this encounter
--- OUTSIDE RECORDS SUMMARY | 2024-10-22 16:33 | XMS_ITS | Encounter Summary ---
Author Organization [facility] Address [address] [place] [address] Care Team Providers Care Administrative Assistant Name Role Phone Alexandru Black MD Primary Care Provider Leticia La MD Primary Care Provider Macey Haskins, Pcp Primary Care Provider Zonia Camacho MD Primary Care Provider Dee giraldo Encounter Details Date Type Department Care Team Description 11/22/2013 Release of Information Medical Records [address] [place] [address] Abstract, Provider Social History Tobacco Use Types [...] on filedocumented in this encounter Care Teams Administrative Assistant Relationship Specialty Start Date End Date Alexandru Black MD PCP - General Internal Medicine 09/21/13 09/18/14 Leticia Rush MD PCP - General Internal Medicine 09/19/14 04/08/16 Jozef, Pcp PCP - General Internal Medicine 04/09/16 04/13/22 Zonia Ashraf MD PCP - General Internal Medicine 04/14/22 documented as of this encounter
--- OUTSIDE RECORDS SUMMARY | 2024-10-22 16:33 | XMS_ITS | Encounter Summary ---
Author Organization [facility] Address [address] [place] [address] Care Team Providers Care Sales Office Administrator Name Role Phone Alexandru Black MD Primary Care Provider Leticia La MD Primary Care Provider Macey Haskins, Pcp Primary Care Provider Zonia Camacho MD Primary Care Provider Dee giraldo Reason for Visit * Reason Onset Date Comments radiology 10/31/2013 Encounter Details Date Type Department Care Team Description 10/31/2013 Telephone Orthopedics-[address] [address] Maico Bermudez PA radiology Social History Tobacco Use Types Packs/Day Years Used Date Smoking Tobacco: Never Alcohol Use Standard Drinks/Week Comments Not Asked 0 (1 standard drink = 0.6 oz pur e alcohol) Sex Assigned at Date Recorded Not on file documented as of this encounter Miscellaneous Notes * Telephone Encounter - Alexandru Black MD - 10/31/2013 11:11 AM EST Done. Thanks. * Telephone Encounter - Bridget Bryn - 10/31/2013 9:[address] Alexandru Black put a referral in system for: rthopedics. Reason for referral: right shouler pain. Has xr from prev PCP Has patient had surgery for this problem: No Priority: Next Available I booked patient to see Mr. Bermudez 11/09/13. Patient was not sure if the xray he had for the shoulder was over a year ago. Patient would like a new xray order in the system. Mr. Bermudez wants patients to have an xray within 1 year. Thank You documented in this encounter Plan of Treatment Not on file documented as of this encounter Results * X-RAY EXAM OF SHOULDER, COMPLETE (11/03/2013 12:34 PM EST) 11/03/2013 1:57 PM EST Narrative WHITE PONDarshan OTHER EXTERNAL - 11/03/2013 1:57 PM EST Right shoulder HISTORY: ??Pain. COMMENT: 4 views. There are marked degenerative changes in the a.c. joint with osteophytes arising from the undersurface of the distal clavicle and acromion process. There is no fractures dislocations or abnormal soft tissue calcifications. Conclusions: Degenerative changes in the a.c. joint as described. Procedure Note Yanely Estrella MD - 11/03/2013 Right shoulder HISTORY: Pain. COMMENT: 4 views. There are marked degenerative changes in the a.c. jointwith osteophytes arising from the undersurface of the distal clavicle and acromion process.There is no fractures dislocations or abnormal soft tissue calcifications. Conclusions: Degenerative changes in the a.c. joint as described. Alexandru Black MD RADIOLOGY YUSUF CALVIN OTHER EXTERNAL documented in this encounter Visit Diagnoses Diagnosis Right shoulder pain- Primary Pain in joint, shoulder region Right shoulder pain Pain in joint, shoulder region documented in this encounter Care Teams Sales Office Administrator Relationship Specialty Start Date End Date Alexandru Black MD PCP - General Internal Medicine 09/21/13 09/18/14 Leticia Rush MD PCP - General Internal Medicine 09/19/14 04/08/16 [facility], Pcp PCP - General Internal Medicine 04/09/16 04/13/22 Zonia Ashraf MD PCP - General Internal Medicine 04/14/22 documented as of this encounter
--- OUTSIDE RECORDS SUMMARY | 2024-10-22 16:33 | XMS_ITS | Encounter Summary ---
Author Organization [facility] Address [address] [place] [address] Care Team Providers Care Hydraulic Press Operator Name Role Phone Leticia Rush MD Primary Care Provider Macey Haskins, Pcp Primary Care Provider Zonia Camacho MD Primary Care Provider Dee giraldo Encounter Details Date Type Department Care Team Description 11/06/2014 Gravel Weigher Report Medical Records [address] [place] [id number] Maikol Casillas Social History Tobacco Use Types [...] on filedocumented in this encounter Care Teams Hydraulic Press Operator Relationship Specialty Start Date End Date Leticia Rush MD PCP - General Internal Medicine 09/19/14 04/08/16 Jozef, Pcp PCP - General Internal Medicine 04/09/16 04/13/22 Zonia Ashraf MD PCP - General Internal Medicine 04/14/22 documented as of this encounter
--- OUTSIDE RECORDS SUMMARY | 2024-10-22 16:33 | XMS_ITS | Encounter Summary ---
Author Organization [facility] Address [address] [place] [address] Care Team Providers Care Sheet Metal Worker Maintenance Name Role Phone Community, Pcp Primary Care Provider Zonia Camacho MD Primary Care Provider Dee giraldo Encounter Details Date Type Department Care Team Description 06/06/2018 Refill Dermatology - [place] [address] [place] [address] Daisy Mary PA-C Social History Tobacco Use Types Packs/Day Years Used Date Smoking Tobacco: Never Smokeless Tobacco: Never Alcohol Use Standard Drinks/Week Comments No 0 (1 standard drink = 0.6 oz pur e alcohol) Sex Assigned at Date Recorded Not on file documented as of this encounter Miscellaneous Notes * Telephone Encounter - Mirela Hoyt MA. - 06/06/2018 3:38 PM EDT Rx was sent 02/28/18 with 11 refills. documented in this encounter Plan of Treatment Not on file documented as of this encounter Visit Diagnoses Not on filedocumented in this encounter Care Teams Sheet Metal Worker Maintenance Relationship Specialty Start Date End Date Community, Pcp PCP - General Internal Medicine 04/09/16 04/13/22 Zonia Ashraf MD PCP - General Internal Medicine 04/14/22 documented as of this encounter
== END 2024-10-22 15:23 | disposition home or self-care (01) ==
PROVIDERS: PCP Internal Medicine; Visit Provider Nurse Practitioner Family
DX: J45.909 Unspecified asthma, uncomplicated (principal); R05.9 Cough, unspecified; R94.2 Abnormal results of pulmonary function studies
CPT/HCPCS: 99213

== ENCOUNTER → 2024-10-22 15:00 | Outpatient (BNVA) | payer OTHER, SELFPAY | PROVIDERS: PCP Internal Medicine; Visit Provider Nurse Practitioner Family | DX: J45.909 Unspecified asthma, uncomplicated (principal); R05.9 Cough, unspecified; R94.2 Abnormal results of pulmonary function studies | CPT/HCPCS: 99212 ==

== ENCOUNTER → 2024-10-23 08:18 | Outpatient (BNV) | payer OTHER, SELFPAY | PROVIDERS: PCP Internal Medicine; Visit Provider Radiology Diagnostic Radiology | DX: R94.2 Abnormal results of pulmonary function studies (principal) | CPT/HCPCS: 71250 ==

== ENCOUNTER → 2024-10-31 09:01 | Outpatient (REF) | payer OTHER, SELFPAY ==
--- OUTSIDE RECORDS SUMMARY | 2024-10-31 09:55 | XMS_ITS | Patient Health Record ---
Author Organization [facility] Address [address] [place] [address] Care Team Providers Care Boatwright Name Role Phone Marie WHITTEN, Zonia Primary Care Provider Unavail able Bharath Aikenen Unavailable [phone] Allergies No Known Allergies Reason For Referral [...] Insured Coverage Start Date Coverage End Date [facility] [employer] Claims [address] [place] [phone] [id number] Cole Malone Self - patient is the insured Medical (General) History Medical History History ICD Code Reflux ( GERD) Back pain chest pain asthma Psoriasis Hypercholesterolemia Arthritis Surgical History Surgery Date(Month/Year) cholecystectomy enucleation with prosthesis placement
--- OUTSIDE RECORDS SUMMARY | 2024-10-31 09:55 | XMS_ITS | Patient Health Record ---
Author Organization [facility] Address [address] [place] [address] Care Team Providers Care Airline Pilot Name Role Phone Zonia Capellan Primary Care [...] Notes Problem LUQ pain (R10.12) Active confirmed 145366210 Problem Weight loss (R63.4) Active confirmed 85609022 PLAN OF TREATMENT Future Test Test Name Order Date UPPER GI ENDOSCOPY 07/30/2020 COLONOSCOPY 07/30/2020 Insurance Providers Payer Name Payer Address Payer Phone Subscriber Number Group Number Insured Name Patient Relationship to Insured Coverage Start Date Coverage End Date [facility] [address] [place] [phone] [id number] EREN VELAZCO Self - patient is the [...]
--- OUTSIDE RECORDS SUMMARY | 2024-10-31 09:55 | XMS_ITS | Continuity of Care Document ---
Author Organization [facility] Address [address] [address] [place] [address] Phone Care Team Providers Care Estimator Paperboard Boxes Name Role Phone Queenie WHITTEN, [place] Unavailable [...] Provider Providers Copied on Encounter [facility], [address] [place] [address], [id number], tel:[phone] [facility]) No Information Queenie Ho. [address], [address], . tel:[phone] Referring Provider: [place], [address], [facility]. tel:[phone] [facility], [address], [address] [place] [address] tel:[phone] [facility] No Information Queenie Ho. [address] [place] [address], [address] [place] [address]. tel:[phone] Referring Provider: Georgia Jerome MD, [address] [place] [address], [facility]. tel:[phone] Offic/outpt E&m Estab Low-mod [facility], [address] [place] [address], [address] [place] [address], tel:[phone] [facility] No Information No Information Offic/outpt E&m Estab Low-mod St [facility], [address] [place] [address], [address] [place] [address], tel:[phone] [facility] No Information No Information [facility], [address] [place] [address], [address] [place] [address], tel:[phone] [facility] No Information Ko Watkins. [address] [place] [address], [address] [place] [address], . tel:[phone] Referring Provider: June Connell, [address] [place] [address], [address] [place] [address] . tel:[phone] [facility], [address] [place] [address], [address] [place] [address], tel:[phone] [facility] No Information Zach Vera. [address] [place] [address], [address] [place] [address], . tel:[phone] Referring Provider: Chuy Hill, [address] [place] [address], [address] [place] [address] . tel:[phone] Offic/outpt E&m Estab Low[facility]mod [facility], [address] [facility] [place] [address], [id number], tel:[phone] [facility] No Information Zach Vera. [address], [address] [place] [address], . tel:[phone] Referring Provider: Chuy Hill, [address] [place] [address], [address] [place] [address] . tel:[phone] [facility], [address] [place] [address], [address] [place] [address], tel:[phone] [facility] No Information Zach Vera. [address] [place] [address], [address] [place] [address], . tel:[phone] Referring Provider: Chuy Hill, [address] [place] [address], [address] [place] [address] . tel:[phone] Offic/outpt E&m Estab Low-mod [facility], [address] [place] [address], [address] [place] [address], tel:[phone] [facility] No Information No Information [facility], [address] [facility] [place] [address], [address] [place] [address], tel:[phone] [facility] No Information Zach Vera. [address], [address] [place] [address], . tel:[phone] Referring Provider: Chuy Hill, [address] [place] [address], [address] [place] [address] . tel:[phone] Offic/outpt E&m Estab Low-mod [facility], [address] [place] [address], [address] [place] [address], tel:[phone] [facility] No Information Zach Vera. [address] [place] [address], [address] [place] [address], . tel:[phone] Referring Provider: Chuy Hill, [address] [place] [address], [address] [place] [address] . tel:[phone] [facility], [address] [place] [address], [address] [place] [address], tel:[phone] [facility] No Information Zach Vera. [address] [place] [address], [address] [place] [address], . tel:[phone] Referring Provider: Chuy Hill, [address] [place] [address], [address] [place] [address] . tel:[phone] Offic/outpt E&m Estab Mod-hi 2 Jose, [address] [place] [address], [address] [place] [address], tel:[phone] [facility] No Information No Information [facility], [address] [place] [address], [id number], tel:[phone] [facility] No Information No Information [facility], [address] [place] [address], [id number], tel:[phone] [facility] No Information No Information [facility], [address] [place] [address], [id number], tel:[phone] [facility] No Information No Information St [facility], [address], [id number], tel:[phone] [facility] No Information No Information [facility], [address], [place], [place], [id number], tel:[phone] [facility] No Information No Information [facility], [address], [id number], tel:[phone] [facility] No Information Robin BERMUDEZ Norah. [address], [facility], . tel:[phone] Offic/outpt E&m Estab Low-mod [facility], [address], [id number], tel:[phone] [facility] No Information No Information Offic Cons New/estab Mod-hi [address] [facility], [address] [place] [address], [id number], tel:[phone] [facility] No Information No Information Referring Provider: Henry Cooper, [address] [place], [address]. tel:[phone] Family History Family Member Type Diagnosis Age At Onset No Information Payers Payer name Insurance type Covered democrat ID Authoriza tion(s) Medicare [id number] Medicaid [id number] Social History Type Description Quantity Date Captured [...]
== END ==
LOC: HO.SL 09:01
PROVIDERS: PCP Internal Medicine; Visit Provider Physician Assistant Medical
DX: G47.10 Hypersomnia, unspecified (principal); G47.9 Sleep disorder, unspecified; R53.83 Other fatigue
CPT/HCPCS: 95806

== ENCOUNTER → 2024-10-31 09:25 | Outpatient (BNV) | payer OTHER, SELFPAY | PROVIDERS: PCP Internal Medicine; Visit Provider Psychiatry & Neurology Neurology | DX: G47.10 Hypersomnia, unspecified (principal) | CPT/HCPCS: 95806 ==

== ENCOUNTER 2024-11-08 11:06 | Outpatient (AMB) | payer OTHER, SELFPAY ==
[2024-11-08 11:11] VITALS: BP 114/68; PULSE 74; O2SAT 97; BMI 26.6
--- NOTE | 2024-11-08 11:11 | A.OFFPC_ITS ---
Vital Signs 11/08/24 11:11 Height 5 ft 4 in Weight 155 lb BMI 26.6 BP 114/68 Blood Pressure Location Lt brachial Position Sitting Pulse 74 Pulse Source Pulse Oximeter Pulse Oximetry (%) 97 Oxygen Delivery Method Room Air Intake Visit Reasons: asthma Mangle Roller Required: Yes Mangle Roller Language: Business Systems Technician Name: Zonia Ashraf MD Information Interpreted: non-clinical & clinical Accompanied by: Self / Same As Patient Allergies atorvastatin [Lipitor] Allergy (Intermediate, Verified 11/08/24 11:24) elevated liver enzymes certolizumab pegol Adverse Reaction (Severe, Verified 11/08/24 11:24) headaches Medication List - Last Reconciled 11/08/24 by Zonia Ashraf MD acetaminophen (Acetaminophen Extra Strength) 1,000 mg (2 x 500 mg) PO Q6H PRN albuterol sulfate 90 mcg/actuation 2 puffs inhalation Q4-6H PRN albuterol sulfate 2.5 mg (3 mL) inhalation Q4-6H PRN amitriptyline 25 mg PO BEDTIME 90 days aspirin 81 mg PO DAILY cane As directed fluticasone furoate-vilanterol 100-25 mcg/dose (Breo Ellipta) 1 inh inhalation DAILY gabapentin 300 mg PO BEDTIME 90 days hydrocodone-homatropine 5-1.5 mg/5 mL 5 mL PO Q6H 7 days ixekizumab (Taltz Autoinjector) 80 mg subcut Q4W montelukast 10 mg PO DAILY 90 days nebulizers (AeroEclipse II Nebulizer) As directed nitroglycerin 0.4 mg sublingual Q5M PRN nystatin 1 appl topical BID PRN 2 weeks pantoprazole 40 mg PO DAILY 90 days pyridoxine (vitamin B6) 100 mg PO DAILY 90 days rosuvastatin 40 mg PO DAILY sennosides 17.2 mg (2 x 8.6 mg) PO BEDTIME PRN 90 days tamsulosin (Flomax) 0.4 mg PO BEDTIME 90 days triamcinolone acetonide 1 spray intranasal DAILY PRN ubrogepant (Ubrelvy) 50 - 100 mg (0.5 - 1 x 100 mg) PO ONCE PRN 30 days Tobacco use date assessed: 11/08/24 Fall risk assessment: No Falls in past year Last assessed Fall Risk: 11/08/24 Dental Screening Dental Screen Date: 11/08/24 Did you have a dental visit in the last 12 months?: Yes Did you have a dental problem in the last 6 months where you did not have access to dental care?: No Was dental information given to patient?: Patient has dentist HPI HPI Comments History of Present Illness Details The patient is a 64-year-old male presenting with back pain. He reports experiencing a fall that resulted in back pain approximately one month ago. Since the fall, he has experienced persistent pain, primarily impacting his lower back and extending to his left leg. The pain has restricted his ability to stand up from a chair and maintain stability. There was a discussion regarding the use of a cane or walker for mobility assistance. The patient has a history of a calcified granuloma in the chest, which was confirmed not to be malignant. He also has a history of asthma follow by pulmonology and recently had a sleep study in which I do not have the results. The patient is allergic to Lipitor and some psoriasis medications. He manages his psoriatic arthritis with dermatology. Constipation was addressed, and the patient is currently taking various medications for multiple chronic conditions, including amitriptyline for nighttime, pantoprazole for gastroesophageal reflux disease, and rosuvastatin for dyslipidemia. His A1c level was recently recorded at 6.4, close to a diabetic range. There was no noted excessive urination or thirst. COUNT INCLUDES THE [facility] Medical History (Updated 11/08/24 @ 12:08 by Zonia Ashraf MD) Atherosclerotic cardiovascular disease UTI (urinary tract infection) Hospital discharge follow-up Hematuria Leukocytosis Left inguinal hernia Back pain Constipation by delayed colonic transit GERD (gastroesophageal reflux disease) Chest pain Psoriatic arthritis Moderate asthma Pure hypercholesterolemia Unintentional weight loss Surgical History S/P cardiac catheterization Hx of colonoscopy H/O enucleation of right eyeball Hx laparoscopic cholecystectomy History of eye prosthesis History of corneal transplant Family History Father Kidney failure Mother Diabetes Stroke Alzheimer disease Brother Cancer of kidney Sister Breast cancer Brother Lung cancer Social History (Updated 11/08/24 @ 11:29 by Zonia Ashraf MD) Housing: House Alcohol intake: current Alcohol intake frequency: holidays/special occasions only Alcohol type: beer Patient Tobacco Use Status: Never used Tobacco Tobacco use type: Cigarette e-Cigarette/Vaping Use: Never Used Second Hand Smoke Exposure: No service: No Current occupational status: disabled Cognitive needs: No Hearing needs: No Vision needs: Yes (Glasses) Questionnaire PHQ-9 Over the last 2 weeks, how often have you been bothered by any of the following problems? 1. Little interest or pleasure in doing things: not at all 2. Feeling down, depressed, or hopeless: not at all 3. Trouble falling or staying asleep, or sleeping too much: not at all 4. Feeling tired or having little energy: not at all 5. Poor appetite or overeating: not at all 6. Feeling bad about yourself - or that you are a failure or have let yourself or your family down: not at all 7. Trouble concentrating on things, such as reading the newspaper or watching television: not at all 8. Moving or speaking so slowly that other people could have noticed. Or the opposite - being so fidgety or restless that you have been moving around a lot more than usual: not at all 9. Thoughts that you would be better off or of hurting yourself in some way: not at all Total score: 0 Depression Screening Interpretation: Negative Depression Screening Done: Yes 78488 - PHQ-9 Billing: Yes Source: Developed by Drs. Devon Latif, Desirae Pennington, Chuy Kingsley and colleagues, with an educational afia from [employer]. Thrive Questionnaire Date Thrive assessed: 11/08/24 I am a: Patient What is your living situation today?: I have a steady place to live Within the past 12 months, did the food you bought not last and you didn't have the money to get more?: Never true Within the past 12 months, did you worry whether your food would run out before you got money to buy more?: Never true Do you have trouble paying for medicines?: No Do you have trouble getting transportation to medical appointments?: No Do you have trouble paying your heating and electricity bill?: No Do you have trouble taking care of your child, family member or friend?: No Do you have trouble with day-to-day activities such as bathing, preparing meals, shopping, managing finances, etc.?: No Are you currently unemployed and looking for a job?: No Are you interested in more education?: No Currently or been in a relationship where the following occur: No concerns reported THRIVE Score: 0 AUDIT C Alcohol Use Questionnaire (AUDIT-C) 1. How often do you have a drink containing alcohol?: Monthly or less 2. How many drinks containing alcohol do you have on a typical day when you are drinking?: 1 or 2 3. How often do you have six or more drinks on one occasion?: Never Total Score: 1 Score Reviewed/Action Taken: No AIMEE-7 AMB Questionnaire AIMEE-7 Date AIMEE - 7 assessed: 11/08/24 Feeling nervous, anxious, or on edge: 0 = Not at all Not being able to stop or control worryin = Not at all Worrying too much about different things: 0 = Not at all Trouble relaxin = Not at all Being so restless that it is hard to sit still: 0 = Not at all Becoming easily annoyed or irritable: 0 = Not at all Feeling afraid as if something awful might happen: 0 = Not at all Total AIMEE-7 score (0-4 normal; 5-9 mild; 10-14 moderate; 15-21 severe): 0 Source: Developed by Drs. Devon Latif, Desirae Pennington, Chuy Kingsley and colleagues, with an educational afia from [employer]. AIMEE-7 Assessment Billing AIMEE-7 Assessment Tool: AIMEE-7 Assessment 92961 Review of Systems Const All systems reviewed & are unremarkable except as noted in HPI and below Card Denies chest pain at rest, Denies chest pain with activity, Denies edema, Denies irregular heart rhythm, Denies claudication, Denies dyspnea, Denies dyspnea on exertion, Denies orthopnea, Denies paroxysmal nocturnal dyspnea and Denies slow heart rate Resp Denies cough, Denies dyspnea and Denies dyspnea on exertion GI Denies abdominal pain, Denies change in bowel habits, Denies excessive flatus, Denies nausea and Denies vomiting Neuro Denies lack of coordination Physical exam (Primary Care) Vital Signs: Last Vital Signs Pulse 74 11/08/24 11:11 BP 114/68 11/08/24 11:11 Pulse Ox 97 11/08/24 11:11 Oxygen Delivery Method Room Air 11/08/24 11:11 BMI result Body Mass Index 26.6 Tobacco/Smoking Status: Tobacco use Status Tobacco use date assessed 11/08/24 11/08/24 11:19 Patient Tobacco Use Status Never used Tobacco 11/08/24 11:29 Tobacco use type Cigarette 11/08/24 11:29 e-Cigarette/Vaping Use Never Used 11/08/24 11:29 PHQ-9: PHQ-9 Score PHQ-9: Total score 0 11/08/24 11:29 Depression Screening Interpretation: Negative Thrive Assessment: Date of Thrive Assessment Date Thrive assessed 11/08/24 11/08/24 11:19 Currently or been in a relationship where the following occur: No concerns reported Resp Effort & Inspection: normal respiratory effort Auscultation: clear to auscultation bilaterally Cardio Jugular venous distension: no JVD Rate: regular rate Rhythm: regular rhythm Heart sounds: S2 normal heart sound present Extrem General: Yes full ROM Coding Level of Care Code Est Pt Level 4 (73062) Complex EM visit Add On G2211 Diagnoses Left sided sciatica M54.32 Psoriatic arthritis L40.50 Moderate persistent asthma without complication J45.40 Asthma persistence: persistent Asthma complication type: uncomplicated Gastroesophageal reflux disease, unspecified whether esophagitis present K21.9 Esophagitis presence: esophagitis presence not specified Pure hypercholesterolemia E78.00 Impaired glucose tolerance R73.02 Additional Codes AIMEE-7 Assessment Billing - AIMEE-7 Assessment Tool: AIMEE-7 Assessment 22155 ([id number]) PHQ-9 - 31594 - PHQ-9 Billing: Yes ([id number]) Time Spent (min) 25 Assessment & Plan Assessment & Plan (1) Left sided sciatica: Code(s): M54.32 - Sciatica, left side Category: Medical (2) Psoriatic arthritis: Code(s): L40.50 - Arthropathic psoriasis, unspecified Category: Medical (3) Moderate asthma: Code(s): J45.909 - Unspecified asthma, uncomplicated Category: Medical Qualifiers: Asthma persistence: persistent Asthma complication type: uncomplicated Qualified Code(s): J45.40 - Moderate persistent asthma, uncomplicated (4) GERD (gastroesophageal reflux disease): Code(s): K21.9 - Gastro-esophageal reflux disease without esophagitis Category: Medical Qualifiers: Esophagitis presence: esophagitis presence not specified Qualified Code(s): K21.9 - Gastro-esophageal reflux disease without esophagitis (5) Pure hypercholesterolemia: Code(s): E78.00 - Pure hypercholesterolemia, unspecified Category: Medical (6) Impaired glucose tolerance: Code(s): R73.02 - Impaired glucose tolerance (oral) Category: Medical Plan - Management of back pain: Referral to physical therapy. - Evaluation of nephrolithiasis: Continue with Tals and Flomax as needed. - Monitoring dyslipidemia: Follow-up on rosuvastatin usage and recheck cholesterol levels. - Constipation management: Review dietary habits and continue current regimen. - Diabetes screening: Monitor A1c levels and dietary intake, particularly sugar consumption. Patient was informed and verbally consented to the use of an ambient scribe for clinic note documentation during this visit. I discussed the current A1c level being close to diabetes range and advised monitoring sugar intake and maintaining regular check-ups. We talked about the importance of managing chronic conditions like dyslipidemia and psoriatic arthritis, checking cholesterol levels, and being cautious with the medications due to allergies. The need for therapeutic intervention for the back pain was emphasized with a plan to initiate physical therapy. We discussed using a walker or cane to assist with mobility safely. Orders: Orders Lipid Panel Today E78.5 - Hyperlipidemia, unspecified Comprehensive [place]. Panel Fast Today R51.9 - Headache, unspecified PT Evaluation and Treatment Today M54.32 - Sciatica, left side Medications: New walker As directed 1 ea 0RF M54.32 - Sciatica, left side Patient Instructions: - Reduce sugar intake to help manage A1c levels. - Complete physical therapy for back pain as scheduled. - Take medications as prescribed to manage conditions. - Return for follow-up on cholesterol levels and A1c monitoring. - Use a cane or walker as needed for support with mobility.
--- OUTSIDE RECORDS SUMMARY | 2024-11-08 12:29 | XMS_ITS | Patient Health Record ---
Author Organization [facility] Address [address] [place] [address] Care Team Providers Care Big Data Admin Name Role Phone Zonia Capellan Primary Care [...] Notes Problem LUQ pain (R10.12) Active confirmed [id number] Problem Weight loss (R63.4) Active confirmed [id number] PLAN OF TREATMENT Future Test Test Name Order Date UPPER GI ENDOSCOPY 07/30/2020 COLONOSCOPY 07/30/2020 Insurance Providers Payer Name Payer Address Payer Phone Subscriber Number Group Number Insured Name Patient Relationship to Insured Coverage Start Date Coverage End Date [facility] [address] [place] [address] [id number] EREN VELAZCO Self - patient is the [...]
--- OUTSIDE RECORDS SUMMARY | 2024-11-08 12:29 | XMS_ITS | Continuity of Care Document ---
Author Organization [facility] Address [address] [facility] [address] [place] [address] Phone Care Team Providers Care Electrical Engineering Technician Name Role Phone Queenie WHITTEN, [place] Unavailable [...] Provider Providers Copied on Encounter [facility], [address] [place] [address], [id number], tel:[phone] [facility]) No Information Queenie Ho. [address], [address], . tel:[phone] Referring Provider: [place], [address], [facility]. tel:[phone] [facility], [address], [address] [place] [address] tel:[phone] [facility] No Information Queenie Ho. [address] [place] [address], [address] [place] [address]. tel:[phone] Referring Provider: Georgia Jerome MD, [address] [place] [address], [facility]. tel:[phone] Offic/outpt E&m Estab Low-mod [facility], [address] [place] [address], [address] [place] [address], tel:[phone] [facility] No Information No Information Offic/outpt E&m Estab Low-mod [facility] christa, [address] [place] [address], [address] [place] [address], tel:[phone] [facility] No Information No Information [facility], [address] [place] [address], [address] [place] [address], tel:[phone] [facility] No Information Ko Watkins. [address] [place] [address], [address] [place] [address], . tel:[phone] Referring Provider: June Connell, [address] [place] [address], [address] [place] [address] . tel:[phone] [facility], [address] [place] [address], [address] [place] [address], tel:[phone] [facility] No Information Zach Vera. [address] [place] [address], [address] [place] [address], . tel:[phone] Referring Provider: Chuy Hill, [address] [place] [address], [address] [place] [address] . tel:[phone] Offic/outpt E&m Estab Low-mod [facility], [address] [facility] [address] [place] [address], [id number], tel:[phone] [facility] No Information Zach Vera. [address], [address] [place] [address], . tel:[phone] Referring Provider: Chuy Hill, [address] [place] [address], [address] [place] [address] . tel:[phone] [facility], [address] [place] [address], [address] [place] [address], tel:[phone] [facility] No Information Zach Vera. [address] [place] [address], [address] [place] [address], . tel:[phone] Referring Provider: Chuy Hill, [address] [place] [address], [address] [place] [address] . tel:[phone] Offic/outpt E&m Estab Low-mod [facility], [address] [place] [address], [address] [place] [address], tel:[phone] [facility] No Information No Information [facility], [address] [facility] [address] [place] [address], [address] [place] [address], tel:[phone] [facility] No Information Zach Vera. [address], [address] [place] [address], . tel:[phone] Referring Provider: Chuy Hill, [address] [place] [address], [address] [place] [address] . tel:[phone] Offic/outpt E&m Estab Low-mod [facility], [address] [place] [address], [address] [place] [address], tel:[phone] [facility] No Information Zach Vera. [address] [place] [address], [address] [place] [address], . tel:[phone] Referring Provider: Chuy Hill, [address] [place] [address], [address] [place] [address] . tel:[phone] [facility], [address] [place] [address], [address] [place] [address], tel:[phone] [facility] No Information Zach Vera. [address] [place] [address], [address] [place] [address], . tel:[phone] Referring Provider: Chuy Hill, [address] [place] [address], [address] [place] [address] . tel:[phone] Offic/outpt E&m Estab Mod-hi 2 Jose, [address] [place] [address], [address] [place] [address], tel:[phone] [facility] No Information No Information [facility], [address] [place] [address], [id number], tel:[phone] [facility] No Information No Information [facility], [address] [place] [address], [id number], tel:[phone] [facility] No Information No Information [facility], [address] [place] [address], [id number], tel:[phone] [facility] No Information No Information [facility], [address], [id number], tel:[phone] [facility] No Information No Information [facility], [address], [place], [place], [id number], tel:[phone] [facility] No Information No Information [facility], [address], [id number], tel:[phone] [facility] No Information Robin BERMUDEZ Norah. [address], [facility], . tel:[phone] Offic/outpt E&m Estab Low-mod [facility], [address], [id number], tel:[phone] [facility] No Information No Information Offic Cons New/estab Mod-hi 60 [facility], [address] [place] [address], [id number], tel:[phone] [facility] No Information No Information Referring Provider: Henry Cooper, [address] [place], [address]. tel:[phone] Family History Family Member Type Diagnosis Age At Onset No Information Payers Payer name Insurance type Covered constitution party ID Authoriza tion(s) Medicare [id number] Medicaid [id number] Social History Type Description Quantity Date Captured [...]
--- OUTSIDE RECORDS SUMMARY | 2024-11-08 12:29 | XMS_ITS | Patient Health Record ---
Author Organization [facility] Address [address] [facility] [place] [address] Care Team Providers Care Forging Press Operator Name Role Phone Marie WHITTEN, Zonia Primary Care Provider Unavail able Bharath Aikneen Unavailable [phone] Allergies No Known Allergies Reason For Referral [...] Insured Coverage Start Date Coverage End Date [facility] [employer] Claims [address] [place] [phone] [id number] Cole Malone Self - patient is the insured Medical (General) History Medical History History ICD Code Reflux ( GERD) Back pain chest pain asthma Psoriasis Hypercholesterolemia Arthritis Surgical History Surgery Date(Month/Year) cholecystectomy enucleation with prosthesis placement
== END 2024-11-08 11:37 | disposition home or self-care (01) ==
PROVIDERS: PCP Internal Medicine; Visit Provider Internal Medicine
DX: M54.32 Sciatica, left side (principal); L40.50 Arthropathic psoriasis, unspecified; J45.40 Moderate persistent asthma, uncomplicated; K21.9 Gastro-esophageal reflux disease without esophagitis; E78.00 Pure hypercholesterolemia, unspecified; R73.02 Impaired glucose tolerance (oral)

== ENCOUNTER → 2024-11-08 11:06 | Outpatient (BNVA) | payer OTHER, SELFPAY | PROVIDERS: PCP Internal Medicine; Visit Provider Internal Medicine | DX: M54.32 Sciatica, left side (principal); L40.50 Arthropathic psoriasis, unspecified; K21.9 Gastro-esophageal reflux disease without esophagitis; E78.00 Pure hypercholesterolemia, unspecified; R73.02 Impaired glucose tolerance (oral) | CPT/HCPCS: 96127; 99212 ==

== ENCOUNTER 2024-12-10 10:14 | Outpatient (REF) | payer OTHER, SELFPAY ==
--- NOTE | ~2024-12-10 | US_ITS ---
CLINICAL HISTORY: N20.0 - Calculus of kidney US Renal Comparison: None Findings: Right kidney normal size and echotexture, 10 cm length. Left kidney normal size and echotexture, 10.3 cm length. No collecting system dilatation of either kidney. Normal color Doppler. IMPRESSION: 1. Normal kidneys. This document has been electronically signed by: Saman Macias MD on 12/10/2024 12:06:59
== END 2024-12-10 10:15 | disposition home or self-care (01) ==
LOC: HO.US 10:14
PROVIDERS: PCP Internal Medicine; Visit Provider Nurse Practitioner Family
DX: N20.0 Calculus of kidney (principal)
CPT/HCPCS: 76775

== ENCOUNTER → 2024-12-10 10:16 | Outpatient (BNV) | payer OTHER, SELFPAY | PROVIDERS: PCP Internal Medicine; Visit Provider Radiology Diagnostic Radiology | DX: N20.0 Calculus of kidney (principal) | CPT/HCPCS: 76775 ==

== ENCOUNTER 2024-12-13 10:07 | Outpatient (AMB) | payer OTHER, SELFPAY ==
--- NOTE | 2024-12-13 10:08 | AM.OFFWIN_ITS ---
Intake Vital Signs 12/13/24 10:12 Weight 151 lb BP 122/84 Blood Pressure Location Rt brachial Position Sitting Pulse 64 Pulse Source Pulse Oximeter Pulse Oximetry (%) 97 Oxygen Delivery Method Room Air Intake Visit Reasons: EP LT ear pain Intake Note: Patient here for left ear pain that has been present for 2 days. Patient Tobacco Use Status: Never used Tobacco Allergies atorvastatin [Lipitor] Allergy (Intermediate, Verified 12/13/24 10:12) elevated liver enzymes certolizumab pegol Adverse Reaction (Severe, Verified 12/13/24 10:12) headaches Do you need a note to return to daycare/school/sports/work: No HPI HPI Comments History of Present Illness Details Patients granddaughter is interpreting for him, he declined an supervisor burling and joining. History of Present Illness - The patient is a 64-year-old male pres enting with ear pain in the left ear. - The onset of ear pain was two days ago , characterized by a sensation of tightness and pulling. - The patient reports swelling on the ex terior of the left ear but denies having a fever. - There is no significant change in hear ing described, although the patient experiences a sensation of tightness. - History of ear infections is noted, bu t the patient is unsure of the frequency. - No pertinent history of diabetes was m entioned. Physical Exam General: Cooperative, healthy appearing, comfortable, no acute distress and well developed Orientation: Patient oriented x3 Limitations: No limitations Head: Normal to inspection Ears: Hearing normal, external ears normal bilaterally, no mastoid tenderness bilaterally, EAC left ear tender, slightly erythematous. TM's normal bilaterally Nose: Normal External nose present Face and sinus: Normal facial exam Eyes: Appearance normal, both eyes and all related structures Neck: Normal visual inspection and Yes full ROM Respiratory: Normal respiratory effort and able to speak in complete sentences. Skin: No rashes or lesions noted Neuro: Patient oriented x3 Extremities: Normal to inspection [facility] Medical History Atherosclerotic cardiovascular disease UTI (urinary tract infection) Hospital discharge follow-up Hematuria Leukocytosis Left inguinal hernia Back pain Constipation by delayed colonic transit GERD (gastroesophageal reflux disease) Chest pain Psoriatic arthritis Moderate asthma Pure hypercholesterolemia Unintentional weight loss Surgical History S/P cardiac catheterization Hx of colonoscopy H/O enucleation of right eyeball Hx laparoscopic cholecystectomy History of eye prosthesis History of corneal transplant Family History Father Kidney failure Mother Diabetes Stroke Alzheimer disease Brother Cancer of kidney Sister Breast cancer Brother Lung cancer Social History (Updated 11/08/24 @ 11:29 by Zonia Ashraf MD) Housing: House Alcohol intake: current Alcohol intake frequency: holidays/special occasions only Alcohol type: beer Patient Tobacco Use Status: Never used Tobacco Tobacco use type: Cigarette e-Cigarette/Vaping Use: Never Used Second Hand Smoke Exposure: No service: No Current occupational status: disabled Cognitive needs: No Hearing needs: No Vision needs: Yes (Glasses) Review of Systems Const All systems reviewed & are unremarkable except as noted in HPI and below Physical Exam Vital Signs: Last Vital Signs Pulse 64 12/13/24 10:12 BP 122/84 12/13/24 10:12 Pulse Ox 97 12/13/24 10:12 Oxygen Delivery Method Room Air 12/13/24 10:12 Assessment & Plan Assessment & Plan (1) Otitis externa of left ear: Code(s): H60.92 - Unspecified otitis externa, left ear Qualifiers: Otitis externa type: unspecified type Chronicity: acute Qualified Code(s): H60.502 - Unspecified acute noninfective otitis externa, left ear Plan: I will manage the ear pain and potential otitis externa with a prescription for antibiotic and steroid ear drops, to be used four times a day while the patient is awake for one week. The aim of this treatment is to alleviate irritation or any undetectable infection in the left ear. The prescription will be directed to the patient's pharmacy. There are no additional interventions or diagnostic tests deemed necessary at this time due to the mild presentation of symptoms and the absence of acute infection signs. Patient was informed and verbally consented to the use of an ambient scribe for clinic note documentation during this visit. Medications: New uohfezll-xghexdzqn-ZH 3.5-10,000-1 mg/mL-unit/mL-% 4 drps otic (ear) left QID 7 days 10 mL 0RF Coding Level of Care Code Est Pt Level 3 (90543) Diagnoses Acute otitis externa of left ear, unspecified type H60.502 Otitis externa type: unspecified type Chronicity: acute
[2024-12-13 10:12] VITALS: BP 122/84; PULSE 64; O2SAT 97
--- OUTSIDE RECORDS SUMMARY | 2024-12-13 12:51 | XMS_ITS | Patient Health Record ---
Author Organization [facility] Address [address] [place] [address] Care Team Providers Care Staff Developer Name Role Phone Zonia Capellan Primary Care Provider Unavailab Quan Hahn Jr Unavailable Iwona Bagley Unavailable Unavailable Allergies Allergen (clinical drug ingredient) Drug/Non Drug Allergy documented on EMR Reaction Allergy Type Onset Date Status atorvastatin Lipitor (uncoded) Unknown Allergy Active Reason For Referral No Information Medications Medication [...] y Once a day for 90 Active Immunizations Vaccine Route Administration Date Status Comme nts Influenza Unknown 07/23/2020 Administered Social History Tobacco Use: Social History Observation Description Date Details (start date - stop date) Never Smoker NA - NA Tobacco Use/Smoking Question Answer Notes Patient is a nonsmoker Alcohol Screen Question Answer Notes Did you have a drink containing alcohol in the p ast year? No Points 0 Interpretation Negative Problems Problem Type SNOMED Code ICD Code Onset Dates Problem Status W/U Status Risk Notes Problem 97774031 Weight loss (R63.4) Active confirmed Problem 867855369 LUQ pain (R10.12) Active confirmed Plan Of Treatment Future Test Test Name Order Date UPPER GI ENDOSCOPY 07/30/2020 COLONOSCOPY 07/30/2020 Insurance Providers Payer Name Payer Address Payer Phone Subscriber Number Group Number Insured Name Patient Relationship to Insured Coverage Start Date Coverage End Date [facility] [address] [place] [phone] [id number] EREN VELAZCO Self - patient is the insured Medical (General) History Medical History History ICD Code psoriasis allergies headaches hyperlipidemia diabetes mellitus asthma back pain arthritis cardiomyopathy Surgical History Surgery Date(Month/Year) eye surgery. 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
--- OUTSIDE RECORDS SUMMARY | 2024-12-13 12:51 | XMS_ITS | Continuity of Care Document ---
Author Organization [facility] Address [address] [facility] [address] [place] [address] Phone Care Team Providers Care Saloon Keeper Name Role Phone Queenie WHITTEN, [place] Unavailable [...] Diagnoses Date Provider Providers Copied on Encounter [facility], [address] [place] [address], [id number], tel:[phone] [facility]) No Information Queenie Ho. [address], [address], . tel:[phone] Referring [place]: [place], [address], [facility]. tel:[phone] [facility], [address], [address] [place] [address] tel:[phone] [facility] No Information Queenie Ho. [address] [place] [address], [address] [place] [address]. tel:[phone] Referring Provider: Georgia Jerome MD, [address] [place] [address], [facility]. tel:[phone] Offic/outpt E&m Estab Low-mod [facility], [address] [place] [address], [address] [place] [address], tel:[phone] [facility] No Information No Information Offic/outpt E&m Estab Low-mod St christ[facility], [address] [place] [address], [address] [place] [address], tel:[phone] [facility] No Information [facility] Information [facility], [address] [place] [address], [address] [place] [address], tel:[phone] [facility] No Information Ko Watkins. [address] [place] [address], [address] [place] [address], . tel:[phone] Referring Provider: June Connell, [address] [place] [address], [address] [place] [address] . tel:[phone] [facility], [address] [place] [address], [address] [place] [address], tel:[phone] [facility] No Information Zach Vera. [address] [place] [address], [address] [place] [address], . tel:[phone] Referring Provider: Chuy Hill, [address] [place] [address], [address] [place] [address] . tel:[phone] Offic/outpt E&m Estab Low-mod [facility], [address] [facility] [place] [address], [id number], tel:[phone] [facility] No Information Zach Vera. [address], [address] [place] [address], . tel:[phone] Referring Provider: Chuy Hill, [id number] [place] [address], [address] [place] [address] . tel:[phone] [facility], [address] [place] [address], [address] [place] [address], tel:[phone] [facility] No Information Zach Vera. [id number] [place] [address], [address] [place] [address], . tel:[phone] Referring Provider: Chuy Hill, [id number] [place] [address], [address] [place] [address] . tel:[phone] Offic/outpt E&m Estab Low-mod [facility], [id number] [place] [address], [address] [place] [address], tel:[phone] [facility] No Information No Information [facility], [address] [facility] [address] [place] [address], [address] [place] [address], tel:[phone] [facility] No Information Zach Vera. [address], [address] [place] [address], . tel:[phone] Referring Provider: Chuy Hill, [id number] [place] [address], [address] [place] [address] . tel:[phone] Offic/outpt E&m Estab Low[facility]mod [facility], [address] [place] [address], [address] [place] [address], tel:[phone] [facility] No Information Zach Vera. [id number] [place] [address], [address] [place] [address], . tel:[phone] Referring Provider: Chuy Hill, [address] [place] [address], [address] [place] [address] . tel:[phone] [facility], [address] [place] [address], [address] [place] [address], tel:[phone] [facility] No Information Zach Vera. [address] [place] [address], [address] [place] [address], . tel:[phone] Referring Provider: Chuy Hill, [address] [place] [address], [address] [place] [address] . tel:[phone] Offic/outpt E&m Estab Mod-hi 2 Jose, [address] [place] [address], [address] [place] [address], tel:[phone] [facility] No Information No Information [facility], [address] [place] [address], [id number], tel:[phone] [facility] No Information No Information [facility], [address] [place] [address], [id number], tel:[phone] [facility] No Information No Information [facility], [address] [place] [address], [id number], tel:[phone] [facility] No Information No Information [facility], [address], [id number], tel:[phone] [facility] No Information No Information [facility], [address], [place], [place], [id number], tel:[phone] [facility] No Information No Information [facility], [address], [id number], tel:[phone] [facility] No Information Robin BERMUDEZ Norah. [address], [facility], . tel:[phone] Offic/outpt E&m Estab Low-mod [facility], [address], [id number], tel:[phone] [facility] No Information No Information Offic Cons New/estab Mod-hi 60 [facility], [address] [place] [address], [id number], tel:[phone] [facility] No Information No Information Referring Provider: Henry Cooper, [address] [place], [address]. tel:[phone] Family History Family Member Type Diagnosis Age At Onset No Information Payers Payer name Insurance type Covered green party ID Authoriza tion(s) Medicare [id number] Medicaid [id number] Social History Type Description Quantity Date Captured [...]
--- OUTSIDE RECORDS SUMMARY | 2024-12-13 12:51 | XMS_ITS | Patient Health Record ---
Author Organization [facility] Address [address] [place] [address] Care Team Providers Care Wellness Educator Name Role Phone Marie WHITTEN, Zonia Primary Care Provider Unavail able Bharath Aikenen Unavailable [phone] Allergies No Known Allergies Reason For Referral [...] Insured Coverage Start Date Coverage End Date [facility] [employer] Claims [address] [place] [phone] [id number] Cole Malone Self - patient is the insured Medical (General) History Medical History History ICD Code Reflux ( GERD) Back pain chest pain asthma Psoriasis Hypercholesterolemia Arthritis Surgical History Surgery Date(Month/Year) cholecystectomy enucleation with prosthesis placement
== END 2024-12-13 10:41 | disposition home or self-care (01) ==
PROVIDERS: PCP Internal Medicine; Visit Provider Physician Assistant
DX: H60.502 Unspecified acute noninfective otitis externa, left ear (principal)

== ENCOUNTER → 2024-12-13 10:07 | Outpatient (BNVA) | payer OTHER, SELFPAY | PROVIDERS: PCP Internal Medicine; Visit Provider Physician Assistant | DX: H60.502 Unspecified acute noninfective otitis externa, left ear (principal) | CPT/HCPCS: 99212 ==

== ENCOUNTER 2024-12-14 07:46 | Outpatient (REF) | payer OTHER, SELFPAY ==
[2024-12-14 09:05] LABS: Alanine Aminotransferase 25 U/L (0-40); Albumin Level 4.2 g/dL (3.5-5.0); Alkaline Phosphatase 68 U/L (39-117); Anion Gap 7 (12-20); Aspartate Amino Transferase 19 U/L (5-37); Bilirubin Total 0.9 mg/dL (0.0-1.0); Blood Urea Nitrogen 16 mg/dL (9-16); Calcium 9.3 mg/dL (8.4-10.2); Carbon Dioxide 28 mmol/L (22-29); Chloride 108 mmol/L (96-108); Cholesterol 221 mg/dL (<200); Estimated Glomerular Filt Rate > 60; Glucose Fasting 109 mg/dL (60-99); HDL Cholesterol 52 mg/dL (>40); LDL Cholesterol Calculated 144 mg/dL (<100); Potassium 4.4 mmol/L (3.3-5.1); Sodium 139 mmol/L (135-145); Total Protein 7.1 g/dL (6.5-8.0); Triglycerides 126 mg/dL (<150)
== END 2024-12-14 07:47 | disposition home or self-care (01) ==
LOC: HO.LAB 07:46
PROVIDERS: PCP Internal Medicine; Visit Provider Nurse Practitioner Family
DX: R51.9 Headache, unspecified (principal); E78.5 Hyperlipidemia, unspecified
CPT/HCPCS: 36415; 80053; 80061

== ENCOUNTER 2024-12-17 12:40 | Outpatient (AMB) | payer OTHER, SELFPAY ==
--- NOTE | 2024-12-17 13:04 | A.OFFVIS_ITS ---
Intake Visit Reasons: 6m/US(set) Intake Note: Patient presents today for follow up on: nephrolithiasis and ultrasound results Imaging Completed: 12/10/24 Urology Medication: Tamsulosin, Vitamin B6 Antibiotic Allergies: None Blood Thinners: Aspirin PVR: 49ml's Char Conveyor Tender Cellar Required: Yes Char Conveyor Tender Cellar Services: Char Conveyor Tender Cellar Present [employer] T[employer]ellar Name: [id number] Accompanied by: Unknown Allergies atorvastatin [Lipitor] Allergy (Intermediate, Verified 12/17/24 13:38) elevated liver enzymes certolizumab pegol Adverse Reaction (Severe, Verified 12/17/24 13:38) headaches Medication List - Last Reconciled 12/17/24 by JOHNIE Mendez-TRI acetaminophen (Acetaminophen Extra Strength) 1,000 mg (2 x 500 mg) PO Q6H PRN albuterol sulfate 90 mcg/actuation 2 puffs inhalation Q4-6H PRN albuterol sulfate 2.5 mg (3 mL) inhalation Q4-6H PRN amitriptyline 25 mg PO BEDTIME 90 days aspirin 81 mg PO DAILY cane As directed fluticasone furoate-vilanterol 100-25 mcg/dose (Breo Ellipta) 1 inh inhalation DAILY gabapentin 300 mg PO BEDTIME 90 days hydrocodone-homatropine 5-1.5 mg/5 mL 5 mL PO Q6H 7 days ixekizumab (Taltz Autoinjector) 80 mg subcut Q4W montelukast 10 mg PO DAILY 90 days nebulizers (AeroEclipse II Nebulizer) As directed qrbaeuiq-hsrxtozlj-BG 3.5-10,000-1 mg/mL-unit/mL-% 4 drps otic (ear) left QID 7 days nitroglycerin 0.4 mg sublingual Q5M PRN nystatin 1 appl topical BID PRN 2 weeks pantoprazole 40 mg PO DAILY 90 days pyridoxine (vitamin B6) 100 mg PO DAILY 90 days rosuvastatin 40 mg PO DAILY sennosides 17.2 mg (2 x 8.6 mg) PO BEDTIME PRN 90 days tamsulosin (Flomax) 0.4 mg PO BEDTIME 90 days triamcinolone acetonide 1 spray intranasal DAILY PRN ubrogepant (Ubrelvy) 50 - 100 mg (0.5 - 1 x 100 mg) PO ONCE PRN 30 days walker As directed HPI Comments Details: Cole is a pleasant 64-year-old Malay-speaking male patient of Dr. Xie was accompanied by his significant other at today's office visit. He has a past medical history of atherosclerotic cardiovascular disease, left inguinal hernia, back pain, constipation, GERD, psoriatic arthritis, moderate asthma, and hypercholesteremia. He presents to the office today for follow-up of his lower urinary tract symptoms as well as nephrolithiasis. In discussion with the patient today he reports to be happy with his current voiding parameters on 0.4 mg of Flomax daily. He denies having had any bothersome urinary issues or concerns. Recent renal imaging results reviewed with the patient today 12/11 bilateral kidneys with no nephrolithiasis or hydronephrosis noted. He does report a new onset of left upper to middle abdominal discomfort however feels pain has been intermittent and stable. He plans to follow-up with PCP if symptoms worsen. In office urinalysis results reviewed with the patient today. PVR 49ml. He denies urinary urgency, urinary frequency, incontinence, nocturia, hematuria, dysuria, foul smelling urine, changes to urinary stream, flank pain, fever, and or chills. He is happy with his current voiding parameters. In review of patient's chart it appears PSA 12/10 2.3. He otherwise offers no other issues or concerns at this time. PREVIOUS OFFICE NOTE: Nephrolithiasis 05/11 renal US NAD 06/12 Right-sided hydronephrosis and hydroureter down to the level UVJ where there is a 4 mm partially obstructing stone Ureteroscopy but stone had passed [facility] Medical History Atherosclerotic cardiovascular disease UTI (urinary tract infection) Hospital discharge follow-up Hematuria Leukocytosis Left inguinal hernia Back pain Constipation by delayed colonic transit GERD (gastroesophageal reflux disease) Chest pain Psoriatic arthritis Moderate asthma Pure hypercholesterolemia Unintentional weight loss Surgical History S/P cardiac catheterization Hx of colonoscopy H/O enucleation of right eyeball Hx laparoscopic cholecystectomy History of eye prosthesis History of corneal transplant Family History Father Kidney failure Mother Diabetes Stroke Alzheimer disease Brother Cancer of kidney Sister Breast cancer Brother Lung cancer Social History (Updated 11/08/24 @ 11:29 by Zonia Ashraf MD) Housing: House Alcohol intake: current Alcohol intake frequency: holidays/special occasions only Alcohol type: beer Patient Tobacco Use Status: Never used Tobacco Tobacco use type: Cigarette e-Cigarette/Vaping Use: Never Used Second Hand Smoke Exposure: No service: No Current occupational status: disabled Cognitive needs: No Hearing needs: No Vision needs: Yes (Glasses) Review of Systems Const All systems reviewed & are unremarkable except as noted in HPI and below Physical Exam Const General: cooperative, healthy appearing, comfortable, no acute distress, well developed, alert and awake Orientation/consciousness: patient oriented x3 Limitations: no limitations HEENT Head: Yes normal to inspection, Yes normocephalic and Yes atraumatic Ears: hearing grossly normal bilaterally Eyes General: appearance normal, both eyes and all related structures Neck Neck: Yes normal visual inspection and Yes trachea midline Chest Chest palpation & inspection: normal inspection of the chest Resp Effort & Inspection: normal respiratory effort and able to speak in complete sentences Cardio Rate: regular rate GI Inspection: Yes normal to inspection General: Yes no CVA tenderness Back/Spine/Pelvis Back: no CVA tenderness Skin General skin exam: no rashes or lesions noted Neuro General: patient oriented x3 Extrem General: Yes normal to inspection Psych Appearance: grossly normal and well kempt Mental Status: mental status grossly normal Speech and movement: Normal speech and movement present and Clear speech present Affect: normal affect Attitude: cooperative Thought process: Normal thought process present Thought content: Normal thought content present Insight: Fair insight present (Psych) Judgement: Fair judgement present (Psych) Office Procedures Post Void Residual Post Residual Void Post Void Residual (PVR): 49 59449-[id number] Void Residual by ultrasound Results AMB Urinalysis, Automated UA Leukoctes 0 Rose/uL Last Edit by Christine Edwards on 12/17/24 13:43 UA Nitrite Last Edit by Christine Edwards on 12/17/24 13:43 UA Urobilinogen 0.2 mg/dL Last Edit by Christine Edwards on 12/17/24 13:43 UA Protein 0 mg/dL Last Edit by Christine Edwards on 12/17/24 13:43 UA pH 6.0 Last Edit by Christine Edwards on 12/17/24 13:43 UA Blood 0 Shelton/uL Last Edit by Christine Edwards on 12/17/24 13:43 UA Specific [place] 1.015 Last Edit by Christine Edwards on 12/17/24 13:43 UA Ketone Last Edit by Christine Edwards on 12/17/24 13:43 UA Bilirubin 0 mg/dL Last Edit by Christine Edwards on 12/17/24 13:43 UA Glucose 0 mg/dL Last Edit by Christine Edwards on 12/17/24 13:43 Results Reviewed Results Reviewed: Date of Service: 12/10/24 Procedure(s): US renal BI US Renal Comparison: None Findings: Right kidney normal size and echotexture, 10 cm length. Left kidney normal size and echotexture, 10.3 cm length. No collecting system dilatation of either kidney. Normal color Doppler. IMPRESSION: 1. Normal kidneys. Assessment & Plan Assessment & Plan (1) Nephrolithiasis: Code(s): N20.0 - Calculus of kidney Category: Medical (2) Lower urinary tract symptoms: Code(s): R39.9 - Unspecified symptoms and signs involving the genitourinary system Category: Medical (3) BPH (benign prostatic hyperplasia): Code(s): N40.0 - Benign prostatic hyperplasia without lower urinary tract symptoms Category: Medical Plan In office urinalysis results reviewed with the patient today; as noted above. PVR 49 mL Recent renal imaging results reviewed with the patient today; as noted above. Patient currently denies any bothersome urinary issues or concerns. He reports be happy with current voiding parameters. Continue Flomax and vitamin B6 as prescribed. Will continue with surveillance monitoring of nephrolithiasis. Discussed, educated, and stressed the importance of adequate hydration relation to nephrolithiasis as well as overall health and well-being. Will obtain PSA. Follow-up in 6 months with PSA, PVR and imaging; or sooner with any issues, concerns, and or questions. Orders: Orders AMB Urinalysis Automated Today Z13.9 - Encounter for screening, unspecified AMB Post Void Residual by ultrasound Today R39.9 - Unspecified symptoms and signs involving the genitourinary system US renal BI 6 Months N20.0 - Calculus of kidney Medications: Refilled pyridoxine (vitamin B6) 100 mg PO DAILY 90 days 90 tabs 3RF N13.2 - Hydronephrosis with renal and ureteral calculous obstruction tamsulosin (Flomax) 0.4 mg PO BEDTIME 90 days 90 caps 3RF N40.0 - Benign prostatic hyperplasia without lower urinary tract symptoms Patient Instructions: The patient had an opportunity to ask questions regarding the treatment plan. All questions were answered. Physical exam, labs, and imaging were discussed and reviewed in detail. As well as risks, benefits, and discussion of treatment choices. No major barriers to understanding were identified. The patient expressed understanding and agreement with the above treatment plan. The patient was made aware they should contact our office by phone for worsening of their current condition, the appearance of new symptoms, or with any questions or concerns. Compliance is encouraged with any medications and follow up testing that is ordered. It is a privilege to be allowed the opportunity to participate in? your urological care.? Again, if you have any questions or concerns If you have any questions or concerns please do not hesitate to contact me. The office is [phone]. This note is constructed using voice recognition software. While every effort has been made to ensure accuracy slubber tender errors may have been included. Yours sincerely, ARUN Mendez Coding Level of Care Code Est Pt Level 3 (82910) Complex EM visit Add On G2211 Diagnoses Nephrolithiasis N20.0 Lower urinary tract symptoms R39.9 BPH (benign prostatic hyperplasia) N40.0 CPT Codes Post Residual Void - PVR CPT Code: 56723-Bjys Void Residual by ultrasound ([id number])
--- OUTSIDE RECORDS SUMMARY | 2024-12-17 14:19 | XMS_ITS | Continuity of Care Document ---
Author Organization [facility] Address [address] [facility] [address] [place] [address] Phone Care Team Providers Care Director Of Corporate Strategy Name Role Phone Queenie WHITTEN, [place] Unavailable [...] Providers Copied on Encounter [facility], [address] [place] [address], [id number], tel:[phone] [facility]) No Information Queenie Ho. [address], [address], . tel:[phone] Ref[place]: [place], [address], [facility]. tel:[phone] [facility], [address], [address] [place] [address] tel:[phone] [facility] No Information Queenie Ho. [address] [place] [address], [address] [place] [address]. tel:[phone] Referring Provider: Georgia Jerome MD, [address] [place] [address], [facility]. tel:[phone] Offic/outpt E&m Estab Low-mod [facility], [address] [place] [address], [address] [place] [address], tel:[phone] [facility] No Information No Information Offic/outpt E&m Estab Low-mod St christa, [address] [place] [address], [address] [place] [address], tel:[phone] [facility] No Information [facility] Information [facility], [address] [place] [address], [address] [place] [address], tel:[phone] [facility] No Information Ko Watkins. [address] [place] [address], [address] [place] [address], . tel:[phone] Referring Provider: June Connell, [address] [place] [address], [address] [place] [address] . tel:[phone] [facility], [address] [place] [address], [address] [place] [address], tel:[phone] [facility] No Information Zach Vera. [address] [place] [address], [address] [place] [address], . tel:[phone] Referring Provider: Chuy Hill, [address] [place] [address], [address] [place] [address] . tel:[phone] Offic/outpt E&m Estab [facility], [address] [facility] [address] [place] [address], [id number], tel:[phone] [facility] No Information Zach Vera. [address], [address] [place] [address], . tel:[phone] Referring Provider: Chuy Hill, [address] [place] [address], [address] [place] [address] . tel:[phone] [facility], [address] [place] [address], [address] [place] [address], tel:[phone] [facility] No Information Zach Vera. [address] [place] [address], [address] [place] [address], . tel:[phone] Referring Provider: Chuy Hill, [address] [place] [address], [address] [place] [address] . tel:[phone] Offic/outpt E&m Estab Low-mod [facility], [address] [place] [address], [address] [place] [address], tel:[phone] [facility] No Information [facility], [address] [facility] [address] [place] [address], [address] [place] [address], tel:[phone] [facility] No Information Zach Vera. [address], [address] [place] [address], . tel:[phone] Referring Provider: Chuy Hill, [address] [place] [address], [address] [place] [address] . tel:[phone] Offic/outpt E&m Estab [facility], [address] [place] [address], [address] [place] [address], tel:[phone] [facility] No Information Zach Vera. [address] [place] [address], [address] [place] [address], . tel:[phone] Referring Provider: Chuy Hill, [address] [place] [address], [address] [place] [address] . tel:[phone] [facility], [address] [place] [address], [address] [place] [address], tel:[phone] [facility] No Information Zach Vera. [address] [place] [address], [address] [place] [address], . tel:[phone] Referring Provider: Chuy Hill, [address] [place] [address], [address] [place] [address] . tel:[phone] Offic/outpt E&m Estab Mod-hi 2 Jose, [address] [place] [address], [address] [place] [address], tel:[phone] [facility] No Information No Information [facility], [address] [place] [address], [id number], tel:[phone] [facility] No Information No Information [facility], [address] [place] [address], [id number], tel:[phone] [facility] No Information No Information [facility], [address] [place] [address], [id number], tel:[phone] [facility] No Information No Information [facility], [address], [id number], tel:[phone] [facility] No Information No Information [facility], [address], [place], [place], [id number], tel:[phone] [facility] No Information No Information [facility], [address], [id number], tel:[phone] [facility] No Information Robin BERMUDEZ Norah. [address], [facility], . tel:[phone] Offic/outpt E&m Estab Low-mod [facility], [address], [id number], tel:[phone] [facility] No Information No Information Offic Cons New/estab Mod-hi 60 [facility], [address] [place] [address], [id number], tel:[phone] [facility] No Information No Information Referring Provider: Henry Cooper, [address] [place], [address]. tel:[phone] Family History Family Member Type Diagnosis Age At Onset No Information Payers Payer name Insurance type Covered alliance party ID Authoriza tion(s) Medicare [id number] Medicaid [id number] Social History Type Description Quantity Date Captured [...]
--- OUTSIDE RECORDS SUMMARY | 2024-12-17 14:19 | XMS_ITS | Patient Health Record ---
Author Organization [facility] Address [address] [place] [address] Care Team Providers Care Mining Engineer Name Role Phone Zonia Capellan Primary Care [...] Problem Status W/U Status Risk Notes Problem 49563122 Weight loss (R63.4) Active confirmed Problem [id number] LUQ pain (R10.12) Active confirmed Plan Of Treatment Future Test Test Name Order Date UPPER GI ENDOSCOPY 07/30/2020 COLONOSCOPY 07/30/2020 Insurance Providers Payer Name Payer Address Payer Phone Subscriber Number Group Number Insured Name Patient Relationship to Insured Coverage Start Date Coverage End Date [facility] [address] [place] [address] [id number] EREN VELAZCO Self - patient is the [...]
--- OUTSIDE RECORDS SUMMARY | 2024-12-17 14:19 | XMS_ITS | Patient Health Record ---
Author Organization [facility] Address [address] [place] [address] Care Team Providers Care Porter Sample Case Name Role Phone Marie WHITTEN, Zonia Primary Care Provider Unavail able Bharath Aikenen Unavailable [phone] Allergies No Known Allergies Reason For Referral [...] Insured Coverage Start Date Coverage End Date [facility] SCO Claims [address] [place] [id number] [phone] [id number] Cole Malone Self - patient is the insured Medical (General) History Medical History History ICD Code Reflux ( GERD) Back pain chest pain asthma Psoriasis Hypercholesterolemia Arthritis Surgical History Surgery Date(Month/Year) cholecystectomy enucleation with prosthesis placement
== END 2024-12-17 13:33 | disposition home or self-care (01) ==
LOC: HO.HUSH 12:40
PROVIDERS: PCP Internal Medicine; Visit Provider Nurse Practitioner Family
DX: N20.0 Calculus of kidney (principal); R39.9 Unspecified symptoms and signs involving the genitourinary system; N40.0 Benign prostatic hyperplasia without lower urinary tract symptoms; Z13.9 Encounter for screening, unspecified
CPT/HCPCS: 99213; G2211

== ENCOUNTER → 2024-12-17 12:40 | Outpatient (BNVA) | payer OTHER, SELFPAY | PROVIDERS: PCP Internal Medicine; Visit Provider Nurse Practitioner Family | DX: N40.1 Benign prostatic hyperplasia with lower urinary tract symptoms (principal); R33.8 Other retention of urine; Z87.442 Personal history of urinary calculi; Z79.899 Other long term (current) drug therapy | CPT/HCPCS: 51798; 81003; 99212 ==

== ENCOUNTER 2024-12-28 09:21 | Outpatient (REF) | payer OTHER, SELFPAY ==
--- OUTSIDE RECORDS SUMMARY | 2024-12-28 09:43 | XMS_ITS | Patient Health Record ---
Author Organization [facility] Address [address] [place] [address] Care Team Providers Care Level Glass Forming Machine Operator Name Role Phone Marie WHITTEN, Zonia Primary Care Provider Unavail able Bharath Aikenen Unavailable [phone] Allergies No Known Allergies Reason For Referral [...] Insured Coverage Start Date Coverage End Date [facility] SCO Claims [address] [place] [id number] [phone] [id number] Cole Malone Self - patient is the insured Medical (General) History Medical History History ICD Code Reflux ( GERD) Back pain chest pain asthma Psoriasis Hypercholesterolemia Arthritis Surgical History Surgery Date(Month/Year) cholecystectomy enucleation with prosthesis placement
--- OUTSIDE RECORDS SUMMARY | 2024-12-28 09:43 | XMS_ITS | Patient Health Record ---
Author Organization [facility] Address [address] [place] [address] Care Team Providers Care Medical Insurance Verifier Name Role Phone Zonia Capellan Primary Care [...] Problem Status W/U Status Risk Notes Problem [id number] Weight loss (R63.4) Active confirmed Problem [id number] LUQ pain (R10.12) Active confirmed Plan Of Treatment Future Test Test Name Order Date UPPER GI ENDOSCOPY 07/30/2020 COLONOSCOPY 07/30/2020 Insurance Providers Payer Name Payer Address Payer Phone Subscriber Number Group Number Insured Name Patient Relationship to Insured Coverage Start Date Coverage End Date [facility] [address] [place] [phone] [id number] EREN VELAZCO Self - patient is the [...]
--- OUTSIDE RECORDS SUMMARY | 2024-12-28 09:43 | XMS_ITS | Continuity of Care Document ---
Author Organization [facility] Address [address] [facility] [address] [place] [address] Phone Care Team Providers Care Investigator Welfare Name Role Phone Queenie WHITTEN, [place] Unavailable [...] on Encounter [facility], [address] [place] [address], [id number], tel:[phone] [facility] D) No Information Queenie Ho. [address], [address], . tel:[phone] Referring [place]: [place], [address], [facility]. tel:[phone] [facility], [address], [address] [place] [address] tel:[phone] [facility] No Information Queenie Ho. [address] [place] [address], [address] [place] [address]. tel:[phone] Referring Provider: Georgia Jerome MD, [address] [place] [address], [facility]. tel:[phone] Offic/outpt E&m Estab Low-mod [facility], [address] [place] [address], [address] [place] [address], tel:[phone] [facility] No Information No Information Offic/outpt E&m Estab Low-mod St christa, [address] [place] [address], [address] [place] [address], tel:[phone] [facility] No Information No Information [facility], [address] [place] [address], [address] [place] [address], tel:[phone] [facility] No Information Ko Watkins. [address] [place] [address], [address] [place] [address], . tel:[phone] Referring Provider: June Connell, [address] [place] [address], [address] [place] [address] . tel:[phone] [facility], [address] [place] [address], [address] [place] [address], tel:[phone] [facility] No Information Zach Vera. [address] [place] [address], [address] [place] [address], . tel:[phone] Referring Provider: Chuy Hill, [address] [place] [address], [address] [place] [address] . tel:[phone] Offic/outpt E&m Estab Low[facility]mod [facility], [address] [facility] [address] [place] [address], [id number], tel:[phone] [facility] No Information Zach Vera. [address], [address] [place] [address], . tel:[phone] Referring Provider: Chuy Hill, [address] [place] [address], [address] [place] [address] . tel:[phone] [facility], [address] [place] [address], [address] [place] [address], tel:[phone] [facility] No Information Zach Vera. [address] [place] [address], [address] [place] [address], . tel:[phone] Referring Provider: Chuy Hill, [address] [place] [address], [address] [place] [address] . tel:[phone] Offic/outpt E&m Estab Low-mod [facility], [address] [place] [address], [address] [place] [address], tel:[phone] [facility] No Information No Information [facility], [address] [facility] [address] [place] [address], [address] [place] [address], tel:[phone] [facility] No Information Zach Vera. [address], [address] [place] [address], . tel:[phone] Referring Provider: Chuy Hill, [address] [place] [address], [address] [place] [address] . tel:[phone] Offic/outpt E&m Estab [facility]mod [facility], [address] [place] [address], [address] [place] [address], tel:[phone] [facility] No Information Zach Vera. [address] [place] [address], [address] [place] [address], . tel:[phone] Referring Provider: Chuy Hill, [address] [place] [address], [address] [place] [address] . tel:[phone] [facility], [address] [place] [address], [address] [place] [address], tel:[phone] [facility] No Information Zach Vera. [address] [place] [address], [address] [place] [address], . tel:[phone] Referring Provider: Chuy Hill, [address] [place] [address], [address] [place] [address] . tel:[phone] Offic/outpt E&m Estab Mod-hi 2 Jose, [address] [place] [address], [address] [place] [address], tel:[phone] [facility] No Information No Information [facility], [address] [place] [address], [id number], tel:[phone] [facility] No Information No Information [facility], [address] [place] [address], [id number], tel:[phone] [facility] No Information No Information [facility], [address] [place] [address], [id number], tel:[phone] [facility] No Information No Information St Jose, [address], [id number], tel:[phone] [facility] No Information [facility], [address], [place], [place], [id number], tel:[phone] [facility] No Information No Information [facility], [address], [id number], tel:[phone] [facility] No Information Robin BERMUDEZ Norah. [address], [facility], . tel:[phone] Offic/outpt E&m Estab Low-mod [facility], [address], [id number], tel:[phone] [facility] No Information No Information Offic Cons New/estab Mod-hi 60 [facility], [address] [place] [address], [id number], tel:[phone] [facility] No Information No Information Referring Provider: Henry Cooper, [address] [place], [address]. tel:[phone] Family History Family Member Type Diagnosis Age At Onset No Information Payers Payer name Insurance type Covered green party ID Authoriza tion(s) Medicare [id number] Medicaid [id number] Social History Type Description Quantity Date Captured [...]
[2024-12-28 13:57] LABS: Prostate Specific Antigen 0.85 ng/mL (<0.05-4.0)
== END 2024-12-28 09:22 | disposition home or self-care (01) ==
LOC: HO.HMGCLDS 09:21
PROVIDERS: PCP Internal Medicine; Visit Provider Nurse Practitioner Family
DX: N40.0 Benign prostatic hyperplasia without lower urinary tract symptoms (principal); Z12.5 Encounter for screening for malignant neoplasm of prostate
CPT/HCPCS: 36415; 84153

== ENCOUNTER 2025-01-08 09:40 | Outpatient (RCR) | payer OTHER, SELFPAY ==
--- NOTE | 2025-01-08 15:32 | MHC.PT.EP ---
[facility] [place] [facility] [place] [facility] [place] [facility] [address] Shaylee Dewitt [address] [phone] F: [phone] F: [phone] F: [phone] F: [phone] Physical Therapy Plan of Care Date of Evaluation: 01/08/25 Date of Surgery: Diagnosis: LEFT SIDED SCIATICA Assessment: 64 YO MALE REF TO PT W KHOI LBP- HE CURRENTLY DENIES Lt LE RADICULAR SXS. HE NOTES HE HAS THESE EPISODES OF LBP IN THE WINTER DUE TO THE COLD WEATHER.. HE PRESENTED TODAY AMB W A CANE, AND, AT TIMES A WALKER. HE HAS DECR POSTURAL AWARENESS W C- CURVE Lt AND MILD LLI, MILD TIGHTNESS IN HIPS AND ANKLES, DECR TRUNK AROM- HE HAS DECR RAMSEY TO PROLONGED AMB, BENDING, AND LIFTING. HE WOULD BENEFIT FROM PT TO ADDRESS THE ABOVE FINDINGS AND MAXIMIZE FUNCT MOB RAMSEY Frequency and Duration: The patient will be seen 2 x WK x 4 WKS Short Term Goals: DECR LBP TO 2-3/ INITIATE HEP FOR HIP/ TUNK FLEXIB IMROVE SELF CORRECT POSTURE AND BODY MECH Care Home Goals: INDEP W HEP AND SELF SX MGMT TECHN Pt DEMON APPROP BODY MECH W 3:3 SIMUL ADLS Pt ZEV WFL FUNCT SQUAT/ IMPROVED FUNCT MOB EVIDENT W IMPROVED OSWESTRY SCORE Treatment Plan: Modalities to reduce pain, spasms and effusion. Manual therapy to restore motion and function. Therapeutic exercise to improve strength and flexibility. Neuromuscular re-education for posture and balance. Therapeutic activities to return to functional activities of daily living. Electronically signed by: ORESTES CLEVELAND,PT Please sign and return to therapist. Thank you for your referral.
--- NOTE | 2025-03-05 14:53 | MHC.PT.DC ---
[facility] [employer] [facility] [place] Office [place] Office [address] Shaylee Dewitt [address] [phone] F: [phone] F: [phone] F: [phone] F: [phone] Physical Therapy Discharge Report Diagnosis: LEFT SIDED SCIATICA Date of Surgery: Date of Evaluation: 01/08/25 Date of Discharge: 03/05/25 Treatments to Date: 1 Cancellations to Date: 5 No Shows to Date: Discharge Status: Patient Elected to Stop Visit Non-compliance Discharge Summary: THE Pt DID NOT RETURN FOR SCHED PT APPTS AND HE DID NOT MEET HIS PT GOALS- Electronically signed by: Kyleigh Koroma,PT Please sign and return to therapist. Thank you for your referral.
== END 2025-03-05 14:49 | disposition home or self-care (01) ==
LOC: HO.PT 09:40
PROVIDERS: PCP Internal Medicine; Visit Provider Internal Medicine
DX: M54.32 Sciatica, left side (principal)
CPT/HCPCS: 97110; 97162

== ENCOUNTER 2025-01-25 17:30 | Emergency (ER) | payer OTHER, SELFPAY ==
--- NOTE | ~2025-01-25 | XR_ITS ---
CLINICAL HISTORY: chest pain Single view of the chest. COMPARISON: XR chest dated 06/19/24 at 10:13 EDT FINDINGS: Tendon anchors present within the right humeral head. Borderline cardiomegaly. No consolidation. No pleural effusion or pneumothorax. Mild spondylosis. No acute fracture. IMPRESSION: 1. No consolidation. This document has been electronically signed by: Keegan Brown MD on 01/25/2025 18:18:05
[2025-01-25 17:41] VITALS: BP 146/72; PULSE 70; O2SAT 100
--- NOTE | 2025-01-25 17:44 | ECG_ITS ---
Test Reason : CHEST PAIN Blood Pressure : */* mmHG Vent. Rate : 59 BPM Atrial Rate : 59 BPM P-R Int : 158 ms QRS Dur : 92 ms QT Int : 410 ms P-R-T Axes : 40 85 21 degrees QTcB Int : 405 ms Sinus bradycardia Otherwise normal ECG When compared with ECG of 25-Jan-2024 08:37, Questionable change in QRS axis Referred By: Jeimy Benz Electronically Signed By: FAHAD HARO
--- NOTE | 2025-01-25 17:46 | ED.CHESTPAIN ---
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 NO associated cough, fevers, nausea, dyspnea. He feels dizzy. He states he cannot make it worse or better. He notes this is the same pain he had prior to his clean cardiac cath. No recent travel or procedures. His BS has been 170s and his BP was high but he does not know the number. Took 324mg [employer]. Headache from nitro no relief with nitro. MD complaint: chest pain Pertinent past history: other (chest pain) Onset (ago): day(s) (2) Onset: during rest Pain location: substernal Pain radiation: left arm Severity: moderate Quality: other (pressure) Relieving factors: nothing Exacerbating factors: nothing Associated symptoms: other (dizziness) Treatment prior to arrival: aspirin Related Data Home Medications ?Medication ?Instructions ?Recorded ?Confirmed aspirin 81 mg tablet,delayed 81 mg PO DAILY 02/10/23 12/17/24 release triamcinolone acetonide 55 mcg 1 spray intranasal DAILY PRN 04/05/23 12/17/24 nasal spray aerosol ixekizumab 80 mg/mL subcutaneous 80 mg subcut Q4W 03/28/24 12/17/24 auto-injector (Taltz Autoinjector) Previous Rx's ?Medication ?Instructions ?Recorded cane #1 ea 11/20/20 sennosides 8.6 mg tablet 17.2 mg (2 x 8.6 mg) PO BEDTIME 09/22/21 PRN Constipation 90 days #90 tabs amitriptyline 25 mg tablet 25 mg PO BEDTIME 90 days #90 tabs 09/23/21 acetaminophen 500 mg tablet 1,000 mg (2 x 500 mg) PO Q6H PRN 10/05/21 (Acetaminophen Extra Strength) pain #30 tabs nebulizers (AeroEclipse II #1 ea 08/05/22 Nebulizer) nitroglycerin 0.4 mg sublingual 0.4 mg sublingual Q5M PRN chest 01/17/23 tablet pain #30 tabs montelukast 10 mg tablet 10 mg PO DAILY 90 days #90 tabs 03/19/24 pantoprazole 40 mg tablet,delayed 40 mg PO DAILY 90 days #90 tabs 03/19/24 release gabapentin 300 mg capsule 300 mg PO BEDTIME 90 days #90 caps 04/06/24 albuterol sulfate 90 mcg/actuation 2 puff inhalation Q4-6H PRN 06/19/24 aerosol inhaler shortness of breath or wheezing #8.5 grams fluticasone furoate 100 1 inh inhalation DAILY #60 ea 07/23/24 mcg-vilanterol 25 mcg/dose inhalation powder (Breo Ellipta) hydrocodone-homatropine 5 mg-1.5 5 ml PO Q6H 7 days #140 mL 09/05/24 mg/5 mL oral solution ubrogepant 100 mg tablet (Ubrelvy) 50 - 100 mg (0.5 - 1 x 100 mg) PO 09/07/24 ONCE PRN migraine headache 30 days #16 tabs albuterol sulfate 2.5 mg/3 mL 2.5 mg (3 mL) inhalation Q4-6H PRN 09/10/24 (0.083 %) solution for nebulization shortness of breath or wheezing #180 mL nystatin 100,000 unit/gram topical 1 appl topical BID PRN rash 2 09/20/24 cream weeks #30 grams walker #1 ea 11/08/24 hbvlkavc-zgohcgexy-zeniluvdr 3.5 4 drp otic (ear) left QID 7 days 12/13/24 mg/mL-10,000 unit/mL-1 % ear #10 mL solution pyridoxine (vitamin B6) 100 mg 100 mg PO DAILY 90 days #90 tabs 12/17/24 tablet tamsulosin 0.4 mg capsule (Flomax) 0.4 mg PO BEDTIME 90 days #90 caps 12/17/24 rosuvastatin 40 mg tablet 40 mg PO DAILY #90 tabs 01/08/25 sucralfate 100 mg/mL oral 10 ml PO BID 7 days #140 mL 01/25/25 suspension (Carafate) Allergies Allergy/AdvReac Type Severity Reaction Status Date / Time acetaminophen Allergy Severe Difficulty Verified 01/25/25 18:18 [From Tylenol-Codeine] Breathing codeine Allergy Severe Difficulty Verified 01/25/25 18:18 [From Tylenol-Codeine] Breathing atorvastatin [Lipitor] Allergy Intermediate elevated Verified 01/25/25 18:03 liver enzymes certolizumab pegol AdvReac Severe headaches Verified 01/25/25 18:03 Review of Systems Review of Systems: Constitutional : No Weight loss, No Fever, No Chills ENT/Mouth : No sore throat, No Rhinorrhea Eyes: No Eye Pain, No Swelling Cardiovascular : pos Chest Pain, no SOB, no Dyspnea on Exertion, No Orthopnea, No Edema, No Palpitations Respiratory : No Cough, No Sputum Gastrointestinal : no Nausea, No Vomiting, No Diarrhea, No abdominal Pain, No Hematochezia, No Melena Genitourinary : No Dysuria, No Urinary Frequency Musculoskeletal : No joint pain, No Myalgias, No Joint Swelling Skin : No Skin Lesions, No rash Neuro : No Weakness, No Numbness, pos Dizziness, No Headache All other systems reviewed and are negative [facility] Past Medical History Attestation statement: The following information was validated with the patient. Source: old records reviewed Medical History Atherosclerotic cardiovascular disease UTI (urinary tract infection) Hospital discharge follow-up Hematuria Leukocytosis Left inguinal hernia Back pain Constipation by delayed colonic transit GERD (gastroesophageal reflux disease) Chest pain Psoriatic arthritis Moderate asthma Pure hypercholesterolemia Unintentional weight loss Surgical History S/P cardiac catheterization Hx of colonoscopy H/O enucleation of right eyeball Hx laparoscopic cholecystectomy History of eye prosthesis History of corneal transplant Family History Family History Father Kidney failure Mother Diabetes Stroke Alzheimer disease Brother Cancer of kidney Sister Breast cancer Brother Lung cancer Social History Social History Housing: House Alcohol intake: current Alcohol intake frequency: holidays/special occasions only Alcohol type: beer Patient Tobacco Use Status: Never used Tobacco Tobacco use type: Cigarette Smoked in Last 30 Days: No e-Cigarette/Vaping Use: Never Used Second Hand Smoke Exposure: No Use of substances other than those prescribed or required for medical reasons: No Advance Directives: No Advance Directives Information Provided: Yes Do you have a plan to hurt others: No Plan service: No Current occupational status: disabled Cognitive needs: No Hearing needs: No Vision needs: Yes (Glasses) Physical Exam Vital Signs: Vital Signs: Last Vital Signs Temp 98.0 F 01/25/25 18:01 Pulse 59 01/25/25 18:01 Resp 18 01/25/25 18:01 BP 142/69 H 01/25/25 18:01 Pulse Ox 97 01/25/25 18:01 O2 Del Method Room Air 01/25/25 18:01 BMI result Body Mass Index 25.8 Appearance: Alert. Oriented X3. No acute distress. Eyes: Pupils equal, round and reactive to light. ENT: Pharynx normal. Neck: Normal inspection. Neck supple. CVS: Normal heart rate and rhythm. Pulses normal. Respiratory: No respiratory distress. Breath sounds diminished throughout Abdomen: Soft and nontender. Skin: Skin warm and dry. Normal skin color. Normal skin turgor. Extremities: No lower extremity edema. No calf ttp Neuro: Oriented X 3. No motor deficit. No sensory deficit. CN2-12 intact Medications Administered Discontinued Medications Generic Name Dose Route Start Last Admin Trade Name Freq PRN Reason Stop Dose Admin Acetaminophen 650 mg 01/25/25 17:59 01/25/25 18:20 Acetaminophen 325 Mg Tablet PO 01/25/25 18:00 650 mg ONCE ONE Administration Medical Decision Making Medical Decision Making [facility] Narrative: 64 yo male with PMH of chest pain with normal CTA and clean cardiac cath non obs disease in 2022, asthma, BPH, HLD, GERD here with c/o chest pressure no associated symptoms had same symptoms with clean cardiac cath at this time atypical in nature he has no risk factors or signs of DVT - will obtain basic labs, troponin, EKG and CXR. His pulses are intact doubt dissection. He has had this pain many times before. Differential Diagnosis Differential Diagnoses: The differential diagnosis associated with the presentation includes atypical chest pain, chest wall pain, bronchospasm Admission/Observation Consideration of admission/observation: Escalation of care including admission/observation considered slight drop in hemoglobin but abdomen is benign, no GIB symptoms reported he is on PPI will add on carafate labs and trop/EKG/cxr reassuring Lab Data [facility] Lab Attestation statement: I reviewed the patient's lab results. 01/25/25 17:55 01/25/25 17:55 Labs: Lab Results 01/25/25 Range/Units 17:55 WBC 6.0 (4.8-10.8) X10*3/uL RBC 5.02 (4.60-5.80) X10*6/uL Hgb 13.4 L (14.0-18.0) g/dl Hct 39.5 L (42.0-52.0) % MCV 78.7 L (80.0-98.0) fL MCH 26.7 L (27.0-33.0) pg MCHC 33.9 (31.0-36.0) g/dl RDW 13.7 (11.0-16.0) % Plt Count 278 (160-400) X10*3/uL MPV 10.6 (9.4-12.4) fL Immature Gran % (Auto) 0.3 (0.0-0.4) % Neut % (Auto) 53.0 (45-73) % Lymph % (Auto) 33.3 (20-40) % [place] % (Auto) 8.7 (2-11) % Eos % (Auto) 4.0 (0-4) % Baso % (Auto) 0.7 (0-2) % Lymph # (Auto) 2.0 (1.2-4.9) X10*3/uL [place] # (Auto) 0.5 (0.1-1.2) X10*3/uL Eos # (Auto) 0.2 (0.0-0.4) X10*3/uL Baso # (Auto) 0.0 (0.0-0.2) X10*3/uL Abs Immat Gran (auto) 0.02 (0.00-0.03) X10*3/uL Absolute Neuts (auto) 3.2 (2.0-8.3) x10*3/uL Absolute Nucleated RBC 0.000 (0.0-0.012) X10*3/uL Nucleated RBC % (auto) 0.0 (0.0-0.2) /100WBC Sodium 138 (135-145) mmol/L Potassium 3.7 (3.3-5.1) mmol/L Chloride 107 (96-108) mmol/L Carbon Dioxide 25 (22-29) mmol/L Anion Gap 10 L (12-20) BUN 17 H (9-16) mg/dL Creatinine 0.77 (0.5-1.4) mg/dL Estim Creat Clear Calc 81.1 Estimated GFR > 60 Random Glucose 120 H (60-115) mg/dL Calcium 9.0 (8.4-10.2) mg/dL Magnesium 2.0 (1.6-2.6) mg/dL Total Bilirubin 0.7 (0.0-1.0) mg/dL Direct Bilirubin 0.2 (0.0-0.5) mg/dL AST 19 (5-37) U/L ALT 24 (0-40) U/L Troponin I High Sens < 2.7 (<3.5-35.0) ng/L B-Natriuretic Peptide 33 (<100) pg/mL Total Protein 6.5 (6.5-8.0) g/dL Albumin 4.0 (3.5-5.0) g/dL Lipase 61 (8-78) U/L Independent Interpretation I performed an independent interpretation of an: EKG and Plain X-Ray (normal ) Interpretation: Rate: 59 Rhythm: sinus bradycardia Stowell: normal Normal P waves. Normal DICK. Normal QRS complex. ST T wave : normal no MARIANNA qTC: 405 prior studies: no acute ischemia The study has been interpreted contemporaneously by me. . Radiology Impression Discussion of test interpretation with radiology: I have reviewed the radiologist's reading. Independent Historian Clinical information obtained from an independent historian. History obtained from or confirmed by: EMS External Record Review External record reviewed: Inpatient record and Outpatient record Prescription Management I considered prescription management with: Other Discharge Plan Discharge Clinical Impression: Atypical chest pain Patient Disposition: Home, Self-Care Instructions: Chest Pain (ED) Additional Instructions: EKG and chest xray reassuring mild dehydration could be your stomach I am going to add a medicine to coat your stomach return for worsening pain, fevers, black or bloody stools, or any other concerns. Prescriptions: New sucralfate [Carafate] 100 mg/mL suspension 10 ml PO BID 7 Days Qty: 140 0RF No Action (DME) cane Device See Rx Instructions .ROUTE .MEDSUPPLY Qty: 1 0RF Rx Instructions: As directed amitriptyline 25 mg tablet 25 mg PO BEDTIME 90 Days Qty: 90 1RF (DME) nebulizers [AeroEclipse II Nebulizer] Misc See Rx Instructions .Route Qty: 1 0RF Rx Instructions: As directed pantoprazole 40 mg tablet,delayed release (DR/EC) 40 mg PO DAILY 90 Days Qty: 90 1RF montelukast 10 mg tablet 10 mg PO DAILY 90 Days Qty: 90 0RF hydrocodone-homatropine 5-1.5 mg/5 mL syrup 5 ml PO Q6H 7 Days Qty: 140 0RF Rx Instructions: Partial Fill upon patient request. nystatin 100,000 unit/gram cream 1 appl topical BID PRN (Reason: rash) 14 Days Qty: 30 0RF rosuvastatin 40 mg tablet 40 mg PO DAILY Qty: 90 3RF albuterol sulfate 90 mcg/actuation HFA aerosol inhaler 2 puff inhalation Q4-6H PRN (Reason: shortness of breath or wheezing) Qty: 8.5 0RF sennosides 8.6 mg tablet 17.2 mg PO BEDTIME PRN (Reason: Constipation) 90 Days Qty: 90 1RF acetaminophen [Acetaminophen Extra Strength] 500 mg tablet 1,000 mg PO Q6H PRN (Reason: pain) Qty: 30 0RF Taltz Autoinjector 80 mg/mL auto-injector 80 mg subcut Q4W gabapentin 300 mg capsule 300 mg PO BEDTIME 90 Days Qty: 90 1RF tamsulosin [Flomax] 0.4 mg capsule 0.4 mg PO BEDTIME 90 Days Qty: 90 3RF pyridoxine (vitamin B6) 100 mg tablet 100 mg PO DAILY 90 Days Qty: 90 3RF albuterol sulfate 2.5 mg /3 mL (0.083 %) solution for nebulization 2.5 mg inhalation Q4-6H PRN (Reason: shortness of breath or wheezing) Qty: 180 0RF Ubrelvy 100 mg tablet 50 - 100 mg PO ONCE PRN (Reason: migraine headache) 30 Days Qty: 16 6RF Rx Instructions: take at onset of migraine, may repeat in 2hrs (may take w/ Ibuprofen) xrvanqhc-onqtlfckl-FC 3.5-10,000-1 mg/mL-unit/mL-% solution 4 drp otic (ear) left QID 7 Days Qty: 10 0RF nitroglycerin 0.4 mg tablet, sublingual 0.4 mg sublingual Q5M PRN (Reason: chest pain) Qty: 30 5RF Rx Instructions: do not exceed 3 doses per episode aspirin 81 mg tablet,delayed release (DR/EC) 81 mg PO DAILY triamcinolone acetonide 55 mcg aerosol,spray 1 spray intranasal DAILY [place] [place]er [facility] See Rx Instructions .Route Qty: 1 0RF Rx Instructions: As directed fluticasone furoate-vilanterol [Breo Ellipta] 100-25 mcg/dose blister with device 1 inh inhalation DAILY Qty: 60 6RF Print Language: Austrian
[2025-01-25 18:01] VITALS: BP 142/69; PULSE 59; RESP 18; TEMP 36.7; O2SAT 97; BMI 25.8
[2025-01-25 18:01] LABS: MANUAL DIFF FLAG NO
[2025-01-25 18:03] LABS: Basophils Percent Auto 0.7 % (0-2); Eosinophils Absolute Auto 0.2 X10*3/uL (0.0-0.4); Hematocrit 39.5 % (42.0-52.0); Hemoglobin 13.4 g/dl (14.0-18.0); Imm Gran Abs Auto 0.02 X10*3/uL (0.00-0.03); Imm Gran Pct Auto 0.3 % (0.0-0.4); Lymphocytes Percent Auto 33.3 % (20-40); Mean Corpuscular HGB Conc 33.9 g/dl (31.0-36.0); Mean Corpuscular Hemoglobin 26.7 pg (27.0-33.0); Mean Corpuscular Volume 78.7 fL (80.0-98.0); Mean Platelet Volume 10.6 fL (9.4-12.4); Monocytes Absolute Auto 0.5 X10*3/uL (0.1-1.2); Monocytes Percent Auto 8.7 % (2-11); Neutrophils Absolute Auto 3.2 x10*3/uL (2.0-8.3); Platelet Count 278 X10*3/uL (160-400); Red Blood Count 5.02 X10*6/uL (4.60-5.80); Red Cell Distribution Width 13.7 % (11.0-16.0)
[2025-01-25] MEDS: Acetaminophen 325 MG TABLET 650 MG PO (18:20)
[2025-01-25 18:26] LABS: B Type Natriuretic Peptide 33 pg/mL (<100)
[2025-01-25 18:30] LABS: Troponin-I High Sensitivity < 2.7 ng/L (<3.5-35.0)
[2025-01-25 18:31] LABS: Alanine Aminotransferase 24 U/L (0-40); Anion Gap 10 (12-20); Aspartate Amino Transferase 19 U/L (5-37); Bilirubin Direct 0.2 mg/dL (0.0-0.5); Bilirubin Total 0.7 mg/dL (0.0-1.0); Blood Urea Nitrogen 17 mg/dL (9-16); Carbon Dioxide 25 mmol/L (22-29); Chloride 107 mmol/L (96-108); Creatinine Clr Calc Pharmacy 81.1; Estimated Glomerular Filt Rate > 60; Glucose Random 120 mg/dL (60-115); Potassium 3.7 mmol/L (3.3-5.1); Sodium 138 mmol/L (135-145); Total Protein 6.5 g/dL (6.5-8.0)
[2025-01-25 18:32] LABS: Lipase 61 U/L (8-78)
[2025-01-25 18:50] LABS: Influenza A PCR NEGATIVE (Negative); Influenza B PCR NEGATIVE (Negative); Resp Syncy Virus RNA Qual PCR NEGATIVE (Negative); SARS COV2 PCR INHOUSE NEGATIVE (Negative)
[2025-01-25 19:04] VITALS: BP 123/68; PULSE 57; RESP 18; TEMP 36.6; O2SAT 99
[2025-01-25 19:06] LABS: Alkaline Phosphatase 60 U/L (39-117)
== END 2025-01-25 19:06 | disposition home or self-care (01) ==
PROVIDERS: Emergency Provider Emergency Medicine; PCP Internal Medicine
DX: R07.89 Other chest pain (principal); R00.1 Bradycardia, unspecified; Z03.818 Encounter for observation for suspected exposure to other biological agents ruled out; E78.00 Pure hypercholesterolemia, unspecified; J45.909 Unspecified asthma, uncomplicated; Z79.02 Long term (current) use of antithrombotics/antiplatelets
CPT/HCPCS: 0241U; 71045; 80048; 80076; 83690; 83735; 83880; 84484; 85025; 93005; 99283; 99284

== ENCOUNTER → 2025-01-25 17:44 | Outpatient (BNV) | payer OTHER, SELFPAY | PROVIDERS: Emergency Provider Emergency Medicine; PCP Internal Medicine; Visit Provider Internal Medicine | DX: R07.9 Chest pain, unspecified (principal); R00.1 Bradycardia, unspecified | CPT/HCPCS: 93010 ==

== ENCOUNTER → 2025-01-25 17:44 | Outpatient (BNV) | payer OTHER, SELFPAY | PROVIDERS: Emergency Provider Emergency Medicine; PCP Internal Medicine; Visit Provider Radiology Diagnostic Radiology | DX: R07.9 Chest pain, unspecified (principal) | CPT/HCPCS: 71045 ==

== ENCOUNTER 2025-01-28 15:24 | Outpatient (AMB) | payer OTHER, SELFPAY ==
--- NOTE | 2025-01-28 12:59 | MHC.OFFVIS ---
Vital Signs 01/28/25 15:26 Height 5 ft 4 in Weight 152 lb 1.903 oz BMI 26.1 BP 98/66 Blood Pressure Location Rt brachial Position Sitting Pulse 59 Pulse Source Pulse Oximeter Pulse Oximetry (%) 98 Oxygen Delivery Method Room Air Intake Visit Reasons: Asthma Intake Note: Pt was seen in the ER for chest pain this past Tue Hospital Account Manager Required: Yes Hospital Account Manager Language: Horse Trader Services: Hospital Account Manager Present Hospital Account Manager Name: Vicky Lizzie MOSQUEDA Allergies acetaminophen [From Tylenol-Codeine] Allergy (Severe, Verified 01/28/25 15:31) Difficulty Breathing codeine [From Tylenol-Codeine] Allergy (Severe, Verified 01/28/25 15:31) Difficulty Breathing atorvastatin [Lipitor] Allergy (Intermediate, Verified 01/28/25 15:31) elevated liver enzymes certolizumab pegol Adverse Reaction (Severe, Verified 01/28/25 15:31) headaches HPI HPI Asthma: Details: Cole is a pleasant 64-year-old male, never smoker, with underlying asthma, psoriasis, and high cholesterol. He has been well controlled on Breo and Singulair, using albuterol MDI infrequently. Currently he denies any respiratory symptoms. He was recently evaluated in the ER for continued chest pain and has upcoming appt with cardiology tomorrow for further evaluation. Otherwise denies any visits to urgent care or hospitalizations related to respiratory distress since the last visit. [facility] Medical History Atherosclerotic cardiovascular disease UTI (urinary tract infection) Hospital discharge follow-up Hematuria Leukocytosis Left inguinal hernia Back pain Constipation by delayed colonic transit GERD (gastroesophageal reflux disease) Chest pain Psoriatic arthritis Moderate asthma Pure hypercholesterolemia Unintentional weight loss Surgical History S/P cardiac catheterization Hx of colonoscopy H/O enucleation of right eyeball Hx laparoscopic cholecystectomy History of eye prosthesis History of corneal transplant Family History Father Kidney failure Mother Diabetes Stroke Alzheimer disease Brother Cancer of kidney Sister Breast cancer Brother Lung cancer Social History Housing: House Alcohol intake: current Alcohol intake frequency: holidays/special occasions only Alcohol type: beer Patient Tobacco Use Status: Never used Tobacco Tobacco use type: Cigarette e-Cigarette/Vaping Use: Never Used Second Hand Smoke Exposure: No service: No Current occupational status: disabled Cognitive needs: No Hearing needs: No Vision needs: Yes (Glasses) Review of Systems Const Denies chills, Denies excessive sweating, Denies fever(s), Denies headache(s) and Denies night sweats Eyes Denies dry eyes, Denies irritation and Denies itchy eyes ENT Reports Normal hearing present, Denies headache(s), Denies nasal congestion, Denies nasal discharge, Denies post nasal drip and Denies sore throat Card Denies chest pain, Denies chest pain at rest, Denies chest pain with activity, Denies claudication, Denies leg edema, Denies dyspnea, Denies dyspnea on exertion, Denies orthopnea and Denies paroxysmal nocturnal dyspnea Resp Denies chest congestion, Denies cough, Denies excessive phlegm production, Denies pain on inspiration, Denies pain with cough, Denies dyspnea, Denies dyspnea on exertion, Denies stridor and Denies wheezing Musc Denies myalgias Neuro Reports Normal hearing present and Denies headache(s) Endo Denies excessive sweating Maurice/Lymph Denies lymphadenopathy Aller/Immun Denies itchy eyes, Denies seasonal rhinorrhea and Denies wheezing Physical Exam Vital Signs: Last Vital Signs Pulse 59 01/28/25 15:26 BP 98/66 01/28/25 15:26 Pulse Ox 98 01/28/25 15:26 Oxygen Delivery Method Room Air 01/28/25 15:26 BMI result Body Mass Index 26.1 Const General: cooperative, healthy appearing, comfortable, no acute distress, well developed and alert Orientation/consciousness: patient oriented x3 Limitations: no limitations HEENT Head: Yes normal to inspection, Yes normocephalic and Yes atraumatic Ears: hearing grossly normal bilaterally and external ears normal Eyes General: appearance normal, both eyes and all related structures Eyelids: Yes eyelids normal Sclerae: sclerae normal EOM: EOMs intact bilaterally Neck Neck: Yes normal visual inspection and Yes no lymphadenopathy Lymphatic: no lymphadenopathy noted Chest Chest palpation & inspection: normal inspection of the chest Resp Effort & Inspection: normal respiratory effort, able to speak in complete sentences, no audible wheezes, no cough, no stridor, not tachypneic, no tripod positioning and no use of accessory muscles Auscultation: clear to auscultation bilaterally Cardio Jugular venous distension: no JVD Rate: regular rate Rhythm: regular rhythm Skin Other: warm, dry General skin exam: no rashes or lesions noted Neuro General: patient oriented x3 Cranial nerves: Yes Normal hearing present Cognition (Neuro): normal cognition Gait exam (Neuro): Normal gait present Extrem General: Yes normal to inspection, Yes capillary refill normal, Yes no clubbing, cyanosis or edema and Yes no pedal edema Psych Appearance: grossly normal and well kempt Speech and movement: Normal speech and movement present and Clear speech present Affect: normal affect Attitude: cooperative Thought process: Normal thought process present Thought content: Normal thought content present Insight: Good insight present (Psych) Judgement: Good judgement present (Psych) Results Reviewed Results Reviewed: [address] [address] [address] Scan Report Signed Patient: Cole Malone MR#: [id number] : 1960 Acct:[id number] Age/Sex: 64 / M ADM Date: 10/23/24 Loc: HO.CT Attending Dr: Tahmina Serrato NP Ordering Physician: Tahmina Serrato NP Date of Service: 10/23/24 Procedure(s): CT chest wo IV con Accession Number(s): [id number] cc: Zonia Capellan MD; Tahmina Serrato NP~ Report Number: [id number]: Total DLP = 218.00 mGy-cm CLINICAL HISTORY: R94.2 - Abnormal results of pulmonary function studies CT chest without contrast Comparison: CR/DC/SR - XR CHEST 1V - 06/19/24 10:13 EDT Findings: No mediastinal mass or lymphadenopathy. No cardiomegaly. Mild calcified coronary artery disease. Normal aorta with trace amount of calcified atherosclerotic disease. Calcified granuloma. Minimal amount of subsegmental atelectasis versus linear scarring. 3 mm bleb at the right lung apex. No pneumothorax or pleural effusion. No acute osseous or soft tissue abnormality. 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 Status post cholecystectomy. Impression: No findings to explain the patient's presentation. 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 There was note of restrictive ventilatory defect consistent mild restrictive lung disease on prior PFT, chest CT reviewed today which revealed calcified granuloma otherwise no significant pulmonary findings. All questions were answered and patient is in agreement of plan. Will follow up in 3-6 months or sooner if needed. Medications: Refilled fluticasone furoate-vilanterol 100-25 mcg/dose (Breo Ellipta) 1 inh inhalation DAILY 60 ea 6RF albuterol sulfate 90 mcg/actuation 2 puffs inhalation Q4-6H PRN 8.5 grams 0RF shortness of breath or wheezing Coding Level of Care Code Est Pt Level 3 (52825) Diagnoses Asthma J45.909 Cough R05.9 Restrictive ventilatory defect R94.2
[2025-01-28 15:26] VITALS: BP 98/66; PULSE 59; O2SAT 98; BMI 26.1
--- OUTSIDE RECORDS SUMMARY | 2025-01-28 15:26 | XMS_ITS | Encounter Summary ---
Author Organization [facility] Address [address] [place] [address] Care Team Providers Care Site Coordinator Name Role Phone Community, Pcp Primary Care Provider Zonia Camacho MD Primary Care Provider Dee giraldo Encounter Details Date Type Department Care Team Description 06/06/2018 Refill Dermatology - [place] [address] [place] [address] Daisy Mary PA-C Social History Tobacco Use [...] on filedocumented in this encounter Care Teams Site Coordinator Relationship Specialty Start Date End Date Community, Pcp PCP - General Internal Medicine 04/09/16 04/13/22 Zonia Ashraf MD PCP - General Internal Medicine 04/14/22 documented as of this encounter
--- OUTSIDE RECORDS SUMMARY | 2025-01-28 15:26 | XMS_ITS | Encounter Summary ---
Author Organization [facility] Address [address] [place] [address] Care Team Providers Care Concrete Finisher Apprentice Name Role Phone Community, Pcp Primary Care Provider Zonia Camacho MD Primary Care Provider Dee giraldo Encounter Details Date Type Department Care Team Description 07/26/2017 Orders Only Dermatology - [place] [address] [place] [address] Daisy Mary PA-C Social History Tobacco Use [...] on filedocumented in this encounter Care Teams Concrete Finisher Apprentice Relationship Specialty Start Date End Date Community, Pcp PCP - General Internal Medicine 04/09/16 04/13/22 Zonia Ashraf MD PCP - General Internal Medicine 04/14/22 documented as of this encounter
--- OUTSIDE RECORDS SUMMARY | 2025-01-28 15:27 | XMS_ITS | Encounter Summary ---
Author Organization [facility] Address [address] [place] [address] Care Team Providers Care Container Repairer Name Role Phone Alexandru Black MD Primary Care Provider Leticia La MD Primary Care Provider Macey Haskins, Pcp Primary Care Provider Zonia Camacho MD Primary Care Provider Dee giraldo Encounter Details Date Type Department Care Team Description 05/30/2014 Ladle Patcher Report Medical Records [address] [place] [id number] [address] Garces Social History Tobacco Use Types [...] on filedocumented in this encounter Care Teams Container Repairer Relationship Specialty Start Date End Date Alexandru Black MD PCP - General Internal Medicine 09/21/13 09/18/14 Leticia Rush MD PCP - General Internal Medicine 09/19/14 04/08/16 Jozef, Gabby PCP - General Internal Medicine 04/09/16 04/13/22 Zonia Ashraf MD PCP - General Internal Medicine 04/14/22 documented as of this encounter
--- OUTSIDE RECORDS SUMMARY | 2025-01-28 15:27 | XMS_ITS | Encounter Summary ---
Author Organization [facility] Address [address] [place] [address] Care Team Providers Care Actor Understudy Name Role Phone Leticia Rush MD Primary Care Provider Macey Haskins, Pcp Primary Care Provider Zonia Camacho MD Primary Care Provider Dee giraldo Reason for Visit * Reason Comments E-prescribe Rx Request Encounter Details Date Type Department Care Team Description 11/01/2014 Refill Medicine/Pediatrics - [address] [address] Alexandru Black MD E-prescribe Rx Request Social History Tobacco Use Types Packs/Day Years Used Date Smoking Tobacco: Never Alcohol Use Standard Drinks/Week Comments No 0 (1 standard drink = 0.6 oz pur e alcohol) Sex Assigned at Date Recorded Not on file documented as of this encounter Miscellaneous Notes * Telephone Encounter - Leticia Rush MD - 11/01/2014 4:32 PM EST 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 These preceded his contract. Will need to m onitor and discuss at visit. Rx done. * Telephone Encounter - Flavia Lester M.A. - 11/01/2014 3:11 PM EST Last ov 08/20/14 next appt. 12/03/14 Component Value Date URINEOXYCOD NEGATIVE 08/20/2014 URBENZO NEGATIVE 08/20/2014 URAMPHETAMIN NEGATIVE 08/20/2014 URMARIJUANA NEGATIVE 08/20/2014 UROPIATES NEGATIVE 08/20/2014 URBARBITUATE NEGATIVE 08/20/2014 URCOCAINE NEGATIVE 08/20/2014 HYDROCODONE Negative 08/20/2014 Component Value Date ALB 4.6 08/20/2014 SGOT 17 08/20/2014 SGPT 33 08/20/2014 TBILI 1.1 08/20/2014 ALKPHOS 91 08/20/2014 TP 7.0 08/20/2014 * Telephone Encounter - Renetta Duran - 11/01/2014 12:08 PM EST Patient would like script to be: E-PRESCRIBED/FAXED TO PHARMACY WHEN WAS THE PATIENT'S LAST APPOINTMENT IN ADULT MEDICINE? [id number] WHEN WAS THE LAST TIME THE PATIENT SAW THEIR PCP? Same as above Does patient have an upcoming appointment? Yes [id number] (THE MEDICATION REQUESTED IS ON THE MED LIST ABOVE) All of the medications requested were on the CURRENT MEDS list Did you check the Pharmacy information above?: YES Patient wants: 30 -day supply Is this a mail order prescription request ? NO Patients current insurance carrier is: [place] / [place] / Product Type: MED[place]ARE [id number] documented in this encounter Plan of Treatment Not on file documented as of this encounter Visit Diagnoses Diagnosis Insomnia- Primary Insomnia, unspecified documented in this encounter Care Teams Actor Understudy Relationship Specialty Start Date End Date Leticia Rush MD PCP - General Internal Medicine 09/19[facility]14 [facility] 04/09/16 04/13/22 Zonia Ashraf MD PCP - General Internal Medicine 04/14/22 documented as of this encounter
--- OUTSIDE RECORDS SUMMARY | 2025-01-28 15:27 | XMS_ITS | Encounter Summary ---
Author Organization [facility] Address [address] [place] [address] Care Team Providers Care Mobile Designer Name Role Phone Leticia Rush MD Primary Care Provider Macey Haskins, Pcp Primary Care Provider Zonia Camacho MD Primary Care Provider Dee giraldo Encounter Details Date Type Department Care Team Description 09/26/2014 Farm Equipment Engine Mechanic Report Medical Records [address] [place] [id number] Maikol Casillas Social History Tobacco Use Types [...] on filedocumented in this encounter Care Teams Mobile Designer Relationship Specialty Start Date End Date Leticia Rush MD PCP - General Internal Medicine 09/19/14 04/08/16 Jozef, Pcp PCP - General Internal Medicine 04/09/16 04/13/22 Zonia Ashraf MD PCP - General Internal Medicine 04/14/22 documented as of this encounter
--- OUTSIDE RECORDS SUMMARY | 2025-01-28 15:27 | XMS_ITS | Encounter Summary ---
Author Organization [facility] Address [address] [place] [address] Care Team Providers Care Ski Edge Painter Name Role Phone Leticia Rush MD Primary Care Provider Macey Haskins, Pcp Primary Care Provider Zonia Camacho MD Primary Care Provider Dee grialdo Encounter Details Date Type Department Care Team Description 06/19/2015 Poly Area Supervisor Report Medical Records [address] [place] [address] Marline Warren MD Social History Tobacco Use [...] on filedocumented in this encounter Care Teams Ski Edge Painter Relationship Specialty Start Date End Date Leticia Rush MD PCP - General Internal Medicine 09/19/14 04/08/16 Jozef, Pcp PCP - General Internal Medicine 04/09/16 04/13/22 Zonia Ashraf MD PCP - General Internal Medicine 04/14/22 documented as of this encounter
--- OUTSIDE RECORDS SUMMARY | 2025-01-28 15:27 | XMS_ITS | Encounter Summary ---
Author Organization [facility] Address [address] [place] [address] Care Team Providers Care Plant Operations Engineer Name Role Phone Community, Pcp Primary Care Provider Zonia Camacho MD Primary Care Provider Dee giraldo Encounter Details Date Type Department Care Team Description 09/09/2017 Refill Dermatology - [place] [address] [place] [address] Daisy Mary PA-C Social History Tobacco Use Types Packs/Day Years Used Date Smoking Tobacco: Never Alcohol Use Standard Drinks/Week Comments No 0 (1 standard drink = 0.6 oz pur e alcohol) Sex Assigned at Date Recorded Not on file documented as of this encounter Miscellaneous Notes * Telephone Encounter - Mirela Hoyt MA. - 09/09/2017 10:05 AM EST Patient still havent received medication, I have called many times for this prescription to be shipped and still nothing. Prior auth was approved since 04/24/17 and not even one delivery. Prescription was resent 08/30/17 today I called and they are saying there is no prescription on file. Viv pleaserefill and call them to see if you can get them to delivery prescription since I have not have any luck. Pharmacy's number is documented in this encounter Plan of Treatment Not on file documented as of this encounter Visit Diagnoses Not on filedocumented in this encounter Care Teams Plant Operations Engineer Relationship Specialty Start Date End Date Community, Pcp PCP - General Internal Medicine 04/09/16 04/13/22 Zonia Ashraf MD PCP - General Internal Medicine 04/14/22 documented as of this encounter
--- OUTSIDE RECORDS SUMMARY | 2025-01-28 15:27 | XMS_ITS | Patient Health Record ---
Author Organization [facility] Address [address] [place] [address] Care Team Providers Care Medical Affairs Specialist Name Role Phone Zonia Capellan Primary Care [...] Problem Status W/U Status Risk Notes Problem [id number] Weight loss (R63.4) Active confirmed Problem [id number] LUQ pain (R10.12) Active confirmed Plan Of Treatment Future Test Test Name Order Date UPPER GI ENDOSCOPY 07/30/2020 COLONOSCOPY 07/30/2020 Insurance Providers Payer Name Payer Address Payer Phone Subscriber Number Group Number Insured Name Patient Relationship to Insured Coverage Start Date Coverage End Date [facility] [address] [place] [address] [id number] EREN VELAZCO Self - patient is the [...]
--- OUTSIDE RECORDS SUMMARY | 2025-01-28 15:27 | XMS_ITS | Encounter Summary ---
Author Organization [facility] Address [address] [place] [address] Care Team Providers Care Real Estate Transaction Coordinator Name Role Phone Alexandru lBack MD Primary Care Provider Leticia La MD Primary Care Provider Macey [facility], Pcp Primary Care Provider Zonia Camacoh MD Primary Care Provider Dee giraldo Reason for Visit * Reason Onset Date Comments radiology 10/31/2013 Encounter Details Date Type Department Care Team Description 10/31/2013 Telephone Orthopedics-[address] [address] Maico Bermudez PA radiology Social History Tobacco [...] region documented in this encounter Care Teams Real Estate Transaction Coordinator Relationship Specialty Start Date End Date Alexandru Black MD PCP - General Internal Medicine 09/21/13 09/18/14 Leticia Rush MD PCP - General Internal Medicine 09/19/14 04/08/16 [facility], Pcp PCP - General Internal Medicine 04/09/16 04/13/22 Zonia Ashraf MD PCP - General Internal Medicine 04/14/22 documented as of this encounter
--- OUTSIDE RECORDS SUMMARY | 2025-01-28 15:27 | XMS_ITS | Encounter Summary ---
Author Organization [facility] Address [address] [place] [address] Care Team Providers Care Skin Installer Name Role Phone Alexandru Black MD Primary Care Provider Leticia La MD Primary Care Provider Macey Haskins, Pcp Primary Care Provider Zonia Camacho MD Primary Care Provider Dee giraldo Encounter Details Date Type Department Care Team Description 03/25/2014 Transfer Records Medical Records [address] [place] [address] Abstract, Provider Social History Tobacco Use Types [...] on filedocumented in this encounter Care Teams Skin Installer Relationship Specialty Start Date End Date Alexandru Black MD PCP - General Internal Medicine 09/21/13 09/18/14 Leticia Rush MD PCP - General Internal Medicine 09/19/14 04/08/16 Jozef, Gabby PCP - General Internal Medicine 04/09/16 04/13/22 Zonia Ashraf MD PCP - General Internal Medicine 04/14/22 documented as of this encounter
--- OUTSIDE RECORDS SUMMARY | 2025-01-28 15:27 | XMS_ITS | Encounter Summary ---
Author Organization [facility] Address [address] [place] [address] Care Team Providers Care Pelt Shearer Name Role Phone Alexandru Black MD Primary Care Provider Leticia La MD Primary Care Provider Macey Haskins, Pcp Primary Care Provider Zonia Camacho MD Primary Care Provider Dee giraldo Encounter Details Date Type Department Care Team Description 11/22/2013 Release of Information Medical Records [address] [place] [id number] Abstract, Provider Social History Tobacco Use Types [...] on filedocumented in this encounter Care Teams Pelt Shearer Relationship Specialty Start Date End Date Alexandru Black MD PCP - General Internal Medicine 09/21/13 09/18/14 Leticia Rush MD PCP - General Internal Medicine 09/19/14 04/08/16 Jozef, Pcp PCP - General Internal Medicine 04/09/16 04/13/22 Zonia Ashraf MD PCP - General Internal Medicine 04/14/22 documented as of this encounter
--- OUTSIDE RECORDS SUMMARY | 2025-01-28 15:27 | XMS_ITS | Encounter Summary ---
Author Organization [facility] Address [address] [place] [address] Care Team Providers Care Printing Technician Name Role Phone Alexandru Black MD Primary Care Provider Leticia La MD Primary Care Provider Macey Haskins, Pcp Primary Care Provider Zonia aCmacho MD Primary Care Provider Dee giraldo Encounter Details Date Type Department Care Team Description 08/28/2014 Controlled Substance Contract with Plan Medical Records [address] [place] [id number] Abstract, Provider Social History Tobacco Use Types [...] on filedocumented in this encounter Care Teams Printing Technician Relationship Specialty Start Date End Date Alexandru Black MD PCP - General Internal Medicine 09/21/13 09/18/14 Leticia Rush MD PCP - General Internal Medicine 09/19/14 04/08/16 Jozef, Pcp PCP - General Internal Medicine 04/09/16 04/13/22 Zonia Ashraf MD PCP - General Internal Medicine 04/14/22 documented as of this encounter
--- OUTSIDE RECORDS SUMMARY | 2025-01-28 15:27 | XMS_ITS | Patient Health Record ---
Author Organization [facility] Address [address] [facility] [place] [address] Care Team Providers Care Male Impersonator Name Role Phone Marie WHITTEN, Zonia Primary Care Provider Unavail able Bharath Aikenen Unavailable [phone] Allergies No Known Allergies Reason For Referral [...] Insured Coverage Start Date Coverage End Date [facility] [employer] Claims [address] [place] [phone] [id number] Cole Malone Self - patient is the insured Medical (General) History Medical History History ICD Code Reflux ( GERD) Back pain chest pain asthma Psoriasis Hypercholesterolemia Arthritis Surgical History Surgery Date(Month/Year) cholecystectomy enucleation with prosthesis placement
--- OUTSIDE RECORDS SUMMARY | 2025-01-28 15:27 | XMS_ITS | Encounter Summary ---
Author Organization [facility] Address [address] [place] [address] Care Team Providers Care Motor Man Name Role Phone Community, Pcp Primary Care Provider Zonia Camacho MD Primary Care Provider Dee giraldo Encounter Details Date Type Department Care Team Description 08/29/2019 Telephone Dermatology - [place] [address] [place] [address] Daisy Mary PA-C Social History Tobacco Use Types Packs/Day Years Used Date Smoking Tobacco: Never Smokeless Tobacco: Never Alcohol Use Standard Drinks/Week Comments No 0 (1 standard drink = 0.6 oz pur e alcohol) Sex Assigned at Date Recorded Not on file documented as of this encounter Miscellaneous Notes * Telephone Encounter - Emmy Ospina M.A. - 09/04/2019 2:25 PM EST Spoke to Cole and he is all set with delivery, all information for delivery was taken, as soon as he gets the meds he will contact us to schedule matthew. * Telephone Encounter - Emmy Ospina M.A. - 09/04/2019 2:03 PM EST Try to contact patient in regards of yaneth, wanted to check if patient had already received a callto get his address info for delivery. * Telephone Encounter - Mirela Hoyt MA. - 08/29/2019 3:53 PM EST Prior auth has been submitted through covermymeds and has been approved only for the starter kit. Once patient receives his starting dose I will submit another prior auth for the maintenance documented in this encounter Plan of Treatment Not on file documented as of this encounter Visit Diagnoses Not on filedocumented in this encounter Care Teams Motor Man Relationship Specialty Start Date End Date Community, Pcp PCP - General Internal Medicine 04/09/16 04/13/22 Zonia Ashraf MD PCP - General Internal Medicine 04/14/22 documented as of this encounter
--- OUTSIDE RECORDS SUMMARY | 2025-01-28 15:27 | XMS_ITS | Continuity of Care Document ---
Author Organization [facility] Address [address] [facility] [address] [place] [address] Phone Care Team Providers Care Glazier Structural Glass Name Role Phone Queenie WHITTEN, [place] Unavailable [...] Provider Providers Copied on Encounter [facility], [address] [place] [address], [id number], tel:[phone] [facility] D) No Information Queenie [place]. [address], [address], . tel:[phone] Referring Provider: [place], [address], [facility]. tel:[phone] [facility], [address], [address] [place] [address] tel:[phone] [facility] No Information Queenie Ho. [address] [place] [address], [address] [place] [address]. tel:[phone] Referring Provider: Georgia Jerome MD, [address] [place] [address], [facility]. tel:[phone] Offic/outpt E&m Estab Low-mod [facility], [address] [place] [address], [address] [place] [address], tel:[phone] [facility] No Information No Information Offic/outpt E&m Estab Low-mod St christa, [address] [place] [address], [address] [place] [address], tel:[phone] [facility] No Information No Information [facility], [address] [place] [address], [address] [place] [address], tel:[phone] [facility] No Information Ko Watkins. [address] [place] [address], [address] [place] [address], . tel:[phone] Referring Provider: June Connell, [address] [place] [address], [address] [place] [address] . tel:[phone] [facility], [address] [place] [address], [address] [place] [address], tel:[phone] [facility] No Information Zach Vera. [address] [place] [address], [address] [place] [address], . tel:[phone] Referring Provider: Chuy Hill, [address] [place] [address], [address] [place] [address] . tel:[phone] Offic/outpt E&m Estab Low-mod [facility], [address] [facility] [address] [place] [address], [id number], tel:[phone] [facility] No Information Zach Vera. [address], [address] [place] [address], . tel:[phone] Referring Provider: Chuy Hill, [id number] [place] [address], [address] [place] [address] . tel:[phone] [facility], [address] [place] [address], [address] [place] [address], tel:[phone] [facility] No Information Zach Vera. [id number] [place] [address], [address] [place] [address], . tel:[phone] Referring Provider: Chuy Hill, [id number] [place] [address], [address] [place] [address] . tel:[phone] Offic/outpt E&m Estab Low-mod [facility], [id number] [place] [address], [address] [place] [address], tel:[phone] [facility] No Information No Information [facility], [address] [facility] [address] [place] [address], [address] [place] [address], tel:[phone] [facility] No Information Zach Vera. [address], [address] [place] [address], . tel:[phone] Referring Provider: Chuy Hill, [address] [place] [address], [address] [place] [address] . tel:[phone] Offic/outpt E&m Estab Low[facility]mod [facility], [address] [place] [address], [address] [place] [address], tel:[phone] [facility] No Information Zach Vera. [address] [place] [address], [address] [place] [address], . tel:[phone] Referring Provider: Chuy Hill, [address] [place] [address], [address] [place] [address] . tel:[phone] [facility], [address] [place] [address], [address] [place] [address], tel:[phone] [facility] No Information Zach Vera. [address] [place] [address], [address] [place] [address], . tel:[phone] Referring Provider: Chuy Hill, [address] [place] [address], [address] [place] [address] . tel:[phone] Offic/outpt E&m Estab Mod-hi 2 Jose, [address] [place] [address], [address] [place] [address], tel:[phone] [facility] No Information No Information [facility], [address] [place] [address], [id number], tel:[phone] [facility] No Information No Information [facility], [address] [place] [address], [id number], tel:[phone] [facility] No Information No Information St [facility], [address] [place] [address], [id number], tel:[phone] [facility] No Information No Information St [facility], [address], [id number], tel:[phone] [facility] No Information No Information [facility], [address], [place], [place], [id number], tel:[phone] [facility] No Information No Information [facility], [address], [id number], tel:[phone] [facility] No Information Robin BERMUDEZ Norah. [address], [facility], . tel:[phone] Offic/outpt E&m Estab Low-mod [facility], [address], [id number], tel:[phone] [facility] No Information No Information Offic Cons New/estab Mod-hi [address] [facility], [address] [place] [address], [id number], tel:[phone] [facility] No Information No Information Referring Provider: Henry Cooper, [address] [place], [address]. tel:[phone] Family History Family Member Type Diagnosis Age At Onset No Information Payers Payer name Insurance type Covered libertarian ID Authoriza tion(s) Medicare [id number] Medicaid [id number] Social History Type Description Quantity Date Captured [...]
--- OUTSIDE RECORDS SUMMARY | 2025-01-28 15:27 | XMS_ITS | Encounter Summary ---
Author Organization [facility] Address [address] [place] [address] Care Team Providers Care Ground Defence Officer Name Role Phone Leticia Rush MD Primary Care Provider Macey Haskins, Pcp Primary Care Provider Zonia Camacho MD Primary Care Provider Dee giraldo Encounter Details Date Type Department Care Team Description 11/06/2014 Access Registrar Report Medical Records [address] [place] [address] Maikol Casillas Social History Tobacco Use Types [...] on filedocumented in this encounter Care Teams Ground Defence Officer Relationship Specialty Start Date End Date Leticia Rush MD PCP - General Internal Medicine 09/19/14 04/08/16 Jozef, Pcp PCP - General Internal Medicine 04/09/16 04/13/22 Zonia Ashraf MD PCP - General Internal Medicine 04/14/22 documented as of this encounter
== END 2025-01-28 15:46 | disposition home or self-care (01) ==
LOC: HO.HPS 15:24
PROVIDERS: PCP Internal Medicine; Visit Provider Nurse Practitioner Family
DX: J45.909 Unspecified asthma, uncomplicated (principal); R05.9 Cough, unspecified; R94.2 Abnormal results of pulmonary function studies
CPT/HCPCS: 99213

== ENCOUNTER → 2025-01-28 15:24 | Outpatient (BNVA) | payer OTHER, SELFPAY | PROVIDERS: PCP Internal Medicine; Visit Provider Nurse Practitioner Family | DX: J45.909 Unspecified asthma, uncomplicated (principal); R05.9 Cough, unspecified; R94.2 Abnormal results of pulmonary function studies | CPT/HCPCS: 99212 ==

== ENCOUNTER 2025-01-30 08:48 | Outpatient (AMB) | payer OTHER, SELFPAY ==
[2025-01-30 09:02] VITALS: BP 110/62; PULSE 62; BMI 25.7
--- NOTE | 2025-01-30 09:02 | A.OFFVIS_ITS ---
Vital Signs 01/30/25 09:02 Height 5 ft 4 in Weight 149 lb 14.629 oz BMI 25.7 BP 110/62 Blood Pressure Location Lt brachial Position Sitting Pulse 62 Intake Visit Reasons: Follow up- Chest pain Intake Note: Follow-up ED for chest pain has been having some chest pain for a week Radio Board Operator Announcer Required: Yes Radio Board Operator Announcer Services: Radio Board Operator Announcer Offered & Declined Estimation Manager: Estimation Manager Present Accompanied by: Family/Other Allergies acetaminophen [From Tylenol-Codeine] Allergy (Severe, Verified 01/28/25 15:31) Difficulty Breathing codeine [From Tylenol-Codeine] Allergy (Severe, Verified 01/28/25 15:31) Difficulty Breathing atorvastatin [Lipitor] Allergy (Intermediate, Verified 01/28/25 15:31) elevated liver enzymes certolizumab pegol Adverse Reaction (Severe, Verified 01/28/25 15:31) headaches Medication List - Last Reconciled 01/30/25 by Dg Emanuel MD acetaminophen (Acetaminophen Extra Strength) 1,000 mg (2 x 500 mg) PO Q6H PRN albuterol sulfate 2.5 mg (3 mL) inhalation Q4-6H PRN albuterol sulfate 90 mcg/actuation 2 puffs inhalation Q4-6H PRN amitriptyline 25 mg PO BEDTIME 90 days aspirin 81 mg PO DAILY cane As directed fluticasone furoate-vilanterol 100-25 mcg/dose (Breo Ellipta) 1 inh inhalation DAILY hydrocodone-homatropine 5-1.5 mg/5 mL 5 mL PO Q6H 7 days ixekizumab (Taltz Autoinjector) 80 mg subcut Q4W montelukast 10 mg PO DAILY 90 days nebulizers (AeroEclipse II Nebulizer) As directed nitroglycerin 0.4 mg sublingual Q5M PRN nystatin 1 appl topical BID PRN 2 weeks pantoprazole 40 mg PO DAILY 90 days rosuvastatin 40 mg PO DAILY sennosides 17.2 mg (2 x 8.6 mg) PO BEDTIME PRN 90 days sucralfate (Carafate) 10 mL PO BID 7 days tamsulosin (Flomax) 0.4 mg PO BEDTIME 90 days triamcinolone acetonide 1 spray intranasal DAILY PRN ubrogepant (Ubrelvy) 50 - 100 mg (0.5 - 1 x 100 mg) PO ONCE PRN 30 days walker As directed HPI Comments Details: Cole returns for follow-up. In the past, he was seen in consultation regarding chest pain. No known cardiac issues in the past including coronary disease or cardiomyopathy. He was getting chest pains at different times including at nighttime. He underwent a comprehensive workup including coronary CTA followed by cardiac catheterization. In the catheterization, there was no evidence of obstructive CAD. He states he still gets chest pain off and on. Very random occurrence. Sounds very atypical for angina. He also has asthma and hence not clear if that has the reason. Most recently, he was seen in the emergency room again with chest pain. He states he was having pain for 3 days continuously. Some pleuritic components. Again sounds very atypical for cardiac. EKGs/high sensitivity troponins were unremarkable in the emergency room. [facility] Medical History Atherosclerotic cardiovascular disease UTI (urinary tract infection) Hospital discharge follow-up Hematuria Leukocytosis Left inguinal hernia Back pain Constipation by delayed colonic transit GERD (gastroesophageal reflux disease) Chest pain Psoriatic arthritis Moderate asthma Pure hypercholesterolemia Unintentional weight loss Surgical History S/P cardiac catheterization Hx of colonoscopy H/O enucleation of right eyeball Hx laparoscopic cholecystectomy History of eye prosthesis History of corneal transplant Family History Father Kidney failure Mother Diabetes Stroke Alzheimer disease Brother Cancer of kidney Sister Breast cancer Brother Lung cancer Social History Housing: House Alcohol intake: current Alcohol intake frequency: holidays/special occasions only Alcohol type: beer Patient Tobacco Use Status: Never used Tobacco Tobacco use type: Cigarette e-Cigarette/Vaping Use: Never Used Second Hand Smoke Exposure: No service: No Current occupational status: disabled Cognitive needs: No Hearing needs: No Vision needs: Yes (Glasses) Review of Systems Const Denies chills, Denies fatigue, Denies fever(s), Denies frequent falls, Denies weakness, Denies weight gain and Denies weight loss ENT Denies dizziness Card Denies chest pain, Denies leg edema, Denies lightheadedness, Denies palpitations, Denies dyspnea, Denies dyspnea on exertion, Denies orthopnea and Denies other (loss of consciousness) Resp Denies cough, Denies dyspnea and Denies dyspnea on exertion GI Denies hematochezia and Denies change in stool character Musc Denies abnormal gait, Denies muscle weakness, Denies numbness, Denies radiating pain into limb and Denies tingling Neuro Denies abnormal gait, Denies dizziness, Denies frequent falls, Denies numbness, Denies tingling and Denies weakness Endo Denies fatigue and Denies palpitations Physical Exam Vital Signs: Last Vital Signs Pulse 62 01/30/25 09:02 BP 110/62 01/30/25 09:02 BMI result Body Mass Index 25.7 Const General: comfortable and no acute distress Orientation/consciousness: patient oriented x3 HEENT Other: Unremarkable Head: Yes normal to inspection Neck Neck: Yes normal visual inspection Chest Chest palpation & inspection: normal inspection of the chest Resp Auscultation: clear to auscultation bilaterally Cardio Palpation: normal PMI Heart sounds: S1 normal heart sound present, S2 normal heart sound present, no gallops, no murmurs and no rubs GI Palpation (GI): Soft to palpation Back/Spine/Pelvis Other: unremarkable Skin General skin exam: no rashes or lesions noted Neuro General: patient oriented x3 Extrem General: Yes normal to inspection Psych Mental Status: mental status grossly normal Assessment & Plan Assessment & Plan (1) Atherosclerotic cardiovascular disease: Code(s): I25.10 - Atherosclerotic heart disease of [place] coronary artery without angina pectoris Category: Medical (2) Chest pain: Code(s): R07.9 - Chest pain, unspecified Category: Medical Plan Cardiac studies reviewed. In the exercise stress test, he was able to exercise for just under 5 minutes. Developed anginal-type symptoms but no EKG evidence of ischemia. In the echocardiogram, LVEF 50-55% with no wall motion abnormality. Normal diastolic function. Mildly increased right ventricular size. Otherwise unremarkable. In the exercise stress echo, exercised for just over 3 minutes; again had chest pain. At the achieved workload, no clear wall motion abnormalities. In the coronary CTA, distal left main <30% stenosis. Proximal LAD stenosis, suspected less than 70%. Mid circumflex about 30% stenosis. In the diagnostic catheterization, mild CAD only in the LAD and circumflex. Left main, right coronary artery were normal. LVEDP was normal. It was felt that the mild CAD was not adequate to explain his exertional chest pain. Overall, recurrent chest pain but no obstructive disease on cardiac catheterization. After the recent episode, high sensitivity troponin is again normal. He can continue aspirin/statins. We will need to check with the pharmacy if he is actually taking the statins or not, as the LDL is high. If indeed he is taking the statins and the cholesterol is still in this range, then may need Zetia. Other options would be Praluent or Repatha for the future. Uncertain etiology for these chest pains and okay to try sublingual nitroglycerin to see if he gets relief or not. New script is being sent. Discussed with granddaughter who came for appointment. Discussion Notes In the conversation, we discussed that the chest pain is very unlikely of cardiac etiology, as supported by the unremarkable angiogram, EKGs, and cardiac enzyme tests. I explained that while nitroglycerin was prescribed to provide potential symptomatic relief, the likelihood of its necessity due to coronary blockage is low. We reviewed that the pain might stem from other causes such as musculoskeletal or pleural origins due to the nature of the symptoms and absence of contributing findings. Regarding asthma and arthritis, management remains consistent with previous treatment plans given current stability. I advised that the situation should be closely monitored, and the patient should seek emerg ency care if there are any significant changes in symptoms. The option for additional exploration of musculoskeletal causes was discussed though not pursued, given the current findings. Patient was informed and verbally consented to the use of an ambient scribe for clinic note documentation during this visit. Medications: Refilled nitroglycerin do not exceed 3 doses per episode 0.4 mg sublingual Q5M PRN 30 tabs 5RF chest pain R07.2 - Precordial pain Patient Instructions: - Take nitroglycerin as instructed if experiencing chest pain. - Monitor symptoms carefully and seek emergency care if pain becomes severe or different. - Maintain regular asthma treatments and take medications as prescribed. - Seek medical care if respiratory symptoms worsen. - Keep a log of pain frequency and symptoms to discuss at your next visit. Coding Level of Care Code Est Pt Level 4 (76536) Complex EM visit Add On G2211 Diagnoses Atherosclerotic cardiovascular disease I25.10 Chest pain R07.9
--- OUTSIDE RECORDS SUMMARY | 2025-01-30 09:11 | XMS_ITS | Continuity of Care Document ---
Author Organization [facility] Address [address] [facility] [address] [place] [address] Phone Care Team Providers Care Batteryman Name Role Phone Queenie WHITTEN, [place] Unavailable [...] Diagnoses Date Provider Providers Copied on Encounter [facility], [address] [place] [address], [id number], tel:[phone] [facility](OL D) No Information Queenie Ho. [address], [address], . tel:[phone] Referring Provider: [place], [address], [facility]. tel:[phone] [facility], [address], [address] [place] [address] tel:[phone] [facility] No Information Queenie Ho. [address] [place] [address], [address] [place] [address]. tel:[phone] Referring Provider: Georgia Jerome MD, [address] [place] [address], [facility]. tel:[phone] Offic/outpt E&m Estab Low-mod [facility], [address] [place] [address], [address] [place] [address], tel:[phone] [facility] No Information No Information Offic/outpt E&m Estab Low-mod St christa, [address] [place] [address], [address] [place] [address], tel:[phone] [facility] No Information No Information [facility], [address] [place] [address], [address] [place] [address], tel:[phone] [facility] No Information Ko Watkins. [address] [place] [address], [address] [place] [address], . tel:[phone] Referring Provider: June Connell, [address] [place] [address], [address] [place] [address] . tel:[phone] [facility], [address] [place] [address], [address] [place] [address], tel:[phone] [facility] No Information Zach Vera. [address] [place] [address], [address] [place] [address], . tel:[phone] Referring Provider: Chuy Hill, [address] [place] [address], [address] [place] [address] . tel:[phone] Offic/outpt E&m Estab Low[facility], [address] [facility] [address] [place] [address], [id number], tel:[phone] [facility] No Information Zach Vera. [address], [address] [place] [address], . tel:[phone] Referring Provider: Chuy Hill, [address] [place] [address], [address] [place] [address] . tel:[phone] [facility], [address] [place] [address], [address] [place] [address], tel:[phone] [facility] No Information Zach Vera. [address] [place] [address], [address] [place] [address], . tel:[phone] Referring Provider: Chuy Hill, [address] [place] [address], [address] [place] [address] . tel:[phone] Offic/outpt E&m Estab Low-mod [facility], [address] [place] [address], [address] [place] [address], tel:[phone] [facility] No Information No Information [facility], [address] [facility] [address] [place] [address], [address] [place] [address], tel:[phone] [facility] No Information Zach Vera. [address], [address] [place] [address], . tel:[phone] Referring Provider: Chuy Hill, [address] [place] [address], [address] [place] [address] . tel:[phone] Offic/outpt E&m Estab Low[facility]mod [facility], [address] [place] [address], [address] [place] [address], tel:[phone] [facility] No Information Zach Vera. [address] [place] [address], [address] [place] [address], . tel:[phone] Referring Provider: Chuy Hill, [address] [place] [address], [address] [place] [address] . tel:[phone] [facility], [address] [place] [address], [address] [place] [address], tel:[phone] [facility] No Information Zach Vera. [address] [place] [address], [address] [place] [address], . tel:[phone] Referring Provider: Chuy Hill, [address] [place] [address], [address] [place] [address] . tel:[phone] Offic/outpt E&m Estab Mod-hi 2 Jose, [address] [place] [address], [address] [place] [address], tel:[phone] [facility] No Information No Information [facility], [address] [place] [address], [id number], tel:[phone] [facility] No Information No Information [facility], [address] [place] [address], [id number], tel:[phone] [facility] No Information No Information [facility], [address] [place] [address], [id number], tel:[phone] [facility] No Information No Information St [facility], [address], [id number], tel:[phone] [facility] No Information No Information [facility], [address], [place], [id number], tel:[phone] [facility] No Information No Information [facility], [address], [id number], tel:[phone] [facility] No Information Robin BERMUDEZ Norah. [address], [facility], . tel:[phone] Offic/outpt E&m Estab Low-mod [facility], [address], [id number], tel:[phone] [facility] No Information No Information Offic Cons New/estab Mod-hi 60 [facility], [address] [place] [address], [id number], tel:[phone] [facility] No Information No Information Referring Provider: Henry Cooper, [address] [place], [address]. tel:[phone] Family History Family Member Type Diagnosis Age At Onset No Information Payers Payer name Insurance type Covered republican ID Authoriza tion(s) Medicare [id number] Medicaid [id number] Social History Type Description Quantity Date Captured [...]
--- OUTSIDE RECORDS SUMMARY | 2025-01-30 09:11 | XMS_ITS | Patient Health Record ---
Author Organization [facility] Address [address] [place] [address] Care Team Providers Care Trapper Animal Name Role Phone Zonia Capellan Primary Care [...] Problem Status W/U Status Risk Notes Problem [id number] Weight loss (R63.4) Active confirmed Problem [id number] LUQ pain (R10.12) Active confirmed Plan Of Treatment Future Test Test Name Order Date UPPER GI ENDOSCOPY 07/30/2020 COLONOSCOPY 07/30/2020 Insurance Providers Payer Name Payer Address Payer Phone Subscriber Number Group Number Insured Name Patient Relationship to Insured Coverage Start Date Coverage End Date [facility] [address] [place] [phone] [id number] EREN VELAZCO Self - patient is the [...]
--- OUTSIDE RECORDS SUMMARY | 2025-01-30 09:11 | XMS_ITS | Patient Health Record ---
Author Organization [facility] Address [address] [place] [address] Care Team Providers Care Joinery Machinist Name Role Phone Marie WHITTEN, Zonia Primary Care Provider Unavail able Bharath Aikenen Unavailable [phone] Allergies No Known Allergies Reason For Referral [...] Insured Coverage Start Date Coverage End Date [facility] [employer] Claims [address] [place] [phone] [id number] Cole Malone Self - patient is the insured Medical (General) History Medical History History ICD Code Reflux ( GERD) Back pain chest pain asthma Psoriasis Hypercholesterolemia Arthritis Surgical History Surgery Date(Month/Year) cholecystectomy enucleation with prosthesis placement
== END 2025-01-30 09:33 | disposition home or self-care (01) ==
LOC: HO.HCS 08:48
PROVIDERS: PCP Internal Medicine; Visit Provider Internal Medicine
DX: I25.10 Atherosclerotic heart disease of native coronary artery without angina pectoris (principal); R07.9 Chest pain, unspecified
CPT/HCPCS: 99214; G2211

== ENCOUNTER → 2025-01-30 08:48 | Outpatient (BNVA) | payer OTHER, SELFPAY | PROVIDERS: PCP Internal Medicine; Visit Provider Internal Medicine | DX: R07.9 Chest pain, unspecified (principal); I25.10 Atherosclerotic heart disease of native coronary artery without angina pectoris; R07.2 Precordial pain | CPT/HCPCS: 99212 ==

== ENCOUNTER 2025-02-01 11:15 | Outpatient (AMB) | payer OTHER, SELFPAY ==
[2025-02-01 11:17] VITALS: BP 100/60; PULSE 68; O2SAT 93; BMI 25.7
--- NOTE | 2025-02-01 11:17 | A.OFFPC_ITS ---
Vital Signs 3 02/01/25 11:17 Height 5 ft 4 in Weight 150 lb BMI 25.7 BP 100/60 Blood Pressure Location Lt brachial Position Sitting Pulse 68 Pulse Source Pulse Oximeter Pulse Oximetry (%) 93 Oxygen Delivery Method Room Air Intake Visit Reasons: [facility] 01/25 chest pain Senior Bi Architect Required: No Accompanied by: Self / Same As Patient Allergies acetaminophen [From Tylenol-Codeine] Allergy (Severe, Verified 02/01/25 11:18) Difficulty Breathing codeine [From Tylenol-Codeine] Allergy (Severe, Verified 02/01/25 11:18) Difficulty Breathing atorvastatin [Lipitor] Allergy (Intermediate, Verified 02/01/25 11:18) elevated liver enzymes certolizumab pegol Adverse Reaction (Severe, Verified 02/01/25 11:18) headaches Tobacco use date assessed: 02/01/25 Fall risk assessment: No Falls in past year Last assessed Fall Risk: 02/01/25 Dental Screening Dental Screen Date: 02/01/25 Did you have a dental visit in the last 12 months?: Yes Did you have a dental problem in the last 6 months where you did not have access to dental care?: No Was dental information given to patient?: Patient has dentist HPI HPI Comments 2 History of Present Illness0 Details 64 y/o Male who presents to the clinic [facility] for HDF. He was admitted at [facility] on 01/25 for an evaluation and treatment for Chest Pain. ECG and Chest Xray unremarkable. Today denies any CP, SOB or wheezing. Pt does c/o very Itchy rash located on both Groins and buttocks, been present for over 1 week. [facility] Medical History (Updated 02/01/25 @ 11:52 by Leila Stokes NP) Tinea corporis Atherosclerotic cardiovascular disease UTI (urinary tract infection) Hospital discharge follow-up Hematuria Leukocytosis Left inguinal hernia Back pain Constipation by delayed colonic transit GERD (gastroesophageal reflux disease) Chest pain Psoriatic arthritis Moderate asthma Pure hypercholesterolemia Unintentional weight loss Surgical History S/P cardiac catheterization Hx of colonoscopy H/O enucleation of right eyeball Hx laparoscopic cholecystectomy History of eye prosthesis History of corneal transplant Family History Father Kidney failure Mother Diabetes Stroke Alzheimer disease Brother Cancer of kidney Sister Breast cancer Brother Lung cancer Social History Housing: House Alcohol intake: current Alcohol intake frequency: holidays/special occasions only Alcohol type: beer Patient Tobacco Use Status: Never used Tobacco Tobacco use type: Cigarette e-Cigarette/Vaping Use: Never Used Second Hand Smoke Exposure: No service: No Current occupational status: disabled Cognitive needs: No Hearing needs: No Vision needs: Yes (Glasses) Questionnaire PHQ-9 Over the last 2 weeks, how often have you been bothered by any of the following problems? 1. Little interest or pleasure in doing things: not at all 2. Feeling down, depressed, or hopeless: not at all 3. Trouble falling or staying asleep, or sleeping too much: not at all 4. Feeling tired or having little energy: not at all 5. Poor appetite or overeating: not at all 6. Feeling bad about yourself - or that you are a failure or have let yourself or your family down: not at all 7. Trouble concentrating on things, such as reading the newspaper or watching television: not at all 8. Moving or speaking so slowly that other people could have noticed. Or the opposite - being so fidgety or restless that you have been moving around a lot more than usual: not at all 9. Thoughts that you would be better off or of hurting yourself in some way: not at all Total score: 0 Depression Screening Interpretation: Negative Depression Screening Done: Yes 84100 - PHQ-9 Billing: Yes Source: Developed by Drs. Devon Latif, Desirae Pennington, Chuy Kingsley and colleagues, with an educational afia from [employer] Thrive Questionnaire Date Thrive assessed: 02/01/25 I am a: Patient What is your living situation today?: I have a steady place to live Within the past 12 months, did the food you bought not last and you didn't have the money to get more?: Never true Within the past 12 months, did you worry whether your food would run out before you got money to buy more?: Never true Do you have trouble paying for medicines?: No Do you have trouble getting transportation to medical appointments?: No Do you have trouble paying your heating and electricity bill?: No Do you have trouble taking care of your child, family member or friend?: No Do you have trouble with day-to-day activities such as bathing, preparing meals, shopping, managing finances, etc.?: No Are you currently unemployed and looking for a job?: No Are you interested in more education?: No Please select the resources that you would like help with: None Currently or been in a relationship where the following occur: No concerns reported THRIVE Score: 0 AUDIT C Alcohol Use Questionnaire (AUDIT-C) 1. How often do you have a drink containing alcohol?: Monthly or less 2. How many drinks containing alcohol do you have on a typical day when you are drinking?: 1 or 2 3. How often do you have six or more drinks on one occasion?: Never Total Score: 1 Score Reviewed/Action Taken: No AIMEE-7 AMB Questionnaire AIMEE-7 Date AIMEE - 7 assessed: 02/01/25 Feeling nervous, anxious, or on edge: 0 = Not at all Not being able to stop or control worryin = Not at all Worrying too much about different things: 0 = Not at all Trouble relaxin = Not at all Being so restless that it is hard to sit still: 0 = Not at all Becoming easily annoyed or irritable: 0 = Not at all Feeling afraid as if something awful might happen: 0 = Not at all Total AIMEE-7 score (0-4 normal; 5-9 mild; 10-14 moderate; 15-21 severe): 0 Source: Developed by Drs. Devon Latif, Desirae Pennington, Chuy Kingsley and colleagues, with an educational afia from [employer] AIMEE-7 Assessment Billing AIMEE-7 Assessment Tool: AIMEE-7 Assessment 99530 Review of Systems Const All systems reviewed & are unremarkable except as noted in HPI and below Physical exam (Primary Care) Vital Signs: Last Vital Signs Pulse 68 02/01/25 11:17 BP 100/60 02/01/25 11:17 Pulse Ox 93 02/01/25 11:17 Oxygen Delivery Method Room Air 02/01/25 11:17 BMI result Body Mass Index 25.7 Tobacco/Smoking Status: Tobacco use Status Tobacco use date assessed 02/01/25 02/01/25 11:20 Patient Tobacco Use Status Never used Tobacco 02/01/25 11:20 Tobacco use type Cigarette 02/01/25 11:20 e-Cigarette/Vaping Use Never Used 02/01/25 11:20 PHQ-9: PHQ-9 Score PHQ-9: Total score 0 02/01/25 11:21 Depression Screening Interpretation: Negative Thrive Assessment: Date of Thrive Assessment Date Thrive assessed 02/01/25 02/01/25 11:20 Currently or been in a relationship where the following occur: No concerns reported Const General: no acute distress Nutritional Appearance: thin Orientation/consciousness: patient oriented x3 Resp Effort & Inspection: normal respiratory effort Auscultation: clear to auscultation bilaterally, no crackles, no rales, no rhonchi and no wheezes Cardio Heart sounds: S1 normal heart sound present and S2 normal heart sound present Skin General skin exam: erythema Full body images: 2 1. Circular and some oval, erythematous hyperpigmented, scaling patches of skin 2. Circular and some oval, erythematous hyperpigmented, scaling patches of skin Neuro General: patient oriented x3, gait normal and moves all extremities Coding Level of Care Code Est Pt Level 4 (40356) Diagnoses Chest pain, unspecified type R07.9 Chest pain type: unspecified Tinea corporis B35.4 Additional Codes AIMEE-7 Assessment Billing - AIMEE-7 Assessment Tool: AIMEE-7 Assessment 46663 ([id number]) PHQ-9 - 84605 - PHQ-9 Billing: Yes ([id number]) Time Spent (min) 20 Assessment & Plan Assessment & Plan (1) Chest pain: Code(s): R07.9 - Chest pain, unspecified Category: Medical Qualifiers: Chest pain type: unspecified Qualified Code(s): R07.9 - Chest pain, unspecified Plan: Resolved. (2) Tinea corporis: Code(s): B35.4 - Tinea corporis Category: Medical Plan: Ordered Anti-fungal/Steroid combo cream. Medications: New 2 clotrimazole-betamethasone 1-0.05 % 1 appl topical BID 4 weeks 45 grams 2RF B35.4 - Tinea corporis
--- OUTSIDE RECORDS SUMMARY | 2025-02-01 11:38 | XMS_ITS | Patient Health Record ---
Author Organization [facility] Address [address] [place] [address] Care Team Providers Care Ceramic Products Sales Engineer Name Role Phone Zonia Capellan Primary [...] Problem Status W/U Status Risk Notes Problem [id number] Weight loss (R63.4) Active confirmed Problem [id number] LUQ pain (R10.12) Active confirmed Plan Of Treatment Future Test Test Name Order Date UPPER GI ENDOSCOPY 07/30/2020 COLONOSCOPY 07/30/2020 Insurance Providers Payer Name Payer Address Payer Phone Subscriber Number Group Number Insured Name Patient Relationship to Insured Coverage Start Date Coverage End Date [facility] [address] [place] [phone] [id number] EREN VELAZCO Self - patient is the [...]
--- OUTSIDE RECORDS SUMMARY | 2025-02-01 11:38 | XMS_ITS | Patient Health Record ---
Author Organization [facility] Address [address] [place] [address] Care Team Providers Care Senior Analytic Consultant Name Role Phone Marie WHITTEN, Zonia Primary Care Provider Unavail able Bharath Aikenen Unavailable [phone] Allergies No Known Allergies Reason For Referral [...] Start Date Coverage End Date [facility] SCO Claims [address] [place] [phone] [id number] Cole Malone Self - patient is the insured Medical (General) History Medical History History ICD Code Reflux ( GERD) Back pain chest pain asthma Psoriasis Hypercholesterolemia Arthritis Surgical History Surgery Date(Month/Year) cholecystectomy enucleation with prosthesis placement
--- OUTSIDE RECORDS SUMMARY | 2025-02-01 11:38 | XMS_ITS | Continuity of Care Document ---
Author Organization [facility] Address [address] [facility] [address] [place] [address] Phone Care Team Providers Care Master Automotive Technician Name Role Phone Queenie WHITTEN, Georgia [...] on Encounter [facility], [address] [place] [address], [id number], tel:[phone] [facility](OL D) No Information Queenie Ho. [address], [address], . tel:[phone] Referring Provider: [place], [address], [facility]. tel:[phone] [facility], [address], [address] [place] [address] tel:[phone] [facility] No Information Queenie Ho. [address] [place] [address], [address] [place] [address]. tel:[phone] Referring Provider: Georgia Jerome MD, [address] [place] [address], [facility]. tel:[phone] Offic/outpt E&m Estab Low-mod [facility], [address] [place] [address], [address] [place] [address], tel:[phone] [facility] No Information No Information Offic/outpt E&m Estab Low-mod St christa, [address] [place] [address], [address] [place] [address], tel:[phone] [facility] No Information No Information [facility], [address] [place] [address], [address] [place] [address], tel:[phone] [facility] No Information Ko Watkins. [address] [place] [address], [address] [place] [address], . tel:[phone] Referring Provider: June Connell, [address] [place] [address], [address] [place] [address] . tel:[phone] [facility], [address] [place] [address], [address] [place] [address], tel:[phone] [facility] No Information Zach Vera. [address] [place] [address], [address] [place] [address], . tel:[phone] Referring Provider: Chuy Hill, [address] [place] [address], [address] [place] [address] . tel:[phone] Offic/outpt E&m Estab Low-mod [facility], [address] [facility] [place] [address], [id number], tel:[phone] [facility] No Information Zach Vera. [address], [address] [place] [address], . tel:[phone] Referring Provider: Chuy Hill, [id number] [place] [address], [address] [place] [address] . tel:[phone] [facility], [address] [place] [address], [address] [place] [address], tel:[phone] [facility] No Information Zach Vera. [id number] [place] [address], [address] [place] [address], . tel:[phone] Referring Provider: Chuy Hill, [address] [place] [address], [address] [place] [address] . tel:[phone] Offic/outpt E&m Estab Low-mod [facility], [address] [place] [address], [address] [place] [address], tel:[phone] [facility] No Information No Information [facility], [address] [facility] [place] [address], [address] [place] [address], tel:[phone] [facility] No Information Zach Vera. [address], [address] [place] [address], . tel:[phone] Referring Provider: Chuy Hill, [address] [place] [address], [address] [place] [address] . tel:[phone] Offic/outpt E&m Estab Low[facility]mod [facility], [address] [place] [address], [address] [place] [address], tel:[phone] [facility] No Information Zach Vera. [address] [place] [address], [address] [place] [address], . tel:[phone] Referring Provider: Chuy Hill, [address] [place] [address], [address] [place] [address] . tel:[phone] [facility], [address] [place] [address], [address] [place] [address], tel:[phone] [facility] No Information Zach Vera. [address] [place] [address], [address] [place] [address], . tel:[phone] Referring Provider: Chuy Hill, [address] [place] [address], [address] [place] [address] . tel:[phone] Offic/outpt E&m Estab Mod-hi 2 Jose, [address] [place] [address], [address] [place] [address], tel:[phone] [facility] No Information No Information St [facility], [address] [place] [address], [id number], tel:[phone] [facility] No Information No Information [facility], [address] [place] [address], [id number], tel:[phone] [facility] No Information No Information [facility], [address] [place] [address], [id number], tel:[phone] [facility] No Information No Information St [facility], [address], [id number], tel:[phone] [facility] No Information No Information [facility], [address], [place], [place], [id number], tel:[phone] [facility] No Information No Information [facility], [address], [id number], tel:[phone] [facility] No Information Robin BERMUDEZ Norah. [address], [facility], . tel:[phone] Offic/outpt E&m Estab Low-mod [facility], [address], [id number], tel:[phone] [facility] No Information No Information Offic Cons New/estab Mod-hi 60 [facility], [address] [place] [address], [id number], tel:[phone] [facility] No Information No Information Referring Provider: Henry Cooper, [address] [place], [address]. tel:[phone] Family History Family Member Type Diagnosis Age At Onset No Information Payers Payer name Insurance type Covered constitution party ID Authoriza tion(s) Medicare [id number] Medicaid [id number] Social History Type Description Quantity Date Captured [...]
== END 2025-02-01 11:47 | disposition home or self-care (01) ==
LOC: HO.HMCH 11:16
PROVIDERS: PCP Internal Medicine; Visit Provider Nurse Practitioner Family
DX: R07.9 Chest pain, unspecified (principal); B35.4 Tinea corporis

== ENCOUNTER → 2025-02-01 11:15 | Outpatient (BNVA) | payer OTHER, SELFPAY | PROVIDERS: PCP Internal Medicine; Visit Provider Nurse Practitioner Family | DX: B35.4 Tinea corporis (principal); R07.9 Chest pain, unspecified | CPT/HCPCS: 96127; 99212 ==

== ENCOUNTER 2025-02-15 09:25 | Outpatient (AMB) | payer OTHER, SELFPAY ==
[2025-02-15 09:37] VITALS: BP 110/70; PULSE 86; O2SAT 96; BMI 25.9
--- NOTE | 2025-02-15 09:37 | A.OFFVIS_ITS ---
Vital Signs 02/15/25 09:37 Height 5 ft 4 in Weight 151 lb BMI 25.9 BP 110/70 Blood Pressure Location Lt brachial Position Sitting Pulse 86 Pulse Source Pulse Oximeter Pulse Oximetry (%) 96 Oxygen Delivery Method Room Air Intake Visit Reasons: Follow up Intake Note: Patient presents follow up for migraines/tremor Biomedical Engineering Aide Required: Yes Biomedical Engineering Aide Name: Crissy Accompanied by: Self / Same As Patient Allergies acetaminophen [From Tylenol-Codeine] Allergy (Severe, Verified 02/15/25 09:40) Difficulty Breathing codeine [From Tylenol-Codeine] Allergy (Severe, Verified 02/15/25 09:40) Difficulty Breathing atorvastatin [Lipitor] Allergy (Intermediate, Verified 02/15/25 09:40) elevated liver enzymes certolizumab pegol Adverse Reaction (Severe, Verified 02/15/25 09:40) headaches Medication List - Last Reconciled 02/15/25 by JOHNIE Hylton acetaminophen (Acetaminophen Extra Strength) 1,000 mg (2 x 500 mg) PO Q6H PRN albuterol sulfate 2.5 mg (3 mL) inhalation Q4-6H PRN albuterol sulfate 90 mcg/actuation 2 puffs inhalation Q4-6H PRN amitriptyline 25 mg PO BEDTIME 90 days aspirin 81 mg PO DAILY atorvastatin 80 mg PO BEDTIME 90 days cane As directed clotrimazole-betamethasone 1-0.05 % 1 appl topical BID 4 weeks fluticasone furoate-vilanterol 100-25 mcg/dose (Breo Ellipta) 1 inh inhalation DAILY hydrocodone-homatropine 5-1.5 mg/5 mL 5 mL PO Q6H 7 days ixekizumab (Taltz Autoinjector) 80 mg subcut Q4W montelukast 10 mg PO DAILY 90 days nebulizers (AeroEclipse II Nebulizer) As directed nitroglycerin 0.4 mg sublingual Q5M PRN nystatin 1 appl topical BID PRN 2 weeks pantoprazole 40 mg PO DAILY 90 days rosuvastatin 40 mg PO DAILY sennosides 17.2 mg (2 x 8.6 mg) PO BEDTIME PRN 90 days sucralfate (Carafate) 10 mL PO BID 7 days tamsulosin (Flomax) 0.4 mg PO BEDTIME 90 days triamcinolone acetonide 1 spray intranasal DAILY PRN ubrogepant (Ubrelvy) 50 - 100 mg (0.5 - 1 x 100 mg) PO ONCE PRN 30 days walker As directed HPI Comments Details: Right-handed 63-yr-old male presents for f/u visit of migraine, tremor Patient states he has seen Cardiology and had an recent ER visit for chest pain. Cardiac workup has been overall unremarkable. He was started on prn nitroglycerin for chest pain episodes, which he states he uses with good effect. Pt reports that his migraine attacks are better- usually just a couple of month. Using Ubrelvy prn with good effect. Baseline headache characteristics: mild-mod top of head and right retro-orbital pressure headache a/w photophobia, phonophobia, and activity intolerance. Denies N/V, watery/red eye, or activity intolerance. RUE action tremor stable. Denies neck pain, RUE numbness/tingling, RUE weakness, hyposmia, drooling, orthostatic lightheadedness, constipation, parasomnias, memory changes, cramps, stiffness, falls, any other tremor, nocturnal tremor. May have some mild right shoulder pain, psoriatic arthritis- tolerating Taltz tx (tremor started before starting this). 06/03/2024, MR/MR head/brain wo con IMPRESSION: 1. No acute intracranial abnormality. 2. Mild to moderate chronic microangiopathy. 3. Few scattered foci of susceptibility artifact in the supratentorial brain, likely sequela of chronic microhemorrhage. [facility] Medical History (Updated 02/01/25 @ 11:52 by Leila Stokes NP) Tinea corporis Atherosclerotic cardiovascular disease UTI (urinary tract infection) Hospital discharge follow-up Hematuria Leukocytosis Left inguinal hernia Back pain Constipation by delayed colonic transit GERD (gastroesophageal reflux disease) Chest pain Psoriatic arthritis Moderate asthma Pure hypercholesterolemia Unintentional weight loss Surgical History S/P cardiac catheterization Hx of colonoscopy H/O enucleation of right eyeball Hx laparoscopic cholecystectomy History of eye prosthesis History of corneal transplant Family History Father Kidney failure Mother Diabetes Stroke Alzheimer disease Brother Cancer of kidney Sister Breast cancer Brother Lung cancer Social History Housing: House Alcohol intake: current Alcohol intake frequency: holidays/special occasions only Alcohol type: beer Patient Tobacco Use Status: Never used Tobacco Tobacco use type: Cigarette e-Cigarette/Vaping Use: Never Used Second Hand Smoke Exposure: No service: No Current occupational status: disabled Cognitive needs: No Hearing needs: No Vision needs: Yes (Glasses) Physical Exam Vital Signs: Last Vital Signs Pulse 86 02/15/25 09:37 BP 110/70 02/15/25 09:37 Pulse Ox 96 02/15/25 09:37 Oxygen Delivery Method Room Air 02/15/25 09:37 BMI result Body Mass Index 25.9 Const General: cooperative and no acute distress Orientation/consciousness: patient oriented x3 Resp Effort & Inspection: normal respiratory effort and able to speak in complete sentences Neuro Other: General: A&O x's 3 Expression: Intact, decreased right palpebral fissure- has right eye prosthetic Voice: Intact Tremor: No visible tremor today Gait: Stands easily, slight right shoulder drop and decreased arm swing, steady gait and turn. Psych: Pleasant affect General: patient oriented x3 Cranial nerves: Yes CN's II-XII intact bilaterally Cognition (Neuro): normal cognition Psych Appearance: grossly normal Mental Status: mental status grossly normal Speech and movement: Normal speech and movement present Affect: normal affect Attitude: cooperative Assessment & Plan Assessment & Plan (1) Migraine without aura: Code(s): G43.009 - Migraine without aura, not intractable, without status migrainosus Category: Medical Qualifiers: Status migrainosus presence: without status migrainosus Intractability: intractable Qualified Code(s): G43.019 - Migraine without aura, intractable, without status migrainosus (2) Tremor: Comment: new onset Code(s): R25.1 - Tremor, unspecified Category: Medical Plan For new onset RUE tremor- Reviewed Brain MRI w/o- mild to moderate chronic microangiopathy,, possible scattered foci of chronic microhemorrhages in the supratentorial brain. No clear findings to account for tremor. For headache prevention: Continue Amitriptyline. Patient has stopped gabapentin. ? For acute headache treatment: Continue Ubrogepant (Ubrelvy) 100mg tab, 1/2 - 1 tab (50-100mg) at onset of headache, may repeat in 2 hours. Max of 2 tabs (200mg) per 24 hours. May adjunct with OTC Tylenol 650mg q 4 hours, Ibuprofen 600mg q 6 hours, or Naproxen 440mg q 12 hrs prn. Do not take w/ Butalbital (Fioricet or Fiorinal).n Migraine reatment contraindications- All triptans d/t CAD- cardiology considering LAD stent placement. ? f/u in 12 months or sooner prn. Coding Level of Care Code Est Pt Level 4 (72723) Diagnoses Intractable migraine without aura and without status migrainosus G43.019 Status migrainosus presence: without status migrainosus Intractability: intractable Tremor R25.1
--- OUTSIDE RECORDS SUMMARY | 2025-02-15 09:42 | XMS_ITS | Continuity of Care Document ---
Author Organization [facility] Address [address] [facility] [address] [place] [address] Phone Care Team Providers Care Siebel Developer Name Role Phone Queenie WHITTEN, [place] Unavailable [...] Provider Providers Copied on Encounter [facility], [address] [place] [address], [id number], tel:[phone] [facility](OL D) No Information Queenie Ho. [address], [address], . tel:[phone] Referring [place]: [place], [address], [facility]. tel:[phone] [facility], [address], [address] [place] [address] tel:[phone] [facility] No Information Queenie Ho. [address] [place] [address], [address] [place] [address]. tel:[phone] Referring Provider: Georgia Jerome MD, [address] [place] [address], [facility]. tel:[phone] Offic/outpt E&m Estab Low-mod St Jose, [address] [place] [address], [address] [place] [address], tel:[phone] [facility] No Information No Information Offic/outpt E&m Estab Low-mod St christa, [address] [place] [address], [address] [place] [address], tel:[phone] [facility] No Information No Information [facility], [address] [place] [address], [address] [place] [address], tel:[phone] [facility] No Information Ko Watkins. [address] [place] [address], [address] [place] [address], . tel:[phone] Referring Provider: June Connell, [address] [place] [address], [address] [place] [address] . tel:[phone] [facility], [address] [place] [address], [address] [place] [address], tel:[phone] [facility] No Information Zach Vera. [address] [place] [address], [address] [place] [address], . tel:[phone] Referring Provider: Chuy Hlil, [address] [place] [address], [address] [place] [address] . tel:[phone] Offic/outpt E&m Estab Low[facility]mod [facility], [address] [facility] [address] [place] [address], [id number], tel:[phone] [facility] No Information Zach Vera. [address], [address] [place] [address], . tel:[phone] Referring Provider: Chuy Hill, [address] [place] [address], [address] [place] [address] . tel:[phone] [facility], [address] [place] [address], [address] [place] [address], tel:[phone] [facility] No Information Zach Vera. [id number] [place] [address], [address] [place] [address], . tel:[phone] Referring Provider: Chuy Hill, [id number] [place] [address], [address] [place] [address] . tel:[phone] Offic/outpt E&m Estab Low-mod St Luchrista, [address] [place] [address], [address] [place] [address], tel:[phone] [facility] No Information No Information [facility], [address] [facility] [address] [place] [address], [address] [place] [address], tel:[phone] [facility] No Information Zach Vera. [address], [address] [place] [address], . tel:[phone] Referring Provider: Chuy Hill, [id number] [place] [address], [address] [place] [address] . tel:[phone] Offic/outpt E&m Estab Low[facility]mod [facility], [address] [place] [address], [address] [place] [address], tel:[phone] [facility] No Information Zach Vera. [address] [place] [address], [address] [place] [address], . tel:[phone] Referring Provider: Chuy Hill, [address] [place] [address], [address] [place] [address] . tel:[phone] [facility], [address] [place] [address], [address] [place] [address], tel:[phone] [facility] No Information Zach Vera. [address] [place] [address], [address] [place] [address], . tel:[phone] Referring Provider: Chuy Hill, [address] [place] [address], [address] [place] [address] . tel:[phone] Offic/outpt E&m Estab Mod-hi 2 Jose, [address] [place] [address], [address] [place] [address], tel:[phone] [facility] No Information No Information St Jose, [address] [place] [address], [id number], tel:[phone] [facility] No Information No Information St Jose, [address] [place] [address], [id number], tel:[phone] [facility] No Information No Information St Jose, [address] [place] [address], [id number], tel:[phone] [facility] No Information No Information St Jose, [address], [id number], tel:[phone] [facility] No Information No Information [facility], [address], [place], [place], [id number], tel:[phone] [facility] No Information No Information [facility], [address], [id number], tel:[phone] [facility] No Information Robin BERMUDEZ Norah. [address], [facility], . tel:[phone] Offic/outpt E&m Estab Low-mod [facility], [address], [id number], tel:[phone] [facility] No Information No Information Offic Cons New/estab Mod-hi [address] [facility], [address] [place] [address], [id number], tel:[phone] [facility] No Information No Information Referring Provider: Henry Cooper, [address] [place], [address]. tel:[phone] Family History Family Member Type Diagnosis Age At Onset No Information Payers Payer name Insurance type Covered republican ID Authoriza tion(s) Medicare [id number] Medicaid [id number] Social History Type Description Quantity Date Captured [...]
== END 2025-02-15 10:19 | disposition home or self-care (01) ==
LOC: HO.HSMS 09:25
PROVIDERS: PCP Internal Medicine; Visit Provider Nurse Practitioner Family
DX: G43.019 Migraine without aura, intractable, without status migrainosus (principal); R25.1 Tremor, unspecified
CPT/HCPCS: 99214

== ENCOUNTER → 2025-02-15 09:25 | Outpatient (BNVA) | payer OTHER, SELFPAY | PROVIDERS: PCP Internal Medicine; Visit Provider Nurse Practitioner Family | DX: G43.019 Migraine without aura, intractable, without status migrainosus (principal); R25.1 Tremor, unspecified | CPT/HCPCS: 99212 ==

== ENCOUNTER 2025-03-06 12:20 | Outpatient (AMB) | payer OTHER, SELFPAY ==
--- NOTE | 2025-03-06 12:32 | A.OFFVIS_ITS ---
Intake Visit Reasons: 6m/PSA/PVR Intake Note: Patient presents today for follow up on BPH Urology Medication: Tamsulosin, Vitamin B6 Antibiotic Allergies: None Blood Thinners: Aspirin PVR: 0 Rooming House Keeper Required: Yes Rooming House Keeper Services: Rooming House Keeper Present Rooming House Keeper Name: mojgan Aldridge Accompanied by: Self / Same As Patient Allergies acetaminophen (From Tylenol-Codeine) Allergy (Severe, Verified 03/06/25 13:11) Difficulty Breathing codeine (From Tylenol-Codeine) Allergy (Severe, Verified 03/06/25 13:11) Difficulty Breathing atorvastatin (Lipitor) Allergy (Intermediate, Verified 03/06/25 13:11) elevated liver enzymes certolizumab pegol Adverse Reaction (Severe, Verified 03/06/25 13:11) headaches Medication List - Last Reconciled 03/06/25 by JOHNIE Mendez- acetaminophen (Acetaminophen Extra Strength) 1,000 mg (2 x 500 mg) PO Q6H PRN albuterol sulfate 2.5 mg (3 mL) inhalation Q4-6H PRN albuterol sulfate 90 mcg/actuation 2 puffs inhalation Q4-6H PRN amitriptyline 25 mg PO BEDTIME 90 days aspirin 81 mg PO DAILY atorvastatin 80 mg PO BEDTIME 90 days cane As directed clotrimazole-betamethasone 1-0.05 % 1 appl topical BID 4 weeks fluticasone furoate-vilanterol 100-25 mcg/dose (Breo Ellipta) 1 inh inhalation DAILY hydrocodone-homatropine 5-1.5 mg/5 mL 5 mL PO Q6H 7 days ixekizumab (Taltz Autoinjector) 80 mg subcut Q4W montelukast 10 mg PO DAILY 90 days nebulizers (AeroEclipse II Nebulizer) As directed nitroglycerin 0.4 mg sublingual Q5M PRN nystatin 1 appl topical BID PRN 2 weeks pantoprazole 40 mg PO DAILY 90 days rosuvastatin 40 mg PO DAILY sennosides 17.2 mg (2 x 8.6 mg) PO BEDTIME PRN 90 days sucralfate (Carafate) 10 mL PO BID 7 days tamsulosin (Flomax) 0.4 mg PO BEDTIME 90 days triamcinolone acetonide 1 spray intranasal DAILY PRN ubrogepant (Ubrelvy) 50 - 100 mg (0.5 - 1 x 100 mg) PO ONCE PRN 30 days walker As directed HPI Comments Details: Cole is a pleasant 64-year-old Tunisian-speaking male patient of Dr. Xie. He has a past medical history of atherosclerotic cardiovascular disease, left inguinal hernia, back pain, constipation, GERD, psoriatic arthritis, moderate asthma, and hypercholesteremia. He presents to the office today for follow-up of his lower urinary tract symptoms as well as nephrolithiasis. In discussion with the jose torres today he reports to be happy with his current voiding parameters on 0.4 mg of Flomax daily. He denies having had any bothersome urinary issues or concerns. He does however report issues with erectile dysfunction. He reports he is able to obtain an erection however feels maintaining an erection has been difficult. Previous workup for patient's nephrolithiasis has included a renal ultrasound 12/11 noting bilateral kidneys with no nephrolithiasis or hydronephrosis noted. He does report a new onset of left upper to middle abdominal discomfort however feels pain has been intermittent and stable. He plans to follow-up with PCP if symptoms worsen. In office urinalysis results reviewed with the patient today. PVR 49ml. He denies urinary urgency, urinary frequency, incontinence, nocturia, hematuria, dysuria, foul smelling urine, changes to urinary stream, flank pain, fever, and or chills. He is happy with his current voiding parameters. Recent PSA results reviewed with the patient today as noted and trended below: PSA 06/08 0.8, 02/08 0.7, 12/10 2.3, 01/11 0.9 He otherwise offers no other issues or concerns at this time. PREVIOUS OFFICE NOTE: Nephrolithiasis 05/11 renal US NAD 06/12 Right-sided hydronephrosis and hydroureter down to the level UVJ where there is a 4 mm partially obstructing stone Ureteroscopy but stone had passed [facility] Medical History Tinea corporis Atherosclerotic cardiovascular disease UTI (urinary tract infection) Hospital discharge follow-up Hematuria Leukocytosis Left inguinal hernia Back pain Constipation by delayed colonic transit GERD (gastroesophageal reflux disease) Chest pain Psoriatic arthritis Moderate asthma Pure hypercholesterolemia Unintentional weight loss Surgical History S/P cardiac catheterization Hx of colonoscopy H/O enucleation of right eyeball Hx laparoscopic cholecystectomy History of eye prosthesis History of corneal transplant Family History Father Kidney failure Mother Diabetes Stroke Alzheimer disease Brother Cancer of kidney Sister Breast cancer Brother Lung cancer Social History Housing: House Alcohol intake: current Alcohol intake frequency: holidays/special occasions only Alcohol type: beer Patient Tobacco Use Status: Never used Tobacco Tobacco use type: Cigarette e-Cigarette/Vaping Use: Never Used Second Hand Smoke Exposure: No service: No Current occupational status: disabled Cognitive needs: No Hearing needs: No Vision needs: Yes (Glasses) Review of Systems Const All systems reviewed & are unremarkable except as noted in HPI and below Physical Exam Const General: cooperative, healthy appearing, comfortable, no acute distress, well developed, alert and awake Orientation/consciousness: patient oriented x3 Limitations: no limitations HEENT Head: Yes normal to inspection, Yes normocephalic and Yes atraumatic Ears: hearing grossly normal bilaterally Eyes General: appearance normal, both eyes and all related structures Neck Neck: Yes normal visual inspection and Yes trachea midline Chest Chest palpation & inspection: normal inspection of the chest Resp Effort & Inspection: normal respiratory effort and able to speak in complete sentences Cardio Rate: regular rate GI Inspection: Yes normal to inspection General: Yes no CVA tenderness Back/Spine/Pelvis Back: no CVA tenderness Skin General skin exam: no rashes or lesions noted Neuro General: patient oriented x3 Extrem General: Yes normal to inspection Psych Appearance: grossly normal and well kempt Mental Status: mental status grossly normal Speech and movement: Normal speech and movement present and Clear speech present Affect: normal affect Attitude: cooperative Thought process: Normal thought process present Thought content: Normal thought content present Insight: Fair insight present (Psych) Judgement: Fair judgement present (Psych) Office Procedures Post Void Residual Post Residual Void Post Void Residual (PVR): 0 [id number] Void Residual by ultrasound Results AMB Urinalysis, Automated UA Leukoctes 0 Rose/uL Last Edit by Nasima Mena, [place] on 03/06/25 13:09 UA Nitrite Negative Last Edit by Nasima Mena, [place] on 03/06/25 13:09 UA Urobilinogen 3.5 mg/dL Last Edit by Nasima [place] Bud, [place] on 03/06/25 13:09 UA Protein 15 mg/dL Last Edit by Nasima Rose Bud, [place] on 03/06/25 13:09 UA pH 6.0 Last Edit by Nasima [place], [place] on 03/06/25 13:09 UA Blood 0 Shelton/uL Last Edit by Nasima [place], [place] on 03/06/25 13:09 UA Specific [place] 1.020 Last Edit by Nasima Mena, [place] on 03/06/25 13:09 UA Ketone Negative Last Edit by Nasima Mena, [place] on 03/06/25 13:09 UA Bilirubin 0 mg/dL Last Edit by Nasima [place], [place] on 03/06/25 13:09 UA Glucose 0 mg/dL Last Edit by Nasima [place], [place] on 03/06/25 13:09 Results Reviewed Results Reviewed: Laboratory Last Values Urine pH (Auto) 6.0 03/06/25 12:55 Specific [place] (Auto) 1.020 03/06/25 12:55 Urine Protein (Auto) 15 mg/dL 03/06/25 12:55 Glucose (UA)(Auto) 0 mg/dL 03/06/25 12:55 Urine Ketones (Auto) Negative 03/06/25 12:55 Urine Blood (Auto) 0 Shelton/uL 03/06/25 12:55 Urine Nitrite (Auto) Negative 03/06/25 12:55 Urine Bilirubin (Auto) 0 mg/dL 03/06/25 12:55 Urine Urobilinogen (Auto) 3.5 mg/dL 03/06/25 12:55 Leukocyte Esterase (Auto) 0 Rose/uL 03/06/25 12:55 Assessment & Plan Assessment & Plan (1) Nephrolithiasis: Code(s): N20.0 - Calculus of kidney Category: Medical (2) Urinary problem: Code(s): R39.89 - Other symptoms and signs involving the genitourinary system Category: Medical (3) Nocturia: Code(s): R35.1 - Nocturia Category: Medical (4) Hesitancy of micturition: Code(s): R39.11 - Hesitancy of micturition Category: Medical (5) Lower urinary tract symptoms: Code(s): R39.9 - Unspecified symptoms and signs involving the genitourinary system Category: Medical (6) BPH (benign prostatic hyperplasia): Code(s): N40.0 - Benign prostatic hyperplasia without lower urinary tract symptoms Category: Medical (7) Erectile dysfunction: Code(s): N52.9 - Male erectile dysfunction, unspecified Category: Medical Plan In office urinalysis results reviewed with the patient today; as noted above. PVR 0 mL. Recent PSA results reviewed with the patient today; as noted above. Continue Flomax as discussed and prescribed. Patient currently denies any bothersome urinary issues or concerns. Reports be happy with current voiding parameters. We discussed potential causes of ED as well as further treatment options and risks and benefits of these treatment options. We discussed lifestyle modifications to assist with ED as well as overall health and well-being. Start Cialis 5 mg daily as discussed and prescribed. Follow-up in 3 months; or sooner with any issues, concerns, and or questions. Orders: Orders AMB Urinalysis Automated Today Z13.9 - Encounter for screening, unspecified AMB Post Void Residual by ultrasound Today R39.9 - Unspecified symptoms and signs involving the genitourinary system Medications: New tadalafil (Cialis) [id number] [facility] [id number] Member [id number] 5 mg PO DAILY 90 tabs 1RF sexual activity 90 days Patient Instructions: The patient had an opportunity to ask questions regarding the treatment plan. All questions were answered. Physical exam, labs, and imaging were discussed and reviewed in detail. As well as risks, benefits, and discussion of treatment choices. No major barriers to understanding were identified. The patient expressed understanding and agreement with the above treatment plan. The patient was made aware they should contact our office by phone for worsening of their current condition, the appearance of new symptoms, or with any questions or concerns. Compliance is encouraged with any medications and follow up testing that is ordered. It is a privilege to be allowed the opportunity to participate in? your urological care.? Again, if you have any questions or concerns If you have any questions or concerns please do not hesitate to contact me. The office is [phone]. This note is constructed using voice recognition software. While every effort has been made to ensure accuracy displayer merchandise errors may have been included. Yours sincerely, ARUN Mendez Coding Level of Care Code Est Pt Level 4 (37423) Complex EM visit Add On G2211 Diagnoses Nephrolithiasis N20.0 Urinary problem R39.89 Nocturia R35.1 Hesitancy of micturition R39.11 Lower urinary tract symptoms R39.9 BPH (benign prostatic hyperplasia) N40.0 Erectile dysfunction N52.9 CPT Codes Post Residual Void - PVR CPT Code: [id number]-[id number] Void Residual by ultrasound ([id number])
--- OUTSIDE RECORDS SUMMARY | 2025-03-06 14:12 | XMS_ITS | Patient Health Record ---
Author Organization [facility] Address [address] [place] [address] Care Team Providers Care Fiberglass Roving Winder Name Role Phone Marie WHITTEN, Zonia Primary Care Provider Unavail able Bharath Aikenen Unavailable [phone] Allergies No Known Allergies Reason For Referral [...] Insured Coverage Start Date Coverage End Date [facility] SCO Claims [address] [place] [phone] [id number] Cole Malone Self - patient is the insured Medical (General) History Medical History History ICD Code Reflux ( GERD) Back pain chest pain asthma Psoriasis Hypercholesterolemia Arthritis Surgical History Surgery Date(Month/Year) cholecystectomy enucleation with prosthesis placement
== END 2025-03-06 13:14 | disposition home or self-care (01) ==
LOC: HO.HUSH 12:21
PROVIDERS: PCP Internal Medicine; Visit Provider Nurse Practitioner Family
DX: N20.0 Calculus of kidney (principal); R39.89 Other symptoms and signs involving the genitourinary system; R35.1 Nocturia; R39.11 Hesitancy of micturition; R39.9 Unspecified symptoms and signs involving the genitourinary system; N40.0 Benign prostatic hyperplasia without lower urinary tract symptoms; N52.9 Male erectile dysfunction, unspecified; Z13.9 Encounter for screening, unspecified
CPT/HCPCS: 99214; G2211

== ENCOUNTER → 2025-03-06 12:20 | Outpatient (BNVA) | payer OTHER, SELFPAY | PROVIDERS: PCP Internal Medicine; Visit Provider Nurse Practitioner Family | DX: N20.0 Calculus of kidney (principal); R39.89 Other symptoms and signs involving the genitourinary system; R35.1 Nocturia; R39.11 Hesitancy of micturition; R39.9 Unspecified symptoms and signs involving the genitourinary system; N40.0 Benign prostatic hyperplasia without lower urinary tract symptoms; N52.9 Male erectile dysfunction, unspecified | CPT/HCPCS: 51798; 81003; 99212 ==

== ENCOUNTER 2025-04-25 08:38 | Outpatient (REF) | payer OTHER, SELFPAY ==
--- OUTSIDE RECORDS SUMMARY | 2009-08-20 10:45 | XMS_ITS | Continuity of Care Document ---
Author Organization [facility] Address [address] [facility] [address] [place] [address] Phone Care Team Providers Care Gas Controller Name Role Phone Queenie WHITTEN, [place] Unavailable [...] Diagnoses Date Provider Providers Copied on Encounter [facility], [address] [place] [address], [id number], tel:[phone] [facility] D) No Information Queenie Ho. [address], [address], . tel:[phone] Referring Provider: [place], [address], [facility]. tel:[phone] [facility], [address], [address] [place] [address] tel:[phone] [facility] No Information [facility]. [address] [place] [address], [address] [place] [address]. tel:[phone] Referring Provider: Georgia Jerome MD, [address] [place] [address], [facility]. tel:[phone] Offic/outpt E&m Estab Low-mod [facility] Jose, [address] [place] [address], [address] [place] [address], tel:[phone] [facility] No Information No Information Offic/outpt E&m Estab Low-mod St christa, [address] [place] [address], [address] [place] [address], tel:[phone] [facility] No Information [facility] Information [facility], [address] [place] [address], [address] [place] [address], tel:[phone] [facility] No Information Ko Watkins. [address] [place] [address], [address] [place] [address], . tel:[phone] Referring Provider: June Connell, [address] [place] [address], [address] [place] [address] . tel:[phone] [facility], [address] [place] [address], [address] [place] [address], tel:[phone] [facility] No Information Zach Vera. [address] [place] [address], [address] [place] [address], . tel:[phone] Referring Provider: Chuy Hill, [address] [place] [address], [address] [place] [address] . tel:[phone] Offic/outpt E&m Estab [facility], [address] [facility] [address] [place] [address], [id number], tel:[phone] [facility] No Information Zach Vera. [address], [address] [place] [address], . tel:[phone] Referring Provider: Chuy Hill, [address] [place] [address], [address] [place] [address] . tel:[phone] [facility], [address] [place] [address], [address] [place] [address], tel:[phone] [facility] No Information Zach Vera. [address] [place] [address], [address] [place] [address], . tel:[phone] Referring Provider: Chuy Hill, [address] [place] [address], [address] [place] [address] . tel:[phone] Offic/outpt E&m Estab Low-mod [facility] L[facility], [address] [place] [address], [address] [place] [address], tel:[phone] [facility] No Information [facility] Information [facility], [address] [facility] [address] [place] [address], [address] [place] [address], tel:[phone] [facility] No Information Zach Vera. [address], [address] [place] [address], . tel:[phone] Referring Provider: Chuy Hill, [address] [place] [address], [address] [place] [address] . tel:[phone] Offic/outpt E&m Estab [facility], [address] [place] [address], [address] [place] [address], tel:[phone] [facility] No Information Zach Vera. [address] [place] [address], [address] [place] [address], . tel:[phone] Referring Provider: Chuy Hill, [address] [place] [address], [address] [place] [address] . tel:[phone] [facility], [address] [place] [address], [address] [place] [address], tel:[phone] [facility] No Information Zach Vera. [address] [place] [address], [address] [place] [address], . tel:[phone] Referring Provider: Chuy Hill, [address] [place] [address], [address] [place] [address] . tel:[phone] Offic/outpt E&m Estab Mod-hi 2 Jose, [address] [place] [address], [address] [place] [address], tel:[phone] [facility] No Information No Information St [facility], [address] [place] [address], [id number], tel:[phone] [facility] No Information No Information [facility], [address] [place] [address], [id number], tel:[phone] [facility] No Information No Information St [facility], [address] [place] [address], [id number], tel:[phone] [facility] No Information No Information St Jose, [address], [id number], tel:[phone] [facility] No Information [facility] Information [facility], [address], [place], [place], [id number], tel:[phone] [facility] No Information No Information [facility], [address], [id number], tel:[phone] [facility] No Information Robin BERMUDEZ Norah. [address], [facility], . tel:[phone] Offic/outpt E&m Estab Low-mod [facility], [address], [id number], tel:[phone] [facility] No Information No Information Offic Cons New/estab Mod-hi 60 [facility], [address] [place] [address], [id number], tel:[phone] [facility] No Information No Information Referring Provider: Henry Cooper, [address] [place], [address]. tel:[phone] Family History Family Member Type Diagnosis Age At Onset No Information Payers Payer name Insurance type Covered libertarian ID Authoriza tion(s) Medicare [id number] Medicaid [id number] Social History Type Description Quantity Date Captured [...]
--- OUTSIDE RECORDS SUMMARY | 2025-04-25 08:51 | XMS_ITS | Patient Health Record ---
Author Organization [facility] Address [address] [place] [address] Care Team Providers Care Bit Sharpener Name Role Phone Marie WHITTEN, Zonia Primary Care Provider Unavail able Bharath Aikenen Unavailable [phone] Allergies No Known Allergies Reason For Referral No Information Medications Medication SIG (Take, Route, Frequency, Duration) Notes Start Date End Date Status Fluticasone-Salmeterol 250-50 MCG/ACT 1 puff Inhalation Twice a day Active Cyclobenzaprine HCl 10 MG 1 tablet at be dtime as needed Orally Once a day; Duration: 30 day(s) Active Cimzia Active Albuterol Sulfate (2.5 MG/3ML) 0.083% 3 ml as needed Inhalation every 6 hrs Active Advair HFA Active Sennosides 17.2 MG 1 tablet at bedtime as needed Orally Once a day; Duration: 30 day(s) Unknown Cetirizine HCl 10 MG 1 tablet Orally Onc e a day; Duration: 30 day(s) Active Amitriptyline HCl 25 MG 1 tablet at bedt steph Orally Once a day; Duration: 30 day(s) Active Pantoprazole Sodium 40 MG 1 tablet Orall y Once a day; Duration: 30 day(s) Active Naproxen 500 MG 1 tablet with food o r milk as needed Orally every 12 hrs Active Triamcinolone Acetonide Active Certolizumab Pegol 2 X 200 MG as directed Subcutaneous Unk nown Rosuvastatin Calcium 10 MG 1 tablet Oral ly Once a day; Duration: 30 day(s) Active Montelukast Sodium 10 MG 1 tablet Orally Once a day; Duration: 30 day(s) Active Social History Tobacco Use: [...] Start Date Coverage End Date [facility] SCO Claims [address] [place] [phone] [id number] Cole Malone Self - patient is the insured Medical (General) History Medical History History ICD Code Reflux ( GERD) Back pain chest pain asthma Psoriasis Hypercholesterolemia Arthritis Surgical History Surgery Date(Month/Year) cholecystectomy enucleation with prosthesis placement
--- OUTSIDE RECORDS SUMMARY | 2025-04-25 08:52 | XMS_ITS | Patient Health Record ---
Author Organization [facility] Address [address] [place] [address] Care Team Providers Care Exterminator Termite Name Role Phone Zonia Capellan Primary Care Provider Unavailab Quan Hahn Jr Unavailable [phone] Iwona Bagley Unavailable Unavailable Allergies Allergen (clinical [...] Problem Status W/U Status Risk Notes Problem [id number] Weight loss (R63.4) Active confirmed Problem [id number] LUQ pain (R10.12) Active confirmed Plan Of Treatment Future Test Test Name Order Date UPPER GI ENDOSCOPY 07/30/2020 COLONOSCOPY 07/30/2020 Insurance Providers Payer Name Payer Address Payer Phone Subscriber Number Group Number Insured Name Patient Relationship to Insured Coverage Start Date Coverage End Date [facility] [address] [place] [address] [id number] EREN VELAZCO Self - patient is the [...]
[2025-04-25 10:51] LABS: Alanine Aminotransferase 32 U/L (0-40); Albumin Level 4.3 g/dL (3.5-5.0); Alkaline Phosphatase 87 U/L (39-117); Anion Gap 11 (12-20); Aspartate Amino Transferase 23 U/L (5-37); Blood Urea Nitrogen 15 mg/dL (9-16); Calcium 9.0 mg/dL (8.4-10.2); Carbon Dioxide 28 mmol/L (22-29); Chloride 104 mmol/L (96-108); Cholesterol 123 mg/dL (<200); Estimated Glomerular Filt Rate > 60; HDL Cholesterol 39 mg/dL (>40); Potassium 4.0 mmol/L (3.3-5.1); Sodium 139 mmol/L (135-145); Total Protein 6.8 g/dL (6.5-8.0); Triglycerides 73 mg/dL (<150)
== END 2025-04-25 08:39 | disposition home or self-care (01) ==
LOC: HO.HMGCLDS 08:38
PROVIDERS: PCP Internal Medicine; Visit Provider Internal Medicine
DX: R73.02 Impaired glucose tolerance (oral) (principal); E78.5 Hyperlipidemia, unspecified
CPT/HCPCS: 36415; 80053; 80061

== ENCOUNTER 2025-05-15 09:14 | Outpatient (AMB) | payer OTHER, SELFPAY ==
--- OUTSIDE RECORDS SUMMARY | 2009-08-20 10:45 | XMS_ITS | Continuity of Care Document ---
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, [address] [place] [address], [id number], tel:[phone] [facility](OL D) No Information Queenie Ho. [address], [address], . tel:[phone] Referring Provider: [place], [address], [facility]. tel:[phone] [facility], [address], [address] [place] [address] tel:[phone] [facility] No Information Queenie Ho. [address] [place] [address], [address] [place] [address]. tel:[phone] Referring Provider: Georgia Jerome MD, [address] [place] [address], [facility]. tel:[phone] Offic/outpt E&m Estab Low-mod [facility] Jose, [address] [place] [address], [address] [place] [address], tel:[phone] [facility] No Information No Information Offic/outpt E&m Estab Low-mod St christa, [address] [place] [address], [address] [place] [address], tel:[phone] [facility] No Information [facility] Information [facility], [address] [place] [address], [address] [place] [address], tel:[phone] [facility] No Information Ko Watkins. [address] [place] [address], [address] [place] [address], . tel:[phone] Referring Provider: June Connell, [address] [place] [address], [address] [place] [address] . tel:[phone] [facility], [address] [place] [address], [address] [place] [address], tel:[phone] [facility] No Information Zach Vera. [address] [place] [address], [address] [place] [address], . tel:[phone] Referring Provider: Chuy Hill, [address] [place] [address], [address] [place] [address] . tel:[phone] Offic/outpt E&m Estab [facility], [address] [facility] [address] [place] [address], [id number], tel:[phone] [facility] No Information Zach Vera. [address], [address] [place] [address], . tel:[phone] Referring Provider: Chuy Hill, [address] [place] [address], [address] [place] [address] . tel:[phone] [facility], [address] [place] [address], [address] [place] [address], tel:[phone] [facility] No Information Zach Vera. [address] [place] [address], [address] [place] [address], . tel:[phone] Referring Provider: Chuy Hill, [address] [place] [address], [address] [place] [address] . tel:[phone] Offic/outpt E&m Estab Low-mod [facility], [address] [place] [address], [address] [place] [address], tel:[phone] [facility] No Information No [facility], [address] [facility] [address] [place] [address], [address] [place] [address], tel:[phone] [facility] No Information Zach Vera. [address], [address] [place] [address], . tel:[phone] Referring Provider: Chuy Hill, [address] [place] [address], [address] [place] [address] . tel:[phone] Offic/outpt E&m Estab [facility], [address] [place] [address], [address] [place] [address], tel:[phone] [facility] No Information Zach Vera. [address] [place] [address], [address] [place] [address], . tel:[phone] Referring Provider: Chuy Hill, [address] [place] [address], [address] [place] [address] . tel:[phone] [facility], [address] [place] [address], [address] [place] [address], tel:[phone] [facility] No Information Zach Vera. [address] [place] [address], [address] [place] [address], . tel:[phone] Referring Provider: Chuy Hill, [address] [place] [address], [address] [place] [address] . tel:[phone] Offic/outpt E&m Estab Mod-hi 2 Jose, [address] [place] [address], [address] [place] [address], tel:[phone] [facility] No Information No Information St [facility], [address] [place] [address], [id number], tel:[phone] [facility] No Information No Information [facility], [address] [place] [address], [id number], tel:[phone] [facility] No Information No Information [facility], [address] [place] [address], [id number], tel:[phone] [facility] No Information No Information St [facility], [address], [id number], tel:[phone] [facility] No Information [facility] Information [facility], [address], [place], [place], [id number], tel:[phone] [facility] No Information No Information [facility], [address], [id number], tel:[phone] [facility] No Information Robin BERMUDEZ Norah. [address], [facility], . tel:[phone] Offic/outpt E&m Estab Low-mod [facility], [address], [id number], tel:[phone] [facility] No Information No Information Offic Cons New/estab Mod-hi 60 [facility], [address] [place] [address], [id number], tel:[phone] [facility] No Information No Information Referring Provider: Henry Cooper, [address] [place], [address]. tel:[phone] Family History Family Member Type Diagnosis Age At Onset No Information Payers Payer name Insurance type Covered green party ID Authoriza tion(s) Medicare [id number] Medicaid [id number] Social History Type Description Quantity Date Captured [...]
[2025-05-15 09:16] VITALS: BP 110/78; PULSE 75; O2SAT 97; BMI 25.3
--- NOTE | 2025-05-15 09:16 | MHC.PC.OV ---
Vital Signs 05/15/25 09:16 Height 5 ft 4 in Weight 147 lb 8 oz BMI 25.3 BP 110/78 Blood Pressure Location Lt brachial Position Sitting Pulse 75 Pulse Source Pulse Oximeter Pulse Oximetry (%) 97 Oxygen Delivery Method Room Air Intake Visit Reasons: Annual Exam Head Of Operation And Logistics Required: No Accompanied by: Self / Same As Patient Allergies acetaminophen (From Tylenol-Codeine) Allergy (Severe, Verified 05/15/25 09:49) Difficulty Breathing codeine (From Tylenol-Codeine) Allergy (Severe, Verified 05/15/25 09:49) Difficulty Breathing atorvastatin (Lipitor) Allergy (Intermediate, Verified 05/15/25 09:49) elevated liver enzymes certolizumab pegol Adverse Reaction (Severe, Verified 05/15/25 09:49) headaches Medication List - Last Reconciled 05/15/25 by Zonia Ashraf MD acetaminophen (Acetaminophen Extra Strength) 1,000 mg (2 x 500 mg) PO Q6H PRN albuterol sulfate 90 mcg/actuation 2 puffs inhalation Q4-6H PRN albuterol sulfate 2.5 mg (3 mL) inhalation Q4-6H PRN amitriptyline 25 mg PO BEDTIME 90 days aspirin 81 mg PO DAILY atorvastatin 80 mg PO BEDTIME 90 days cane As directed clotrimazole-betamethasone 1-0.05 % 1 appl topical BID 4 weeks fluticasone furoate-vilanterol 100-25 mcg/dose (Breo Ellipta) 1 inh inhalation DAILY hydrocodone-homatropine 5-1.5 mg/5 mL 5 mL PO Q6H 7 days ixekizumab (Taltz Autoinjector) 80 mg subcut Q4W montelukast 10 mg PO DAILY 90 days nebulizers (AeroEclipse II Nebulizer) As directed nirmatrelvir-ritonavir 300 mg (150 mg x 2)-100 mg (Paxlovid) 3 ea PO PER PKG DIR 5 days nitroglycerin 0.4 mg sublingual Q5M PRN nystatin 1 appl topical BID PRN 2 weeks pantoprazole 40 mg PO DAILY 90 days rosuvastatin 40 mg PO DAILY sennosides 17.2 mg (2 x 8.6 mg) PO BEDTIME PRN 90 days sucralfate (Carafate) 10 mL PO BID 7 days tadalafil (Cialis) 5 mg PO DAILY 90 days tamsulosin (Flomax) 0.4 mg PO BEDTIME 90 days triamcinolone acetonide 1 spray intranasal DAILY PRN ubrogepant (Ubrelvy) 50 - 100 mg (0.5 - 1 x 100 mg) PO ONCE PRN 30 days walker As directed Tobacco use date assessed: 05/15/25 Fall risk assessment: No Falls in past year Last assessed Fall Risk: 05/15/25 Dental Screening Dental Screen Date: 05/15/25 Did you have a dental visit in the last 12 months?: Yes Did you have a dental problem in the last 6 months where you did not have access to dental care?: No Was dental information given to patient?: Patient has dentist HPI HPI Comments History of Present Illness Details The patient is a 64-year-old male presenting with a follow-up on chronic conditions and preventative care. The patient has a history of tubular adenomas discovered during a colonoscopy in 2019, necessitating a follow-up colonoscopy this year. He has been managing psoriatic arthritis with medication, including Montelukast. The patient experiences migraines for which he uses Ubrelvy. He underwent cardiac catheterization in 2022, which showed normal right coronary artery findings. The patient has hyperlipidemia, which is well-controlled with atorvastatin, as evidenced by improved cholesterol levels. His LDL cholesterol has decreased significantly from 221 mg/dL to 70 mg/dL. He is also managing gastroesophageal reflux disease with pantoprazole. Additionally, he takes tamsulosin for benign prostatic hyperplasia. - Colonoscopy due this year for surveillance of tubular adenomas - Lipid management with atorvastatin showing significant improvement in cholesterol levels [facility] Medical History Tinea corporis Atherosclerotic cardiovascular disease UTI (urinary tract infection) Hospital discharge follow-up Hematuria Leukocytosis Left inguinal hernia Back pain Constipation by delayed colonic transit GERD (gastroesophageal reflux disease) Chest pain Psoriatic arthritis Moderate asthma Pure hypercholesterolemia Unintentional weight loss Surgical History S/P cardiac catheterization Hx of colonoscopy H/O enucleation of right eyeball Hx laparoscopic cholecystectomy History of eye prosthesis History of corneal transplant Family History Father Kidney failure Mother Diabetes Stroke Alzheimer disease Brother Cancer of kidney Sister Breast cancer Brother Lung cancer Social History Housing: House Alcohol intake: current Alcohol intake frequency: holidays/special occasions only Alcohol type: beer Patient Tobacco Use Status: Never used Tobacco Tobacco use type: Cigarette e-Cigarette/Vaping Use: Never Used Second Hand Smoke Exposure: No service: No Current occupational status: disabled Cognitive needs: No Hearing needs: No Vision needs: Yes (Glasses) Questionnaire PHQ-9 Over the last 2 weeks, how often have you been bothered by any of the following problems? 1. Little interest or pleasure in doing things: not at all 2. Feeling down, depressed, or hopeless: not at all 3. Trouble falling or staying asleep, or sleeping too much: not at all 4. Feeling tired or having little energy: not at all 5. Poor appetite or overeating: not at all 6. Feeling bad about yourself - or that you are a failure or have let yourself or your family down: not at all 7. Trouble concentrating on things, such as reading the newspaper or watching television: not at all 8. Moving or speaking so slowly that other people could have noticed. Or the opposite - being so fidgety or restless that you have been moving around a lot more than usual: not at all 9. Thoughts that you would be better off or of hurting yourself in some way: not at all Total score: 0 Depression Screening Interpretation: Negative Depression Screening Done: Yes 11760 - PHQ-9 Billing: Yes Source: Developed by Drs. Devon Latif, Desirae Pennington, Chuy Kingsley and colleagues, with an educational afia from [employer]. Thrive Questionnaire Date Thrive assessed: 05/15/25 I am a: Patient What is your living situation today?: I have a steady place to live Within the past 12 months, did the food you bought not last and you didn't have the money to get more?: Never true Within the past 12 months, did you worry whether your food would run out before you got money to buy more?: Never true Do you have trouble paying for medicines?: No Do you have trouble getting transportation to medical appointments?: No Do you have trouble paying your heating and electricity bill?: No Do you have trouble taking care of your child, family member or friend?: No Do you have trouble with day-to-day activities such as bathing, preparing meals, shopping, managing finances, etc.?: No Are you currently unemployed and looking for a job?: No Are you interested in more education?: No Please select the resources that you would like help with: None Currently or been in a relationship where the following occur: No concerns reported THRIVE Score: 0 AUDIT C Alcohol Use Questionnaire (AUDIT-C) 1. How often do you have a drink containing alcohol?: Monthly or less 2. How many drinks containing alcohol do you have on a typical day when you are drinking?: 1 or 2 3. How often do you have six or more drinks on one occasion?: Never Total Score: 1 Score Reviewed/Action Taken: No AIMEE-7 AMB Questionnaire AIMEE-7 Date AIMEE - 7 assessed: 05/15/25 Feeling nervous, anxious, or on edge: 0 = Not at all Not being able to stop or control worryin = Not at all Worrying too much about different things: 0 = Not at all Trouble relaxin = Not at all Being so restless that it is hard to sit still: 0 = Not at all Becoming easily annoyed or irritable: 0 = Not at all Feeling afraid as if something awful might happen: 0 = Not at all Total AIMEE-7 score (0-4 normal; 5-9 mild; 10-14 moderate; 15-21 severe): 0 Source: Developed by Drs. Devon Latif, Desirae Pennington, Chuy Kingsley and colleagues, with an educational afia from [employer]. AIMEE-7 Assessment Billing AIMEE-7 Assessment Tool: AIMEE-7 Assessment 01526 Review of Systems Const All systems reviewed & are unremarkable except as noted in HPI and below Card Denies chest pain at rest, Denies chest pain with activity, Denies edema, Denies irregular heart rhythm, Denies claudication, Denies dyspnea, Denies dyspnea on exertion, Denies orthopnea, Denies paroxysmal nocturnal dyspnea and Denies slow heart rate Resp Denies cough, Denies dyspnea and Denies dyspnea on exertion GI Denies abdominal pain, Denies change in bowel habits, Denies excessive flatus, Denies nausea and Denies vomiting Denies urinary hesitancy, Denies urinary incontinence and Denies urinary urgency Musc Denies abnormal gait, Denies atrophy, Denies deformity and Denies limited range of motion Skin/Breast Denies bleeding lesions, Denies changing lesions and Denies rash Neuro Denies abnormal gait and Denies lack of coordination Physical exam (Primary Care) Vital Signs: Last Vital Signs Pulse 75 05/15/25 09:16 BP 110/78 05/15/25 09:16 Pulse Ox 97 05/15/25 09:16 Oxygen Delivery Method Room Air 05/15/25 09:16 BMI result Body Mass Index 25.3 Tobacco/Smoking Status: Tobacco use Status Tobacco use date assessed 05/15/25 05/15/25 09:18 Patient Tobacco Use Status Never used Tobacco 05/15/25 09:18 Tobacco use type Cigarette 05/15/25 09:18 e-Cigarette/Vaping Use Never Used 05/15/25 09:18 PHQ-9: PHQ-9 Score PHQ-9: Total score 0 05/15/25 09:18 Depression Screening Interpretation: Negative Thrive Assessment: Date of Thrive Assessment Date Thrive assessed 05/15/25 05/15/25 09:18 Currently or been in a relationship where the following occur: No concerns reported [facility] Head: Yes normal to inspection, Yes normocephalic and Yes atraumatic Ears: external ears normal Eyes General: appearance normal, both eyes and all related structures Eyelids: Yes eyelids normal Conjunctivae: conjunctivae normal Neck Neck: Yes normal visual inspection and Yes supple Resp Effort & Inspection: normal respiratory effort Auscultation: clear to auscultation bilaterally Cardio Jugular venous distension: no JVD Rate: regular rate Rhythm: regular rhythm Heart sounds: S1 normal heart sound present and S2 normal heart sound present GI Inspection: Yes normal to inspection Palpation (GI): Soft to palpation and nontender Auscultation: normal bowel sounds Skin Other: Left ingrown toenail of left foot first toe Neuro General: no focal motor deficits Extrem General: Yes full ROM Psych Appearance: grossly normal Coding Level of Care Code Est Pt Level 3 (52140) Est Pt Prev Care 40-64y(81876) Diagnoses Physical exam Z00.00 Ingrown toenail of left foot L60.0 Additional Codes AIMEE-7 Assessment Billing - AIMEE-7 Assessment Tool: AIMEE-7 Assessment 27960 ([id number]) PHQ-9 - 63419 - PHQ-9 Billing: Yes ([id number]) Time Spent (min) 35 Assessment & Plan Assessment & Plan (1) Physical exam: Code(s): Z00.00 - Encounter for general adult medical examination without abnormal findings Category: Medical (2) Ingrown toenail of left foot: Code(s): L60.0 - Ingrowing nail Category: Medical Plan Plan Patient was informed and verbally consented to the use of an ambient scribe for clinic note documentation during this visit. 1. Benign neoplasm of colon, unspecified D12.6 The patient is due for a follow-up colonoscopy this year to monitor for recurrence of tubular adenomas. 2. 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 3. Hyperlipidemia, unspecified E78.5 The patient's hyperlipidemia is well-controlled with atorvastatin, with significant improvement in cholesterol levels. 4. Encounter for general adult medical examination without abnormal findings Z00.00 Orders: Referrals Open Access Screening Colonoscopy Referral Z12.12 - Encounter for screening for malignant neoplasm of rectum Podiatry Referral L60.0 - Ingrowing nail Medications: New sulfamethoxazole-trimethoprim 800-160 mg (Bactrim DS) 1 tab PO BID 14 tabs 0RF 7 days
--- OUTSIDE RECORDS SUMMARY | 2025-05-15 09:43 | XMS_ITS | Encounter Summary ---
Author Organization [facility] Address [address] [place] [address] Care Team Providers Care Human Resources Manager Name Role Phone Alexandru Black MD Primary Care Provider Leticia La MD Primary Care Provider Macey Haskins, Pcp Primary Care Provider Zonia Camacho MD Primary Care Provider Dee giraldo Reason for Visit * Reason Onset Date Comments REFERRAL 10/26/2013 Encounter Details Date Type Department Care Team Description 10/26/2013 Telephone Adult Medicine - [address] [id number] Alexandru Black MD REFERRAL Social History Tobacco Use Types Packs/Day Years Used Date Smoking Tobacco: Never Alcohol Use Standard Drinks/Week Comments Not Asked 0 (1 standard drink = 0.6 oz pur e alcohol) Sex Assigned at Date Recorded Not on file documented as of this encounter Miscellaneous Notes * Telephone Encounter - Kiya Craig - 10/26/2013 9:42 AM EST Pt was put on the Orthopedic referrals report for: right shouler pain. Has xr from prev PCP Has patient had surgery for this problem: No; Priority: Next Available; Pt was called and a letter was sent; pt has not responded. documented in this encounter Plan of Treatment Not on file documented as of this encounter Visit Diagnoses Not on filedocumented in this encounter Care Teams Human Resources Manager Relationship Specialty Start Date End Date Alexandru Black MD PCP - General Internal Medicine 09/21/13 09/18/14 Leticia Rush MD PCP - General Internal Medicine 09/19/14 04/08/16 [facility], Pcp PCP - General Internal Medicine 04/09/16 04/13/22 Zonia Ashraf MD PCP - General Internal Medicine 04/14/22 documented as of this encounter
--- OUTSIDE RECORDS SUMMARY | 2025-05-15 09:43 | XMS_ITS | Encounter Summary ---
Author Organization [facility] Address [address] [place] [address] Care Team Providers Care Bricklayer'S Assistant Name Role Phone Alexandru Black MD Primary Care Provider Leticia La MD Primary Care Provider Macey Haskins, Pcp Primary Care Provider Zonia Camacho MD Primary Care Provider Dee giraldo Reason for Visit * Reason Onset Date Comments radiology 10/31/2013 Encounter Details Date Type Department Care Team Description 10/31/2013 Telephone Orthopedics-[address] [address] Maico Bermudez PA radiology Social History Tobacco [...] EST) 11/03/2013 1:57 PM EST Narrative [facility] OTHER EXTERNAL - 11/03/2013 1:57 PM EST Right shoulder HISTORY: Pain. COMMENT: 4 views. [...] region documented in this encounter Care Teams Bricklayer'S Assistant Relationship Specialty Start Date End Date [...]
--- OUTSIDE RECORDS SUMMARY | 2025-05-15 09:43 | XMS_ITS | Encounter Summary ---
Author Organization [facility] Address [address] [place] [address] Care Team Providers Care Rocket Motor Mechanic Name Role Phone Community, Pcp Primary Care Provider Zonia Camacho MD Primary Care Provider Dee giraldo Encounter Details Date Type Department Care Team Description 04/23/2016 HEAT TREAT TECHNICIAN/[facility] Report Medical Records [address] [place] [address] Abstract, Provider Social History Tobacco Use Types [...] on filedocumented in this encounter Care Teams Rocket Motor Mechanic Relationship Specialty Start Date End Date Community, Pcp PCP - General Internal Medicine 04/09/16 04/13/22 Zonia Ashraf MD PCP - General Internal Medicine 04/14/22 documented as of this encounter
--- OUTSIDE RECORDS SUMMARY | 2025-05-15 09:43 | XMS_ITS | Encounter Summary ---
Author Organization [facility] Address [address] [place] [address] Care Team Providers Care Ripsaw Operator Name Role Phone Community, Pcp Primary Care Provider Zonia Camahco MD Primary Care Provider Dee giraldo Encounter Details Date Type Department Care Team Description 06/06/2018 Refill Dermatology - [place] [address] [place] [address] Daisy Mary PA-C Social History Tobacco Use [...] on filedocumented in this encounter Care Teams Ripsaw Operator Relationship Specialty Start Date End Date Community, Pcp PCP - General Internal Medicine 04/09/16 04/13/22 Zonia Ashraf MD PCP - General Internal Medicine 04/14/22 documented as of this encounter
--- OUTSIDE RECORDS SUMMARY | 2025-05-15 09:43 | XMS_ITS | Encounter Summary ---
Author Organization [facility] Address [address] [place] [address] Care Team Providers Care Labor Crew Supervisor Name Role Phone Community, Pcp Primary Care Provider Zonia Camacho MD Primary Care Provider Dee giraldo Encounter Details Date Type Department Care Team Description 08/29/2019 Telephone Dermatology - [place] [address] [place] [address] Daisy Mary PA-C Social History Tobacco Use [...] on filedocumented in this encounter Care Teams Labor Crew Supervisor Relationship Specialty Start Date End Date Community, Pcp PCP - General Internal Medicine 04/09/16 04/13/22 Zonia Ashraf MD PCP - General Internal Medicine 04/14/22 documented as of this encounter
--- OUTSIDE RECORDS SUMMARY | 2025-05-15 09:43 | XMS_ITS | Encounter Summary ---
Author Organization [facility] Address [address] [place] [address] Care Team Providers Care Wharf Operator Name Role Phone Leticia Rush MD Primary Care Provider Macey Haskins, Pcp Primary Care Provider Zonia Camacho MD Primary Care Provider Dee giraldo Encounter Details Date Type Department Care Team Description 04/10/2015 Wire Frame Lampshade Maker Report Medical Records [address] [place] [address] Marline Warren MD Social History Tobacco Use [...] on filedocumented in this encounter Care Teams Wharf Operator Relationship Specialty Start Date End Date Leticia Rush MD PCP - General Internal Medicine 09/19/14 04/08/16 Jozef, Pcp PCP - General Internal Medicine 04/09/16 04/13/22 Zonia Ashraf MD PCP - General Internal Medicine 04/14/22 documented as of this encounter
--- OUTSIDE RECORDS SUMMARY | 2025-05-15 09:43 | XMS_ITS | Encounter Summary ---
Author Organization [facility] Address [address] [place] [address] Care Team Providers Care Churn Drill Operator Name Role Phone Alexandru Black MD Primary Care Provider Leticia La MD Primary Care Provider Macey Haskins, Pcp Primary Care Provider Zonia Camacho MD Primary Care Provider Dee giraldo Encounter Details Date Type Department Care Team Description 06/05/2014 Release of Information Medical Records [address] [place] [id number] Abstract, Provider Social History Tobacco Use Types [...] on filedocumented in this encounter Care Teams Churn Drill Operator Relationship Specialty Start Date End Date Alexandru Black MD PCP - General Internal Medicine 09/21/13 09/18/14 Leticia Rush MD PCP - General Internal Medicine 09/19/14 04/08/16 Jozef, Gabby PCP - General Internal Medicine 04/09/16 04/13/22 Zonia Ashraf MD PCP - General Internal Medicine 04/14/22 documented as of this encounter
--- OUTSIDE RECORDS SUMMARY | 2025-05-15 09:43 | XMS_ITS | Patient Health Record ---
Author Organization [facility] Address [address] [place] [address] Care Team Providers Care Fish Bait Picker Name Role Phone Zonia Capellan Primary Care [...] Problem Status W/U Status Risk Notes Problem [id number] Weight loss (R63.4) Active confirmed Problem [id number] LUQ pain (R10.12) Active confirmed Plan Of Treatment Future Test Test Name Order Date UPPER GI ENDOSCOPY 07/30/2020 COLONOSCOPY 07/30/2020 Insurance Providers Payer Name Payer Address Payer Phone Subscriber Number Group Number Insured Name Patient Relationship to Insured Coverage Start Date Coverage End Date [facility] [address] [place] [address] [id number] EREN VELAZCO Self - patient is the [...]
--- OUTSIDE RECORDS SUMMARY | 2025-05-15 09:43 | XMS_ITS | Encounter Summary ---
Author Organization [facility] Address [address] [place] [address] Care Team Providers Care Executive Receptionist Name Role Phone Community, Pcp Primary Care Provider Zonia Camacho MD Primary Care Provider Dee giraldo Encounter Details Date Type Department Care Team Description 07/26/2017 Orders Only Dermatology - [place] [address] [place] [address] Daisy Mary PA-C Social History Tobacco Use [...] on filedocumented in this encounter Care Teams Executive Receptionist Relationship Specialty Start Date End Date Community, Pcp PCP - General Internal Medicine 04/09/16 04/13/22 Zonia Ashraf MD PCP - General Internal Medicine 04/14/22 documented as of this encounter
--- OUTSIDE RECORDS SUMMARY | 2025-05-15 09:43 | XMS_ITS | Encounter Summary ---
Author Organization [facility] Address [address] [place] [address] Care Team Providers Care Animator Name Role Phone Community, Pcp Primary Care Provider Zonia Camacho MD Primary Care Provider Dee giraldo Encounter Details Date Type Department Care Team Description 09/09/2017 Refill Dermatology - [place] [address] [place] [address] Daisy Mary PA-C Social History Tobacco Use [...] on filedocumented in this encounter Care Teams Animator Relationship Specialty Start Date End Date Community, Pcp PCP - General Internal Medicine 04/09/16 04/13/22 Zonia Ashraf MD PCP - General Internal Medicine 04/14/22 documented as of this encounter
--- OUTSIDE RECORDS SUMMARY | 2025-05-15 09:43 | XMS_ITS | Patient Health Record ---
Author Organization [facility] Address [address] [place] [address] Care Team Providers Care Tanyard Worker Name Role Phone Marie WHITTEN, Zonia Primary Care Provider Unavail able Bharath Aikenen Unavailable [phone] Allergies No Known Allergies Reason For Referral [...] Coverage Start Date Coverage End Date [facility] [employer] Claims [address] [place] [id number] [phone] [id number] Cole Malone Self - patient is the insured Medical (General) History Medical History History ICD Code Reflux ( GERD) Back pain chest pain asthma Psoriasis Hypercholesterolemia Arthritis Surgical History Surgery Date(Month/Year) cholecystectomy enucleation with prosthesis placement
--- OUTSIDE RECORDS SUMMARY | 2025-05-15 09:43 | XMS_ITS | Encounter Summary ---
Author Organization [facility] Address [address] [place] [address] Care Team Providers Care Steam And Gas Turbine Assembler Name Role Phone Alexandru Black MD Primary Care Provider Leticia La MD Primary Care Provider Macey Haskins, Pcp Primary Care Provider Zonia Camacho MD Primary Care Provider Dee giraldo Encounter Details Date Type Department Care Team Description 05/30/2014 Cone Machine Operator Report Medical Records [address] [place] [id number] Berto Garces Social History Tobacco Use Types [...] on filedocumented in this encounter Care Teams Steam And Gas Turbine Assembler Relationship Specialty Start Date End Date Alexandru Black MD PCP - General Internal Medicine 09/21/13 09/18/14 Leticia Rush MD PCP - General Internal Medicine 09/19/14 04/08/16 Jozef, Gabby PCP - General Internal Medicine 04/09/16 04/13/22 Zonia Ashraf MD PCP - General Internal Medicine 04/14/22 documented as of this encounter
--- OUTSIDE RECORDS SUMMARY | 2025-05-15 09:43 | XMS_ITS | Clinical Summary ---
Author Organization [facility] Address [address] [place] [address] Care Team Providers Care Ground Services Instructor Name Role Phone Zonia Ashraf MD Primary Care Provider Dee giraldo Allergies No known active allergies Medications Medication Sig Dispensed Refills Start Date End Date Status ALBUTEROL SULFATE HFA IN Inhale into the lungs. 0 Active dicyclomine (BENTYL) 10 MG capsule Take 10 mg by mouth 2 times daily (before meals). 0 Active omeprazole (PRILOSEC) 20 MG capsule Take 1 Cap by mouth daily. 30 Cap 5 03/11/2015 Active nabumetone (RELAFEN) 500 MG tablet Take 2 Tabs by mouth 2 times daily. 120 Tab 5 03/11/2015 Active aspirin (SB LOW DOSE ASA EC) 81 MG EC tablet Take 1 Tab by mouth daily. 100 Tab 3 03/11/2015 Active fluticasone-salmeter ol (ADVAIR DISKUS) 250-50 MCG/DOSE diskus inhalerIndications:A sthma, moderate persistent, uncomplicated Inhale 1 Puff into the lungs 2 times daily. 1 Inhaler 5 03/11/2015 Active albuterol (PROVENTIL) (2.5 MG/3ML) 0.083% nebulizer solutionIndications: Asthma, moderate persistent, uncomplicated Take 1 Vial by nebulization every 4 hours as needed for Wheezing. 50 Vial 1 03/11/2015 Active Zolpidem Tartrate 10 MG TabIndications:Insom silvestre Take 1 Tab by mouth at bedtime as needed for Insomnia. 30 Tab 0 03/11/2015 Active ketoconazole (NIZORAL) 2 % cream Apply BID x 2 weeks 30 g 1 01/25/2018 Active gabapentin (NEURONTIN) 300 MG capsule TAKE 1 CAPSULE IN AM AND 2 CAPS IN EVENING DIRECTED 6 07/13/2018 Active magnesium oxide (MAG-OX) 400 MG tablet TAKE 1 TABLET BY MOUTH AT BEDTIME 3 07/19/2018 Active Riboflavin 100 MG Cap TAKE 2 CAPSULES BY MOUTH TWICE A DAY 6 07/13/2018 Active Loratadine 10 MG Cap Take 1 Cap by mouth daily. 30 Cap 5 09/11/2018 Active montelukast (SINGULAIR) 10 MG tablet 0 01/18/2019 Active lidocaine (LIDODERM) 5 % Place 1 Patch onto the skin every 24 hours for 28 days. Apply for no more than 12 hours in any 24 hour period. 28 Patch 0 10/31/2019 Active CIMZIA PREFILLED 2 X 200 MG/ML Kit INJECT 400 MG INTO THE SKIN EVERY 14 DAYS. 2 Kit 10 12/02/2020 Active triamcinolone (KENALOG) 0.1 % cream Apply to affected area BID x 2 weeks 60 g 0 06/03/2021 Active Active Problems Patient Care Coordination No te Formatting of this note is d ifferent from the original. Checking Your Blood Sugars Please check your blood sugars every day. Please check your sugars at the following times of day: different times Your Blood Sugar Goals Pre Meal: 90-130 2 hours after meals: 110-160 Bedtime: 110-150 Use the Results Bring your glucometer to every appointment Write your fingerstick blood sugars down on a log sheet or record book. Bring them to your appointment Look for patterns in the numbers. The results help you and your provider make decisions about your diabetes treatment plan. Your Results and your Goals Your Result / Date of Completion Your Goal / How Often to Assess Component Value Date HGBA1C 5.9 11/21/2014 Less than 7% --- 2-4 times per year BP Readings from Last 1 Encounters: 12/03/14 118/76 Less than 140/90 --- once per year Component Value Date MALBCR 2.7 08/20/2014 Less than 30 --- once per year Component Value Date LDL 65 08/20/2014 Less than 100 --- once per year Wt Readings from Last 1 Encounters: 12/03/14 151 lb (68.493 kg) Your goal weight by next visit: no change --- reassess 2-4 times a year Health Maintenance Due Topic Date Due Diabetes: Annual Foot Exam 1978 Diabetes: Annual Care Plan 1978 Hepatitis C Screening 1978 Pneumovax For High Risk Patients (##1) 1978 Baseline Health Exam 40-64 2000 Depression Screen 11/21/2014 Your Action Plan Your diabetes is well controlled and no changes are required to your current plan. Check blood glucose as directed and write down all results. Check feet for sores every day Contact me if you experience any barriers to care such as inability to purchase your medication, difficulty getting to your appointments or difficulty understanding your care plan Please get your yearly flu shot When to Call your Healthcare Provider If your blood sugar falls below 70 and you do not know why or you become unconscious If you are sick and unable to take liquids because or nausea or vomiting If you have a fever over 101 If your blood sugar is 300 or higher on greater than 3 separate occasions during the same week If you are just unsure what to do Educational Resources [place] [employer] (www.diabetes.org) Centers for Disease Control and Prevention (www.cdc.gov/diabetes) This care plan was created in collaboration with Cole Malone on 12/03/2014 Problem Noted Date Psoriatic arthritis 12/03/2014 Overview: ? Some left ankle synovitis 02/02 - other joints benign Eye globe prosthesis 05/17/2014 Overview: 2005 Insomnia 05/17/2014 Type 2 diabetes mellitus without complic ation 01/11/2014 Psoriasis 10/12/2013 Overview: Dr. Mot[place], [place] [facility] On Enbrel 50mg twice a week since ~2007 - d/c 2014 Methotrexate in past did not clear psoriasis - in conjunction with Enbrel Humira - caused dizziness On Stelara 45mg since 11/2014 - was not helpful for joints Started on Cosentyx 09/2017 Hyperlipidemia 11/17/2011 Myocardial infarct, old 11/17/2011 Overview: 2009 No intervvention or cath per pt. Asthma 11/17/2011 Immunizations Name Administration Dates Next Due Influenza (> 6 Months) 08/20/2014,07/20/2013 TD (STATE SUPPLIED FOR ADULTS AND CHILDREN) 02/19 Family History Medical History Relation Name Comments Arthritis Brother Relation Name Status Comments Brother Social History Tobacco Use Types Packs/Day Years Used Date Smoking Tobacco: Never Smokeless Tobacco: Never Alcohol Use Standard Drinks/Week Comments No 0 (1 standard drink = 0.6 oz pur e alcohol) Sex Assigned at Date Recorded Not on file Last Filed Vital Signs Vital Sign Reading Time Taken Comments Blood Pressure 108/64 06/03/2021 8:41 AM EDT Pulse 64 06/03/2021 8:41 AM EDT Temperature 36.4 C (97.6 F) 04/17/2020 2:40 PM EDT Respiratory Rate 14 03/27/2019 9:15 AM EDT Oxygen Saturation 98% 11/21/2013 1:52 PM EST Inhaled Oxygen Concentration - - Weight 64.5 kg (142 lb 3.2 oz) 06/03/2021 8:41 A M EDT Height 162.6 cm (5' 4 ) 06/03/2021 8:41 AM EDT Body Mass Index 24.41 06/03/2021 8:41 AM EDT Plan of Treatment Health Maintenance Due Date Last Done Comments Covid-19 Vaccine (#1) 01[birth year]10/1961 PNEUMOCOCCAL VACCINE FOR HIG H RISK PATIENTS (#1) 1979 SHINGLES VACCINE (1 of 2) 2010 DEPRESSION SCREEN 11/21/2014 11/21/2013 DIABETES: BLOOD SUGAR CONTRO L TEST (HGBA1C) 06/11/2015 03/11/2015, 11/21/2014, 08/20/2014, Additional history exists DIABETES: ANNUAL EYE EXAM 12/03/20152014 (External Completion of test per patient (Patient reports normal results)) DIABETES: ANNUAL FOOT EXAM 12/04/2015 12/03/2014 DIABETES/HEART DISEASE: DAVID AL CHOLESTEROL (LDL) 03/11/2016 03/11/2015, 08/20/2014, 01/04/2014, Additional history exists DIABETES: ANNUAL URINE PROTE IN TEST (MICROALBUMIN) 03/11/2016 03/11/2015, 08/20/2014, 01/04/2014 COLON CANCER SCREENING 09/19/2020 1 (External Completion of test per patient (Patient reports normal results)) INFLUENZA (#1) 2025 08/20/2014, 07/20/2013 DTAP/TDAP/TD (4 - Td or Tdap) 08/27/2025, 03/18/2014, 09/19/2010 HEPATITIS C SCREENING Completed 03/11/2015 Care Teams Ground Services Instructor Relationship Specialty Start Date End Date Zonia Ashraf MD PCP - General Internal Medicine 04/14/22
== END 2025-05-15 10:11 | disposition home or self-care (01) ==
LOC: HO.HMCH 09:14
PROVIDERS: PCP Internal Medicine; Visit Provider Internal Medicine
DX: Z00.00 Encounter for general adult medical examination without abnormal findings (principal); L60.0 Ingrowing nail

== ENCOUNTER → 2025-05-15 09:14 | Outpatient (BNVA) | payer OTHER, SELFPAY | PROVIDERS: PCP Internal Medicine; Visit Provider Internal Medicine | DX: Z00.00 Encounter for general adult medical examination without abnormal findings (principal); G43.909 Migraine, unspecified, not intractable, without status migrainosus; E78.5 Hyperlipidemia, unspecified; K21.9 Gastro-esophageal reflux disease without esophagitis; L60.0 Ingrowing nail; L40.50 Arthropathic psoriasis, unspecified; D12.6 Benign neoplasm of colon, unspecified; Z86.0101 Personal history of adenomatous and serrated colon polyps | CPT/HCPCS: 96127; 99212; 99396 ==

== ENCOUNTER 2025-05-28 09:59 | Outpatient (REF) | payer OTHER, SELFPAY | END 2025-05-28 10:00 | disposition home or self-care (01) | LOC: HO.LNP 09:59 | PROVIDERS: PCP Internal Medicine; Visit Provider Student in an Organized Health Care Education/Training Program | DX: B35.1 Tinea unguium (principal); L60.3 Nail dystrophy | CPT/HCPCS: 11755; 87101; 87220; 88304; 88312; 99202 ==

== ENCOUNTER 2025-05-28 09:59 | Outpatient (AMB) | payer OTHER, SELFPAY ==
--- NOTE | 2025-05-28 10:04 | A.OFFVIS_ITS ---
Vital Signs 05/28/25 10:06 Height 5 ft 4 in Weight 145 lb BMI 24.9 Intake Visit Reasons: New Pt- Ingrown left great toe Intake Note: Cole is a 64 year old male who presents today as a new patient for an evaluation of his ingrown toe nail of his left great toe. Patient reports no pain at this time. Allergies acetaminophen (From Tylenol-Codeine) Allergy (Severe, Verified 05/28/25 10:06) Difficulty Breathing codeine (From Tylenol-Codeine) Allergy (Severe, Verified 05/28/25 10:06) Difficulty Breathing atorvastatin (Lipitor) Allergy (Intermediate, Verified 05/28/25 10:06) elevated liver enzymes certolizumab pegol Adverse Reaction (Severe, Verified 05/28/25 10:06) headaches Medication List - Last Reconciled 05/28/25 by Roc Brandt DPM acetaminophen (Acetaminophen Extra Strength) 1,000 mg (2 x 500 mg) PO Q6H PRN albuterol sulfate 90 mcg/actuation 2 puffs inhalation Q4-6H PRN albuterol sulfate 2.5 mg (3 mL) inhalation Q4-6H PRN amitriptyline 25 mg PO BEDTIME 90 days aspirin 81 mg PO DAILY atorvastatin 80 mg PO BEDTIME 90 days cane As directed ciclopirox 8% 1 appl topical BEDTIME 4 weeks clotrimazole-betamethasone 1-0.05 % 1 appl topical BID 4 weeks fluticasone furoate-vilanterol 100-25 mcg/dose (Breo Ellipta) 1 inh inhalation DAILY hydrocodone-homatropine 5-1.5 mg/5 mL 5 mL PO Q6H 7 days ixekizumab (Taltz Autoinjector) 80 mg subcut Q4W montelukast 10 mg PO DAILY 90 days nebulizers (AeroEclipse II Nebulizer) As directed nirmatrelvir-ritonavir 300 mg (150 mg x 2)-100 mg (Paxlovid) 3 ea PO PER PKG DIR 5 days nitroglycerin 0.4 mg sublingual Q5M PRN nystatin 1 appl topical BID PRN 2 weeks pantoprazole 40 mg PO DAILY 90 days rosuvastatin 40 mg PO DAILY sennosides 17.2 mg (2 x 8.6 mg) PO BEDTIME PRN 90 days sucralfate (Carafate) 10 mL PO BID 7 days sulfamethoxazole-trimethoprim 800-160 mg (Bactrim DS) 1 tab PO BID 7 days tadalafil (Cialis) 5 mg PO DAILY 90 days tamsulosin (Flomax) 0.4 mg PO BEDTIME 90 days triamcinolone acetonide 1 spray intranasal DAILY PRN ubrogepant (Ubrelvy) 50 - 100 mg (0.5 - 1 x 100 mg) PO ONCE PRN 30 days walker As directed HPI HPI New Pt- Ingrown left great toe: Details: 64-year-old male past medical history of coronary artery disease, GERD, psoriatic arthritis as seen today for initial evaluation of discolored toenails on both of his feet. He states they have been present for over 20 years. He denies a history of trauma to his toenails. He notes that the nails grow very slowly. Has not tried any treatment recently. [facility] Medical History Tinea corporis Atherosclerotic cardiovascular disease UTI (urinary tract infection) Hospital discharge follow-up Hematuria Leukocytosis Left inguinal hernia Back pain Constipation by delayed colonic transit GERD (gastroesophageal reflux disease) Chest pain Psoriatic arthritis Moderate asthma Pure hypercholesterolemia Unintentional weight loss Surgical History S/P cardiac catheterization Hx of colonoscopy H/O enucleation of right eyeball Hx laparoscopic cholecystectomy History of eye prosthesis History of corneal transplant Family History Father Kidney failure Mother Diabetes Stroke Alzheimer disease Brother Cancer of kidney Sister Breast cancer Brother Lung cancer Social History Housing: House Alcohol intake: current Alcohol intake frequency: holidays/special occasions only Alcohol type: beer Patient Tobacco Use Status: Never used Tobacco Tobacco use type: Cigarette e-Cigarette/Vaping Use: Never Used Second Hand Smoke Exposure: No service: No Current occupational status: disabled Cognitive needs: No Hearing needs: No Vision needs: Yes (Glasses) Review of Systems Const All systems reviewed & are unremarkable except as noted in HPI and below Physical Exam Vital Signs: BMI result Body Mass Index 24.9 Extrem Other: *Bilateral Lower Extremity Focused Exam Vascular: DP/PT 2/4, CFT less than 3 seconds all digits, temperature gradient warm to cool, no pedal edema Derm: Discolored thickened brittle left hallux toenail right 3rd and 4th toenails. Neuro: Protective sensation grossly intact to bilateral lower extremities. MSK: No pain on palpation of as toes. Normal range of motion and strength to bilateral lower extremities. Office Procedures AMB Debridement/Avulsion Podia Nail Biopsy: [id number] Nail unit biopsy (Right 3rd toe) Procedure code (CPT) selection complete Assessment & Plan Assessment & Plan (1) Dystrophia unguium: Code(s): L60.3 - Nail dystrophy Category: Medical Plan: * Discussed the etiology of his discolored nails, differential diagnosis including fungal nail infection, psoriatic arthritis, history of trauma. * Rx ciclopirox 8% to be applied daily. * Nail biopsy performed. * Discussed oral antifungal medication which the patient deferred at this time. * Follow up in a month. (2) Tinea unguium: Code(s): B35.1 - Tinea unguium Category: Medical Plan: * Rx ciclopirox Orders: Orders Surgical Today B35.1 - Tinea unguium Routine Culture w Gram Stain Today B35.1 - Tinea unguium AMB Debridement/Avulsion Podiatry Today B35.1 - Tinea unguium Medications: New ciclopirox 8% Apply to fungal toe nails 1 appl topical BEDTIME 6.6 mL 3RF Applied to fungal nails 4 weeks B35.1 - Tinea unguium Coding Level of Care Code New Pt Level 3 (89037) Diagnoses Dystrophia unguium L60.3 Tinea unguium B35.1 CPT Codes Skin Debridement - CPT: 78874 Nail unit biopsy ([id number])
[2025-05-28 10:06] VITALS: BMI 24.9
--- OUTSIDE RECORDS SUMMARY | 2025-05-28 11:44 | XMS_ITS | Patient Health Record ---
Author Organization [facility] Address [address] [place] [address] Care Team Providers Care Molding Press Operator Name Role Phone Marie WHITTEN, Zonia Primary Care Provider Unavail able Bharath Aikenen Unavailable [phone] Allergies No Known Allergies Reason For Referral [...] Insured Coverage Start Date Coverage End Date [facility] SCO Claims [address] [place] [id number] Cole Malone Self - patient is the insured Medical (General) History Medical History History ICD Code Reflux ( GERD) Back pain chest pain asthma Psoriasis Hypercholesterolemia Arthritis Surgical History Surgery Date(Month/Year) cholecystectomy enucleation with prosthesis placement
--- OUTSIDE RECORDS SUMMARY | 2025-05-28 11:44 | XMS_ITS | Patient Health Record ---
Author Organization [facility] Address [address] [place] [address] Care Team Providers Care Director Of Casework Services Name Role Phone Zonia Capellan Primary Care [...] Problem Status W/U Status Risk Notes Problem [id number] Weight loss (R63.4) Active confirmed Problem [id number] LUQ pain (R10.12) Active confirmed Plan Of Treatment Future Test Test Name Order Date UPPER GI ENDOSCOPY 07/30/2020 COLONOSCOPY 07/30/2020 Insurance Providers Payer Name Payer Address Payer Phone Subscriber Number Group Number Insured Name Patient Relationship to Insured Coverage Start Date Coverage End Date [facility] [address] [place] [address] [id number] EREN EVLAZCO Self - patient is the insured Medical (General) History Medical History History ICD Code psoriasis allergies headaches hyperlipidemia diabetes mellitus asthma back pain arthritis cardiomyopathy Surgical History Surgery Date(Month/Year) eye surgery. 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
== END 2025-05-28 10:33 | disposition home or self-care (01) ==
LOC: HO.HPODS 09:59
PROVIDERS: PCP Internal Medicine; Visit Provider Student in an Organized Health Care Education/Training Program
DX: L60.3 Nail dystrophy (principal); B35.1 Tinea unguium
CPT/HCPCS: 11755; 99203

== ENCOUNTER 2025-06-19 09:46 | Outpatient (AMB) | payer OTHER, SELFPAY ==
[2025-06-19 09:50] VITALS: BP 106/62; PULSE 78; TEMP 36.7; O2SAT 99; BMI 25.4
--- NOTE | 2025-06-19 09:50 | AM.OFFWIN_ITS ---
Intake Vital Signs 06/19/25 09:50 Height 5 ft 4 in Weight 148 lb BMI 25.4 BP 106/62 Blood Pressure Location Lt brachial Position Sitting Pulse 78 Pulse Source Pulse Oximeter Temp 98.0 F Temp Source Oral Pulse Oximetry (%) 99 Oxygen Delivery Method Room Air Intake Visit Reasons: EP-rt ankle pain & swollen Patient Tobacco Use Status: Never used Tobacco Allergies acetaminophen (From Tylenol-Codeine) Allergy (Severe, Verified 06/19/25 09:52) Difficulty Breathing codeine (From Tylenol-Codeine) Allergy (Severe, Verified 06/19/25 09:52) Difficulty Breathing atorvastatin (Lipitor) Allergy (Intermediate, Verified 06/19/25 09:52) elevated liver enzymes certolizumab pegol Adverse Reaction (Severe, Verified 06/19/25 09:52) headaches Do you need a note to return to daycare/school/sports/work: No HPI HPI Comments History of Present Illness Details History of Present Illness - The patient is a 64-year-old male pres enting with foot pain and possible foot injury. - The foot pain began on Tuesday and is a ssociated with tenderness and a sensation of heat in the affected area. - The patient denies any recent trauma o r fall but recalls a possible twisting incident. - The patient has a history of gout, alt katelin he denies current symptoms of gout. - The patient has been taking Tylenol fo r pain management. Physical Exam General: Cooperative, healthy appearing, comfortable, no acute distress and well developed Orientation: Patient oriented x3 Limitations: No limitations Respiratory: Normal respiratory effort and able to speak in complete sentences. Clear to auscultation bilaterally Cardiovascular: Regular rate and rhythm. Normal S1 and S2. No m/r/g noted. Pulses are 1+. Skin: No rashes or lesions noted Neuro: Patient oriented x3. Sensation intact. Extremities: FROM of the right ankle and foot. Swelling noted to the left medial malleolus. No deformity noted. TTP of the left medial malleolus. No TTP of the calcaneous, Achilles tendon, plantar fascia, or lateral malleolus. Strength is 5/5 on the LE. Ambulates with a steady gait. Patient was informed and verbally consented to the use of an ambient scribe for clinic note documentation during this visit. [facility] Medical History Tinea corporis Atherosclerotic cardiovascular disease UTI (urinary tract infection) Hospital discharge follow-up Hematuria Leukocytosis Left inguinal hernia Back pain Constipation by delayed colonic transit GERD (gastroesophageal reflux disease) Chest pain Psoriatic arthritis Moderate asthma Pure hypercholesterolemia Unintentional weight loss Surgical History S/P cardiac catheterization Hx of colonoscopy H/O enucleation of right eyeball Hx laparoscopic cholecystectomy History of eye prosthesis History of corneal transplant Family History Father Kidney failure Mother Diabetes Stroke Alzheimer disease Brother Cancer of kidney Sister Breast cancer Brother Lung cancer Social History Housing: House Alcohol intake: current Alcohol intake frequency: holidays/special occasions only Alcohol type: beer Patient Tobacco Use Status: Never used Tobacco Tobacco use type: Cigarette e-Cigarette/Vaping Use: Never Used Second Hand Smoke Exposure: No service: No Current occupational status: disabled Cognitive needs: No Hearing needs: No Vision needs: Yes (Glasses) Review of Systems Const All systems reviewed & are unremarkable except as noted in HPI and below Physical Exam Vital Signs: Last Vital Signs Temp 98.0 F 06/19/25 09:50 Pulse 78 06/19/25 09:50 BP 106/62 06/19/25 09:50 Pulse Ox 99 06/19/25 09:50 Oxygen Delivery Method Room Air 06/19/25 09:50 BMI result Body Mass Index 25.4 Results Reviewed Results Reviewed: will review the x-ray in the office Assessment & Plan Assessment & Plan (1) Right ankle strain: Code(s): S96.911A - Strain of unspecified muscle and tendon at ankle and foot level, right foot, initial encounter Qualifiers: Encounter type: initial encounter Qualified Code(s): S96.911A - Strain of unspecified muscle and tendon at ankle and foot level, right foot, initial encounter Plan Most likely strain vs arthritis vs fracture vs tendonitis plan - Plan to obtain an x-ray to assess for any fractures or structural issues. - Consideration for providing a brace to stabilize the ankle - Continue with Naproxen for pain management. - Advise rest and elevation of the foot to reduce swelling and discomfort. - follow up with PCP Orders: Orders XR ankle RT min 3V Today M25.471 - Effusion, right ankle Medications: New naproxen 500 mg PO Q12H PRN 20 tabs 0RF pain 7 days Coding Level of Care Code Est Pt Level 4 (41607) Diagnoses Strain of right ankle, initial encounter S96.911A Encounter type: initial encounter
--- OUTSIDE RECORDS SUMMARY | 2025-06-19 10:42 | XMS_ITS | Patient Health Record ---
Author Organization [facility] Address [address] [place] [address] Care Team Providers Care Computer Security Specialist Name Role Phone Zonia Capellan Primary [...] Problem Status W/U Status Risk Notes Problem [id number] Weight loss (R63.4) Active confirmed Problem [id number] LUQ pain (R10.12) Active confirmed Plan Of Treatment Future Test Test Name Order Date UPPER GI ENDOSCOPY 07/30/2020 COLONOSCOPY 07/30/2020 Insurance Providers Payer Name Payer Address Payer Phone Subscriber Number Group Number Insured Name Patient Relationship to Insured Coverage Start Date Coverage End Date [facility] [address] [place] [address] [id number] EREN VELAZCO Self - patient is the [...]
--- OUTSIDE RECORDS SUMMARY | 2025-06-19 10:42 | XMS_ITS | Patient Health Record ---
Author Organization [facility] Address [address] [address] Care Team Providers Care Patient Portal Concierge Name Role Phone Marie WHITTEN, Zonia Primary Care Provider Unavail able Bharath Aikenen Unavailable [phone] Allergies No Known Allergies Reason For Referral [...] Coverage Start Date Coverage End Date [facility] SCO Claims [address] [place] [id number] Cole Malone Self - patient is the insured Medical (General) History Medical History History ICD Code Reflux ( GERD) Back pain chest pain asthma Psoriasis Hypercholesterolemia Arthritis Surgical History Surgery Date(Month/Year) cholecystectomy enucleation with prosthesis placement
== END 2025-06-19 11:37 | disposition home or self-care (01) ==
PROVIDERS: PCP Internal Medicine; Visit Provider Physician Assistant Medical
DX: S96.911A Strain of unspecified muscle and tendon at ankle and foot level, right foot, initial encounter (principal)

== ENCOUNTER 2025-06-19 09:46 | Outpatient (REF) | payer OTHER, SELFPAY ==
--- NOTE | ~2025-06-19 | XR_ITS ---
EXAMINATION: XR ANKLE 3 OR MORE VIEWS RIGHT HISTORY: M25.471 - Effusion, right ankle COMPARISON: Comparison is made with the prior examination dated 09/05/2017. FINDINGS: Three views of the right ankle are submitted. Osseous mineralization is normal. There is no fracture or dislocation. The joint spaces are preserved. The soft tissues are unremarkable. XR/XR ankle RT min 3V IMPRESSION: Unremarkable examination of the right ankle. Electronically signed by: Devon Singer MD 06/19/2025 11:19 AM EDT
== END 2025-06-19 09:47 | disposition home or self-care (01) ==
LOC: HO.HMGCX 09:46
PROVIDERS: PCP Internal Medicine; Visit Provider Physician Assistant Medical
DX: S96.911A Strain of unspecified muscle and tendon at ankle and foot level, right foot, initial encounter (principal); X58.XXXA Exposure to other specified factors, initial encounter
CPT/HCPCS: 73610; 99212

== ENCOUNTER → 2025-06-19 10:49 | Outpatient (BNV) | payer OTHER, SELFPAY | PROVIDERS: PCP Internal Medicine; Visit Provider Radiology Diagnostic Radiology | DX: M25.471 Effusion, right ankle (principal) | CPT/HCPCS: 73610 ==

== ENCOUNTER 2025-06-27 09:38 | Outpatient (AMB) | payer OTHER, SELFPAY ==
[2025-06-27 09:47] VITALS: BMI 25.4
--- NOTE | 2025-06-27 09:47 | A.OFFVIS_ITS ---
Vital Signs 06/27/25 09:47 Height 5 ft 4 in Weight 148 lb BMI 25.4 Intake Visit Reasons: Follow Up Ingrown left great toe Intake Note: Cole is a 64 year old male who presents today for a follow up of his Left hallux Dystrophia unguium, at his last visit a nail biopsy was taken and he was given an Rx for Ciclopirox. He finds his toe nail has improved slightly since sta rting the ciclopirox medication. He was seen at [facility] [place]25 where he complained of Right foot and ankle pain s/p possible twisting injury. He was given a brace and Naproxen. XR done of ankle were normal. Pt states he still experiences slight pain and swelling of the ankle. Allergies acetaminophen (From Tylenol-Codeine) Allergy (Severe, Verified 06/27/25 09:49) Difficulty Breathing codeine (From Tylenol-Codeine) Allergy (Severe, Verified 06/27/25 09:49) Difficulty Breathing atorvastatin (Lipitor) Allergy (Intermediate, Verified 06/27/25 09:49) elevated liver enzymes certolizumab pegol Adverse Reaction (Severe, Verified 06/27/25 09:49) headaches HPI HPI Follow Up Ingrown left great toe: Details: 64-year-old male past medical history of coronary artery disease, GERD, psoriatic arthritis as seen today for 1 month follow up evaluation of discolored toenails on both of his feet. The patient has been using the antifungal ointment on the affected nails daily, and removing it it weekly using nail romanian remover. He also sustained a right ankle sprain this past weekend while walking. He was seen in the emergency room where he received x-rays which were found to be normal. He was recommended a cam boot however the patient states he was not comfortable with the boot and instead was dispensed a lace-up ankle brace. He is using an ankle brace every day which helps relieve some of his pain however he still has some discomfort when walking. He is icing and elevating his leg at home. He does have a history of gout as well, however the patient states this is not what his symptoms typically present as. [facility] Medical History Tinea corporis Atherosclerotic cardiovascular disease UTI (urinary tract infection) Hospital discharge follow-up Hematuria Leukocytosis Left inguinal hernia Back pain Constipation by delayed colonic transit GERD (gastroesophageal reflux disease) Chest pain Psoriatic arthritis Moderate asthma Pure hypercholesterolemia Unintentional weight loss Surgical History S/P cardiac catheterization Hx of colonoscopy H/O enucleation of right eyeball Hx laparoscopic cholecystectomy History of eye prosthesis History of corneal transplant Family History Father Kidney failure Mother Diabetes Stroke Alzheimer disease Brother Cancer of kidney Sister Breast cancer Brother Lung cancer Social History Housing: House Alcohol intake: current Alcohol intake frequency: holidays/special occasions only Alcohol type: beer Patient Tobacco Use Status: Never used Tobacco Tobacco use type: Cigarette e-Cigarette/Vaping Use: Never Used Second Hand Smoke Exposure: No service: No Current occupational status: disabled Cognitive needs: No Hearing needs: No Vision needs: Yes (Glasses) Review of Systems Const All systems reviewed & are unremarkable except as noted in HPI and below Physical Exam Vital Signs: BMI result Body Mass Index 25.4 Extrem Other: *Bilateral Lower Extremity Focused Exam Vascular: DP/PT 2/4, CFT less than 3 seconds all digits, temperature gradient warm to cool, mild right medial ankle nonpitting edema. Derm: Discolored thickened brittle left hallux toenail, right 3rd and 4th toenails. No ecchymosis or bruising of the right ankle. Neuro: Protective sensation grossly intact to bilateral lower extremities. MSK: Moderate tenderness on palpation of the deltoid ligament and on maximum inversion and with eversion. Moderate tenderness on palpation of the PT tendon from the level of the syndesmosis to the navicular tuberosity. No pain on external rotation or plantar flexion inversion, negative anterior drawer test. Muscle strength unable to be assessed due to guarding. Results Reviewed Results Reviewed: Podiatry X-ray Read: 06/19/2025 X-ray right ankle 3 views (AP, Mortise, Lateral) reviewed which shows no fractures, dislocations, osteochondral defects, or gross abnormalities. Anatomic alignment of the tibiotalar joint. Bone density is within normal limits. No evidence of swelling, foreign body, or calcifications. No increased medial clear space. Normal tib-fib overlap. I personally reviewed the imaging and my findings are listed above. 05/29/2025 -- Right 3rd toe nail pathology-- Fungi are identified, supported by PAS stain 05/29/2025 -- Right 3rd toe nail fungal culture --Tricophyton Rubrum Assessment & Plan Assessment & Plan (1) Sprain of deltoid ligament of right ankle: Code(s): S93.421A - Sprain of deltoid ligament of right ankle, initial encounter Category: Medical Qualifiers: Encounter type: initial encounter Qualified Code(s): S93.421A - Sprain of deltoid ligament of right ankle, initial encounter Plan: * Right ankle x-rays were reviewed with the patient. * Differential diagnosis includes deltoid ligament sprain, right PT tendon strain. No signs of tendon tear/rupture at this time. Given his mechanism of injury that corroborate with his clinical exam findings, gout is unlikely. * Continue rest, ice, compression, elevation. * An Moise bandage was applied to the right ankle today. * Continue lace-up ankle brace daily. * Follow up in 2 weeks. If symptoms persist, may require physical therapy. (2) Right posterior tibial strain: Code(s): S86.111A - Strain of other muscle(s) and tendon(s) of posterior muscle group at lower leg level, right leg, initial encounter Category: Medical Qualifiers: Encounter type: initial encounter Qualified Code(s): S86.111A - Strain of other muscle(s) and tendon(s) of posterior muscle group at lower leg level, right leg, initial encounter Plan: * Continue lace-up ankle brace. (3) Dystrophia unguium: Code(s): L60.3 - Nail dystrophy Category: Medical Plan: * Continue ciclopirox 8% daily instructions were reinforced. * Reviewed nail culture and pathology results with the patient and his daughter. * Re-evaluate at the three-month gardenia. Explained that he may require transitioning to oral medication if he does not see significant improvement. Coding Level of Care Code Est Pt Level 3 (90157) Diagnoses Sprain of deltoid ligament of right ankle, initial encounter S93.421A Encounter type: initial encounter Right posterior tibial strain, initial encounter S86.111A Encounter type: initial encounter Dystrophia unguium L60.3 Time Spent (min) 30
== END 2025-06-27 10:02 | disposition home or self-care (01) ==
LOC: HO.HPODS 09:39
PROVIDERS: PCP Internal Medicine; Visit Provider Student in an Organized Health Care Education/Training Program
DX: S93.421A Sprain of deltoid ligament of right ankle, initial encounter (principal); S86.111A Strain of other muscle(s) and tendon(s) of posterior muscle group at lower leg level, right leg, initial encounter; L60.3 Nail dystrophy
CPT/HCPCS: 99214

== ENCOUNTER → 2025-06-27 09:38 | Outpatient (BNVA) | payer OTHER, SELFPAY | PROVIDERS: PCP Internal Medicine; Visit Provider Student in an Organized Health Care Education/Training Program | DX: S93.421D Sprain of deltoid ligament of right ankle, subsequent encounter (principal); S86.111D Strain of other muscle(s) and tendon(s) of posterior muscle group at lower leg level, right leg, subsequent encounter; L60.3 Nail dystrophy; R25.1 Tremor, unspecified | CPT/HCPCS: 99212 ==

== ENCOUNTER 2025-06-27 13:48 | Outpatient (AMB) | payer OTHER, SELFPAY ==
--- NOTE | 2025-06-27 13:51 | A.OFFPC_ITS ---
Vital Signs 06/27/25 13:52 Height 5 ft 4 in Weight 148 lb 8 oz BMI 25.5 BP 116/60 Blood Pressure Location Lt brachial Position Sitting Pulse 64 Pulse Source Pulse Oximeter Temp 97.5 F Temp Source Temporal Artery Scan Pulse Oximetry (%) 98 Oxygen Delivery Method Room Air Intake Visit Reasons: Pain on right arm Intake Note: Patient is here to follow up on Right arm pain and trimmers. An/Ssn 2 4 Operator Required: No Chipper Machine Operator: Not Required per policy Accompanied by: Self / Same As Patient Allergies acetaminophen (From Tylenol-Codeine) Allergy (Severe, Verified 06/27/25 13:52) Difficulty Breathing codeine (From Tylenol-Codeine) Allergy (Severe, Verified 06/27/25 13:52) Difficulty Breathing atorvastatin (Lipitor) Allergy (Intermediate, Verified 06/27/25 13:52) elevated liver enzymes certolizumab pegol Adverse Reaction (Severe, Verified 06/27/25 13:52) headaches Tobacco use date assessed: 06/27/25 Fall risk assessment: No Falls in past year Last assessed Fall Risk: 06/27/25 Dental Screening Dental Screen Date: 05/15/25 HPI HPI Comments History of Present Illness Details The patient is a 64-year-old male presenting with tremor and muscle pain. The tremor began approximately one month ago and primarily affects the right arm. The patient reports that the tremor is more pronounced during activities such as eating and drinking coffee. The tremor does not appear to be present during the physical examination but is noted by the patient to occur at home. The patient also reports muscle pain in the right arm, which is associated with the tremor. There is no history of similar symptoms in the past, and the patient denies any other neurological symptoms such as visual disturbances or balance issues. [facility] Medical History Tinea corporis Atherosclerotic cardiovascular disease UTI (urinary tract infection) Hospital discharge follow-up Hematuria Leukocytosis Left inguinal hernia Back pain Constipation by delayed colonic transit GERD (gastroesophageal reflux disease) Chest pain Psoriatic arthritis Moderate asthma Pure hypercholesterolemia Unintentional weight loss Surgical History S/P cardiac catheterization Hx of colonoscopy H/O enucleation of right eyeball Hx laparoscopic cholecystectomy History of eye prosthesis History of corneal transplant Family History Father Kidney failure Mother Diabetes Stroke Alzheimer disease Brother Cancer of kidney Sister Breast cancer Brother Lung cancer Social History Housing: House Alcohol intake: current Alcohol intake frequency: holidays/special occasions only Alcohol type: beer Patient Tobacco Use Status: Never used Tobacco Tobacco use type: Cigarette e-Cigarette/Vaping Use: Never Used Second Hand Smoke Exposure: No service: No Current occupational status: disabled Cognitive needs: No Hearing needs: No Vision needs: Yes (Glasses) Questionnaire Thrive Questionnaire Date Thrive assessed: 05/15/25 AIMEE-7 AMB Questionnaire AIMEE-7 Date AIMEE - 7 assessed: 05/15/25 Source: Developed by Drs. Devon Latif, Desirae Pennington, Chuy Kingsley and colleagues, with an educational afia from [employer]. Review of Systems Const Details: Positives besides what was mentioned in HPI are in BOLD Constitutional: No Weight Change, No Fever, No Chills, No Night Sweats, No Fatigue, No Malaise ENT/Mouth: No Hearing Changes, No Ear Pain, No Nasal Congestion, No Sinus Pain, No Hoarseness, No sore throat, No Rhinorrhea, No Swallowing Difficulty Eyes: No Eye Pain, No Swelling, No Redness, No Foreign Body, No Discharge, No Vision Changes Cardiovascular: No Chest Pain, No SOB, No PND, No Dyspnea on Exertion, No Orthopnea, No Claudication, No Edema, No Palpitations Respiratory: No Cough, No Sputum, No Wheezing, No Smoke Exposure, No Dyspnea Gastrointestinal: No Nausea, No Vomiting, No Diarrhea, No Constipation, No Pain, No Heartburn, No Anorexia, No Dysphagia, No Hematochezia, No Melena, No Flatulence, No Jaundice Genitourinary: No Dysmenorrhea, No DUB, No Dyspareunia, No Dysuria, No Urinary Frequency, No Hematuria, No Urinary Incontinence, No Urgency, No Flank Pain, No Urinary Flow Changes, No Hesitancy Musculoskeletal: No Arthralgias, No Myalgias, No Joint Swelling, No Joint Stiffness, No Back Pain, No Neck Pain, No Injury History Skin: No Skin Lesions, No Pruritis, No Hair Changes, No Breast/Skin Changes, No Nipple Discharge Neuro: No Weakness, No Numbness, No Paresthesias, No Loss of Consciousness, No Syncope, No Dizziness, No Headache, No Coordination Changes, No Recent Falls Psych: No Anxiety/Panic, No Depression, No Insomnia, No Personality Changes, No Delusions, No Rumination, No SI/HI/AH/VH, No Social Issues, No Memory Changes, No Violence/Abuse Hx., No Eating Concerns Heme/Lymph: No Bruising, No Bleeding, No Transfusions History, No Lymphadenopathy Endocrine: No Polyuria, No Polydipsia, No Temperature Intolerance Physical exam (Primary Care) Vital Signs: Last Vital Signs Temp 97.5 F 06/27/25 13:52 Pulse 64 06/27/25 13:52 BP 116/60 06/27/25 13:52 Pulse Ox 98 06/27/25 13:52 Oxygen Delivery Method Room Air 06/27/25 13:52 BMI result Body Mass Index 25.5 Tobacco/Smoking Status: Tobacco use Status Tobacco use date assessed 06/27/25 06/27/25 13:57 Patient Tobacco Use Status Never used Tobacco 06/27/25 13:57 Tobacco use type Cigarette 06/27/25 13:57 e-Cigarette/Vaping Use Never Used 06/27/25 13:57 Thrive Assessment: Date of Thrive Assessment Date Thrive assessed 05/15/25 06/27/25 13:57 Const Other: Pertinent findings are in BOLD GENERAL APPEARANCE NAD, activity normal for age, well developed/ well nourished, no cyanosis, pallor, or diaphoresis. EYES lids/conjunctiva normal. EARS/NOSE/THROAT Mucous membranes moist, nares normal, lips/teeth normal uvula midline without oral pharyngeal erythema, exudate or swelling TMs normal bilaterally. No lymphangitis/lymphedema. HEAD/NECK normocephalic atraumatic, no facial trauma, neck is supple. RESPIRATORY respiratory effort normal, speaks in full sentences, no tripod position, no accessory muscle use. Lungs clear to auscultation without rhonchi, wheezes, rales CARDIAC Regular rate and rhythm, no edema. ABDOMINAL Soft, ND/NT. No evidence of fluid wave. No pulsatile masses on exam, rebound tenderness, Torres sign or pain over Mcburney's point. MUSCLES/EXTREMITIES No abnormal range of motion, no swelling. SKIN Warm, pink and dry. No rashes, dermatoses, petechiae or lesions. NEUROLOGICAL Speech is clear and appropriate. Normal level of consciousness. Gait and coordination are normal. 5/5 strength in all extremities. PSYCH Normal mood and affect. Judgement/competence is appropriate Coding Level of Care Code Est Pt Level 3 (22143) Diagnoses Tremor R25.1 Assessment & Plan Assessment & Plan (1) Tremor: Comment: new onset Code(s): R25.1 - Tremor, unspecified Category: Medical Plan: Right arm. Not present on exam today. Patient reports having it at home. - Referral to neurology for further evaluation of tremor. - Patient advised to record video of tremor episodes at home for neurologist review. Plan I discussed with the patient the plan to refer him to a neurologist for further evaluation of his tremor and associated muscle pain. I advised him to record videos of the tremor episodes at home to assist the neurologist in assessing the condition. Orders: Referrals Neurology Referral R25.1 - Tremor, unspecified
[2025-06-27 13:52] VITALS: BP 116/60; PULSE 64; TEMP 36.4; O2SAT 98; BMI 25.5
== END 2025-06-27 15:12 | disposition home or self-care (01) ==
LOC: HO.HMCH 13:49
PROVIDERS: PCP Internal Medicine; Visit Provider Internal Medicine
DX: R25.1 Tremor, unspecified (principal)

== ENCOUNTER 2025-07-02 11:32 | Outpatient (REF) | payer OTHER, SELFPAY ==
--- NOTE | ~2025-07-02 | US_ITS ---
CLINICAL HISTORY: N20.0 - Calculus of kidney Renal ultrasound Comparison: US - US RENAL BI - 12/10/24 10:24 EDT US/SR - US RENAL BI - 07/23/24 11:39 EST US/SR - US RENAL BI - 07/21/23 10:10 EDT Findings: The kidneys are normal in echotexture bilaterally. No hydronephrosis or nephrolithiasis. The right kidney is normal in size, measuring 10.8cm in length. The left kidney is normal in size, measuring 10.4cm in length. Impression: Normal study. This document has been electronically signed by: Kinza Couch MD on 07/03/2025 14:24:05
--- OUTSIDE RECORDS SUMMARY | 2025-07-02 14:06 | XMS_ITS | Encounter Summary ---
Author Organization [facility] Address [address] [place] [address] Care Team Providers Care Soldering Machine Operator Name Role Phone Community, Pcp Primary Care Provider Zonia Camacho MD Primary Care Provider Dee giraldo Encounter Details Date Type Department Care Team Description 07/26/2017 Orders Only Dermatology - [place] [address] [place] [address] Daisy Mary PA-C Social History Tobacco Use [...] on filedocumented in this encounter Care Teams Soldering Machine Operator Relationship Specialty Start Date End Date Community, Pcp PCP - General Internal Medicine 04/09/16 04/13/22 Zonia Ashraf MD PCP - General Internal Medicine 04/14/22 documented as of this encounter
--- OUTSIDE RECORDS SUMMARY | 2025-07-02 14:06 | XMS_ITS | Encounter Summary ---
Author Organization [facility] Address [address] [place] [address] Care Team Providers Care Sort Line Name Role Phone Community, Pcp Primary Care Provider Zonia Camacho MD Primary Care Provider Dee giraldo Encounter Details Date Type Department Care Team Description 06/06/2018 Refill Dermatology - [place] [address] [place] [address] Daisy Mary PA-C Social History Tobacco Use [...] on filedocumented in this encounter Care Teams Sort Line Relationship Specialty Start Date End Date Community, Pcp PCP - General Internal Medicine 04/09/16 04/13/22 Zonia Ashraf MD PCP - General Internal Medicine 04/14/22 documented as of this encounter
--- OUTSIDE RECORDS SUMMARY | 2025-07-02 14:07 | XMS_ITS | Encounter Summary ---
Author Organization [facility] Address [address] [place] [address] Care Team Providers Care Parole Supervisor Name Role Phone Alexandru Black MD Primary Care Provider Leticia La MD Primary Care Provider Macey Haskins, Pcp Primary Care Provider Zonia Camacho MD Primary Care Provider Dee giraldo Encounter Details Date Type Department Care Team Description 06/05/2014 Release of Information Medical Records [address] [place] [id number] Abstract, Provider Social History Tobacco Use Types [...] on filedocumented in this encounter Care Teams Parole Supervisor Relationship Specialty Start Date End Date Alexandru Black MD PCP - General Internal Medicine 09/21/13 09/18/14 Leticia Rush MD PCP - General Internal Medicine 09/19/14 04/08/16 Jozef, Gabby PCP - General Internal Medicine 04/09/16 04/13/22 Zonia Ashraf MD PCP - General Internal Medicine 04/14/22 documented as of this encounter
--- OUTSIDE RECORDS SUMMARY | 2025-07-02 14:07 | XMS_ITS | Encounter Summary ---
Author Organization [facility] Address [address] [place] [address] Care Team Providers Care Manager Ccu Name Role Phone Community, Pcp Primary Care Provider Zonia Camacho MD Primary Care Provider Dee giraldo Encounter Details Date Type Department Care Team Description 08/29/2019 Telephone Dermatology - [place] [address] [place] [address] Daisy Mary PA-C Social History Tobacco Use [...] on filedocumented in this encounter Care Teams Manager Ccu Relationship Specialty Start Date End Date Community, Pcp PCP - General Internal Medicine 04/09/16 04/13/22 Zonia Ashraf MD PCP - General Internal Medicine 04/14/22 documented as of this encounter
--- OUTSIDE RECORDS SUMMARY | 2025-07-02 14:07 | XMS_ITS | Patient Health Record ---
Author Organization [facility] Address [address] [place] [address] Care Team Providers Care Tree Sapper Name Role Phone Zonia Capellan Primary Care [...] at 5:00 p.m. the day before the procedure; Duration: 1 day 07/30/2020 Active Mariana-dillon Active Vitamin B Complex Ac tive Naproxen Active Magnesium Oxide Acti ve Triamcinolone Acetonide Active Cetirizine HCl Activ e Wixela Inhub Active Fluticasone Propionate Active Cyclobenzaprine HCl Active Pantoprazole Sodium 40 MG 1 tablet Orall y Once a day; Duration: 90 Active Immunizations Vaccine Route Administration Date [...] Problem Status W/U Status Risk Notes Problem Weight loss (734511968) Weight loss (R63.4) Active confirmed Problem Left upper quadrant pain (881959177) LUQ pain (R10.12) Active confirmed Plan Of Treatment Future Test Test Name Order Date UPPER GI ENDOSCOPY 07/30/2020 COLONOSCOPY 07/30/2020 Insurance Providers Payer Name Payer Address Payer Phone Subscriber Number Group Number Insured Name Patient Relationship to Insured Coverage Start Date Coverage End Date [facility] [address] [place] [address] [id number] EREN VELAZCO Self - patient is the [...]
--- OUTSIDE RECORDS SUMMARY | 2025-07-02 14:07 | XMS_ITS | Encounter Summary ---
Author Organization [facility] Address [address] [place] [address] Care Team Providers Care Market Survey Representative Name Role Phone Alexandru Black MD Primary Care Provider Leticia La MD Primary Care Provider Macey Haskins, Pcp Primary Care Provider Zonia Camacho MD Primary Care Provider Dee giraldo Reason for Visit * Reason Onset Date Comments radiology 10/31/2013 Encounter Details Date Type Department Care Team Description 10/31/2013 Telephone Orthopedics-[address] [address] Maico Bermudez PA radiology Social History Tobacco [...] region documented in this encounter Care Teams Market Survey Representative Relationship Specialty Start Date End Date Alexandru Black MD PCP - General Internal Medicine 09/21/13 09/18/14 Leticia Rush MD PCP - General Internal Medicine 09/19/14 04/08/16 [facility], Pcp PCP - General Internal Medicine 04/09/16 04/13/22 Zonia Ashraf MD PCP - General Internal Medicine 04/14/22 documented as of this encounter
--- OUTSIDE RECORDS SUMMARY | 2025-07-02 14:07 | XMS_ITS | Encounter Summary ---
Author Organization [facility] Address [address] [place] [address] Care Team Providers Care Candle Pourer Name Role Phone Leticia Rush MD Primary Care Provider Macey Haskins, Pcp Primary Care Provider Zonia Camacho MD Primary Care Provider Dee giraldo Reason for Visit * Reason Comments E-prescribe Rx Request Encounter Details Date Type Department Care Team Description 11/01/2014 Refill Medicine/Pediatrics - [address] [phone] Alexandru Black MD E-prescribe Rx Request Social History Tobacco Use Types Packs/Day Years Used Date Smoking Tobacco: Never Alcohol Use Standard Drinks/Week Comments No 0 (1 standard drink = 0.6 oz pur e alcohol) Sex Assigned at Date Recorded Not on file documented as of this encounter Miscellaneous Notes * Telephone Encounter - Leticia Rush MD - 11/01/2014 4:32 PM EST B2B SALES REPRESENTATIVE w/ 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 These preceded his [...] THE PATIENT'S LAST APPOINTMENT IN ADULT MEDICINE? [id number] WHEN WAS THE LAST TIME THE PATIENT SAW THEIR PCP? Same as above Does patient have an upcoming appointment? Yes [id number] (THE MEDICATION REQUESTED IS ON THE MED LIST ABOVE) All of the medications requested were on the CURRENT MEDS list Did you check the Pharmacy information above?: YES Patient wants: 30 -day supply Is this a mail order prescription request ? NO Patients current insurance carrier is: [place] / [place] / Product Type: MEDICARE [id number] documented in this encounter Plan of Treatment Not on file documented as of this encounter Visit Diagnoses Diagnosis Insomnia- Primary Insomnia, unspecified documented in this encounter Care Teams Candle Pourer Relationship Specialty Start Date End Date Leticia Rush MD PCP - General Internal Medicine 09[facility]19[facility]14 [facility] 04/09/16 04/13/22 Zonia Ashraf MD PCP - General Internal Medicine 04/14/22 documented as of this encounter
--- OUTSIDE RECORDS SUMMARY | 2025-07-02 14:07 | XMS_ITS | Clinical Summary ---
Author Organization [facility] Address [address] [place] [address] Care Team Providers Care Retail Wireless Associate Name Role Phone Zonia Ashraf MD Primary [...] just unsure what to do Educational Resources [place] [employer] (www.diabetes.org) Centers for Disease Control and Prevention (www.cdc.gov/diabetes) This care plan was created in collaboration with Cloe Malone on 12/03/2014 Problem Noted Date Psoriatic arthritis 12/03/2014 Overview: ? Some left ankle synovitis 02/02 - other joints benign Eye globe prosthesis 05/17/2014 Overview: 2005 Insomnia 05/17/2014 Type 2 diabetes mellitus without complic ation 01/11/2014 Psoriasis 10/12/2013 Overview: Dr. Motley, [place] [facility] Enbrel 50mg twice a [...] HEPATITIS C SCREENING Completed 03/11/2015 Care Teams Retail Wireless Associate Relationship Specialty Start Date End Date Zonia Ashraf MD PCP - General Internal Medicine 04/14/22
--- OUTSIDE RECORDS SUMMARY | 2025-07-02 14:07 | XMS_ITS | Encounter Summary ---
Author Organization [facility] Address [address] [place] [address] Care Team Providers Care Mechanical Press Operator Name Role Phone Alexandru Black MD Primary Care Provider Leticia La MD Primary Care Provider Macey Haskins, Pcp Primary Care Provider Zonia Camacho MD Primary Care Provider Dee giraldo Encounter Details Date Type Department Care Team Description 11/22/2013 Release of Information Medical Records [address] [place] [id number] Abstract, Provider Social History Tobacco Use Types [...] on filedocumented in this encounter Care Teams Mechanical Press Operator Relationship Specialty Start Date End Date Alexandru Black MD PCP - General Internal Medicine 09/21/13 09/18/14 Leticia Rush MD PCP - General Internal Medicine 09/19/14 04/08/16 Jozef, Pcp PCP - General Internal Medicine 04/09/16 04/13/22 Zonia Ashraf MD PCP - General Internal Medicine 04/14/22 documented as of this encounter
--- OUTSIDE RECORDS SUMMARY | 2025-07-02 14:07 | XMS_ITS | Encounter Summary ---
Author Organization [facility] Address [address] [place] [address] Care Team Providers Care Termite Exterminator Name Role Phone Community, Pcp Primary Care Provider Zonia Camacho MD Primary Care Provider Dee giraldo Encounter Details Date Type Department Care Team Description 09/09/2017 Refill Dermatology - [place] [address] [place] [id number] Daisy Mary PA-C Social History Tobacco Use [...] on filedocumented in this encounter Care Teams Termite Exterminator Relationship Specialty Start Date End Date Community, Pcp PCP - General Internal Medicine 04/09/16 04/13/22 Zonia Ashraf MD PCP - General Internal Medicine 04/14/22 documented as of this encounter
--- OUTSIDE RECORDS SUMMARY | 2025-07-02 14:07 | XMS_ITS | Encounter Summary ---
Author Organization [facility] Address [address] [place] [address] Care Team Providers Care Patternmaker Plaster Name Role Phone Alexandru Black MD Primary Care Provider Leticia La MD Primary Care Provider Macey Haskins, Pcp Primary Care Provider Zonia Camacho MD Primary Care Provider Dee giraldo Reason for Visit * Reason Onset Date Comments REFERRAL 10/26/2013 Encounter Details Date Type Department Care Team Description 10/26/2013 Telephone Adult Medicine - [address] [phone] Alexandru Black MD REFERRAL Social History Tobacco [...] on filedocumented in this encounter Care Teams Patternmaker Plaster Relationship Specialty Start Date End Date Alexandru Black MD PCP - General Internal Medicine 09/21/13 09/18/14 Leticia Rush MD PCP - General Internal Medicine 09/19/14 04/08/16 [facility], Pcp PCP - General Internal Medicine 04/09/16 04/13/22 Zonia Ashraf MD PCP - General Internal Medicine 04/14/22 documented as of this encounter
--- OUTSIDE RECORDS SUMMARY | 2025-07-02 14:07 | XMS_ITS | Encounter Summary ---
Author Organization [facility] Address [address] [place] [address] Care Team Providers Care Health Program Specialist Name Role Phone Leticia Rush MD Primary Care Provider aMcey Haskins, Pcp Primary Care Provider Zonia Camacho MD Primary Care Provider Dee giraldo Encounter Details Date Type Department Care Team Description 11/14/2014 COMMERCIAL GLAZIER/[facility] Report Medical Records [address] [place] [address] Abstract, Provider Social History Tobacco Use Types [...] on filedocumented in this encounter Care Teams Health Program Specialist Relationship Specialty Start Date End Date Leticia Rush MD PCP - General Internal Medicine 09/19/14 04/08/16 Jozef, Pcp PCP - General Internal Medicine 04/09/16 04/13/22 Zonia Ashraf MD PCP - General Internal Medicine 04/14/22 documented as of this encounter
--- OUTSIDE RECORDS SUMMARY | 2025-07-02 14:07 | XMS_ITS | Encounter Summary ---
Author Organization [facility] Address [address] [place] [address] Care Team Providers Care Dye Mixer Name Role Phone Leticia Rush MD Primary Care Provider Macey Haskins, Pcp Primary Care Provider Zonia Camacho MD Primary Care Provider Dee giraldo Encounter Details Date Type Department Care Team Description 06/19/2015 Certified Bench Jeweler Technician Report Medical Records [address] [place] [address] Marline Warren MD Social History Tobacco Use [...] on filedocumented in this encounter Care Teams Dye Mixer Relationship Specialty Start Date End Date Leticia Rush MD PCP - General Internal Medicine 09/19/14 04/08/16 Jozef, Pcp PCP - General Internal Medicine 04/09/16 04/13/22 Zonia Ashraf MD PCP - General Internal Medicine 04/14/22 documented as of this encounter
--- OUTSIDE RECORDS SUMMARY | 2025-07-02 14:07 | XMS_ITS | Encounter Summary ---
Author Organization [facility] Address [address] [place] [address] Care Team Providers Care Material Inspector Name Role Phone Alexandru Black MD Primary Care Provider Leticia La MD Primary Care Provider Macey Haskins, Pcp Primary Care Provider Zonia Camacho MD Primary Care Provider Dee giraldo Encounter Details Date Type Department Care Team Description 05/30/2014 Barrel Rifler Button Report Medical Records [address] [place] [id number] Berto Garces Social History Tobacco Use Types [...] on filedocumented in this encounter Care Teams Material Inspector Relationship Specialty Start Date End Date Alexandru Black MD PCP - General Internal Medicine 09/21/13 09/18/14 Leticia Rush MD PCP - General Internal Medicine 09/19/14 04/08/16 Jozef, Gabby PCP - General Internal Medicine 04/09/16 04/13/22 Zonia Ashraf MD PCP - General Internal Medicine 04/14/22 documented as of this encounter
--- OUTSIDE RECORDS SUMMARY | 2025-07-02 14:07 | XMS_ITS | Patient Health Record ---
Author Organization [facility] Address [address] [place] [address] Care Team Providers Care Grievance Coordinator Name Role Phone Marie WHITTEN, Zonia Primary Care Provider Unavail able Bharath Aikenen Unavailable [phone] Allergies No Known Allergies Reason For Referral [...] [employer] [address] [place] [address] [id number] Cole Malone Self - patient is the insured Medical (General) History Medical History History ICD Code Reflux ( GERD) Back pain chest pain asthma Psoriasis Hypercholesterolemia Arthritis Surgical History Surgery Date(Month/Year) cholecystectomy enucleation with prosthesis placement
--- OUTSIDE RECORDS SUMMARY | 2025-07-02 14:07 | XMS_ITS | Encounter Summary ---
Author Organization [facility] Address [address] [place] [address] Care Team Providers Care Master Motorcycle Technician Name Role Phone Alexandru Black MD Primary Care Provider Leticia La MD Primary Care Provider Macey Haskins, Pcp Primary Care Provider Zonia Camacho MD Primary Care Provider Dee giraldo Encounter Details Date Type Department Care Team Description 08/28/2014 Controlled Substance Contract with Plan Medical Records [address] [place] [id number] Abstract, Provider Social History Tobacco Use Types [...] on filedocumented in this encounter Care Teams Master Motorcycle Technician Relationship Specialty Start Date End Date Alexandru Black MD PCP - General Internal Medicine 09/21/13 09/18/14 Leticia Rush MD PCP - General Internal Medicine 09/19/14 04/08/16 Jozef, Pcp PCP - General Internal Medicine 04/09/16 04/13/22 Zonia Ashraf MD PCP - General Internal Medicine 04/14/22 documented as of this encounter
== END 2025-07-02 11:33 | disposition home or self-care (01) ==
LOC: HO.HMGCX 11:32
PROVIDERS: PCP Internal Medicine; Visit Provider Nurse Practitioner Family
DX: N20.0 Calculus of kidney (principal)
CPT/HCPCS: 76775

== ENCOUNTER → 2025-07-02 11:36 | Outpatient (BNV) | payer OTHER, SELFPAY | PROVIDERS: PCP Internal Medicine; Visit Provider Radiology Diagnostic Radiology | DX: N20.0 Calculus of kidney (principal) | CPT/HCPCS: 76775 ==

== ENCOUNTER 2025-07-31 08:03 | Outpatient (AMB) | payer OTHER, SELFPAY ==
--- OUTSIDE RECORDS SUMMARY | 2009-08-20 09:45 | XMS_ITS | Continuity of Care Document ---
Author Organization [facility] Address [address] [facility] [address] [place] [address] Phone Care Team Providers Care Log Rider Name Role Phone Queenie WHITTEN, [place] Unavailable Unavailable Medications Medication Instructions Dosage Effective Dates (start - stop) Status Comments ALBUTEROL (unknown strength) Not Available - Active Procedures Procedure Date No Charge Refraction E-RX System Avail But No RX No MD Ophth Serv: Med Exam; Comp Est 09 E-RX System Avail But No RX Determ Refractive State Offic/outpt E&m Estab Low-mod 8 Determ Refractive State Ophth Ultrasound Echo Dx; Cont 08 Offic/outpt E&m Estab Low-mod 8 Ophth Serv: Med Exam; Interm E 08 Ophth Serv: Med Exam; Interm E 08 Offic/outpt E&m Estab Low-mod 7 Ophth Ultrasound Echo Dx; Cont 07 Determ Refractive State Ophth Serv: Med Exam; Comp Est 07 Offic/outpt E&m Estab Low-mod 6 Postop F/u Visit Incld Global 6 Offic/outpt E&m Estab Low-mod 6 Ophth Serv: Med Exam; Interm E 06 Subconjunctival Inj Offic/outpt E&m Estab Mod-hi 2 06 <content ID='ProcedureDescri [email or web address]' xmlns='urn:hl7-org:v3'>Visual Field Exam W/i&r; Exten</content> Postop F/u Visit Incld Global 6 FACILITY FACILITY Process Preserv Transp Corneal Keratoplasty; Penetrat (ex Aph Insrt Iol Prosth (secndry Impl Keratoplasty; Penetrat (ex Aph Postop F/u Visit Incld Global 6 Surgery Pre-Payment Anes- Eye; Corneal Transpl Offic/outpt E&m Estab Low-mod 6 Ophth Biomet Part Cohernc Intr Offic Cons New/estab Mod-hi 60 05 Advance Directives Directive Yes / No Effective Date File Name Resuscitation Not Answered N/A N/A Life Support Not Answered N/A N/A Intubation Not Answered N/A N/A Antibiotics Not Answered N/A N/A IV Fluid Support Not Answered N/A N/A Tube Feed Not Answered N/A N/A Other Directive N/A N/A WARNING:The information contained in this section is historical and is provided for information only and does not constitute a legal document or any assurance that the information is still accurate. Please verify the information with the rangel of the legal document before using it for clinical purposes. Encounters Encounter Description Practice Location Reason(s) For Visit Diagnoses Date Provider Providers Copied on Encounter [facility], [address] [place] [address], [id number], tel:[phone] [facility] No Information Queenie Ho. [address], [address], . tel:[phone] Referring Provider: [place], [address], [facility]. tel:[phone] [facility], [address], [address] [place] [address] tel:[phone] [facility] No Information Queenie Ho. [address] [place] [address], [address] [place] [address]. tel:[phone] Referring Provider: Georgia Jerome MD, [address] [place] [address], [facility]. tel:[phone] Offic/outpt E&m Estab Low-mod St [facility], [address] [place] [address], [address] [place] [address], tel:[phone] [facility] No Information No Information Offic/outpt E&m Estab Low-mod St christa, [address] [place] [address], [address] [place] [address], tel:[phone] [facility] No Information [facility] Information [facility], [address] [place] [address], [address] [place] [address], tel:[phone] [facility] No Information Ko Watkins. [address] [place] [address], [address] [place] [address], . tel:[phone] Referring Provider: June Connell, [address] [place] [address], [address] [place] [address] . tel:[phone] [facility], [address] [place] [address], [address] [place] [address], tel:[phone] [facility] No Information Zach Vera. [address] [place] [address], [address] [place] [address], . tel:[phone] Referring Provider: Chuy Hill, [address] [place] [address], [address] [place] [address] . tel:[phone] Offic/outpt E&m Estab Low[facility]mod [facility], [address] [facility] [address] [place] [address], [id number], tel:[phone] [facility] No Information Zach Vera. [address], [address] [place] [address], . tel:[phone] Referring Provider: Chuy Hill, [address] [place] [address], [address] [place] [address] . tel:[phone] [facility], [address] [place] [address], [address] [place] [address], tel:[phone] [facility] No Information Zach Vera. [address] [place] [address], [address] [place] [address], . tel:[phone] Referring Provider: Chuy Hill, [address] [place] [address], [address] [place] [address] . tel:[phone] Offic/outpt E&m Estab Low-mod St Luchrist[facility], [address] [place] [address], [address] [place] [address], tel:[phone] [facility] No Information No Information [facility], [address] [facility] [address] [place] [address], [address] [place] [address], tel:[phone] [facility] No Information Zach Vera. [address], [address] [place] [address], . tel:[phone] Referring Provider: Chuy Hill, [address] [place] [address], [address] [place] [address] . tel:[phone] Offic/outpt E&m Estab Low-mod [facility], [address] [place] [address], [address] [place] [address], tel:[phone] [facility] No Information Zach Vera. [address] [place] [address], [address] [place] [address], . tel:[phone] Referring Provider: Chuy Hill, [address] [place] [address], [address] [place] [address] . tel:[phone] [facility], [address] [place] [address], [address] [place] [address], tel:[phone] [facility] No Information Zach Vera. [address] [place] [address], [address] [place] [address], . tel:[phone] Referring Provider: Chuy Hill, [address] [place] [address], [address] [place] [address] . tel:[phone] Offic/outpt E&m Estab Mod-hi 2 Jose, [address] [place] [address], [address] [place] [address], tel:[phone] [facility] No Information No Information St [facility], [address] [place] [address], [id number], tel:[phone] [facility] No Information No Information [facility], [address] [place] [address], [id number], tel:[phone] [facility] No Information No Information [facility], [address] [place] [address], [id number], tel:[phone] [facility] No Information No Information St [facility], [address], [id number], tel:[phone] [facility] No Information [facility] Information [facility], [address], [place], [place], [id number], tel:[phone] [facility] No Information No Information [facility], [address], [id number], tel:[phone] [facility] No Information Robin BERMUDEZ Norah. [address], [facility], . tel:[phone] Offic/outpt E&m Estab Low-mod [facility], [address], [id number], tel:[phone] [facility] No Information No Information Offic Cons New/estab Mod-hi 60 [facility], [address] [place] [address], [id number], tel:[phone] [facility] No Information No Information Referring Provider: Henry Cooper, [address] [place], [address]. tel:[phone] Family History Family Member Type Diagnosis Age At Onset No Information Payers Payer name Insurance type Covered alliance party ID Authoriza tion(s) Medicare [id number] Medicaid [id number] Social History Type Description Quantity Date Captured Comments Alcohol Use Details Unknown Caffeine Use Details Unknown Tobacco Use Status No Information Smoking Status No Information Sex Male Chief Complaint And Reason For Visit No Information Reason For Referral Reason For Referral No Information History Of Present Illness Encounter Date Complaint History Of Prese nt Illness No Information Functional Status Date Functional Assessmen t No Information Instructions Date Instruction Additional Infor mation No Information Assessments Type Assessment Date No Information Patient Care Teams Name Effective Dates (start - stop) Status Members No Information
[2025-07-31 08:05] VITALS: BP 100/60; PULSE 72; O2SAT 97; BMI 25.6
--- NOTE | 2025-07-31 08:05 | A.OFFVIS_ITS ---
Vital Signs 07/31/25 08:05 Height 5 ft 4 in Weight 149 lb BMI 25.6 BP 100/60 Blood Pressure Location Lt brachial Position Sitting Pulse 72 Pulse Source Pulse Oximeter Pulse Oximetry (%) 97 Oxygen Delivery Method Room Air Intake Visit Reasons: f/u hand tremors (CONF.) Intake Note: Patient presents follow up for migraines/tremor Computer Installation Engineer Required: No Computer Installation Engineer Name: Crissy Accompanied by: Self / Same As Patient Allergies acetaminophen (From Tylenol-Codeine) Allergy (Severe, Verified 07/31/25 08:19) Difficulty Breathing codeine (From Tylenol-Codeine) Allergy (Severe, Verified 07/31/25 08:19) Difficulty Breathing atorvastatin (Lipitor) Allergy (Intermediate, Verified 07/31/25 08:19) elevated liver enzymes certolizumab pegol Adverse Reaction (Severe, Verified 07/31/25 08:19) headaches Medication List - Last Reconciled 07/31/25 by JOHNIE Hylton acetaminophen (Acetaminophen Extra Strength) 1,000 mg (2 x 500 mg) PO Q6H PRN albuterol sulfate 90 mcg/actuation 2 puffs inhalation Q4-6H PRN albuterol sulfate 2.5 mg (3 mL) inhalation Q4-6H PRN amitriptyline 25 mg PO BEDTIME 90 days aspirin 81 mg PO DAILY atorvastatin 80 mg PO BEDTIME 90 days cane As directed ciclopirox 8% 1 appl topical BEDTIME 4 weeks clotrimazole-betamethasone 1-0.05 % 1 appl topical BID 4 weeks fluticasone furoate-vilanterol 100-25 mcg/dose (Breo Ellipta) 1 inh inhalation DAILY hydrocodone-homatropine 5-1.5 mg/5 mL 5 mL PO Q6H 7 days ixekizumab (Taltz Autoinjector) 80 mg subcut Q4W montelukast 10 mg PO DAILY 90 days naproxen 500 mg PO Q12H PRN 7 days nebulizers (AeroEclipse II Nebulizer) As directed nitroglycerin 0.4 mg sublingual Q5M PRN nystatin 1 appl topical BID PRN 2 weeks pantoprazole 40 mg PO DAILY 90 days rosuvastatin 40 mg PO DAILY sennosides 17.2 mg (2 x 8.6 mg) PO BEDTIME PRN 90 days sucralfate (Carafate) 10 mL PO BID 7 days tadalafil (Cialis) 5 mg PO DAILY 90 days tamsulosin (Flomax) 0.4 mg PO BEDTIME 90 days triamcinolone acetonide 1 spray intranasal DAILY PRN ubrogepant (Ubrelvy) 50 - 100 mg (0.5 - 1 x 100 mg) PO ONCE PRN 30 days walker As directed HPI Comments Details: Right-handed 63-yr-old male presents for f/u visit of migraine, tremor. Pt is accompanied by his dtr, Josette. Patient denies any significant medical history changes. Pt reports that his migraine attacks are better- usually once a week. Using Ubrelvy prn with good effect. Baseline headache characteristics: mild-mod top of head and right retro-orbital pressure headache a/w photophobia, phonophobia, and activity intolerance. Denies N/V, watery/red eye, or activity intolerance. He reports his RUE action tremor is worsening, now making it difficult to eat and drink. At times, he may have a right rest tremor. Sometimes has nocturnal leg cramps. Denies neck pain, RUE numbness/tingling, RUE weakness, hyposmia, drooling, orthostatic lightheadedness, constipation, parasomnias, memory changes, stiffness, falls, nocturnal tremor. May have some mild right shoulder pain, psoriatic arthritis- tolerating Taltz tx (tremor started before starting this). 06/03/2024, MR/MR head/brain wo con IMPRESSION: 1. No acute intracranial abnormality. 2. Mild to moderate chronic microangiopathy. 3. Few scattered foci of susceptibility artifact in the supratentorial brain, likely sequela of chronic microhemorrhage. [facility] Medical History Tinea corporis Atherosclerotic cardiovascular disease UTI (urinary tract infection) Hospital discharge follow-up Hematuria Leukocytosis Left inguinal hernia Back pain Constipation by delayed colonic transit GERD (gastroesophageal reflux disease) Chest pain Psoriatic arthritis Moderate asthma Pure hypercholesterolemia Unintentional weight loss Surgical History S/P cardiac catheterization Hx of colonoscopy H/O enucleation of right eyeball Hx laparoscopic cholecystectomy History of eye prosthesis History of corneal transplant Family History Father Kidney failure Mother Diabetes Stroke Alzheimer disease Brother Cancer of kidney Sister Breast cancer Brother Lung cancer Social History Housing: House Alcohol intake: current Alcohol intake frequency: holidays/special occasions only Alcohol type: beer Patient Tobacco Use Status: Never used Tobacco Tobacco use type: Cigarette e-Cigarette/Vaping Use: Never Used Second Hand Smoke Exposure: No service: No Current occupational status: disabled Cognitive needs: No Hearing needs: No Vision needs: Yes (Glasses) Review of Systems Const All systems reviewed & are unremarkable except as noted in HPI and below Physical Exam Vital Signs: Last Vital Signs Pulse 72 07/31/25 08:05 BP 100/60 07/31/25 08:05 Pulse Ox 97 07/31/25 08:05 Oxygen Delivery Method Room Air 07/31/25 08:05 BMI result Body Mass Index 25.6 Const General: cooperative and no acute distress Orientation/consciousness: patient oriented x3 Resp Effort & Inspection: normal respiratory effort and able to speak in complete sentences Neuro Other: General: A&O x's 3 Expression: Intact, decreased right palpebral fissure- has right eye prosthetic Voice: Intact Tremor: Mild right postural tremor Sentence: Mild micrographia on writing his name (note that pt is illiterate and tehrefore cannot rwrite a full sentnce) Archimede's spirals: Intact FFM: slightly decreased on right Foot taps: Slightly decreased on right- he attributes this to a previous right ankle sprain Tone: No appreciable tone Gait: Stands easily, slight right shoulder drop and decreased arm swing, slight higher right step, overall steady gait and turn. Psych: Pleasant affect General: patient oriented x3 Cognition (Neuro): normal cognition Motor exam (neuro): 5/5 motor strength present throughout Extrem Other: *Bilateral Lower Extremity Focused Exam Vascular: DP/PT 2/4, CFT less than 3 seconds all digits, temperature gradient warm to cool, mild right medial ankle nonpitting edema. Derm: Discolored thickened brittle left hallux toenail, right 3rd and 4th toenails. No ecchymosis or bruising of the right ankle. Neuro: Protective sensation grossly intact to bilateral lower extremities. MSK: Moderate tenderness on palpation of the deltoid ligament and on maximum inversion and with eversion. Moderate tenderness on palpation of the PT tendon from the level of the syndesmosis to the navicular tuberosity. No pain on external rotation or plantar flexion inversion, negative anterior drawer test. Muscle strength unable to be assessed due to guarding. Psych Appearance: grossly normal Mental Status: mental status grossly normal Speech and movement: Normal speech and movement present Affect: normal affect Attitude: cooperative Results Reviewed Results Reviewed: Podiatry X-ray Read: 06/19/2025 X-ray right ankle 3 views (AP, Mortise, Lateral) reviewed which shows no fractures, dislocations, osteochondral defects, or gross abnormalities. Anatomic alignment of the tibiotalar joint. Bone density is within normal limits. No evidence of swelling, foreign body, or calcifications. No increased medial clear space. Normal tib-fib overlap. I personally reviewed the imaging and my findings are listed above. 05/29/2025 -- Right 3rd toe nail pathology-- Fungi are identified, supported by PAS stain 05/29/2025 -- Right 3rd toe nail fungal culture --Tricophyton Rubrum Assessment & Plan Assessment & Plan (1) Migraine without aura: Code(s): G43.009 - Migraine without aura, not intractable, without status migrainosus Category: Medical Qualifiers: Status migrainosus presence: without status migrainosus Intractability: intractable Qualified Code(s): G43.019 - Migraine without aura, intractable, without status migrainosus (2) Tremor: Comment: new onset Code(s): R25.1 - Tremor, unspecified Category: Medical (3) Sprain of deltoid ligament of right ankle: Code(s): S93.421A - Sprain of deltoid ligament of right ankle, initial encounter Category: Medical Qualifiers: Encounter type: initial encounter Qualified Code(s): S93.421A - Sprain of deltoid ligament of right ankle, initial encounter Plan: * Right ankle x-rays were reviewed with the patient. * Differential diagnosis includes deltoid ligament sprain, right PT tendon strain. No signs of tendon tear/rupture at this time. Given his mechanism of injury that corroborate with his clinical exam findings, gout is unlikely. * Continue rest, ice, compression, elevation. * An Moise bandage was applied to the right ankle today. * Continue lace-up ankle brace daily. * Follow up in 2 weeks. If symptoms persist, may require physical therapy. (4) Right posterior tibial strain: Code(s): S86.111A - Strain of other muscle(s) and tendon(s) of posterior muscle group at lower leg level, right leg, initial encounter Category: Medical Qualifiers: Encounter type: initial encounter Qualified Code(s): S86.111A - Strain of other muscle(s) and tendon(s) of posterior muscle group at lower leg level, right leg, initial encounter Plan: * Continue lace-up ankle brace. (5) Dystrophia unguium: Code(s): L60.3 - Nail dystrophy Category: Medical Plan: * Continue ciclopirox 8% daily instructions were reinforced. * Reviewed nail culture and pathology results with the patient and his daughter. * Re-evaluate at the three-month gardenia. Explained that he may require transitioning to oral medication if he does not see significant improvement. Plan For new onset RUE tremor- Reviewed Brain MRI w/o- mild to moderate chronic microangiopathy,, possible scattered foci of chronic microhemorrhages in the supratentorial brain. No clear findings to account for tremor. Information shared on adaptive equipment form the [employer], such as covered cups, tilted handle coffee cups. PT eval & tx OT eval & tx Discussed trying a tremor specific therapy, however pt would like to complete PT/OT first. Future considerations: DaTscan For headache prevention: Continue Amitriptyline, however will reduce dose to 10mg qhs. Previous trials: gabapentin- ineffective ? For acute headache treatment: Continue Ubrogepant (Ubrelvy) 100mg tab, 1/2 - 1 tab (50-100mg) at onset of headache, may repeat in 2 hours. Max of 2 tabs (200mg) per 24 hours. May adjunct with OTC Tylenol 650mg q 4 hours, Ibuprofen 600mg q 6 hours, or Naproxen 440mg q 12 hrs prn. Do not take w/ Butalbital (Fioricet or Fiorinal).n Migraine treatment contraindications- All triptans d/t CAD- cardiology considering LAD stent placement. ? f/u in 6 months or sooner prn. Orders: Orders PT Evaluation and Treatment Today L40.50 - Arthropathic psoriasis, unspecified, S86.111A - Strain of other muscle(s) and tendon(s) of posterior muscle group at lower leg level, right leg, initial encounter, S93.421A - Sprain of deltoid ligament of right ankle, initial encounter OT Evaluation and Treatment Today R25.1 - Tremor, unspecified, R63.39 - Other feeding difficulties Medications: New amitriptyline 10 mg PO BEDTIME 30 tabs 3RF 30 days Refilled ubrogepant (Ubrelvy) take at onset of migraine, may repeat in 2hrs (may take w/ Ibuprofen) 50 - 100 mg (0.5 - 1 x 100 mg) PO ONCE PRN 16 tabs 6RF migraine headache 30 days Discontinued amitriptyline Discontinued Reason: Doctor's Order 25 mg PO BEDTIME 90 days 90 tabs 1RF Coding Level of Care Code Est Pt Level 4 (72290) Diagnoses Intractable migraine without aura and without status migrainosus G43.019 Status migrainosus presence: without status migrainosus Intractability: intractable Tremor R25.1 Sprain of deltoid ligament of right ankle, initial encounter S93.421A Encounter type: initial encounter Right posterior tibial strain, initial encounter S86.111A Encounter type: initial encounter Dystrophia unguium L60.3
== END 2025-07-31 09:20 | disposition home or self-care (01) ==
LOC: HO.HSMS 08:04
PROVIDERS: PCP Internal Medicine; Visit Provider Nurse Practitioner Family
DX: G43.019 Migraine without aura, intractable, without status migrainosus (principal); R25.1 Tremor, unspecified; S93.421A Sprain of deltoid ligament of right ankle, initial encounter; S86.111A Strain of other muscle(s) and tendon(s) of posterior muscle group at lower leg level, right leg, initial encounter; L60.3 Nail dystrophy
CPT/HCPCS: 99214

== ENCOUNTER → 2025-07-31 08:03 | Outpatient (BNVA) | payer OTHER, SELFPAY | PROVIDERS: PCP Internal Medicine; Visit Provider Nurse Practitioner Family | DX: G43.019 Migraine without aura, intractable, without status migrainosus (principal); R25.1 Tremor, unspecified; S86.111A Strain of other muscle(s) and tendon(s) of posterior muscle group at lower leg level, right leg, initial encounter; S93.421A Sprain of deltoid ligament of right ankle, initial encounter; R63.39 Other feeding difficulties | CPT/HCPCS: 99212 ==

== ENCOUNTER 2025-08-01 09:21 | Outpatient (AMB) | payer OTHER, SELFPAY ==
--- OUTSIDE RECORDS SUMMARY | 2009-08-20 09:45 | XMS_ITS | Continuity of Care Document ---
Author Organization [facility] Address [address] [facility] [address] [place] [address] Phone Care Team Providers Care Massage Operator Name Role Phone Queenie WHITTEN, [place] Unavailable [...] Diagnoses Date Provider Providers Copied on Encounter [facility], [address] [place] [address], [id number], tel:[phone] [facility](OL D) No Information Queenie Ho. [address], [address], . tel:[phone] Referring Provider: [place], [address], [facility]. tel:[phone] [facility], [address], [address] [place] [address] tel:[phone] [facility] No Information Queenie Ho. [address] [place] [address], [address] [place] [address]. tel:[phone] Referring Provider: Georgia Jerome MD, [address] [place] [address], [facility]. tel:[phone] Offic/outpt E&m Estab Low-mod [facility], [address] [place] [address], [address] [place] [address], tel:[phone] [facility] No Information No Information Offic/outpt E&m Estab Low-mod St christa, [address] [place] [address], [address] [place] [address], tel:[phone] [facility] No Information No Information [facility], [address] [place] [address], [address] [place] [address], tel:[phone] [facility] No Information Ko Watkins. [address] [place] [address], [address] [place] [address], . tel:[phone] Referring Provider: June Connell, [address] [place] [address], [address] [place] [address] . tel:[phone] [facility], [address] [place] [address], [address] [place] [address], tel:[phone] [facility] No Information Zach Vera. [address] [place] [address], [address] [place] [address], . tel:[phone] Referring Provider: Chuy Hill, [address] [place] [address], [address] [place] [address] . tel:[phone] Offic/outpt E&m Estab Low-mod [facility], [address] [facility] [address] [place] [address], [id number], tel:[phone] [facility] No Information Zach Vera. [address], [address] [place] [address], . tel:[phone] Referring Provider: Chuy Hill, [address] [place] [address], [address] [place] [address] . tel:[phone] [facility], [address] [place] [address], [address] [place] [address], tel:[phone] [facility] No Information Zach Vera. [address] [place] [address], [address] [place] [address], . tel:[phone] Referring Provider: Chuy Hill, [address] [place] [address], [address] [place] [address] . tel:[phone] Offic/outpt E&m Estab Low-mod [facility], [address] [place] [address], [address] [place] [address], tel:[phone] [facility] No Information No Information [facility], [address] [facility] [address] [place] [address], [address] [place] [address], tel:[phone] [facility] No Information Zach Vera. [address], [address] [place] [address], . tel:[phone] Referring Provider: Chuy Hill, [address] [place] [address], [address] [place] [address] . tel:[phone] Offic/outpt E&m Estab Low-mod [facility], [address] [place] [address], [address] [place] [address], tel:[phone] [facility] No Information Zach Vera. [address] [place] [address], [address] [place] [address], . tel:[phone] Referring Provider: Chuy Hill, [address] [place] [address], [address] [place] [address] . tel:[phone] [facility], [address] [place] [address], [address] [place] [address], tel:[phone] [facility] No Information Zach Vera. [address] [place] [address], [address] [place] [address], . tel:[phone] Referring Provider: Chuy Hill, [address] [place] [address], [address] [place] [address] . tel:[phone] Offic/outpt E&m Estab Mod-hi 2 Jose, [address] [place] [address], [address] [place] [address], tel:[phone] [facility] No Information No Information [facility], [address] [place] [address], [id number], tel:[phone] [facility] No Information No Information [facility], [address] [place] [address], [id number], tel:[phone] [facility] No Information No Information [facility], [address] [place] [address], [id number], tel:[phone] [facility] No Information No Information [facility], [address], [id number], tel:[phone] [facility] No Information No Information [facility], [address], [place], [place], [id number], tel:[phone] [facility] No Information No Information [facility], [address], [id number], tel:[phone] [facility] No Information Robin BERMUDEZ Norah. [address], [facility], . tel:[phone] Offic/outpt E&m Estab Low-mod [facility], [address], [id number], tel:[phone] [facility] No Information No Information Offic Cons New/estab Mod-hi 60 [facility], [address] [place] [address], [id number], tel:[phone] [facility] No Information No Information Referring Provider: Henry Cooper, [address] [place], [address]. tel:[phone] Family History Family Member Type Diagnosis Age At Onset No Information Payers Payer name Insurance type Covered constitution party ID Authoriza tion(s) Medicare [id number] Medicaid [id number] Social History Type Description Quantity Date Captured [...]
[2025-08-01 09:37] VITALS: BMI 25.6
--- NOTE | 2025-08-01 09:37 | A.OFFVIS_ITS ---
Vital Signs 08/01/25 09:37 Height 5 ft 4 in Weight 149 lb BMI 25.6 Intake Visit Reasons: Follow Up Ingrown left great toe Intake Note: Cole is a 65 year old male who presents today for a follow up on his Dystrophia unguium. At his last visit he was prescribed Clotrimazole. Patient reports he has been using the medication and so far everything has remained the same. He mentions he has his PT appointment for his ankle scheduled. Allergies acetaminophen (From Tylenol-Codeine) Allergy (Severe, Verified 08/01/25 09:41) Difficulty Breathing codeine (From Tylenol-Codeine) Allergy (Severe, Verified 08/01/25 09:41) Difficulty Breathing atorvastatin (Lipitor) Allergy (Intermediate, Verified 08/01/25 09:41) elevated liver enzymes certolizumab pegol Adverse Reaction (Severe, Verified 08/01/25 09:41) headaches HPI HPI Follow Up Ingrown left great toe: Details: 64-year-old male past medical history of coronary artery disease, GERD, psoriatic arthritis returns today for month follow up of right ankle pain and nail fungus. He states he uses his ankle brace whenever he is home and then uses his boot whenever he leaves the house. He has not been performing [id number] exercises. He is still complaining of ankle pain. He saw neurology yesterday who referred him to physical therapy. The patient has been using the antifungal ointment on the affected nails daily, and removing it it weekly using nail chinese remover. He also sustained a right ankle sprain this past weekend while walking. He was seen in the emergency room where he received x-rays which were found to be normal. He was recommended a cam boot however the patient states he was not comfortable with the boot and instead was dispensed a lace-up ankle brace. He is using an ankle brace every day which helps relieve some of his pain however he still has some discomfort when walking. He is icing and elevating his leg at home. He does have a history of gout as well, however the patient states this is not what his symptoms typically present as. [facility] Medical History Tinea corporis Atherosclerotic cardiovascular disease UTI (urinary tract infection) Hospital discharge follow-up Hematuria Leukocytosis Left inguinal hernia Back pain Constipation by delayed colonic transit GERD (gastroesophageal reflux disease) Chest pain Psoriatic arthritis Moderate asthma Pure hypercholesterolemia Unintentional weight loss Surgical History S/P cardiac catheterization Hx of colonoscopy H/O enucleation of right eyeball Hx laparoscopic cholecystectomy History of eye prosthesis History of corneal transplant Family History Father Kidney failure Mother Diabetes Stroke Alzheimer disease Brother Cancer of kidney Sister Breast cancer Brother Lung cancer Social History Housing: House Alcohol intake: current Alcohol intake frequency: holidays/special occasions only Alcohol type: beer Patient Tobacco Use Status: Never used Tobacco Tobacco use type: Cigarette e-Cigarette/Vaping Use: Never Used Second Hand Smoke Exposure: No service: No Current occupational status: disabled Cognitive needs: No Hearing needs: No Vision needs: Yes (Glasses) Review of Systems Const All systems reviewed & are unremarkable except as noted in HPI and below Physical Exam Vital Signs: BMI result Body Mass Index 25.6 Extrem Other: *Bilateral Lower Extremity Focused Exam Vascular: DP/PT 2/4, CFT less than 3 seconds all digits, temperature gradient warm to cool, mild right medial ankle nonpitting edema. Derm: Discolored thickened brittle left hallux toenail, right 3rd and 4th toenails. No ecchymosis or bruising of the right ankle. Neuro: Protective sensation grossly intact to bilateral lower extremities. MSK: Moderate tenderness on palpation of the deltoid ligament. No longer having pain on inversion and eversion. Moderate tenderness on palpation of the PT tendon retromalleolar region. No pain on external rotation or plantar flexion inversion, negative anterior drawer test. Muscle strength unable to be assessed due to guarding. Assessment & Plan Assessment & Plan (1) Sprain of deltoid ligament of right ankle: Code(s): S93.421A - Sprain of deltoid ligament of right ankle, initial encounter Category: Medical Qualifiers: Encounter type: initial encounter Qualified Code(s): S93.421A - Sprain of deltoid ligament of right ankle, initial encounter Plan: * Right ankle x-rays were reviewed with the patient. * Differential diagnosis includes deltoid ligament sprain, right PT tendon strain. No signs of tendon tear/rupture at this time. Given his mechanism of injury that corroborate with his clinical exam findings, gout is unlikely. * Continue rest, ice, compression, elevation. * Continue lace-up ankle brace as needed. * Instructed to perform range of motion and stretching exercises. A handout was dispensed today. * Referred to physical therapy * Follow up in 1 month. If symptoms persist, we will refer him for right ankle MRI. (2) Right posterior tibial strain: Code(s): S86.111A - Strain of other muscle(s) and tendon(s) of posterior muscle group at lower leg level, right leg, initial encounter Category: Medical Qualifiers: Encounter type: initial encounter Qualified Code(s): S86.111A - Strain of other muscle(s) and tendon(s) of posterior muscle group at lower leg level, right leg, initial encounter Plan: * Continue lace-up ankle brace. (3) Dystrophia unguium: Code(s): L60.3 - Nail dystrophy Category: Medical Plan: * Continue ciclopirox 8% daily instructions were reinforced. * Reviewed nail culture and pathology results with the patient and his granddaughter.. * Re-evaluate at the three-month gardenia. Explained that he may require transitioning to oral medication if he does not see significant improvement. Coding Level of Care Code Est Pt Level 3 (40591) Diagnoses Sprain of deltoid ligament of right ankle, initial encounter S93.421A Encounter type: initial encounter Right posterior tibial strain, initial encounter S86.111A Encounter type: initial encounter Dystrophia unguium L60.3 Time Spent (min) 30
--- OUTSIDE RECORDS SUMMARY | 2025-08-01 10:41 | XMS_ITS | Patient Health Record ---
Author Organization [facility] Address [address] [place] [address] Care Team Providers Care Carbon Furnace Operator Helper Name Role Phone Marie WHITTEN, Zonia Primary Care Provider Unavail able Bharath Aikenen Unavailable [phone] Allergies No Known Allergies Reason For Referral [...] Insured Coverage Start Date Coverage End Date [facility] [employer] Claims [address] [place] [id number] Cole Malone Self - patient is the insured Medical (General) History Medical History History ICD Code Reflux ( GERD) Back pain chest pain asthma Psoriasis Hypercholesterolemia Arthritis Surgical History Surgery Date(Month/Year) cholecystectomy enucleation with prosthesis placement
--- OUTSIDE RECORDS SUMMARY | 2025-08-01 10:42 | XMS_ITS | Patient Health Record ---
Author Organization [facility] Address [address] [place] [address] Care Team Providers Care Hard Tile Setter Apprentice Name Role Phone Zonia Capellan Primary Care Provider Unavailab Quan Hahn Jr Unavailable [phone] Iwona Bagley Unavailable Unavailable Allergies Allergen [...] W/U Status Risk Notes Problem Weight loss (392584318) Weight loss (R63.4) Active confirmed Problem Left upper quadrant pain (414135615) LUQ pain (R10.12) Active confirmed Plan Of Treatment Future Test Test Name Order Date UPPER GI ENDOSCOPY 07/30/2020 COLONOSCOPY 07/30/2020 Insurance Providers Payer Name Payer Address Payer Phone Subscriber Number Group Number Insured Name Patient Relationship to Insured Coverage Start Date Coverage End Date [facility] [address] [place] [address] [id number] EREN VELAZCO Self - patient is the [...]
== END 2025-08-01 09:53 | disposition home or self-care (01) ==
LOC: HO.HPODS 09:22
PROVIDERS: PCP Internal Medicine; Visit Provider Student in an Organized Health Care Education/Training Program
DX: S93.421A Sprain of deltoid ligament of right ankle, initial encounter (principal); S86.111A Strain of other muscle(s) and tendon(s) of posterior muscle group at lower leg level, right leg, initial encounter; L60.3 Nail dystrophy
CPT/HCPCS: 99213

== ENCOUNTER → 2025-08-01 09:21 | Outpatient (BNVA) | payer OTHER, SELFPAY | PROVIDERS: PCP Internal Medicine; Visit Provider Student in an Organized Health Care Education/Training Program | DX: S93.421A Sprain of deltoid ligament of right ankle, initial encounter (principal); S86.111A Strain of other muscle(s) and tendon(s) of posterior muscle group at lower leg level, right leg, initial encounter; L60.3 Nail dystrophy; X58.XXXA Exposure to other specified factors, initial encounter; Y93.01 Activity, walking, marching and hiking; Y92.9 Unspecified place or not applicable; Y99.9 Unspecified external cause status | CPT/HCPCS: 99212 ==

== ENCOUNTER 2025-08-05 12:55 | Outpatient (AMB) | payer OTHER, SELFPAY ==
--- NOTE | 2025-08-05 13:00 | MHC.OFFVIS ---
Vital Signs 08/05/25 13:01 Height 5 ft 4 in Weight 145 lb 8.081 oz BMI 25.0 BP 98/46 L Blood Pressure Location Lt brachial Position Sitting Pulse 62 Pulse Source Pulse Oximeter Pulse Oximetry (%) 98 Oxygen Delivery Method Room Air Intake Visit Reasons: Asthma Fence Erector Supervisor Required: Yes Fence Erector Supervisor Language: Panel Coverer Name: [id number] [facility] Allergies acetaminophen (From Tylenol-Codeine) Allergy (Severe, Verified 08/05/25 13:08) Difficulty Breathing codeine (From Tylenol-Codeine) Allergy (Severe, Verified 08/05/25 13:08) Difficulty Breathing atorvastatin (Lipitor) Allergy (Intermediate, Verified 08/05/25 13:08) elevated liver enzymes certolizumab pegol Adverse Reaction (Severe, Verified 08/05/25 13:08) headaches HPI HPI Asthma: Details: Cole is a pleasant 65-year-old male, never smoker, with underlying asthma, psoriasis, and high cholesterol. At baseline, he reports good control of respiratory symptoms with the use of Breo and Singulair, using albuterol MDI infrequently. Today he presents for an acute visit. He reports over the last two days worsening dyspnea, wheezing and chest tightness with associated dry cough. Denies fever, chills or sick contacts. He has been using his albuterol MDI q 4 hours with moderate relief. [facility] Medical History Tinea corporis Atherosclerotic cardiovascular disease UTI (urinary tract infection) Hospital discharge follow-up Hematuria Leukocytosis Left inguinal hernia Back pain Constipation by delayed colonic transit GERD (gastroesophageal reflux disease) Chest pain Psoriatic arthritis Moderate asthma Pure hypercholesterolemia Unintentional weight loss Surgical History S/P cardiac catheterization Hx of colonoscopy H/O enucleation of right eyeball Hx laparoscopic cholecystectomy History of eye prosthesis History of corneal transplant Family History Father Kidney failure Mother Diabetes Stroke Alzheimer disease Brother Cancer of kidney Sister Breast cancer Brother Lung cancer Social History Housing: House Alcohol intake: current Alcohol intake frequency: holidays/special occasions only Alcohol type: beer Patient Tobacco Use Status: Never used Tobacco Tobacco use type: Cigarette e-Cigarette/Vaping Use: Never Used Second Hand Smoke Exposure: No service: No Current occupational status: disabled Cognitive needs: No Hearing needs: No Vision needs: Yes (Glasses) Review of Systems Const Denies chills, Denies excessive sweating, Denies fever(s), Denies headache(s) and Denies night sweats Eyes Denies dry eyes, Denies irritation and Denies itchy eyes ENT Reports Normal hearing present, Denies headache(s), Denies nasal congestion, Denies nasal discharge, Denies post nasal drip and Denies sore throat Card Denies chest pain, Denies chest pain at rest, Denies chest pain with activity, Denies claudication, Denies leg edema, Denies orthopnea and Denies paroxysmal nocturnal dyspnea Resp Denies chest congestion, Denies excessive phlegm production, Denies pain on inspiration, Denies pain with cough and Denies stridor Musc Denies myalgias Neuro Reports Normal hearing present and Denies headache(s) Endo Denies excessive sweating Maurice/Lymph Denies lymphadenopathy Aller/Immun Denies itchy eyes and Denies seasonal rhinorrhea Physical Exam Vital Signs: Last Vital Signs Pulse 62 08/05/25 13:01 BP 98/46 L 08/05/25 13:01 Pulse Ox 98 08/05/25 13:01 Oxygen Delivery Method Room Air 08/05/25 13:01 BMI result Body Mass Index 25.0 Const General: cooperative, healthy appearing, comfortable, no acute distress, well developed and alert Orientation/consciousness: patient oriented x3 Limitations: no limitations HEENT Head: Yes normal to inspection, Yes normocephalic and Yes atraumatic Ears: hearing grossly normal bilaterally and external ears normal Neck Neck: Yes normal visual inspection and Yes no lymphadenopathy Lymphatic: no lymphadenopathy noted Chest Chest palpation & inspection: normal inspection of the chest Resp Effort & Inspection: normal respiratory effort, able to speak in complete sentences, no audible wheezes, no cough, no stridor, not tachypneic, no tripod positioning and no use of accessory muscles Auscultation: wheezes Cardio Jugular venous distension: no JVD Rate: regular rate Rhythm: regular rhythm Skin Other: warm, dry General skin exam: no rashes or lesions noted Neuro General: patient oriented x3 Cranial nerves: Yes Normal hearing present Cognition (Neuro): normal cognition Gait exam (Neuro): Normal gait present Extrem General: Yes normal to inspection, Yes capillary refill normal, Yes no clubbing, cyanosis or edema and Yes no pedal edema Psych Appearance: grossly normal and well kempt Speech and movement: Normal speech and movement present and Clear speech present Affect: normal affect Attitude: cooperative Thought process: Normal thought process present Thought content: Normal thought content present Insight: Good insight present (Psych) Judgement: Good judgement present (Psych) Assessment & Plan Assessment & Plan (1) Asthma: Code(s): J45.909 - Unspecified asthma, uncomplicated Category: Medical (2) Cough: Code(s): R05.9 - Cough, unspecified Category: Medical (3) Restrictive ventilatory defect: Code(s): R94.2 - Abnormal results of pulmonary function studies Category: Medical Plan Will treat exacerbation with prednisone. He is aware to call if symptoms do not improve or seek emergent care if symptoms worsen. Continue Breo, Singulair and Albuterol MDI PRN. Prior chest CT 10/2024 revealed calcified granuloma otherwise no significant pulmonary findings and no need for further follow up. All questions were answered and patient is in agreement of plan. Will follow up in 3 months or sooner if needed. Medications: New prednisone 40 mg (2 x 20 mg) PO DAILY 10 tabs 0RF Coding Level of Care Code Est Pt Level 4 (84270) Diagnoses Asthma J45.909 Cough R05.9 Restrictive ventilatory defect R94.2
[2025-08-05 13:01] VITALS: BP 98/46; PULSE 62; O2SAT 98; BMI 25.0
== END 2025-08-05 13:21 | disposition home or self-care (01) ==
PROVIDERS: PCP Internal Medicine; Visit Provider Nurse Practitioner Family
DX: J45.909 Unspecified asthma, uncomplicated (principal); R05.9 Cough, unspecified; R94.2 Abnormal results of pulmonary function studies
CPT/HCPCS: 99214

== ENCOUNTER → 2025-08-05 12:55 | Outpatient (BNVA) | payer OTHER, SELFPAY | PROVIDERS: PCP Internal Medicine; Visit Provider Nurse Practitioner Family | DX: J45.909 Unspecified asthma, uncomplicated (principal); R05.9 Cough, unspecified; R94.2 Abnormal results of pulmonary function studies | CPT/HCPCS: 99212 ==

== ENCOUNTER 2025-09-06 10:37 | Outpatient (AMB) | payer OTHER, SELFPAY ==
--- OUTSIDE RECORDS SUMMARY | 2009-08-20 09:45 | XMS_ITS | Continuity of Care Document ---
Author Organization [facility] Address [address] [address] Phone Care Team Providers Care Echo Vascular Tech Name Role Phone Georgia Jerome MD Unavailable Unavailable Medications Medication Instructions Dosage Dose Quantity Effective Dates (start - stop) Status Indication Fill Status Comments ALBUTEROL (unknown strength) Not Availabl e - Active Procedures Procedure Date No Charge Refraction E-RX System Avail But No RX Polina WHITTEN Advance Directives Directive Yes / No Effective Date File Name No Information Encounters Encounter Description Practice Location Reason(s) For Visit Diagnoses Date Provider Encounter Disposition [facility], [address], [address] [place] [address], tel:[phone] [facility] No Information 2 9 Queenie oH. [address], [address] [place] [address]. tel:[phone] [facility], [address], [id number], tel:[phone] [facility] No Information 0 9 Queenie Ho. [address] [facility] [address] [place], [place], [facility], . tel:[phone] [facility], [address], [id number], tel:[phone] [facility] No Information [address] [facility], [address], [place], [place], [id number], tel:[phone] [facility] No Information [address] [facility], [address] [facility], [place], [place], [id number], tel:[phone] [facility] No Information Apr-0 8 [place] June. [address], [place], [place], [id number], [place]. tel:[phone] [facility], [address] [facility], [place], [place], [id number], tel:[phone] [facility] No Information 8 Zach Vera. [address], [place], [place], [id number], . tel:[phone] [facility], [address] [facility], [place], [place], [id number], tel:[phone] [facility] No Information Dec-0 200 7 Zach Barahona [address], [place], [place], [id number], [place]. tel:[phone] [facility], [address], [place], [id number], tel:[phone] [facility] No Information January-3 200 7 Zach Barahona [address], [place], [place], [id number], [place]. tel:[phone] [facility], [address] [facility], [place], [place], [id number], tel:[phone] [facility] No Information Nov-2 [address] [facility], [address], [place], [place], [id number], [place] tel:[phone] [facility] No Information Apr-2 4-200 6 Zach Vera. [address], [place], [place], [id number], . tel:[phone] [facility], [address], [place], [place], [id number], tel:[phone] [facility] No Information Mar-0 6-200 6 Zach Vera. [address], [place], [address] [place] [address], . tel:[phone] [facility], [address], [place], [id number], tel:[phone] [facility] No Information 9200 6 Zach Vera. [address], [place], [address] [place] [address], . tel:[phone] [facility], [address], [place], [place], [id number], tel:[phone] [facility] No Information Nov-2 1-[address] [facility], [address], [place], [id number], tel:[phone] [facility] No Information Feb-2 3-[address] [facility], [address], [place], [id number], tel:[phone] [facility] No Information Feb-1 6-[address] [facility], [address], [place], [id number], tel:[phone] [facility] No Information Feb-1 6-[address] [facility], [address], [place], [place], [id number], tel:[phone] [facility] No Information Feb-1 5-[address] [facility], [address] [facility] [address], [place], [place], [id number], [place] tel:[phone] [facility] No Information [address] [facility], [address], [place], [place], [id number], tel:[phone] [facility] No Information 6 Robin BERMUDEZ Norah. [address] [facility] , [place], [address], [place]. tel:[phone] [facility], [address] [facility] , [place], [place], [id number], tel:[phone] [facility] No Information [address] [facility], [address] [facility] [address], [place], [place], [id number], tel:[phone] [facility] No Information 5 No Information Family History Family Member Type Diagnosis Age At Onset No Information Payers Payer name Insurance type Identifiers Authorization(s) Com ments Medicare MB duy ID: [id number] Name: Coverage Status Eligibility Check on: UnknownRelationship to Subscriber: selfPayer Address: [address], [place], [address], [employer] Phone: [phone] Medicaid MC duy ID: [id number] Name: Coverage Status Eligibility Check on: UnknownRelationship to Subscriber: selfPayer Address: [address], [place], [place], [id number], [employer] Phone: [phone] Social History Type Description Quantity Date Captured Comments Alcohol Use Details Unknown Caffeine Use Details Unknown Tobacco Use Status No Information Smoking Status No Information Sex Male Current Gender Male (finding) Chief Complaint And Reason For Visit No Information History Of Present Illness Encounter Date Complaint History Of Prese nt Illness No Information Functional Status Date Description Comments No Information Instructions Date Instruction Additional Infor mation No Information Assessments Type Assessment Date No Information
--- NOTE | 2025-09-06 10:44 | A.OFFVIS_ITS ---
Vital Signs 09/06/25 10:50 Height 5 ft 4 in Weight 145 lb BMI 24.9 Intake Visit Reasons: Follow Up Ingrown left great toe Intake Note: Cole is a 65 year old male who presents to the office today for a follow up Ingrown left great toe. At last visit pt was instructed to continue lace-up ankle brace and Ciclopirox. Pt states everything is going well however he notes he is still experiencing occasional pain in his right ankle and it appears swollen. Home Advisor Required: Yes Home Advisor Services: Home Advisor Present Home Advisor Name: [id number] Allergies acetaminophen (From Tylenol-Codeine) Allergy (Severe, Verified 09/06/25 10:51) Difficulty Breathing codeine (From Tylenol-Codeine) Allergy (Severe, Verified 09/06/25 10:51) Difficulty Breathing atorvastatin (Lipitor) Allergy (Intermediate, Verified 09/06/25 10:51) elevated liver enzymes certolizumab pegol Adverse Reaction (Severe, Verified 09/06/25 10:51) headaches HPI HPI Follow Up Ingrown left great toe: Details: 64-year-old male past medical history of coronary artery disease, GERD, psoriatic arthritis returns today for month follow up of right ankle pain and nail fungus. He stopped using his lace-up ankle brace. He is still complaining of ankle pain. He has not yet started physical therapy. The patient states he has been using the antifungal ointment on the affected nails daily, and removing it it weekly using nail slovak remover. History: He sustained a right ankle sprain while walking. He was seen in the emergency room where he received x-rays which were found to be normal. [facility] Medical History Tinea corporis Atherosclerotic cardiovascular disease UTI (urinary tract infection) Hospital discharge follow-up Hematuria Leukocytosis Left inguinal hernia Back pain Constipation by delayed colonic transit GERD (gastroesophageal reflux disease) Chest pain Psoriatic arthritis Moderate asthma Pure hypercholesterolemia Unintentional weight loss Surgical History S/P cardiac catheterization Hx of colonoscopy H/O enucleation of right eyeball Hx laparoscopic cholecystectomy History of eye prosthesis History of corneal transplant Family History Father Kidney failure Mother Diabetes Stroke Alzheimer disease Brother Cancer of kidney Sister Breast cancer Brother Lung cancer Social History Housing: House Alcohol intake: current Alcohol intake frequency: holidays/special occasions only Alcohol type: beer Patient Tobacco Use Status: Never used Tobacco Tobacco use type: Cigarette e-Cigarette/Vaping Use: Never Used Second Hand Smoke Exposure: No service: No Current occupational status: disabled Cognitive needs: No Hearing needs: No Vision needs: Yes (Glasses) Review of Systems Const All systems reviewed & are unremarkable except as noted in HPI and below Physical Exam Vital Signs: BMI result Body Mass Index 24.9 Extrem Other: *Bilateral Lower Extremity Focused Exam Vascular: DP/PT 2/4, CFT less than 3 seconds all digits, temperature gradient warm to cool, mild right medial ankle nonpitting edema with varicose veins Derm: Discolored thickened brittle left hallux toenail, right 3rd and 4th toenails. No ecchymosis or bruising of the right ankle. Neuro: Protective sensation grossly intact to bilateral lower extremities. MSK: Moderate tenderness on palpation of the posterior tibial tendon at the retromalleolar region. No longer having pain on passive inversion and eversion. No pain on external rotation or plantar flexion inversion, negative anterior drawer test. Muscle strength 5/5 on inversion and eversion with mild pain on eversion. Assessment & Plan Assessment & Plan (1) Sprain of deltoid ligament of right ankle: Code(s): S93.421A - Sprain of deltoid ligament of right ankle, initial encounter Category: Medical Qualifiers: Encounter type: initial encounter Qualified Code(s): S93.421A - Sprain of deltoid ligament of right ankle, initial encounter Plan: * Differential diagnosis includes deltoid ligament sprain, right PT tendon strain. No signs of tendon tear/rupture at this time. Given his mechanism of injury that corroborate with his clinical exam findings, gout is unlikely. * Instructed once again to perform range of motion and stretching exercises. A handout was dispensed today. * Instructed pt to call the physical therapy department to make appointments * Referred for right ankle MRI due to persistent pain that is not improving with CAM boot/brace therapy, pain regimen, and at home therapy. * Follow up in 1 month. (2) Right posterior tibial strain: Code(s): S86.111A - Strain of other muscle(s) and tendon(s) of posterior muscle group at lower leg level, right leg, initial encounter Category: Medical Qualifiers: Encounter type: initial encounter Qualified Code(s): S86.111A - Strain of other muscle(s) and tendon(s) of posterior muscle group at lower leg level, right leg, initial encounter Plan: * Continue at home therapy regimen (3) Dystrophia unguium: Code(s): L60.3 - Nail dystrophy Category: Medical Plan: * Continue ciclopirox 8% daily instructions were reinforced. * Reviewed nail culture and pathology results with the patient and his . * Re-evaluate at 4 month gardenia. Explained that he may require transitioning to oral medication if he does not see significant improvement. Orders: Orders MR ankle RT wo con Today S86.111A - Strain of other muscle(s) and tendon(s) of posterior muscle group at lower leg level, right leg, initial encounter, S93.421A - Sprain of deltoid ligament of right ankle, initial encounter Coding Level of Care Code Est Pt Level 3 (67548) Diagnoses Sprain of deltoid ligament of right ankle, initial encounter S93.421A Encounter type: initial encounter Right posterior tibial strain, initial encounter S86.111A Encounter type: initial encounter Dystrophia unguium L60.3
[2025-09-06 10:50] VITALS: BMI 24.9
--- OUTSIDE RECORDS SUMMARY | 2025-09-06 12:16 | XMS_ITS | Patient Health Record ---
Author Organization [facility] Address [address] [place] [address] Care Team Providers Care Appraisal Specialist Name Role Phone Marie WHITTEN, Zonia Primary Care Provider Unavail able Bharath Aikenen Unavailable [phone] Allergies No Known Allergies Reason For Referral [...] Insured Coverage Start Date Coverage End Date [facility] SCO Claims [address] [place] [id number] Cole Malone Self - patient is the insured Medical (General) History Medical History History ICD Code Reflux ( GERD) Back pain chest pain asthma Psoriasis Hypercholesterolemia Arthritis Surgical History Surgery Date(Month/Year) cholecystectomy enucleation with prosthesis placement
--- OUTSIDE RECORDS SUMMARY | 2025-09-06 12:16 | XMS_ITS | Patient Health Record ---
Author Organization [facility] Address [address] [place] [address] Care Team Providers Care Web Site Designer Name Role Phone Zonia Capellan Primary Care [...] Cyclobenzaprine HCl Active Pantoprazole Sodium 40 MG Tablet Delayed Release 1 tablet Orally Once a day; Duration: 90 Active Immunizations Vaccine Route Administration Date Status Comme nts Influenza Unknown 07/23/2020 Administered Social History Tobacco Use: Social History Observation Description Date Details (start date - stop date) Never Smoker NA - NA Social History Drugs/Alcohol: Social Info Question Answer Notes Alcohol Screen Did you have a drink containing alcohol in the past year? No Points 0 Interpretation Negative Tobacco Use: Social Info Question Answer Notes Tobacco Use/Smoking Patient is a nonsmoker Additional Details Category Social Info Options Details Miscellaneous: Marital status: Occupation: Disable Problems Problem Type SNOMED Code ICD Code Onset Dates Problem Status W/U Status Risk Notes Problem Weight loss (789875311) Weight loss (R63.4) Active confirmed Problem Left upper quadrant pain (029491518) LUQ pain (R10.12) Active confirmed Plan Of Treatment Future Test Test Name Order Date UPPER GI ENDOSCOPY 07/30/2020 COLONOSCOPY 07/30/2020 Insurance Providers Payer Name Payer Address Payer Phone Subscriber Number Group Number Insured Name Patient Relationship to Insured Coverage Start Date Coverage End Date [facility] [address] [place] [address] [id number] EREN VELAZCO Self - patient is the [...]
== END 2025-09-06 11:07 | disposition home or self-care (01) ==
LOC: HO.HPODS 10:37
PROVIDERS: PCP Internal Medicine; Visit Provider Student in an Organized Health Care Education/Training Program
DX: S93.421A Sprain of deltoid ligament of right ankle, initial encounter (principal); S86.111A Strain of other muscle(s) and tendon(s) of posterior muscle group at lower leg level, right leg, initial encounter; L60.3 Nail dystrophy
CPT/HCPCS: 99213

== ENCOUNTER → 2025-09-06 10:37 | Outpatient (BNVA) | payer OTHER, SELFPAY | PROVIDERS: PCP Internal Medicine; Visit Provider Student in an Organized Health Care Education/Training Program | DX: S93.421A Sprain of deltoid ligament of right ankle, initial encounter (principal); S86.111A Strain of other muscle(s) and tendon(s) of posterior muscle group at lower leg level, right leg, initial encounter; L60.3 Nail dystrophy | CPT/HCPCS: 99212 ==